=== PATIENT | female | born 1945 | race Caucasian/White ===

== ENCOUNTER 2017-03-30 09:11 | Day surgery (SDC) | payer MEDICARE, OTHER, SELFPAY ==
[2017-03-30 09:50] VITALS: BP 120/70; PULSE 67; RESP 16; TEMP 36.4; O2SAT 98; BMI 31.2
[2017-03-30] MEDS: Cefazolin 2 GM in 0.9% Normal Saline 100 ML IV (11:05)
--- NOTE | 2017-03-30 11:12 | PCM.DC.URO ---
Discharge Diet: Light diet - advance as tolerated Discharge Activity: Return to Normal Activity Instructions: Shock Wave Lithotripsy Allergies/Adverse Reactions: Allergies aloe Allergy (Verified 03/14/17 14:05) Rash erythromycin base Allergy (Verified 03/14/17 14:05) Unknown Penicillins Allergy (Verified 03/14/17 14:05) Unknown Sulfa (Sulfonamide Antibiotics) Allergy (Verified 03/14/17 14:05) Unknown vitamin E (d-alpha tocopherol) Allergy (Verified 03/14/17 14:05) Rash Medications to take at Discharge Amlodipine [Norvasc] 5 mg PO DAILY 04/13/16 Levothyroxine [Synthroid] 50 mcg PO DAILY 04/13/16 PredniSONE 5 mg PO DAILY 04/13/16 Aspirin E.C. [Ecotrin] 325 mg PO DAILY@0800 #60 tab 04/15/16 methotrexate sodium 2.5 mg tablet 15 mg PO QWEEK tab 03/07/17 metoprolol tartrate 25 mg tablet 12.5 mg PO BID tab 03/08/17 Folic Acid 1 mg PO SUMOTUWETHFR 03/14/17 Hydrocodone/Acetaminophen [[place] 5-325 Tablet] 1 ea PO Q4H PRN PRN #14 tab 03/30/17 The following prescriptions were given: Hydrocodone/Acetaminophen [[place] 5-325 Tablet] 1 ea PO Q4H PRN PRN #14 tab PRN Reason: Pain Primary Care Physician: Felix Mart [Primary Care Provider] - Please Follow Up With: Jovani Marley MD When: in 2 weeks, please call to make an appointment.
--- NOTE | 2017-03-30 11:16 | DCINST_ITS ---
Discharge Diet: Light diet - advance as tolerated Discharge Activity: Return to Normal Activity Instructions: Shock Wave Lithotripsy Allergies/Adverse Reactions: Allergies aloe Allergy (Verified 03/14/17 14:05) Rash erythromycin base Allergy (Verified 03/14/17 14:05) Unknown Penicillins Allergy (Verified 03/14/17 14:05) Unknown Sulfa (Sulfonamide Antibiotics) Allergy (Verified 03/14/17 14:05) Unknown vitamin E (d-alpha tocopherol) Allergy (Verified 03/14/17 14:05) Rash Medications to take at Discharge Amlodipine [Norvasc] 5 mg PO DAILY 04/13/16 Levothyroxine [Synthroid] 50 mcg PO DAILY 04/13/16 PredniSONE 5 mg PO DAILY 04/13/16 Aspirin E.C. [Ecotrin] 325 mg PO DAILY@0800 #60 tab 04/15/16 methotrexate sodium 2.5 mg tablet 15 mg PO QWEEK tab 03/07/17 metoprolol tartrate 25 mg tablet 12.5 mg PO BID tab 03/08/17 Folic Acid 1 mg PO SUMOTUWETHFR 03/14/17 Hydrocodone/Acetaminophen [[place] 5-325 Tablet] 1 ea PO Q4H PRN PRN #14 tab 03/30 The following prescriptions were given: Hydrocodone/Acetaminophen [[place] 5-325 Tablet] 1 ea PO Q4H PRN PRN #14 tab PRN Reason: Pain Primary Care Physician: Felix Mart [Primary Care Provider] - Please Follow Up With: Jovani Marley MD When: in 2 weeks, please call to make an appointment.
--- NOTE | 2017-03-30 11:42 | PCM.OPRPT ---
Problem List (1) Right kidney stone Status: Acute Report of Operation Date of Procedure: 03/30/17 Pre-Operative Diagnosis: Right renal calculi Post-Operative Diagnosis: Same Surgery/Procedure Performed:: Right extracorporeal shockwave lithotripsy Description of Surgical Findings:: 72-year-old female was taken back to the operating room after smooth induction of general anesthesia she was placed in supine on the lithotripter table about a 7 8 mm stone was localized in the right kidney. We positioned the stone in the F2 focal point of the lithotripter. 3000 shockwaves were delivered to the stone at a rate of 120 power up to 5 and 6. At the end of the treatment cycle the stone had broken up into multiple little pieces that should pass on their own. Decided not to leave a stent in. Patient's anesthetic was reversed and she was taken back to the PACU in good condition. Type of Anesthesia:: General Drains: none - Admit VTE Documentation VTE Present on Admission: No VTE Mechan Device Prophylaxis: SCD's
[2017-03-30 11:51] VITALS: BP 120/70; BP 126/61; PULSE 63; RESP 16; TEMP 37.1; O2SAT 100
[2017-03-30 12:00] VITALS: BP 119/67; BP 120/70; PULSE 63; RESP 16; O2SAT 97
[2017-03-30 12:13] VITALS: BP 120/70; BP 139/66; PULSE 61; RESP 18; O2SAT 100
[2017-03-30 12:22] VITALS: BP 120/70; BP 134/61; PULSE 71; RESP 18; TEMP 35.9; O2SAT 100
[2017-03-30] MEDS: Ketorolac 15 MG/ML Vial IV (12:50)
[2017-03-30 12:56] VITALS: BP 120/70
== END 2017-03-30 13:39 | disposition home or self-care (01) ==
LOC: SDC 09:12 → AC 09:14
PROVIDERS: Family Provider Family Medicine; PCP Family Medicine; Visit Provider Urology
PROC: (CPT 50590; principal; 2017-03-30 11:15)
DX: N20.0 Calculus of kidney (principal); D64.9 Anemia, unspecified; I10 Essential (primary) hypertension; E03.9 Hypothyroidism, unspecified; M06.9 Rheumatoid arthritis, unspecified; Z87.440 Personal history of urinary (tract) infections; Z87.442 Personal history of urinary calculi; Z79.82 Long term (current) use of aspirin; Z79.899 Other long term (current) drug therapy
CPT/HCPCS: 00873; 50590; J7120; J2405

== ENCOUNTER → 2017-04-12 09:54 | Outpatient (CLI) | payer MEDICARE, OTHER, SELFPAY ==
--- NOTE | 2017-04-12 10:05 | RAD_ITS ---
STUDY: X-RAY - ABDOMEN/PELVIS REASON FOR EXAM: Female, 72 years old. History of kidney stones. TECHNIQUE: Single AP view of the abdomen / pelvis. COMPARISON: Comparison is made with prior study dated February 22, 2017. FINDINGS: There is an abundance of fecal material throughout the colon. No definite calcified stones are seen in the kidneys or course of the ureters on this examination. Normal soft tissue structures. There are diffuse degenerative changes of the visualized lumbar spine. Levoscoliosis. RAD/Abdomen Single View IMPRESSION: Large amount of fecal material is seen in the colon. Electronically Signed: Fredrick Cantrell MD at 13:19 EST Tel [phone], Service support ,
== END ==
PROVIDERS: Family Provider Family Medicine; PCP Family Medicine; Visit Provider Urology
DX: N20.0 Calculus of kidney (principal)
CPT/HCPCS: 74018

== ENCOUNTER 2018-04-02 06:10 | Inpatient (IN) | payer MEDICARE, OTHER, SELFPAY ==
[2018-03-20 10:56] VITALS: BP 152/84; PULSE 72; RESP 16; TEMP 36.9; O2SAT 97; BMI 31.2
--- NOTE | 2018-03-20 11:19 | SDCEKG_ITS ---
Test Reason : Blood Pressure : / mmHG Vent. Rate : 073 BPM Atrial Rate : 073 BPM P-R Int : 116 ms QRS Dur : 078 ms QT Int : 368 ms P-R-T Axes : 061 027 073 degrees QTc Int : 405 ms Normal sinus rhythm Normal ECG Confirmed by EMELY BABB, WILSON ([id number]), fan mail editor MARIA D HILL ([id number]) on 03/21/2018 4:03:56 PM Referred By: Oziel Platt Confirmed By:WILSON HAN MD
[2018-03-20 11:52] LABS: Absolute Lymphocyte Count 2.01 X10^3/ul (0.83-4.51); Absolute Neutrophil Count 4.2 X10^3/uL (2.0-7.7); Basophil# 0.05 X10^3/uL; Basophil% 0.7 % (0-1); Eosinophil# 0.34 X10^3/uL; Eosinophils% 4.5 % (0-5); Hematocrit 38.1 % (37-47); Hemoglobin 11.6 g/dl (12.0-15.0); Lymphocyte # 2.01 X10^3/ul (4.0); Lymphocyte % 26.9 % (19-41); Mean Corp Hgb Conc 30.4 g/gl (32-36); Mean Corpuscular Hgb 28.1 pg (27.0-32.0); Mean Corpuscular Volume 92.3 fL (81-99); Mean Platelet Vol. 11.9 fl (6.2-12.0); Monocyte# 0.89 X10^3/uL; Monocyte% 11.9 % (0-10); Neutrophil # 4.17 X10^3/uL (2.7-7.7); Neutrophil % 55.7 % (47-70); Platelet Count 269 K/mm3 (150-450); RBC Distribution Width CV 14.8 % (11.6-14.6); Red Blood Count 4.13 M/mm3 (4.2-5.4); White Blood Count 7.5 K/mm3 (4.4-11.0)
[2018-03-20 11:53] LABS: POSITIVE COUNT NO; POSITIVE DIFFERENTIAL NO; POSITIVE MORPHOLOGY NO
[2018-03-20 12:21] LABS: Anion Gap 7 (5-15); BUN 21 mg/dL (7-18); BUN/Creat Ratio 25.8 RATIO (10-20); Calcium,Total 8.6 mg/dL (8.5-10.1); Chloride 107 mmol/L (98-107); Creatinine, Serum 0.81 mg/dL (0.55-1.02); EST Glomerular Filtration Rate 74 mL/min (>60); Est Glom Filt Rate - Afr Amer 89 mL/min (>60); Glucose 98 mg/dL (74-106); Potassium 3.5 mmol/L (3.5-5.1); Sodium Level 140 mmol/L (136-145)
--- NOTE | 2018-03-20 13:41 | PCM.HP.BLA ---
History and Physical DATE OF SURGERY: 04/02/2018 SCHEDULED PROCEDURE: right total knee arthroplasty HISTORY OF PRESENT ILLNESS: This is a 73-year-old female who has been having ongoing pain in bilateral knees for several years duration. She states it recently has become more progressive. She states her right knee is worse than her left knee. Patient reports her pain to be constant, aching, sharp, stabbing, and sore. She has increased pain going up and down stairs, driving, sitting for extended periods of time, and walking. Patient has difficult time with activity of daily living including housework, shopping, and leisure activities. She feels unsafe driving due to the pain. Patient complains of pain over the medial aspect of bilateral knees. Pain does awaken her at night. Patient has tried previous conservative measures consisting of ice and heat with minimal relief. She has tried rest and elevation with no relief. Patient has had previous corticosteroid injection with only 3-4 weeks of relief. Patient is tried oral medications consisting of Tylenol and Aleve. 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 Patient also sees Dr. Almanzar (cardiology). Patient has had previous history of paroxysmal atrial fibrillation and currently is treated for hypertension. She currently uses aspirin 325 mg daily. Patient currently denies any chest pain, shortness of breath, fevers chills, recent infections. Patient has also tried acupuncture as well as knee sleeves without relief. After failing conservative measures and discussing all treatment options with Dr. Oziel Platt, the patient does wish to proceed with a right total knee arthroplasty. REVIEW OF SYSTEMS: ROS: Const: Denies change in appetite, fever and weight change. CV: Reports irregular heartbeat, but denies chest pain and heart murmur. Resp: Reports shortness of breath, but denies cough, pneumonia, tuberculosis and wheezing. GI: Reports diarrhea and nausea, but denies constipation, heartburn, rectal itching, bloody stools and vomiting. : Reports incontinence. Musculo: Reports gait disturbance, leg swelling and trouble walking, but denies pain and weakness. Skin: Reports history of shingles, but denies Raynaud's and tattoo. Neuro: Denies ambulatory dysfunction, dizziness, numbness/tingling and tremor. Psych: Denies anxiety, insomnia and stress. Ravi/Lymph: Denies anemia, bleeding/bruising tendency and past transfusion. Reviewed, no changes. PAST MEDICAL HISTORY: Advance Care Plan: Other Directive, POA Effective Date: 12/27/2017 PMH: Medical Problems: Arthritis - RA High Blood Pressure, Kidney Stones, Osteoporosis, Atrial fibrillation Accidents: Fracture - (2014) RT. ankle, broken in sleep. Dr. Rainey Surgical Hx: Tubal Ligation - (1983) [facility] Kidney Stones - (2016) 2018, [facility] Dr. Marley Anesthesia Complications: Vomiting Assistive Devices: Glasses Reviewed and updated. SOCIAL HISTORY: SH: Marital: .Occupation: Retired.Work Status: Retired.Hand Dominance: Right-handed. Personal Habits: Cigarette Use: Never Smoked Cigarettes.Smokeless Tobacco: Never Used Smokeless Tobacco.Alcohol: Occasionally.Drug Use: Denies Use.Enjoy Exercising: Never Exercises. Reviewed, no changes. VITALS: Ht: 59.5 Wt: 159lb Wt k.122 BMI: 31.6 BP: 180/88 Pulse: 64 Resp: 18 T: 96.9 T: 36.1C ALLERGIES: Metals - swelling, redness, pain Aloe Vera - redness, swelling Vitamin E - redness, swelling Penicillin Sulfa Erythromycin MEDICATIONS: Synthroid 50 mcg 1 tab daily, Amlodipine Besylate 5 mg 1 by mouth every day, Lotrisone 1-0.05 % prm, apply to effected area twice a day, Arava 20 mg 1 tab daily, Aspirin 325 mg 1 by mouth every day, Metoprolol Tartrate 12.5 mg twice daily, Evening [place] Oil 500 mg 1 tab daily, Multi Vitamin daily, Vitamin D 3000 Unit 1 by mouth every day, L-Lysine 500 mg 1 tab daily, Fergon 240 (27 Fe) MG 1 tab daily, Prednisone 5 mg 1po qday PRE-OP EXAM: General appearance:NORMAL Other: Eyes: Conjunctivae and lids: NORMAL Pupils: ERR Ears, Nose, Mouth, and Throat: NORMAL Other: Inspection of lips, teeth and gums: NORMAL Other: Neck: Examination of neck: no masses noted. Respiratory: Assessment of respiratory effort: NORMAL Other: Auscultation of lungs: clear to auscultation no wheezes, rhonchi or rales. Cardiovascular: Auscultation of heart: regular rate and rhythm, no murmurs, gallops or rubs. Exam of carotid arteries: NORMAL Other: Gastrointestinal: Exam of abdomen: soft, nontender, nondistended bowel sounds present. PHYSICAL EXAMINATION: Patient currently walks with an antalgic gait. She has effusion to bilateral knees. Right knee has tenderness to palpation over the medial joint line. Patient has varus alignment. Range of motion 0 of extension to 125 flexion. Sensation intact to light touch. Neurovascularly intact. IMAGING STUDIES: X-rays were obtained at [facility] [place] on March 20, 2018 including 4 views bilateral weightbearing AP/tunnel, right sunrise, and right lateral reveals varus alignment with medial joint space narrowing, subchondral sclerosis, and osteophyte formation consistent with severe osteoarthritis. Left knee reveals varus alignment with medial joint space narrowing, subchondral sclerosis, and osteophyte formation consistent with moderate to severe osteoarthritis. IMPRESSION: 1. Severe right knee osteoarthritis 2. Moderate to severe left knee osteoarthritis 3. Hypertension 4. History of paroxysmal atrial fibrillation 5. Rheumatoid arthritis: Currently uses prednisone daily and Arava 6. History of kidney stones PLAN: Dr. Oziel Platt did discuss and review with the patient all treatment options including surgical versus nonsurgical options. Patient does wish to proceed with the above-stated procedure. Potential risks, benefits, and complications of the procedure were discussed in detail including but not limited to , infection, nerve and blood vessel damage, persistent pain, numbness, tingling, paresthesias, blood clot, pulmonary embolism, and requirement for possible further surgery. The patient expressed full understanding and has no further questions for the doctor. Patient does agree to proceed with the above-stated procedure and has signed the surgery consent form. Patient has already stopped her Arava 2 weeks ago and recommended to hold off of taking this medication until 2 weeks postoperatively. This dictation was created using voice recognition software. Phonetic and/or grammatical errors may exist.. ___ I have re-examined the patient. There are no clinical changes since date of exam. ___ See progress notes for changes. ___ Dictated on admission Date: Time: Signature:
--- NOTE | 2018-03-29 12:31 | CASEMGMT ---
Call placed to patient to discuss discharge needs after upcoming surgery. Patient plans to return home with assist from . Patient is working on setting up outpatient physical therapy with [facility]. Patient is expecting a phone call from [facility] today; will have 2 weeks of in-home PT and then will go to their building. will assist with transportation to/from therapy. Patient has a walker, shower seat, high-rise toilet. There is a bedroom and bathroom on the 1st level of the home. There are 2 steps into home from garage. Informed patient that RN-CM will likely follow up after surgery. Krystin Valencia LPN Clinical Support
[2018-04-02] VITALS (11 sets, daily range): BP systolic 102–144; BP diastolic 50–88; PULSE 67–86; RESP 12–18; TEMP 36.2–37.2; O2SAT 91–100; BMI 31.2; BMI 31.7
--- NOTE | 2018-04-02 06:39 | RAD_ITS ---
STUDY: X-RAY - RIGHT KNEE REASON FOR EXAM: Female, 73 years old. Total knee replacement. TECHNIQUE: 2 view(s) of the knee. COMPARISON: None. FINDINGS: Normal visualized distal femur. Normal visualized proximal tibia and fibula. Normal proximal tibiofibular articulation. The patient is status post total knee replacement. There is good alignment. Postoperative soft tissue changes. RAD/Knee 1 or 2 Views IMPRESSION: Status post total knee replacement. There is good alignment. Postoperative soft tissue changes. Electronically Signed: Fredrick Cantrell MD at 15:07 EST , Service support ,
[2018-04-02] MEDS: Lactated Ringers 1,000 ML 999 ML IV (06:40)
[2018-04-02] MEDS: Acetaminophen 500 MG Tablet 1000 MG PO ×3 (06:59→21:12)
--- NOTE | 2018-04-02 07:22 | OP.PCM_ITS ---
Report of Operation Date of Procedure: 04/02/18 Pre-Operative Diagnosis: Right knee primary osteoarthritis Post-Operative Diagnosis: Right knee primary osteoarthritis Surgery/Procedure Performed:: Right total knee replacement Description of Surgical Findings:: Stable knee with good patella tracking quantitative researcher: Adam Nieto Type of Anesthesia:: Spinal Anesthesiologist: aDvid Lam Special Medications: 600 milligrams clindamycin, 1 g TXA at incision, 1 g TXA closure, 10 mg Decadron, joint cocktail (5 mg Duramorph, 30 mL of 0.5% Ropivi feli, 1000 units of epinephrine, 30 mg of Toradol) Estimated Blood Loss (mL): 25 Fluids Replaced: 700 mL crystalloid Description of Procedure: Implants used: 1. Valverde & Nephew journey 2 size 3 cruciate retaining distal femoral component 2. Valverde and nephew size 3 right tibial baseplate 3. Valverde & Nephew 9 mm CS polyethylene 4. Valverde & Nephew 32 Pratibha 2 mm asymmetric patella Brief history operative indications: 73-year-old F with history of right knee osteoarthritis with radiographic findings with loss of joint space, osteophyte formation and subchondral sclerosis. Failed conservative measures as mentioned in the H&P. Discussion of total knee arthroplasty as well as risk and benefits were discussed the patient including but not limited to blood loss, DVTs, PEs, neurovascular damage, general risk of anesthesia including loss of life, and stiffness or instability were discussed with patient. Patient demonstrated understanding and was able to sign informed consent. Procedure: On the date of procedure patient's right lower extremity was marked in the preoperative area. The patient was then taken back to the operating room where the patient was placed on the table in the supine position. All bony prominences were identified a well-padded. Anesthesia assumed control of the C-spine and airway and remained controlled throughout the remainder of the procedure. A tourniquet was placed on the right upper thigh and the leg was prepped in a sterile fashion. The surgeon then scrubbed at this time. Upon reentering the room the right lower extremity was draped in a standard orthopedic fashion. A timeout was then called and everyone agreed upon the side, the site, the procedure to be performed, patient's identity and antibiotics given. Esmarch bandage was used to exsanguinate the extremity and the tourniquet was placed up to 250 mmHg with the knee in flexion. A midline skin incision was made and sharp dissection was taken down through skin subcutaneous tissue and fat. The standard medial parapatellar incision was made and the patella was subluxed laterally. The standard deep MCL release was done and the fat pad was resected. Next our attention was directed to the femur. Navigation pins were placed, navigation was registered. The distal femoral cutting block was pinned into place and 9 mm of distal femur resection was completed. The distal femoral cut was verified with navigation. The knee was then placed in deep flexion in the standard Mosaic sizing guide was used to place the femoral component in 3? external rotation based on the posterior condyles. A size 3 4-in-1 cutting block was selected and pinned into place. The anterior cut was then made and checked for notching. The subsequent anterior chamfer cuts, posterior condylar cuts and posterior chamfer cuts were made while ensuring the MCL and LCL were protected. Our attention was then turned to the tibia where the navigation pins were placed, navigation was registered. [employer] tibial cutting guide was used to make the appropriate tibial cut 90 degrees from the mechanical axis. Navigation was then used to verify the cut. A size 3 tibial base plate was selected. the knee was flexed to 90 degrees and the soft tissues and posterior osteophytes were removed from the joint. 40 cc of the periarticular injection was injected into the posterior medial corner of the joint. The appropriate trials were then placed on the femur and tibia. A trial polyethylene was trialed to ensure proper balancing and stability of the knee. Patella tracking, was then verified and corrected appropriately as needed. The appropriate tibial internal rotation was then marked with a bovie. Our attention was then directed to the patella. The patella was everted and a flat resection was made. The lug holes were drilled and the patella trial was placed. Patellar tracking was checked and deemed appropriate. Once we were happy lug holes were drilled for the femur and trial components were removed. the tibia was subluxed and pinned into place and the keel was punched and the canal was reamed. Final components were verified and opened, and cement was mixed in a vacuum. Arden Simplex cement was used. The wound was copiously irrigated with normal saline. When the cement was ready the components were cemented into place starting with the tibia, femur and finally the patella. The trial poly component was placed and the knee was placed in full extension. All excess cement was removed in the process. Once the cement had cured the tracking, alignment and balance were verified and a size 9 mm polyethylene component was placed. Once the final components were placed the wound was copiously irrigated with normal saline solution and the periarticular injection was given. The wound was closed in a layer merritt fashion using #1 vicryl interrupted sutures for the arthrotomy, 2-0 interrupted Vicryl suture for the subcuticular layer and emmanuel for final skin closure. A sterile compressive dressing was then placed. The patient was then awakened from anesthesia, transferred to the [facility] [place] and transferred to the PACU for recovery. Post op plan DVT ppx: ASA 81mg, thigh high compression stockings Follow up: in office in 2 weeks for wound check PT: to start POD #0 at hospital, outpatient PT should be arranged. My physician certified registered dental assistant was a vital part of this case. He was important in appropriate retraction during the case, and protection of soft tissues during bony cuts. His intimate knowledge of the case and my steps aided in safe and expedient completion of the procedure as well as appropriate position of the leg during the case. He was also vital in assisting with closure under my direct supervision. Grafts/Implants Used: Valverde & Nephew journey 2 - Complications None - Admit VTE Documentation VTE Present on Admission: No VTE Mechan Device Prophylaxis: SCD's, Thigh High XANDER Hose VTE Pharm Prophylaxis ordered?: Yes
[2018-04-02] MEDS: Scopolamine 1mg/72hr Patch 1 PATCH TD (07:30)
[2018-04-02] MEDS: Ondansetron 4 MG/2 ML Vial IV (11:50)
[2018-04-02] MEDS: Morphine 2 MG/ML Syringe IV (11:50)
[2018-04-02] MEDS: Lactated Ringers 1,000 ML 125 ML IV ×2 (13:30→21:08)
--- NOTE | 2018-04-02 13:30 | CASEMGMT ---
ALDAIR ALEX Face to Face with patient for initial transition planning/care coordination assessment. RN CM introduced self and role at [facility]. Patient lying in bed, alert and oriented, patient at bedside. Patient willing to participate in assessment and is able to answer all questions appropriately. Care providers, pharmacy, and demographics verified. Patient wishes to discharge home and has home therapy setup through [facility] for Sunday. Patient will transition to outpatient therapy with providing transportation. Patient states she has no further needs or concerns at this time. CM to follow for discharge planning needs that may arise. PCP: [facility] Specialists: Rodrick, digital circuit designer; Yohan, rn international; roger Platt [facility] Insurance: [facility] [place] [facility] [place] Prescription Benefit: Yes Living Will/HPOA: Yes, Erik Villarreal LNOK: Living Arrangements: Patient lives with in house with bed and bath on first floor. Patient independent at home prior to hospitalization Transportation: DME/HHC: Patient has walker, toilet riser, shower chair at home. Disposition Plan: Patient to discharge home with home therapy, family support, and follow-up plans in place. Loni CARDOZO, RN, CM
[2018-04-02] MEDS: predniSONE 5 MG Tablet PO (15:46)
[2018-04-02] MEDS: Folic Acid 1 MG Tablet PO (15:46)
[2018-04-02] MEDS: Famotidine 20 MG Tablet PO (15:46)
[2018-04-02] MEDS: Ferrous Sulfate 325 MG Tablet PO (15:46)
[2018-04-02] MEDS: Metoprolol Tartrate 25 MG Tablet 12.5 MG PO (21:10)
[2018-04-02] MEDS: oxyCODONE 5 MG Tablet PO (21:11)
[2018-04-02] MEDS: Aspirin 81 MG TAB.CHEW PO (21:12)
[2018-04-02] MEDS: Meloxicam 7.5 MG Tablet PO (21:13)
[2018-04-02] MEDS: Senna/Docusate Sodium 1 Tablet 2 TABLET PO (21:13)
[2018-04-03] VITALS (7 sets, daily range): BP systolic 127–173; BP diastolic 60–81; PULSE 62–80; RESP 16–18; TEMP 36.6–36.9; O2SAT 94–98
[2018-04-03] MEDS: Ketorolac 15 MG/ML Vial IV ×3 (00:47→22:04)
[2018-04-03] MEDS: oxyCODONE 5 MG Tablet PO ×5 (02:45→20:25)
[2018-04-03 05:53] LABS: Hematocrit 30.8 % (37-47); Hemoglobin 9.5 g/dl (12.0-15.0); Mean Corp Hgb Conc 30.8 g/gl (32-36); Mean Corpuscular Hgb 28.5 pg (27.0-32.0); Mean Corpuscular Volume 92.5 fL (81-99); Mean Platelet Vol. 12.4 fl (6.2-12.0); Platelet Count 227 K/mm3 (150-450); RBC Distribution Width CV 14.6 % (11.6-14.6); Red Blood Count 3.33 M/mm3 (4.2-5.4); Scan Indicated on CBC? Y/N NO
[2018-04-03 06:00] LABS: Anion Gap 8 (5-15); BUN 14 mg/dL (7-18); BUN/Creat Ratio 18.2 RATIO (10-20); Chloride 108 mmol/L (98-107); Creatinine, Serum 0.77 mg/dL (0.55-1.02); EST Glomerular Filtration Rate 79 mL/min (>60); Est Glom Filt Rate - Afr Amer 95 mL/min (>60); Estimated Creatinine Clearance 58.08 ml/min; Glucose 157 mg/dL (74-106); Potassium 4.1 mmol/L (3.5-5.1); Sodium Level 143 mmol/L (136-145)
[2018-04-03] MEDS: Acetaminophen 500 MG Tablet 1000 MG PO ×3 (06:20→21:52)
[2018-04-03] MEDS: Levothyroxine 50 MCG Tablet PO (06:20)
--- NOTE | 2018-04-03 06:51 | PN.ORTHO_ITS ---
Subjective: The patient was sitting in bed upon examination. Patient denies any chest pain, shortness of breath, dizziness, lightheadedness, nausea or vomiting, or calf pain. Pain is controlled on medications. No adverse overnight events. Overall patient is doing very well with regards to pain. Plan will be for possible discharge home today if pain is controlled. Objective: Vital signs stable and afebrile. Patient is able to plantarflex and dorsiflex actively. Sensation is intact to light touch to saphenous, sural, superficial and deep peroneal, and tibial distribution. Dressing is with very minimal discharge over middle one third, otherwise dry and intact. Negative Homans bilaterally, negative signs and symptoms of DVT. - Physical Exam General: Alert, Oriented x3, Cooperative, No apparent distress Vital Signs Temp Pulse Resp BP Pulse Ox 98.3 F 63 16 127/60 H 94 04/03/18 02:16 04/03/18 02:16 04/03/18 02:16 04/03/18 02:16 04/03/18 02:16 Oxygen Flow Rate (L/min) 3 Oxygen Delivery Method Room Air Weight: 71.3 kg Body Mass Index (BMI) 31.7 Intake and Output for Last 24 Hours 04/01/18 04/02/18 04/03/18 23:59 23:59 23:59 Intake Total 2740 / 2740 2773 / 2773 Balance 2740 / 2740 2773 / 2773 Laboratory Tests Past 24 Hrs 04/03/18 04/03/18 05:18 05:18 WBC 13.0 H RBC 3.33 L Hgb 9.5 L Hct 30.8 L MCV 92.5 MCH 28.5 MCHC 30.8 L RDW 14.6 RDW Differential 48.0 H Plt Count 227 MPV 12.4 H Sodium 143 Potassium 4.1 Chloride 108 H Carbon Dioxide 27.0 Anion Gap 8 BUN 14 Creatinine 0.77 Estim Creat Clear Calc 58.08 Est GFR (MDRD) Af Amer 95 Est GFR (MDRD) Non-Af 79 BUN/Creatinine Ratio 18.2 Glucose 157 H Calcium 8.0 L Medical Necessity - Tobacco Use Smoking Status: Never smoker Assessment/Plan All Active Problems (Last Reviewed 03/08/17 @ 10:51 by Epifanio Teran) Right kidney stone (Acute) Atrial fibrillation with rapid ventricular response (Acute) 1. S/P right total knee arthroplasty POD #1 2. Continue Pain Medications: Tylenol and OxyIR 3. DVT Prophylaxis: Aspirin 325 mg twice daily for DVT prophylaxis. Patient was already taking 325 mg aspirin prior to surgery from her digital x ray service engineer 4. PT/OT: Weightbearing as tolerated 5. H & H: 9.5/30.8, asymptomatic 7. Reactive leukocytosis: Currently 13.0, afebrile. Patient did receive Decadron intraoperatively 8. Encouraged Incentive Spirometry 9. Disposition: Plan will be for possible discharge home today if patient tolerates physical therapy and pain is well controlled. Prescriptions will be attached to chart. Patient will follow-up per postop instructions.
--- NOTE | 2018-04-03 06:55 | PCM.DC.TKR ---
Discharge Diet: No Restrictions Discharge Activity: May Not Drive May shower in (days): 2 Ice area for (Minutes): 20 - every hour while awake. Weight Bearing Status: Weight bearing as tolerated Elevate: Operative Extremity Additional Activity Instructions:: Wear elastic stockings for 2 weeks after your surgery. Call your doctor if your incision/area has: Continuous Slow Oozing, Sudden Increased Bleeding, Increased Pain/ Swelling, Increased Redness, Foul Smelling Discharge Call your doctor if you observe: Fever of 101 or Higher, Coldness, Increased Pain, Numbness or Tingling, Change in Color, Calf discomfort, Uncontrolled pain Remove Dressing in (days):: 4 - Okay to remove dressing on Additional Instructions: Follow [facility] postop instructions Do not take Arava until 2 weeks postoperatively as long as incision is healing well. Take aspirin 325 mg twice daily for DVT prophylaxis for 2 weeks. Continue with the famotidine while taking the aspirin. Allergies/Adverse Reactions: Allergies aloe Allergy (Verified 04/02/18 06:49) Rash erythromycin base Allergy (Verified 04/02/18 06:49) Unknown Penicillins Allergy (Verified 04/02/18 06:49) Unknown Sulfa (Sulfonamide Antibiotics) Allergy (Verified 04/02/18 06:49) Unknown vitamin E (d-alpha tocopherol) Allergy (Verified 04/02/18 06:49) Rash METALS Allergy (Uncoded 04/02/18 06:49) Rash Medications to take at Discharge Amlodipine [Norvasc] 5 mg PO DAILY 04/13/16 Levothyroxine [Synthroid] 50 mcg PO DAILY 04/13/16 predniSONE tablet 5 mg PO DAILY 04/13/16 Cholecalciferol (Vitamin D3) [Vitamin D3] 6,000 unit PO DAILY 03/20/18 Metoprolol Tartrate 12.5 mg PO BID 03/20/18 Acetaminophen [Tylenol] 1,000 mg PO Q8 #90 tab 04/03/18 Aspirin 325 mg PO BIDCM #60 tab 04/03/18 Famotidine [Pepcid] 20 mg PO DAILY #30 tab 04/03/18 Oxycodone [Oxyir] 5 - 10 mg PO Q4H PRN PRN 5 Days #60 tab 04/03/18 Senna/Docusate Sodium [Senokot-S] 2 tab PO BID #20 tab 04/03/18 The following prescriptions were given: Oxycodone [Oxyir] 5 - 10 mg PO Q4H PRN PRN 5 Days #60 tab PRN Reason: Mod-Severe Pain (-12/12) Acetaminophen [Tylenol] 1,000 mg PO Q8 #90 tab Famotidine [Pepcid] 20 mg PO DAILY #30 tab Aspirin 325 mg PO BIDCM #60 tab Senna/Docusate Sodium [Senokot-S] 2 tab PO BID #20 tab Primary Care Physician: Felix Mart MD [Primary Care Provider] - Test Results: Test results from this visit will be discussed in further detail at your follow-up appointment, if applicable. Please Follow Up With: [facility] When: 04/05/18 @ 1:00 pm Please Follow Up With: Adam Nieto PA-C When: 04/15/18 @ 2:15 pm
[2018-04-03] MEDS: Senna/Docusate Sodium 1 Tablet 2 TABLET PO ×2 (08:18→21:51)
[2018-04-03] MEDS: amLODIPine 5 MG Tablet PO (08:18)
[2018-04-03] MEDS: Famotidine 20 MG Tablet PO (08:18)
[2018-04-03] MEDS: Folic Acid 1 MG Tablet PO ×2 (08:19→17:26)
[2018-04-03] MEDS: Ferrous Sulfate 325 MG Tablet PO ×2 (08:19→17:26)
[2018-04-03] MEDS: Metoprolol Tartrate 25 MG Tablet 12.5 MG PO ×2 (08:19→21:51)
[2018-04-03] MEDS: Aspirin 325 MG Tablet PO ×2 (08:22→17:26)
[2018-04-03] MEDS: predniSONE 5 MG Tablet PO (13:44)
[2018-04-03] MEDS: Ondansetron 4 MG/2 ML Vial IV (15:44)
[2018-04-03] MEDS: 0.9% NaCl Peripheral Flush Adult/Peds IV ×2 (16:03→22:04)
[2018-04-04] MEDS: oxyCODONE 5 MG Tablet PO ×4 (00:34→13:03)
[2018-04-04 04:31] VITALS: BP 150/64; PULSE 66; RESP 18; TEMP 37.3; O2SAT 95
[2018-04-04] MEDS: Acetaminophen 500 MG Tablet 1000 MG PO ×2 (04:34→13:04)
[2018-04-04] MEDS: Levothyroxine 50 MCG Tablet PO (04:35)
[2018-04-04 06:18] LABS: Hematocrit 30.9 % (37-47); Hemoglobin 9.5 g/dl (12.0-15.0); Mean Corp Hgb Conc 30.7 g/gl (32-36); Mean Corpuscular Hgb 28.5 pg (27.0-32.0); Mean Corpuscular Volume 92.8 fL (81-99); Mean Platelet Vol. 12.8 fl (6.2-12.0); Platelet Count 216 K/mm3 (150-450); RBC Distribution Width SD 49.2 fl (35.1-43.9); Red Blood Count 3.33 M/mm3 (4.2-5.4); White Blood Count 10.8 K/mm3 (4.4-11.0)
[2018-04-04 06:20] LABS: Scan Indicated on CBC? Y/N NO
[2018-04-04 07:54] VITALS: O2SAT 95
[2018-04-04 07:55] VITALS: O2SAT 95
--- NOTE | 2018-04-04 09:52 | PCM.PN.ORT ---
Subjective: The patient was sitting in bed side chair upon examination. Patient denies any chest pain, shortness of breath, dizziness, lightheadedness, nausea or vomiting, or calf pain. Pain is controlled on medications. No adverse overnight events. Patient was planning on going home yesterday but had significant cramping and pain in the right lower extremity. This is much better today. Patient is ready for discharge home today. Objective: Vital signs stable and afebrile. Patient is able to plantarflex and dorsiflex actively. Sensation is intact to light touch to saphenous, sural, superficial and deep peroneal, and tibial distribution. Dressing is with minimal discharge over the middle one third which is been stable from yesterday Negative Homans bilaterally, negative signs and symptoms of DVT. - Physical Exam General: Alert, Oriented x3, Cooperative, No apparent distress Vital Signs Temp Pulse Resp BP Pulse Ox 99.2 F H 66 18 150/64 H 95 04/04/18 04:31 04/04/18 04:31 04/04/18 04:31 04/04/18 04:31 04/04/18 07:55 Oxygen Flow Rate (L/min) 2 Oxygen Delivery Method Room Air Weight: 71.3 kg Body Mass Index (BMI) 31.7 Intake and Output for Last 24 Hours 04/02/18 04/03/18 04/04/18 23:59 23:59 23:59 Intake Total 2740 / 2740 4623 / 4623 1300 / 1300 Balance 2740 / 2740 4623 / 4623 1300 / 1300 Laboratory Tests Past 24 Hrs 04/04/18 05:18 WBC 10.8 RBC 3.33 L Hgb 9.5 L Hct 30.9 L MCV 92.8 MCH 28.5 MCHC 30.7 L RDW 15.0 H RDW Differential 49.2 H Plt Count 216 MPV 12.8 H Medical Necessity - Tobacco Use Smoking Status: Never smoker Assessment/Plan All Active Problems (Last Reviewed 03/08/17 @ 10:51 by Epifanio Teran) Right kidney stone (Acute) Atrial fibrillation with rapid ventricular response (Acute) 1. S/P right total knee arthroplasty POD #2 2. Continue Pain Medications: Tylenol and OxyIR 3. DVT Prophylaxis: Aspirin 325 mg twice daily for DVT prophylaxis. Patient was already taking 325 mg aspirin prior to surgery from her medical assistant ob gyn 4. PT/OT: Weightbearing as tolerated 5. H & H: 9.5/30.9, asymptomatic 7. Reactive leukocytosis: Resolved currently 10.8, afebrile. Patient did receive Decadron intraoperatively 8. Encouraged Incentive Spirometry 9. Disposition: Plan is for discharge home today. Prescriptions are attached to chart. Patient will follow-up per postop instructions.
[2018-04-04 10:00] VITALS: BP 142/67; PULSE 73; RESP 16; TEMP 37.1; O2SAT 93
[2018-04-04 10:07] VITALS: PULSE 73
[2018-04-04] MEDS: Metoprolol Tartrate 25 MG Tablet 12.5 MG PO (10:07)
[2018-04-04] MEDS: Famotidine 20 MG Tablet PO (10:07)
[2018-04-04] MEDS: predniSONE 5 MG Tablet PO (10:07)
[2018-04-04] MEDS: Senna/Docusate Sodium 1 Tablet 2 TABLET PO (10:07)
[2018-04-04] MEDS: amLODIPine 5 MG Tablet PO (10:07)
[2018-04-04] MEDS: Aspirin 325 MG Tablet PO (10:08)
[2018-04-04] MEDS: Folic Acid 1 MG Tablet PO (10:08)
[2018-04-04] MEDS: Ferrous Sulfate 325 MG Tablet PO (10:08)
[2018-04-04 13:00] VITALS: BP 118/64; PULSE 70; RESP 16; TEMP 36.9; O2SAT 93
== END 2018-04-04 15:37 | disposition home or self-care (01) | DRG 470 ==
LOC: MS3 06:11
PROVIDERS: Admitting Provider Specialist; Family Provider Family Medicine; PCP Family Medicine; Referring Provider Specialist; Visit Provider Specialist
PROC: 0SRC0J9 Replacement of Right Knee Joint with Synthetic Substitute, Cemented, Open Approach (ICD-10-PCS; CPT 27447; principal; 2018-04-02 07:45)
DX: M17.11 Unilateral primary osteoarthritis, right knee (principal); I10 Essential (primary) hypertension; M06.9 Rheumatoid arthritis, unspecified; Z86.79 Personal history of other diseases of the circulatory system; Z79.899 Other long term (current) drug therapy; Z87.442 Personal history of urinary calculi
CPT/HCPCS: 36415; 73560; 80048; 85025; 85027; 87077; 87081; 93005; 94762; 97110; 97162; 97166; 97530; 97535; 99251; C1776; J7120; A4216; G0463; J2405; J3475

== ENCOUNTER → 2018-05-28 13:40 | Outpatient (CLI) | payer MEDICARE, OTHER, SELFPAY ==
[2018-05-08 15:58] VITALS: BMI 31.7
--- NOTE | 2018-05-28 13:57 | RAD_ITS ---
STUDY: X-RAY - ABDOMEN/PELVIS REASON FOR EXAM: Female, 73 years old. LASER REMOVAL OF KIDNEY STONES MARCH 2017; NO COMPLAINTS TECHNIQUE: Two AP supine views of the abdomen and pelvis. COMPARISON: April 12, 2017 FINDINGS: Normal visualized lung bases. There is an unremarkable bowel gas pattern. There is moderate stool in the right colon. This may obscure underlying renal stones particularly in this case in association with the right kidney due to the overlap prominent stool in this area. There is no demonstrated free abdominal air. The visualized liver, spleen and kidneys are grossly normal in size and morphology. On this exam I do not see evidence of a calcification thought to be of renal origin. There are multiple phleboliths in the deep pelvis. This lowers the sensitivity of detection of distal ureteral calculi. Normal soft tissue structures. Diffuse degenerative spondylosis is noted with levoscoliosis of the lumbar spine. There is disc height loss most evident at L3-L4 with vacuum disc phenomenon and prominent right lateral osteophyte. RAD/Abdomen Single View IMPRESSION: Normal x-ray examination of the abdomen and pelvis. No demonstrated suspicious renal calculus. Electronically Signed: Ruma Tejeda MD at 10:14 EDT , Service support ,
== END ==
PROVIDERS: Family Provider Family Medicine; PCP Family Medicine; Referring Provider Urology; Visit Provider Urology
DX: N20.0 Calculus of kidney (principal)
CPT/HCPCS: 74018

== ENCOUNTER → 2018-09-03 | Outpatient (CLI) | payer MEDICARE, OTHER, SELFPAY ==
[2018-05-08 15:58] VITALS: BMI 31.7
--- NOTE | 2018-09-03 14:15 | RAD_ITS ---
STUDY: X-RAY - ABDOMEN/PELVIS REASON FOR EXAM: Female, 73 years old. Bilateral flank pain and hematuria. TECHNIQUE: Single AP view of the abdomen / pelvis. COMPARISON: Abdomen, May 28, 2018. FINDINGS: Normal visualized lung bases. There is an unremarkable bowel gas pattern. There is no demonstrated free abdominal air. The visualized liver, spleen and kidneys are grossly normal in size and morphology. Normal soft tissue structures. There is a levoscoliosis degenerative changes lumbar spine. RAD/Abdomen Single View IMPRESSION: No evidence of acute intra-abdominal or pelvic process. Electronically Signed: Onofre Ramos DO at 22:18 EDT Tel [phone], Service support ,
== END | disposition home or self-care (01) ==
LOC: RAD.FUTURE 14:15
PROVIDERS: Family Provider Family Medicine; PCP Family Medicine; Referring Provider Urology; Visit Provider Urology
DX: R31.9 Hematuria, unspecified (principal); R10.9 Unspecified abdominal pain
CPT/HCPCS: 74018

== ENCOUNTER → 2018-09-10 | Outpatient (CLI) | payer MEDICARE, OTHER, SELFPAY ==
[2018-05-08 15:58] VITALS: BMI 31.7
--- NOTE | 2018-09-10 07:47 | CT_ITS ---
STUDY: CT ABDOMEN AND PELVIS WITH AND WITHOUT CONTRAST REASON FOR EXAM: Female, 73 years old. Gross hematuria. History of kidney stones. RADIATION DOSAGE (If Supplied By Facility): CTDIvol = ( 13.65 ) mGy, DLP = ( 1388.17 ) mGycm TECHNIQUE: Transaxial images were obtained from the dome of the diaphragm to the symphysis pubis without oral contrast. 100 IV Isovue 300 was administered. Sagittal and coronal images were reconstructed. Individualized dose optimization techniques were used for this CT. COMPARISON: None. FINDINGS: The visualized lung bases are unremarkable. The visualized portions of the heart are within normal limits. Normal liver. Incidental liver cysts measuring up to 1.5 cm. Normal gallbladder and extrahepatic biliary system. Normal spleen. Normal pancreas. Normal bilateral adrenal glands. No acute abdomen is seen in the kidneys. Numerous bilateral renal stones are seen in all segments, measuring up to 3 mm. No current obstructing stones. No hydronephrosis. Evaluation of the GI tract is limited by absence of oral contrast. Cannot exclude stomach wall thickening. No dilated loops of bowel or evidence for obstruction. Cannot exclude segmental thickening of the aguirre of the small or large bowel. Cannot exclude enteritis or colitis. Moderate diffuse fecal retention. Diverticulosis without definite diverticulitis. Appendix within normal limits. There is diffuse atherosclerotic calcification of the abdominal aorta with elongation and tortuosity, but without a demonstrated aneurysm. Normal inferior vena cava. Normal retroperitoneum. Normal urinary bladder. There is atrophy of the uterus. There are uterine calcifications. Normal abdominal wall. There are diffuse degenerative changes of the visualized lumbar spine. There is mild levoconvex scoliosis. CT/CT Abd/Pelvis W/WO Contrast IMPRESSION: Numerous bilateral renal stones but no current obstructing stones are seen. Electronically Signed: Guanakito Wilson MD at 16:26 EDT , Service support ,
[2018-09-10 08:00] LABS: CREATININE FINGERSTICK 0.8 mg/dL (0.55-1.02)
== END | disposition home or self-care (01) ==
LOC: CT 07:45
PROVIDERS: Family Provider Family Medicine; PCP Family Medicine; Referring Provider Urology; Visit Provider Urology
DX: R31.0 Gross hematuria (principal)
CPT/HCPCS: 74178; Q9967

== ENCOUNTER 2021-06-16 13:48 | Outpatient (CLI) | payer MEDICARE, OTHER, SELFPAY ==
--- NOTE | 2021-06-16 13:52 | CDU_ITS ---
Reason For Study: carotid stenosis Rt. Velocities/BP Lt. Velocities/BP Prox CCA 54.2/12.4 cm/sec. Prox CCA 102.3/18.8 cm/sec. Mid CCA 76.1/19.0 cm/sec. Mid CCA 104.8/18.8 cm/sec. Dist CCA 73.9/17.9 cm/sec. Dist CCA 85.1/16.3 cm/sec. Prox ICA 193.8/42.4 cm/sec. Prox ICA 75.3/18.8 cm/sec. Mid ICA 122.9/33.4 cm/sec. Mid ICA 98.6/26.2 cm/sec. Dist ICA 99.2/26.1 cm/sec. Dist ICA 70.4/21.2 cm/sec. Rt. ICA/CCA = 2.5. Lt. ICA/CCA = .9. Prox ECA 80.6/11.3 cm/sec. Prox ECA 117.0/13.9 cm/sec. Rt. Vert. 38.1/7.8 cm/sec. Lt. Vert. 79.0/24.9 cm/sec. Right Extracranial There is homogeneous, smooth atherosclerotic plaque noted in the right common carotid artery. There is heterogeneous, irregular atherosclerotic plaque noted in the right internal carotid artery. There is intimal thickening but no significant atherosclerotic plaque noted in the right external carotid artery. Antegrade flow is noted in the right vertebral artery. Left Extracranial There is homogeneous, smooth atherosclerotic plaque noted in the left common carotid artery. There is intimal thickening but no significant atherosclerotic plaque noted in the left internal carotid artery. There is heterogeneous, irregular atherosclerotic plaque noted in the left external carotid artery. Antegrade flow is noted in the left vertebral artery. Procedure Carotid Duplex [id number]. This is a Carotid Duplex examination using B-mode, color flow and specral Doppler. The exam was diagnostic. Exam performed in department. VL/Carotid Duplex Ultrasound Interpretation Summary Irregular calcific plaque at the proximal right internal carotid artery with 50 to 69% stenosis. Less than 50% stenosis right external carotid artery Smooth calcific plaque at the proximal left internal carotid artery with less t newsome 50% stenosis Less than 50% stenosis left external carotid artery Patent and antegrade vertebral arteries bilaterally No change from the previous screening examination of April 27, 2020 Ordering Physician: Brad Lockwood Performed By: Kalin Leal RVT
== END 2021-06-16 23:59 | disposition home or self-care (01) ==
LOC: CVS 13:50
PROVIDERS: PCP Family Medicine; Referring Provider Surgery; Visit Provider Surgery
DX: I65.23 Occlusion and stenosis of bilateral carotid arteries (principal)
CPT/HCPCS: 93880

== ENCOUNTER → 2021-08-09 | Outpatient (CLI) | payer MEDICARE, OTHER, SELFPAY ==
--- NOTE | 2021-08-09 15:12 | PFTCOMP ---
COMPLETE PULMONARY FUNCTION TEST INTERPRETATION Brief HPI: Patient is a 76-year-old female, currently under the care of myself, who presents to [facility] for complete pulmonary function tests secondary to diagnosis of lung nodule. Respiratory therapist reports good effort and reproducible results. Interpretation: Forced expiration spirometry shows no large airways obstructive ventilatory defect with an FEV1 of 104% predicted. There is no significant bronchodilator response by strict ATS criteria. Spirograms are of good quality and plateau normally. The respiratory flow volume loop shows a normal pattern. Lung volumes by body plethysmography show a normal total lung capacity at 4.54 L, 114% predicted. All other lung volumes are within normal limits. Diffusion capacity by carbon monoxide is normal at 95% predicted. The airway resistance is normal. No previous pulmonary function tests were available for review. Impression: These pulmonary function tests are within normal limits.
== END | disposition home or self-care (01) ==
LOC: PSN 10:12
PROVIDERS: PCP Family Medicine; Referring Provider Internal Medicine Critical Care Medicine; Visit Provider Internal Medicine Critical Care Medicine
DX: R91.1 Solitary pulmonary nodule (principal)
CPT/HCPCS: 94060; 94726; 94729

== ENCOUNTER 2021-10-05 17:26 | Inpatient (IN) | payer MEDICARE, OTHER, SELFPAY ==
[2021-10-05] VITALS (25 sets, daily range): BP systolic 125–175; BP diastolic 51–163; PULSE 127–179; RESP 16–27; TEMP 36.2–36.7; O2SAT 89–99; BMI 29.5; BMI 29.7
--- NOTE | 2021-10-05 17:40 | EKG12_ITS ---
Test Reason : afib rvr Blood Pressure : / mmHG Vent. Rate : 169 BPM Atrial Rate : 000 BPM P-R Int : 000 ms QRS Dur : 080 ms QT Int : 278 ms P-R-T Axes : 000 012 097 degrees QTc Int : 466 ms Atrial fibrillation with rapid ventricular response Nonspecific T wave abnormality Abnormal ECG Confirmed by EMELY BABB, WILSON ([id number]), department editor ROSS QUINONEZ ([id number]) on 10/06/2021 1:26:53 PM Referred By: Abhishek Confirmed By:WILSON HAN MD
[2021-10-05] MEDS: dilTIAZem 25 MG/5 ML Vial 20 MG IV BOLUS (17:49)
--- NOTE | 2021-10-05 17:51 | EDS_ITS ---
HPI History of Present Illness Chief Complaint: Shortness of Breath Informant: patient Onset/Context/Timing Onset: Days Context: gradual Timing: Continuous Quality: Positive for Dyspnea on exertion Current Severity: Mild Maximum Severity: Mild Worsened by: Exertion Relieved by: Nothing Associated Symptoms Chest Pain: Positive for None Narrative Narrative: 76-year-old female history of A. fib on metoprolol. 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 fib RVR rate around 160 in the office he called and was sent her down to the ER. She states she just felt really tired and fatigued lately. Shortness of breath. Denies chest pain. PE Risk Factors: Negative for Cancer, OCP + Smoking + > 35, Prior DVT or PE, Recent immobilization, Recent surgery or Recent travel Prior similar symptoms: Yes Recent Illness/Hospitalization: No PFSH PFSH Medical History Atrial fibrillation with rapid ventricular response Carotid stenosis, right Essential hypertension HTN (hypertension) Hypothyroidism Left ureteral stone Paroxysmal atrial fibrillation Rheumatoid arthritis Right kidney stone Sjogren's disease Zoster Home Medications levothyroxine 50 mcg tablet 50 mcg PO DAILY THYROID 04/13/16 [History Last Taken 04/02/18 04:00 50 MCG] prednisone 5 mg tablet 5 mg PO DAILY RA 04/13/16 [History Last Taken Unknown] aspirin 325 mg tablet 325 mg PO DAILY #30 tabs 05/08/18 [Rx Last Taken Unknown] clotrimazole-betamethasone 1 %-0.05 % topical cream (Lotrisone) 1 applic topical DAILY PRN Rash 05/08/18 [History Last Taken Unknown] leflunomide 20 mg tablet (Arava) 20 mg PO QODAY 05/08/18 [History Last Taken Unknown] amlodipine 5 mg tablet 5 mg PO DAILY BP #90 tabs 08/29/19 [Rx Last Taken Unknown] metoprolol tartrate 25 mg tablet 12.5 mg PO BID BP,HEART #90 tabs 04/21/21 [Rx Last Taken Unknown] cholecalciferol (vitamin D3) 25 mcg (1,000 unit) tablet 25 mcg PO DAILY 10/05/21 [History Last Taken Unknown] cyclobenzaprine 10 mg tablet 10 mg PO TID PRN muscle spasm 10/05/21 [History Last Taken Unknown] melatonin 3 mg tablet 3 mg PO HS PRN Insomnia 10/05/21 [History Last Taken Unknown] multivitamin 1 tab PO DAILY 10/05/21 [History Last Taken Unknown] Allergy/AdvReac Type Severity Reaction Status Date / Time apixaban [From Eliquis] Allergy Unknown Rash Verified 10/05/21 17:29 sulindac Allergy Unknown Rash Verified 10/05/21 17:29 aloe Allergy Rash Verified 10/05/21 17:29 erythromycin base Allergy Unknown Verified 10/05/21 17:29 Penicillins Allergy Unknown Verified 10/05/21 17:29 Sulfa (Sulfonamide Allergy Unknown Verified 10/05/21 17:29 Antibiotics) vitamin E (d-alpha Allergy Rash Verified 10/05/21 17:29 tocopherol) METALS Allergy Rash Uncoded 10/05/21 17:29 Family History Grandfather Myocardial infarction Surgical History Cataract extraction status of left eye History of tubal ligation Hx of cystoscopy (04/14/16) left breast biposy Status post right knee replacement (~04/02/18) Social History Smoking Status: Never smoker Electronic Cigarette Use: not used second hand exposure: Yes (Father and workplace exposure) alcohol intake: current alcohol intake frequency: holidays/special occasions only Alcohol type: wine substance use type: does not use caffeine: Yes Type: carbonated beverages and coffee Number of servings: 2 what type of physical activity do you participate in: none seatbelt use: always do you feel safe at home: Yes ROS ROS ED ROS Narrative Take. Shortness of breath. Review of Systems ROS Unobtainable: Denies due to encephalopathy Constitutional Constitutional ED: Denies chills Eyes Eyes: Denies blurry vision ENT ENT ED: Denies ear pain Cardiovascular Cardiovascular: Reports palpitations; Denies chest pain Respiratory/Chest Respiratory/Chest: Reports dyspnea; Denies cough Gastrointestinal Gastrointestinal: Denies abdominal pain Genitourinary Genitourinary ED: Denies dysuria Musculoskeletal Musculoskeletal: Denies arthralgias Integumentary Denies abscess Neurologic Neurologic: Denies headache(s) Psychiatric Psychiatric: Denies anxiety Endocrine Endocrinology: Denies cold intolerance Hematologic/Lymphatic Hematologic/Lymphatic: Denies easy bleeding Allergic/Immunologic Allergic/Immunologic ED: Denies mouth swelling EXAM Physical Exam Narrative Exam Narrative: 76-year-old female vital signs are stable except heart rates around 160 obvious A. fib on the monitor. She is sitting upright tolerating it well. Initial blood pressure 132/83. Pulse ox 95% on room air no hypoxia. H EENT exam unremarkable. Neck nontender. Lungs clear to auscultation. Heart tachycardic no murmur. Abdomen soft nontender. Moving all 4 extremities. 1+ edema bilaterally. Calves are nontender. No cords. Neurologically she is awake and alert. Const Vital Signs: 10/05/21 17:27 10/05/21 17:32 10/05/21 17:40 Temperature 97.2 F L Temperature Source Temporal Pulse Rate 127 H 179 H Respiratory Rate 16 25 H Respiratory Effort Normal Non-Labored Respiratory Depth Normal Blood Pressure 132/83 H 129/97 H Blood Pressure Mean 99 107 Pulse Ox 99 95 Oxygen Delivery Method Room Air Room Air Room Air 10/05/21 17:53 10/05/21 18:51 10/05/21 19:00 Temperature Temperature Source Pulse Rate 141 H 139 H Respiratory Rate 20 H 17 Respiratory Effort Respiratory Depth Blood Pressure 125/86 H 135/51 H Blood Pressure Mean 99 79 Pulse Ox 96 97 Oxygen Delivery Method Room Air Room Air Positive well nourished and well developed; Negative for cachectic, contractures or unkempt General Appearance ED: well developed; Negative for unkempt, cachectic, contractures or pallor Nutritional Appearance: Negative for cachectic HEENT Reports moist mucous membranes; Denies dry mucous membranes atraumatic; Negative for trauma Mouth ED: No dry mucous membranes Mouth: No dry mucous membranes Eyes PERRL and EOMs intact bilaterally General Eye ED: Negative for pale conjunctiva or scleral icterus Neck no lymphadenopathy, supple, no meningeal signs and no JVD General: Negative for tenderness Lymph Lymphatic: Negative for other Resp normal respiratory effort and clear to auscultation bilaterally Effort and Inspection: Negative for pain with movement Auscultation: Negative for rales, rhonchi or wheezes Cardio regular rhythm, S1 normal heart sound, S2 normal heart sound and no murmurs; Negative for regular rate Rate: Negative for bradycardia Rhythm: Negative for abnormal rhythm GI non-tender, non-distended and no masses Inspection: Negative for other Auscultation: normoactive bowel sounds Palpation: soft; Negative for tender Back/Spine no CVA tenderness General Back: Negative for CVA tenderness Extremity normal to inspection General Extremety ED: Negative for edema or tenderness General Extremity: Negative for edema Neuro oriented x3 and no sensory deficits noted Sensorium / Orientation: alert, oriented to person, oriented to place and oriented to time; Negative for orientation impaired, confused, lethargic or st uporous Speech: speech normal Motor Exam: strength 5/5 throughout Psych mental status grossly normal Appearance: Negative for unkempt Attitude: No agitated Mood & Affect: Negative for depressed Thought Process: normal thought process Skin no wounds General Skin Exam: Negative for jaundice or pallor Lesions: no lesions Rashes: no rashes Trauma: Negative for abrasion or laceration MDM MDM MDM Narrative Medical decision making narrative: 76-year-old with history of A. fib RVR with recurrent A. fib RVR with a rate of 1 60-1 70. She will be given IV dose of Cardizem and cardiac work-up done. If we cannot control her rates she will need to go on a Cardizem drip and to be admitted. Repeat exam the Cardizem did not control a person's rate. She will be placed on a Cardizem drip. I have already spoken to the hospitalist she will be admitted. Lab Data Attestation: I reviewed the patient's lab results. Lab results narrative: CBC shows a white count 8.7. H&H 11 and 37. Platelets 329. Electrolytes show potassium 3.4. Gap is 7. BUN 27 creatinine 0.90. Troponin normal at 10. TSH normal at 1.1. Labs: Laboratory Results - last 24 hr 10/05/21 10/05/21 17:46 17:46 WBC 8.7 RBC 3.97 L Hgb 11.8 L Hct 37.6 MCV 94.7 MCH 29.7 MCHC 31.4 L RDW Std Deviation 50.2 H RDW Coeff of Olaf 14.6 Plt Count 329 MPV 11.9 Immature Gran % (Auto) 0.200 Neut % (Auto) 57.7 Lymph % (Auto) 24.9 Mcpherson % (Auto) 12.2 H Eos % (Auto) 4.0 Baso % (Auto) 1.0 Absolute Neuts (auto) 5.0 Absolute Lymphs (auto) 2.16 Nucleated RBC % 0 Sodium 139 Potassium 3.4 L Chloride 107 Carbon Dioxide 25.0 Anion Gap 7 BUN 27 H Creatinine 0.98 Estim Creat Clear Calc 36.18 Est GFR (MDRD) Af Amer 71 Est GFR (MDRD) Non-Af 59 L BUN/Creatinine Ratio 27.4 H Glucose 119 H Calcium 9.2 Troponin I High Sens 10 TSH 1.15 Radiography Chest X-Ray - ED: 1 View, Read by ED Physician, Heart, Mediastinum, Bony Structures, No Acute Disease, Right Effusion and Left Effusion Diagnostic Testing: Clinical Impression(s) from Imaging Studies Chest X-Ray 10/05/21 17:55 IMPRESSION: There are bilateral pleural effusions. Electronically Signed: Destin Lawton MD at 18:16 EDT Reading Location ID and State: [facility] / [place] , Service support , Chest x-ray, portable, single view interpreted by myself and radiologist shows chronic changes. And small bilateral pleural effusions. Rhythm Strip Rhythm Strip: A-fib Rate: 169 Ectopy: None EKG Initial EKG: Attestation: I personally reviewed and interpreted this EKG as follows: Interpretation: No Acute Injury Pattern and Atrial Fibrillation Comments: Atrial fibrillation with rapid ventricular rate. Rate 169. No acute signs of OK or ischemia. Critical Care Time Critical Care Time: Yes Critical care time (excluding procedures): 30-74 minutes, Including time spent:, Discussing w/Patient &/or Family/[employer], Discussing w/Consultants, Arranging Admission or Transfer, Performing Direct Patient Care at Bedside and - (32 min) Discharge Plan Triage Chief Complaint: Shortness of Breath ED Provider: Kulwant Sawyer Dx/Rx/DC Orders Clinical Impression: Atrial fibrillation with rapid ventricular response Prescriptions: No Action clotrimazole-betamethasone [Lotrisone] 1-0.05 % cream 1 applic TOPICAL DAILY PRN (Reason: Rash) leflunomide [Arava] 20 mg tablet 20 mg PO QODAY aspirin 325 mg tablet 325 mg PO DAILY Qty: 30 12RF amlodipine 5 mg tablet 5 mg PO DAILY Qty: 90 3RF multivitamin Tablet 1 tab PO DAILY metoprolol tartrate 25 mg tablet 12.5 mg PO BID Qty: 90 3RF cholecalciferol (vitamin D3) 25 mcg (1,000 unit) tablet 25 mcg PO DAILY melatonin 3 mg tablet 3 mg PO HS PRN (Reason: Insomnia) cyclobenzaprine 10 mg tablet 10 mg PO TID PRN (Reason: muscle spasm) prednisone 5 MG tablet 5 mg PO DAILY Label Comments: steroid levothyroxine 50 MCG tablet 50 mcg PO DAILY Label Comments: thyroid Primary Care Provider: Felix Mart Referrals: Felix Mart MD [Primary Care Provider] - Disposition Disposition: Acute Care Hospital [facility]
--- NOTE | 2021-10-05 17:55 | RAD_ITS ---
STUDY: X-RAY CHEST REASON FOR EXAM: Female, 76 years old. chest pain TECHNIQUE: XR Chest 1 View COMPARISON: 04/15/2016 FINDINGS: There are bilateral pleural effusions. . Normal size heart. Normal mediastinum and manny. Normal visualized pulmonary arteries. There is atherosclerotic calcification of the aortic arch with tortuosity. There are diffuse degenerative changes of the visualized thoracic spine. There is degenerative osteoarthritis of the bilateral shoulders. There is no demonstrated abnormality of the visualized soft tissue structures of the upper abdomen. RAD/Chest 1 View (Portable) IMPRESSION: There are bilateral pleural effusions. Electronically Signed: Destin Lawton MD at 18:16 EDT ,
[2021-10-05 18:02] LABS: Absolute Lymphocyte Count 2.16 X10^3/uL (0.83-4.51); Basophil# 0.09 X10^3/uL; Eosinophil# 0.35 X10^3/uL; Hematocrit 37.6 % (37-47); Hemoglobin 11.8 g/dL (12.0-15.0); Lymphocyte # 2.16 X10^3/ul (0.83-4.51); Lymphocyte % 24.9 % (19-41); Mean Corp Hgb Conc 31.4 g/dL (32-36); Mean Corpuscular Hgb 29.7 pg (27.0-32.0); Mean Corpuscular Volume 94.7 fL (81-99); Mean Platelet Vol. 11.9 fl (6.2-12.0); Monocyte# 1.06 X10^3/uL; Monocyte% 12.2 % (0-10); NRBC Flagged by Analyzer 0 % (0-5); Neutrophil % 57.7 % (47-70); Platelet Count 329 K/mm3 (150-450); RBC Distribution Width CV 14.6 % (11.6-14.6); RBC Distribution Width SD 50.2 fl (35.1-43.9); Red Blood Count 3.97 M/mm3 (4.2-5.4); White Blood Count 8.7 K/mm3 (4.4-11.0)
[2021-10-05 19:08] LABS: Anion Gap 7 (5-15); BUN 27 mg/dL (7-18); BUN/Creat Ratio 27.4 RATIO (10-20); Calcium,Total 9.2 mg/dL (8.5-10.1); Chloride 107 mmol/L (98-107); Creatinine, Serum 0.98 mg/dL (0.55-1.02); EST Glomerular Filtration Rate 59 mL/min (>60); Est Glom Filt Rate - Afr Amer 71 mL/min (>60); Estimated Creatinine Clearance 36.18 ml/min; Glucose 119 mg/dL (74-106); Potassium 3.4 mmol/L (3.5-5.1); Sodium Level 139 mmol/L (136-145); Thyroid Stim Hormone (TSH) 1.15 uIU/mL (0.358-3.74); Troponin-I HS (w/2H Reflex) 10 pg/mL (3.0-54.0)
--- NOTE | 2021-10-05 19:25 | PCM.HP.STD ---
[facility] - General General Date of Admission: 10/05/21 Date of Service: 10/05/21 Chief Complaint: A. fib with RVR HPI Narrative DANNI SORTO, is a 76 F who presents with the above. Patient has history of paroxysmal atrial fibrillation, hypertension, hypothyroidism and had gone for follow-up with Dr. Almanzar in the office. Patient was found to be in A. fib with RVR. She denied any chest pain or dizziness or palpitations. She admits to gaining weight about 10 pounds over the past 1 week. She admits to some dyspnea with feeling of having to breathe heavy with exertion as well as bilateral leg swelling. She denied any orthopnea or PND. Patient said that she was started on Eliquis sometime ago but developed ecchymosis with dark urine. Her PCP took her off the Eliquis in August of this year. Her last stress test was done in 2016 that was unremarkable. Her vitals in the ED showed blood pressure 132/83, heart rate 127, respiratory 16, temperature 97.2 F, SPO2 99% on room air. Her WBC count was 8.7, hemoglobin was 11.8, previous hemoglobin was 9.4, platelet count 329. Sodium 139, potassium 3.4, chloride 107, bicarbonate 25, BUN 27, creatinine 0.98, glucose 119, calcium 9.2, troponin 10, TSH 1.15. EKG showed A. fib with RVR. Chest x-ray showed small bilateral pleural effusion. Patient received Cardizem bolus in the ED with no improvement in heart rate. She was subsequently started on Cardizem drip. [facility] Medical History Atrial fibrillation with rapid ventricular response Carotid stenosis, right Essential hypertension HTN (hypertension) Hypothyroidism Left ureteral stone Paroxysmal atrial fibrillation Rheumatoid arthritis Right kidney stone Sjogren's disease Zoster Home Medications levothyroxine 50 mcg tablet 50 mcg PO DAILY THYROID 04/13/16 [History Last Taken 04/02/18 04:00 50 MCG] prednisone 5 mg tablet 5 mg PO DAILY RA 04/13/16 [History Last Taken Unknown] aspirin 325 mg tablet 325 mg PO DAILY #30 tabs 05/08/18 [Rx Last Taken Unknown] clotrimazole-betamethasone 1 %-0.05 % topical cream (Lotrisone) 1 applic topical DAILY PRN Rash 05/08/18 [History Last Taken Unknown] leflunomide 20 mg tablet (Arava) 20 mg PO QODAY 05/08/18 [History Last Taken Unknown] amlodipine 5 mg tablet 5 mg PO DAILY BP #90 tabs 08/29/19 [Rx Last Taken Unknown] metoprolol tartrate 25 mg tablet 12.5 mg PO BID BP,HEART #90 tabs 04/21/21 [Rx Last Taken Unknown] cholecalciferol (vitamin D3) 25 mcg (1,000 unit) tablet 25 mcg PO DAILY 10/05/21 [History Last Taken Unknown] cyclobenzaprine 10 mg tablet 10 mg PO TID PRN muscle spasm 10/05/21 [History Last Taken Unknown] melatonin 3 mg tablet 3 mg PO HS PRN Insomnia 10/05/21 [History Last Taken Unknown] multivitamin 1 tab PO DAILY 10/05/21 [History Last Taken Unknown] Allergy/AdvReac Type Severity Reaction Status Date / Time apixaban [From Eliquis] Allergy Unknown Rash Verified 10/05/21 17:29 sulindac Allergy Unknown Rash Verified 10/05/21 17:29 aloe Allergy Rash Verified 10/05/21 17:29 erythromycin base Allergy Unknown Verified 10/05/21 17:29 Penicillins Allergy Unknown Verified 10/05/21 17:29 Sulfa (Sulfonamide Allergy Unknown Verified 10/05/21 17:29 Antibiotics) vitamin E (d-alpha Allergy Rash Verified 10/05/21 17:29 tocopherol) METALS Allergy Rash Uncoded 10/05/21 17:29 Family History Grandfather Myocardial infarction Surgical History Cataract extraction status of left eye History of tubal ligation Hx of cystoscopy (04/14/16) left breast biposy Status post right knee replacement (~04/02/18) Social History Smoking Status: Never smoker Electronic Cigarette Use: not used second hand exposure: Yes (Father and workplace exposure) alcohol intake: current alcohol intake frequency: holidays/special occasions only Alcohol type: wine substance use type: does not use caffeine: Yes Type: carbonated beverages and coffee Number of servings: 2 what type of physical activity do you participate in: none seatbelt use: always do you feel safe at home: Yes ROS ROS Narrative Constitutional: Denies: Anorexia, Chills, Fever, Night Sweats, Weight Change Eyes: Denies: Blurred vision, Cataracts, Conjunctivae Inflammation, Pain, Redness, Vision Change HEENT: Denies: Difficulty Hearing, Difficulty Swallowing, Head Aches, Hearing Changes, Sinus Congestion, Sinus Drainage Cardiovascular: See HPI Respiratory: Denies: Cough, Shortness of breath at rest, Sputum production Gastrointestinal: Denies: Abdominal Pain, Nausea, Vomiting Genitourinary: Denies: Dysuria Musculoskeletal: Denies: Joint Pain, Joint stiffness, Joint swelling, Joint Tenderness Skin: Denies: Rash, Wounds Neurological: Denies: Numbness, Tingling, Focal weakness Vital Signs Vital Signs Vital Signs: 10/05/21 17:27 10/05/21 17:32 10/05/21 17:40 Temperature 97.2 F L Temperature Source Temporal Pulse Rate 127 H 179 H Respiratory Rate 16 25 H Respiratory Effort Normal Non-Labored Respiratory Depth Normal Blood Pressure 132/83 H 129/97 H Blood Pressure Mean 99 107 Pulse Ox 99 95 Oxygen Delivery Method Room Air Room Air Room Air 10/05/21 17:53 10/05/21 18:51 10/05/21 19:00 Temperature Temperature Source Pulse Rate 141 H 139 H Respiratory Rate 20 H 17 Respiratory Effort Respiratory Depth Blood Pressure 125/86 H 135/51 H Blood Pressure Mean 99 79 Pulse Ox 96 97 Oxygen Delivery Method Room Air Room Air Weight Weight: 68.492 kg Body Mass Index (BMI) 29.5 Physical Exam Narrative Physical exam: General: Alert, Oriented x3, Cooperative, No apparent distress HEENT: Atraumatic Oral: Moist Mucosa Neck: Supple Lungs: Diminished to auscultation at the lung bases Cardiovascular: HS I+II, regular, no murmurs Abdomen: Bowel Sounds Present, Soft, Non Tender Extremities: Bilateral pedal edema +1 Skin: No rashes, No breakdown Neurological: Grossly intact Psych/Mental Status: Appropriate Results Lab / Micro Data Result Diagrams: 10/05/21 17:46 10/05/21 17:46 Labs: Laboratory Results - last 24 hr 10/05/21 17:46: WBC 8.7, RBC 3.97 L, Hgb 11.8 L, Hct 37.6, MCV 94.7, MCH 29.7, MCHC 31.4 L, RDW Std Deviation 50.2 H, RDW Coeff of Olaf 14.6, Plt Count 329, MPV 11.9, Immature Gran % (Auto) 0.200, Neut % (Auto) 57.7, Lymph % (Auto) 24.9, [place] % (Auto) 12.2 H, Eos % (Auto) 4.0, Baso % (Auto) 1.0, Absolute Neuts (auto) 5.0, Absolute Lymphs (auto) 2.16, Nucleated RBC % 0 10/05/21 17:46: Sodium 139, Potassium 3.4 L, Chloride 107, Carbon Dioxide 25.0, Anion Gap 7, BUN 27 H, Creatinine 0.98, Estim Creat Clear Calc 36.18, Est GFR (MDRD) Af Amer 71, Est GFR (MDRD) Non-Af 59 L, BUN/Creatinine Ratio 27.4 H, Glucose 119 H, Calcium 9.2, Troponin I High Sens 10, TSH 1.15 Rhythm Strip Rhythm Strip: A-fib Rate: 169 Ectopy: None Radiology Impression Chest X-Ray 10/05/21 17:55 IMPRESSION: There are bilateral pleural effusions. Electronically Signed: Destin Latwon MD at 18:16 EDT Reading Location ID and State: [facility] / [place] , Service support , Assessment & Plan Assessment/Plan (1) Atrial fibrillation with rapid ventricular response: PLAN: Plan 1. A. fib with RVR in a patient with history of paroxysmal atrial fibrillation [id number] score of 4. TSH 1.15 Patient received IV Cardizem bolus, currently on Cardizem drip We will admit to PCU, continue Cardizem drip, check magnesium level 2D echo, cardiology consult Discussed with cardiology, will start patient on Xarelto Patient is on metoprolol; will hold this whilst on the Cardizem drip 2. Hypokalemia, potassium 3.4, replace, recheck in a.m., check magnesium level 3. Hypothyroidism, continue Synthroid 4. Rheumatoid arthritis, continue leflunomide, prednisone 5. Hypertension, controlled, hold amlodipine and metoprolol Continue to monitor on Cardizem drip 6. DVT prophylaxis- on Xarelto I discussed and explained in details the various types of CODE STATUS-full code, DNR CCA, DNR CC. Patient chose to be DNR CCA, no intubation. She has a living will. She does not want aggressive cardiopulmonary resuscitation in the event of a cardiopulmonary arrest. Time spent discussing CODE STATUS 16 minutes Charges/Coding Visit Charges Inpatient E&M: 87471 Init Hosp L3 Procedures Hospitalists Procedures: 04905 Advncd Care Plan 30 Min
[2021-10-05 19:59] LABS: Reflex Troponin-HS? (from REC) Y
--- NOTE | 2021-10-05 20:21 | ECHOD_ITS ---
Reason For Study: A. fib Procedure This was a 2D Doppler, Color Flow transthoracic echocardiogram. Exam performed portable in patient room. Left Ventricle Normal LV size. Apical false tendon noted. Left ventricular systolic function is normal. The estimated ejection fraction is 60 %. Diastolic function is indeterminate. No regional wall motion abnormalities noted. Right Ventricle Normal RV size. Normal systolic function. Atria The left atrium is moderately enlarged. The right atrium is mildly enlarged. No doppler evidence for ASD. Mitral Valve There is moderate to severe mitral annular calcification. Extension of the mitral annular calcification on the base of the posterior mitral leaflet. Moderate (2+) eccentric mitral valve insufficiency. Tricuspid Valve Normal tricuspid valve. Moderate (2+) eccentric tricuspid valve insufficiency. Right ventricular systolic pressure estimated to be 24 mmHg. Aortic Valve Trisinus/trileaflet aortic valve. Mild focal aortic valve thickening. Pulmonic Valve The pulmonic valve is not well visualized. Trivial pulmonic valve insufficiency. Great Vessels Normal sized aortic root. Pericardium/Pleural No pericardial effusion. MMode/2D Measurements & Calculations LVIDd: 4.4 cm IVSd: 1.0 cm Ao root diam: 3.3 cm LVIDs: 2.4 cm LVPWd: 0.98 cm RVDd: 2.5 cm FS: 45.9 % LAV(MOD-bp): 53.3 ml LVAd ap4: 19.8 cm2 LVAd ap2: 18.2 cm2 LAV(MOD-bp) Indexed: 32.3 ml/m2 LVLd ap4: 6.1 cm LVLd ap2: 6.3 cm LAV(MOD-sp2): 51.7 ml EDV(MOD-sp4): 53.3 ml EDV(MOD-sp2): 44.9 ml LAV(MOD-sp4): 49.4 ml EDV(sp4-el): 54.5 ml EDV(sp2-el): 44.7 ml LVAs ap4: 12.5 cm2 LVAs ap2: 10.2 cm2 LVLs ap4: 5.4 cm LVLs ap2: 5.6 cm ESV(MOD-sp4): 25.2 ml ESV(MOD-sp2): 16.5 ml ESV(sp4-el): 24.4 ml ESV(sp2-el): 15.9 ml EF(MOD-sp4): 52.7 % EF(MOD-sp2): 63.3 % EF(sp4-el): 55.2 % SV(MOD-sp4): 28.1 ml SV(MOD-sp2): 28.4 ml SV(sp4-el): 30.1 ml LA dimension(2D): 4.0 cm LA A4 area: 19.7 cm2 RA A4 area: 15.9 cm2 Doppler Measurements & Calculations MV E max nakul: 133.7 cm/sec Ao V2 max: 152.7 cm/sec LV V1 max: 113.7 cm/sec Ao max P.6 mmHg LV V1 max P.2 mmHg Ao V2 mean: 108.8 cm/sec LV V1 mean P.9 mmHg Ao mean P.4 mmHg LV V1 mean: 81.3 cm/sec Ao V2 VTI: 27.4 cm LV V1 VTI: 20.9 cm PA V2 max: 99.2 cm/sec TR max nakul: 230.6 cm/sec TR max P.3 mmHg ECHO/Echo Complete Interpretation Summary Left ventricular systolic function is normal. The estimated ejection fraction is 60 %. Apical false tendon noted. The left atrium is moderately enlarged. The right atrium is mildly enlarged. There is moderate to severe mitral annular calcification. Extension of the mitral annular calcification on the base of the posterior mitr al leaflet Moderate (2+) eccentric mitral valve insufficiency. Moderate (2+) eccentric tricuspid valve insufficiency. Mild focal aortic valve thickening. Trivial pulmonic valve insufficiency. Right ventricular systolic pressure estimated to be 24 mmHg. Diastolic function is indeterminate. Ordering Physician: Unique Curiel Referring Physician: Felix Mart Performed By: Marcelina Blum RDCS
[2021-10-05] MEDS: Potassium Chloride Oral Tablet 20 MEQ 60 MEQ PO (20:47)
[2021-10-05] MEDS: Digoxin 250 MCG/ML Ampul 500 MCG IV (21:01)
[2021-10-05 21:29] LABS: BNP,B-Type NATRIURETIC PEPTIDE 333.8 pg/mL (0-100)
[2021-10-05 21:34] LABS: Magnesium 2.1 mg/dL (1.6-2.6)
[2021-10-05 21:43] LABS: Troponin-I HS 10 pg/mL (3.0-54.0)
[2021-10-05] MEDS: Acetaminophen 325 MG Tablet 650 MG PO (22:32)
[2021-10-05] MEDS: Leflunomide 10 MG TABLET 20 MG PO (22:33)
[2021-10-05] MEDS: Rivaroxaban 15 MG Tablet PO (22:42)
[2021-10-05] MEDS: Metoprolol Tartrate 25 MG Tablet PO (23:50)
[2021-10-06] VITALS (32 sets, daily range): BP systolic 110–165; BP diastolic 62–101; PULSE 66–130; RESP 15–30; TEMP 36.1–37.1; O2SAT 90–97
[2021-10-06 00:15] LABS: Troponin-I HS 11 pg/mL (3.0-54.0)
[2021-10-06] MEDS: Menthol/Camphor/Phenol 225ml Bottle 1 APPLIC TOPICAL (02:36)
[2021-10-06] MEDS: Levothyroxine 50 MCG Tablet PO (05:00)
[2021-10-06] MEDS: Acetaminophen 325 MG Tablet 650 MG PO ×3 (06:06→21:50)
[2021-10-06 06:35] LABS: Absolute Neutrophil Count 4.6 X10^3/uL (2.0-7.7); Basophil# 0.07 X10^3/uL; Eosinophil# 0.34 X10^3/uL; Eosinophils% 4.8 % (0-5); Hematocrit 34.4 % (37-47); Hemoglobin 10.7 g/dL (12.0-15.0); Lymphocyte % 15.5 % (19-41); Mean Corp Hgb Conc 31.1 g/dL (32-36); Mean Corpuscular Hgb 29.6 pg (27.0-32.0); Mean Platelet Vol. 11.9 fl (6.2-12.0); Monocyte# 0.99 X10^3/uL; NRBC Flagged by Analyzer 0 % (0-5); Neutrophil # 4.55 X10^3/uL (2.7-7.7); Neutrophil % 64.3 % (47-70); Platelet Count 284 K/mm3 (150-450); RBC Distribution Width CV 14.4 % (11.6-14.6); RBC Distribution Width SD 49.8 fl (35.1-43.9); Red Blood Count 3.62 M/mm3 (4.2-5.4); White Blood Count 7.1 K/mm3 (4.4-11.0)
[2021-10-06 06:57] LABS: ALB/GLOB Ratio 0.8 RATIO (0.9-2.4); AST(SGOT) 16 U/L (15-37); Alanine Aminotransfer ALT/SGPT 26 U/L (13-56); Albumin, Serum 2.7 g/dL (3.2-5.0); Alkaline Phosphatase 69 U/L (45-117); Anion Gap 4 (5-15); BUN 17 mg/dL (7-18); BUN/Creat Ratio 21.1 RATIO (10-20); Calcium,Total 8.3 mg/dL (8.5-10.1); Chloride 110 mmol/L (98-107); EST Glomerular Filtration Rate 74 mL/min (>60); Est Glom Filt Rate - Afr Amer 90 mL/min (>60); Estimated Creatinine Clearance 44.32 ml/min; Globulin 3.2 g/dL (2.2-4.2); Glucose 126 mg/dL (74-106); Magnesium 2.3 mg/dL (1.6-2.6); Potassium 4.2 mmol/L (3.5-5.1); Protein, Total 5.9 g/dL (6.4-8.2); Sodium Level 141 mmol/L (136-145)
[2021-10-06] MEDS: Cholecalciferol (VIT D3) 25 MCG TABLET (1,000 UNITS) PO (07:55)
[2021-10-06] MEDS: Multivitamins,Therapeutic Tablet 1 TABLET PO (07:55)
[2021-10-06] MEDS: Metoprolol Tartrate 25 MG Tablet PO ×2 (07:56→21:32)
[2021-10-06] MEDS: predniSONE 5 MG Tablet PO (07:56)
[2021-10-06] MEDS: Furosemide 40 MG/4 ML Vial IV ×2 (08:00→17:30)
[2021-10-06] MEDS: 0.9% Saline Lock 10 ML Syringe IV ×2 (08:00→17:30)
--- NOTE | 2021-10-06 08:47 | PCM.CONS.C ---
Assessment & Plan Assessment/Plan (1) Atrial fibrillation with rapid ventricular response: PLAN: The patient persists with atrial fibrillation with intermittent rapid ventricular response. Her noninvasive studies thus far have demonstrated negative high-sensitivity troponin I levels. Her BNP level was somewhat elevated at 333.8. Her ECG is demonstrated no acute changes. Her previous noninvasive studies have been reviewed. She is pending reassessment of her atrial size and her ventricular wall motion and systolic function with a transthoracic echocardiogram. In the meantime she is continuing rate control therapy. It may be reasonable to attempt, as her history has been paroxysmal atrial fibrillation, to regain sinus rhythm with IV amiodarone therapy. She has also been placed on anticoagulant therapy with rivaroxaban/Xarelto. Depending upon her clinical course and findings she may or may not need additional cardiac diagnostic studies/evaluation. (2) CHF (congestive heart failure): QUALIFIERS: Heart failure type: diastolic Heart failure chronicity: acute Qualified Code(s): I50.31 - Acute diastolic (congestive) heart failure PLAN: She also appears to have an element of acute diastolic mediated CHF. This is based upon her previous objective findings demonstrating overall preserved LV systolic function/EF. This is based on her current clinical findings with respect to concerns of increased volume status. Thus she will be treated for her atrial dysrhythmias noted. She will also receive diuretic therapy. Her left ventricle is going to be reassessed with a transthoracic echocardiogram. (3) Carotid stenosis, right: PLAN: She has a history of carotid artery stenosis. She has undergone evaluation care as noted. (4) Essential hypertension: PLAN: Her blood pressure needs to be monitored with adjustment of her medications as deemed appropriate. (5) Hypothyroidism: QUALIFIERS: Hypothyroidism type: unspecified Qualified Code(s): E03.9 - Hypothyroidism, unspecified PLAN: Her TSH level was evaluated. It appeared to be within normal range. Addt'l Comments The patient's case has been previously discussed and reviewed with the patient, Dr. Sawyer of the [facility] emergency department staff, and Dr. Curiel of the [facility] hospital staff This note was generated using a voice recognition system and there may be incorrect words, spelling or punctuation that were not noted when reviewing the office note prior to saving. HPI Consult Data Date of Consult: 10/06/21 HPI Narrative HPI Narrative: DANNI SORTO, is a 76 year old white female who presents for cardiovascular consult and based upon concerns of atrial fibrillation with RVR superimposed upon concerns of carotid artery stenosis, hyper tension, and hypothyroidism. She presented yesterday, on 10-05-2021, for her routine outpatient cardiovascular follow-up appointment. At that time she reported that in August of this year she had been evaluated by her PCP and was thought to be in atrial fibrillation based upon physical examination findings. An ECG was unable to be performed at that time. She states she was placed on anticoagulant therapy with apixaban/Eliquis. Subsequently she noted easy ecchymoses, a rash, and her urine became dark and/or bloody. She returned to her PCP office approximately 2 weeks later where an electrocardiogram was performed that demonstrated underlying sinus rhythm at that time. She states her PCP elected to discontinue her anticoagulant therapy. At the time of her presentation yesterday she was found to be back in atrial fibrillation with rapid ventricular response. She stated her main concern has been progressive shortness of breath and dyspnea mainly with exertional activity. She had denied any chest discomfort. She had denied any acute orthopnea or PND. She did admit to increased lower extremity peripheral pitting edema. There is been no near-syncope or syncope. Based upon her clinical scenario and objective findings she was referred to the [facility] emergency department for further evaluation and care. She was subsequently evaluated in the emergency department with laboratory studies, chest x-ray, and subsequently treated with IV diltiazem. As her heart rate did not slow and/or convert to a point where it may have been felt reasonable for her to be released home for continued outpatient follow-up she was subsequently brought into the hospital for further inpatient evaluation and care. She was placed in the PCU. She was initiated on an IV diltiazem infusion. She subsequently received IV digitalis. Her heart rate has improved but she still has episodes of elevated heart rate. [facility] Medical History Atrial fibrillation with rapid ventricular response Carotid stenosis, right Essential hypertension HTN (hypertension) Hypothyroidism Left ureteral stone Paroxysmal atrial fibrillation Rheumatoid arthritis Right kidney stone Sjogren's disease Zoster Home Medications levothyroxine 50 mcg tablet 50 mcg PO DAILY THYROID 04/13/16 [History Last Taken 04/02/18 04:00 50 MCG] prednisone 5 mg tablet 5 mg PO DAILY RA 04/13/16 [History Last Taken Unknown] aspirin 325 mg tablet 325 mg PO DAILY #30 tabs 05/08/18 [Rx Last Taken Unknown] clotrimazole-betamethasone 1 %-0.05 % topical cream (Lotrisone) 1 applic topical DAILY PRN Rash 05/08/18 [History Last Taken Unknown] leflunomide 20 mg tablet (Arava) 20 mg PO QODAY 05/08/18 [History Last Taken Unknown] amlodipine 5 mg tablet 5 mg PO DAILY BP #90 tabs 08/29/19 [Rx Last Taken Unknown] metoprolol tartrate 25 mg tablet 12.5 mg PO BID BP,HEART #90 tabs 04/21/21 [Rx Last Taken Unknown] cholecalciferol (vitamin D3) 25 mcg (1,000 unit) tablet 25 mcg PO DAILY 10/05/21 [History Last Taken Unknown] cyclobenzaprine 10 mg tablet 10 mg PO TID PRN muscle spasm 10/05/21 [History Last Taken Unknown] melatonin 3 mg tablet 3 mg PO HS PRN Insomnia 10/05/21 [History Last Taken Unknown] multivitamin 1 tab PO DAILY 10/05/21 [History Last Taken Unknown] Allergy/AdvReac Type Severity Reaction Status Date / Time apixaban [From Eliquis] Allergy Unknown Rash Verified 10/05/21 17:29 sulindac Allergy Unknown Rash Verified 10/05/21 17:29 aloe Allergy Rash Verified 10/05/21 17:29 erythromycin base Allergy Unknown Verified 10/05/21 17:29 Penicillins Allergy Unknown Verified 10/05/21 17:29 Sulfa (Sulfonamide Allergy Unknown Verified 10/05/21 17:29 Antibiotics) vitamin E (d-alpha Allergy Rash Verified 10/05/21 17:29 tocopherol) METALS Allergy Rash Uncoded 10/05/21 17:29 Family History Grandfather Myocardial infarction Surgical History Cataract extraction status of left eye History of tubal ligation Hx of cystoscopy (04/14/16) left breast biposy Status post right knee replacement (~04/02/18) Social History Smoking Status: Never smoker Electronic Cigarette Use: not used second hand exposure: Yes (Father and workplace exposure) alcohol intake: current alcohol intake frequency: holidays/special occasions only Alcohol type: wine substance use type: does not use caffeine: Yes Type: carbonated beverages and coffee Number of servings: 2 what type of physical activity do you participate in: none seatbelt use: always do you feel safe at home: Yes ROS Constitutional Constitutional: Reports as per HPI Eyes Eyes: Reports as per HPI ENT HEENT: Reports as per HPI Cardiovascular Cardiovascular: Reports dyspnea on exertion and edema Respiratory/Chest Respiratory/Chest: Reports dyspnea on exertion Gastrointestinal Gastrointestinal: Reports as per HPI Genitourinary Genitourinary: Reports as per HPI Musculoskeletal Musculoskeletal: Reports as per HPI Integumentary Integumentary: Reports as per HPI Neurologic Neurologic: Reports as per HPI Psychiatric Psychiatric: Reports as per HPI Physical Exam Const alert, oriented x3, no apparent distress and healthy appearing Orientation / Consciousness: awake HEENT normocephalic, head/scalp atraumatic and hearing grossly normal bilaterally Eyes PERRL, EOMs intact bilaterally, conjunctivae normal and no scleral icterus Neck full ROM, supple and no JVD Resp Auscultation: diminished lung sounds bilateral lower Cardio Rate: tachycardic Rhythm: abnormal rhythm irregularly irregular Heart Sounds: S1 normal and S2 normal Extremity General Extremity: edema bilateral lower extremity Details: mild Skin no rashes or lesions noted Psych mental status grossly normal Risk Stratification Risk Stratification Applicable: No Procedure Criteria Type of Procedure Procedure Type: Elective Elective Risks - COVID COVID Risk Discussion: The surgeon/proceduralist and patient have discussed in detail the risk of exposure to and/or potential harm posed by the COVID-19 virus with having a surgery/procedure at this time versus the risk of delaying the surgery/procedure. It is not possible to know either the risk of delaying the surgery or procedure or chance of getting an infection with perfect accuracy, but a joint decision was made between the patient and the surgeon/proceduralist to proceed at this time with the scheduled surgery/procedure as indicated on the consent form. Objective Data Vital Signs: Vital Signs Temp Pulse Resp BP Pulse Ox O2 Del Method O2 Flow Rate 98.0 F 114 H 22 H 123/78 H 95 Nasal Cannula 2 10/06/21 04:00 08/04/22 07:56 10/06/21 07:38 10/06/21 07:56 10/06/21 07:38 10/06/21 08:06 10/06/21 08:06 Oxygen Flow Rate (L/min) 2 Oxygen Delivery Method Nasal Cannula Weight: 152 lb 5.431 oz Body Mass Index (BMI) 29.7 Intake & Output: Intake and Output for Last 24 Hours 10/04/21 10/05/21 10/06/21 23:59 23:59 23:59 Intake Total 33.08 / 348.08 1029.50 / 1029.50 Output Total 1000 / 1000 Balance 33.08 / -151.92 29.50 / 29.50 Lab / Micro Data Result Diagrams: 10/06/21 06:05 10/06/21 06:05 Labs: Laboratory Results - last 24 hr 10/05/21 17:46: WBC 8.7, RBC 3.97 L, Hgb 11.8 L, Hct 37.6, MCV 94.7, MCH 29.7, MCHC 31.4 L, RDW Std Deviation 50.2 H, RDW Coeff of Olaf 14.6, Plt Count 329, MPV 11.9, Immature Gran % (Auto) 0.200, Neut % (Auto) 57.7, Lymph % (Auto) 24.9, Dodge % (Auto) 12.2 H, Eos % (Auto) 4.0, Baso % (Auto) 1.0, Absolute Neuts (auto) 5.0, Absolute Lymphs (auto) 2.16, Nucleated RBC % 0 10/05/21 17:46: Sodium 139, Potassium 3.4 L, Chloride 107, Carbon Dioxide 25.0, Anion Gap 7, BUN 27 H, Creatinine 0.98, Estim Creat Clear Calc 36.18, Est GFR (MDRD) Af Amer 71, Est GFR (MDRD) Non-Af 59 L, BUN/Creatinine Ratio 27.4 H, Glucose 119 H, Calcium 9.2, Troponin I High Sens 10, TSH 1.15 10/05/21 17:46: Magnesium 2.1 10/05/21 17:46: B-Natriuretic Peptide 333.8 H 10/05/21 20:45: Troponin I High Sens 10 10/05/21 23:46: Troponin I High Sens 11 10/06/21 06:05: WBC 7.1, RBC 3.62 L, Hgb 10.7 L, Hct 34.4 L, MCV 95.0, MCH 29.6, MCHC 31.1 L, RDW Std Deviation 49.8 H, RDW Coeff of Olaf 14.4, Plt Count 284, MPV 11.9, Immature Gran % (Auto) 0.400, Neut % (Auto) 64.3, Lymph % (Auto) 15.5 L, Dodge % (Auto) 14.0 H, Eos % (Auto) 4.8, Baso % (Auto) 1.0, Absolute Neuts (auto) 4.6, Absolute Lymphs (auto) 1.10, Nucleated RBC % 0 10/06/21 06:05: Sodium 141, Potassium 4.2, Chloride 110 H, Carbon Dioxide 27.0, Anion Gap 4 L, BUN 17, Creatinine 0.80, Estim Creat Clear Calc 44.32, Est GFR (MDRD) Af Amer 90, Est GFR (MDRD) Non-Af 74, BUN/Creatinine Ratio 21.1 H, Glucose 126 H, Calcium 8.3 L, Magnesium 2.3, Total Bilirubin 0.60, AST 16, ALT 26, Alkaline Phosphatase 69, Total Protein 5.9 L, Albumin 2.7 L, Globulin 3.2, Albumin/Globulin Ratio 0.8 L Rhythm Strip Rhythm Strip: A-fib Rate: 169 Ectopy: None Cardiology Labs/Tests 10/05/21 17:46: WBC 8.7, RBC 3.97 L, Hgb 11.8 L, Hct 37.6, MCV 94.7, MCH 29.7, MCHC 31.4 L, Plt Count 329, MPV 11.9, Immature Gran % (Auto) 0.200, Neut % (Auto) 57.7, Lymph % (Auto) 24.9, Dodge % (Auto) 12.2 H, Eos % (Auto) 4.0, Baso % (Auto) 1.0, Absolute Neuts (auto) 5.0, Nucleated RBC % 0 10/05/21 17:46: Sodium 139, Potassium 3.4 L, Chloride 107, Carbon Dioxide 25.0, Anion Gap 7, BUN 27 H, Creatinine 0.98, Est GFR (MDRD) Af Amer 71, Est GFR (MDRD) Non-Af 59 L, BUN/Creatinine Ratio 27.4 H, Glucose 119 H, Calcium 9.2 10/05/21 17:46: Magnesium 2.1 10/05/21 17:46: B-Natriuretic Peptide 333.8 H 10/06/21 06:05: WBC 7.1, RBC 3.62 L, Hgb 10.7 L, Hct 34.4 L, MCV 95.0, MCH 29.6, MCHC 31.1 L, Plt Count 284, MPV 11.9, Immature Gran % (Auto) 0.400, Neut % (Auto) 64.3, Lymph % (Auto) 15.5 L, Dodge % (Auto) 14.0 H, Eos % (Auto) 4.8, Baso % (Auto) 1.0, Absolute Neuts (auto) 4.6, Nucleated RBC % 0 10/06/21 06:05: Sodium 141, Potassium 4.2, Chloride 110 H, Carbon Dioxide 27.0, Anion Gap 4 L, BUN 17, Creatinine 0.80, Est GFR (MDRD) Af Amer 90, Est GFR (MDRD) Non-Af 74, BUN/Creatinine Ratio 21.1 H, Glucose 126 H, Calcium 8.3 L, Magnesium 2.3, Total Bilirubin 0.60 Rhythm: Atrial fibrillation EKG: Atrial fibrillation Echocardiogram from 04/15/2016: Interpretation summary Left ventricular systolic function is normal. The estimate ejection fraction is 60%. Left atrium is mildly enlarged. There is mild mitral annular calcification. Extension of the mitral annular calcification onto the posterior mitral valve leaflet. Trivial mitral valve insufficiency. Trivial tricuspid valve insufficiency. Mild (1+) pulmonic valve insufficiency. Epicardial fat. Right ventricular systolic pressure estimated to be 24 mmHg. DATE OF SERVICE:? 05/23/2016 EXERCISE TOLERANCE TEST: The patient exercised on a Zack protocol for 5 minutes 30 seconds completing stage 1 and 2 minutes and 30 seconds of stage 2, achieving a peak heart rate of 150 beats per minute (99% predicted maximum heart rate) and a peak blood pressure of 220/80 mmHg and a peak MET capacity of 7 METs. The baseline ECG demonstrated normal sinus rhythm.? The peak exercise ECG demonstrated somatic/motion artifact with [id number] nonspecific ST-segment variability. There were no cardiac dysrhythmias pretest, during exercise, or recovery. The functional capacity was considered average. The patient had no complaint of chest discomfort during exercise or recovery. The examination was discontinued secondary to a combination of dyspnea and leg discomfort. IMPRESSION: 1.? Technically adequate (percent predicted maximum heart rate greater than 85%), exercise tolerance test. 2.? Peak exercise ECG with somatic/motion artifact with [id number] nonspecific ST-segment variability. 3.? Nuclear images pending. COMMENT:? Blood pressure response to exercise:? Resting hypertension-exaggerated response. MYOCARDIAL PERFUSION IMAGING STUDY: TECHNIQUE: The patient was injected with 11.7 mCi of Tc99m Cardiolite and subsequently rest SPECT Cardiolite nuclear imaging was obtained in the horizontal long, vertical long and short axes views.? The patient exercised on a Zack protocol for 5 minutes 30 seconds completing stage 1 and 2 minutes and 30 seconds of stage 2, achieving a peak heart rate of 150 beats per minute (99% predicted maximum heart rate) and a peak blood pressure of 220/80 mmHg and a peak MET capacity of 7 METs.? The patient was injected with 33.3 mCi of Tc99m Cardiolite and subsequently stress SPECT Cardiolite nuclear imaging was obtained in the horizontal long, vertical long and short axes views.? A gated Cardiolite study at peak stress was obtained. INTERPRETATION: Rest and stress SPECT Cardiolite nuclear imaging status post realignment, normalization, and attenuation correction demonstrates the appearance of relative uniform tracer uptake and myocardial perfusion appearing within normal limits.? There is end systolic thickening and brightening.? The gated Cardiolite study demonstrates myocardial thickening and inward wall motion.? The reported LVEF was 80%. IMPRESSION: 1.? Rest and stress SPECT Cardiolite nuclear imaging demonstrate relative uniform tracer uptake and myocardial perfusion appearing within normal limits. 2.? The gated Cardiolite study reports an LVEF of 80%. Carotid artery duplex study: 06/16/2021 Interpretation Summary Irregular calcific plaque at the proximal right internal carotid artery with 50 to 69% stenosis. Less than 50% stenosis right external carotid artery Smooth calcific plaque at the proximal left internal carotid artery with less than 50% stenosis Less than 50% stenosis left external carotid artery Patent and antegrade vertebral arteries bilaterally No change from the previous screening examination of April 27, 2020 PFTs: 08/09/2021 COMPLETE PULMONARY FUNCTION TEST INTERPRETATION Brief HPI: Patient is a 76-year-old female, currently under the care of myself, who presents to [facility] for complete pulmonary function tests secondary to diagnosis of lung nodule.? Respiratory therapist reports good effort and reproducible results. Interpretation: Forced expiration spirometry shows no large airways obstructive ventilatory defect with an FEV1 of 104% predicted. There is no significant bronchodilator response by strict ATS criteria.? Spirograms are of good quality and plateau normally.? The respiratory flow volume loop shows a normal pattern. Lung volumes by body plethysmography show a normal total lung capacity at 4.54 L, 114% predicted.? All other lung volumes are within normal limits. Diffusion capacity by carbon monoxide is normal at 95% predicted. The airway resistance is normal. No previous pulmonary function tests were available for review. Impression: These pulmonary function tests are within normal limits. Radiography Diagnostic Testing: Radiology Impression Chest X-Ray 10/05/21 17:55 IMPRESSION: There are bilateral pleural effusions. Electronically Signed: Destin Lawton MD at 18:16 EDT ,
[2021-10-06] MEDS: Amiodarone 360 MG in Dextrose 5% Viaflo Bag 192.8 ML 33.3 MG CONT INF (10:04)
--- NOTE | 2021-10-06 11:50 | CASEMGMT ---
ALDAIR AELX assessment: Face to Face with patient for initial transition planning/care coordination assessment. ALDAIR ALEX introduced self and role at [facility], pt voices understanding and consents to assessment. Pt is sitting up in bed in no distress on 2L nc. Pt is A/Ox4 and answers all questions appropriately.? Care providers, pharmacy,?and demographics verified. ? Presentation: Pt sent from [place] office for Afib RVR, SOB, fatigue Admitting dx: Afib RVR PCP: [facility] Specialists: Patrick, rheumatology; Yohan, cardio; John, pulm; Giulia and Rogelio, ortho; Ayaka, uro [facility] A/B, MMO Prescription Benefit:?[employer] Living Will/HPOA: Pt lives with LW/HPOA and is aware that it's not on file at [facility]. Pt states her , Erik Villarreal, is HPOA. LNOK: Erik Villarreal, /HPOA Living Arrangements: Pt lives with on main level of 2 story home and states no concerns at home. Pt is independent with ADL's. Transportation: Pt drives self and states no transportation concerns. DME/HHC: Pt has the following DME: cane, walker, and bench. Pt states no need for any further DME. Pt states no hx of HHC or SNF. Pt states no concerns with going home at time of discharge. Pt is retired. Pt states does not smoke cigarettes or drink ETOH. Pt states no further concerns/needs. CM to follow for any further discharge planning/needs. Advised pt to ask for CM if any further questions/concerns/needs arise, voices understanding. Pt Goal: [place]IR ALEX
--- NOTE | 2021-10-06 11:55 | PN.HOSP_ITS ---
Documented by User: DESTINEY Landaverde 10/06/21 12:08 Subjective Subjective Patient seen and examined. Patient lying in bed no distress noted. Patient's heart rate 70s to 80s, Cardizem drip at 15. Objective Data Objective Data Vital Signs: Vital Signs Temp Pulse Resp BP Pulse Ox O2 Del Method O2 Flow Rate 98.0 F 84 15 127/80 H 95 Nasal Cannula 2 10/06/21 04:00 10/06/21 11:44 10/06/21 11:44 10/06/21 11:00 10/06/21 11:44 10/06/21 11:45 10/06/21 11:45 Oxygen Flow Rate (L/min) 2 Oxygen Delivery Method Nasal Cannula Weight: 152 lb 5.431 oz Body Mass Index (BMI) 29.7 Intake & Output: Intake and Output for Last 24 Hours 10/04/21 10/05/21 10/06/21 23:59 23:59 23:59 Intake Total 33.08 / 348.08 1714.00 / 1714.00 Output Total 1000 / 1000 Balance 33.08 / -151.92 714.00 / 714.00 Lab / Micro Data Result Diagrams: 10/06/21 06:05 10/06/21 06:05 Labs: Laboratory Results - last 24 hr 10/05/21 17:46: WBC 8.7, RBC 3.97 L, Hgb 11.8 L, Hct 37.6, MCV 94.7, MCH 29.7, MCHC 31.4 L, RDW Std Deviation 50.2 H, RDW Coeff of Olaf 14.6, Plt Count 329, MPV 11.9, Immature Gran % (Auto) 0.200, Neut % (Auto) 57.7, Lymph % (Auto) 24.9, [place] % (Auto) 12.2 H, Eos % (Auto) 4.0, Baso % (Auto) 1.0, Absolute Neuts (auto) 5.0, Absolute Lymphs (auto) 2.16, Nucleated RBC % 0 10/05/21 17:46: Sodium 139, Potassium 3.4 L, Chloride 107, Carbon Dioxide 25.0, Anion Gap 7, BUN 27 H, Creatinine 0.98, Estim Creat Clear Calc 36.18, Est GFR (MDRD) Af Amer 71, Est GFR (MDRD) Non-Af 59 L, BUN/Creatinine Ratio 27.4 H, Glucose 119 H, Calcium 9.2, Troponin I High Sens 10, TSH 1.15 10/05/21 17:46: Magnesium 2.1 10/05/21 17:46: B-Natriuretic Peptide 333.8 H 10/05/21 20:45: Troponin I High Sens 10 10/05/21 23:46: Troponin I High Sens 11 10/06/21 06:05: WBC 7.1, RBC 3.62 L, Hgb 10.7 L, Hct 34.4 L, MCV 95.0, MCH 29.6, MCHC 31.1 L, RDW Std Deviation 49.8 H, RDW Coeff of Loaf 14.4, Plt Count 284, MPV 11.9, Immature Gran % (Auto) 0.400, Neut % (Auto) 64.3, Lymph % (Auto) 15.5 L, [place] % (Auto) 14.0 H, Eos % (Auto) 4.8, Baso % (Auto) 1.0, Absolute Neuts (auto) 4.6, Absolute Lymphs (auto) 1.10, Nucleated RBC % 0 10/06/21 06:05: Sodium 141, Potassium 4.2, Chloride 110 H, Carbon Dioxide 27.0, Anion Gap 4 L, BUN 17, Creatinine 0.80, Estim Creat Clear Calc 44.32, Est GFR (MDRD) Af Amer 90, Est GFR (MDRD) Non-Af 74, BUN/Creatinine Ratio 21.1 H, Glucose 126 H, Calcium 8.3 L, Magnesium 2.3, Total Bilirubin 0.60, AST 16, ALT 26, Alkaline Phosphatase 69, Total Protein 5.9 L, Albumin 2.7 L, Globulin 3.2, Albumin/Globulin Ratio 0.8 L Radiography Diagnostic Testing: Radiology Impression Chest X-Ray 10/05/21 17:55 IMPRESSION: There are bilateral pleural effusions. Electronically Signed: Destin Lawton MD at 18:16 EDT , Rhythm Strip Rhythm Strip: A-fib Rate: 169 Ectopy: None Physical Exam Const alert, oriented x3 and no apparent distress HEENT head/scalp atraumatic and moist oral mucous membranes Head and Scalp: normocephalic Eyes conjunctivae normal and no scleral icterus Neck no lymphadenopathy and supple General: trachea midline Resp normal respiratory effort, normal air movement and clear to auscultation bilaterally Effort and Inspection: able to speak in complete sentences and symmetric chest movement Cardio regular rate, regular rhythm, S1 normal heart sound and S2 normal heart sound GI normal to inspection, nondistended, normoactive bowel sounds, soft to palpation and non-tender Extremity normal to inspection and full ROM General Extremity: edema bilateral lower extremity Details: moderate Skin no rashes or lesions noted, no wounds and skin turgor normal Neuro oriented x3, moves all extremities, no focal motor deficits and no sensory deficits noted Psych affect normal Assessment & Plan Assessment/Plan (1) CHF (congestive heart failure): QUALIFIERS: Heart failure chronicity: acute Heart failure type: diastolic Qualified Code(s): I50.31 - Acute diastolic (congestive) heart failure (2) Atrial fibrillation with rapid ventricular response: PLAN: Plan 1. Atrial fibrillation with RVR -Continue Cardizem drip, wean as heart rate allows -Echocardiogram pending -Cardiology following -Continue Xarelto 2. Hypokalemia -Potassium 4.2 today, magnesium 1.4 -BMP daily 3. Acute diastolic congestive heart failure -Continue IV Lasix -Echocardiogram pending 4. Hypothyroidism -Continue Synthroid 5. Rheumatoid arthritis -Continue leflunomide, prednisone 6. Hypertension -Vital signs per protocol, currently stable -Continue amlodipine, metoprolol on hold due to Cardizem drip This patient was seen by Patti Bush NP-Kimmie under the supervision of Dr. Chung. 11 minutes spent in clinical coordination of patient's plan of care. Documented by User: Dr. David Chung DO 10/06/21 13:59 Objective Data Lab / Micro Data Result Diagrams: 10/06/21 06:05 10/06/21 06:05 Assessment & Plan Assessment/Plan (1) CHF (congestive heart failure): QUALIFIERS: Heart failure chronicity: acute Heart failure type: diastolic Qualified Code(s): I50.31 - Acute diastolic (congestive) heart failure (2) Atrial fibrillation with rapid ventricular response: Charges/Coding Addendum Addendum: Patient seen and examined independently. Data and vitals reviewed. I agree with the above note by the nurse practitioner. Subjective: Patient feels well. No chest pain or palpitations. Objective: Patient is resting in bed and comfortable. No respiratory distress. No conversational dyspnea. Heart rate regular rate and rhythm plus S1-S2 without murmurs gallops rubs. Lungs are clear to auscultation bilaterally Assessment and plan 1. Atrial fibrillation with RVR Currently rate controlled 2D echocardiogram showed an EF of 60%, left atrium moderately enlarged, RVSP 24 mmHg On diltiazem drip as well as amiodarone drip Cardiology on consultation Anticoagulation with rivaroxaban 2. Acute heart failure with preserved ejection fraction EF 60% Patient has been putting on weight. Started on IV furosemide Greater than 20 minutes spent reviewing data, documentation, discussing with the patient and her at bedside. Visit Charges Inpatient E&M: 64679 Subs Hosp L2
[2021-10-06] MEDS: Amiodarone 360 MG in Dextrose 5% Viaflo Bag 192.8 ML 16.7 MG CONT INF (17:17)
[2021-10-06] MEDS: Rivaroxaban 15 MG Tablet PO (17:30)
[2021-10-07] VITALS (27 sets, daily range): BP systolic 121–164; BP diastolic 72–113; PULSE 72–124; RESP 16–20; TEMP 36.5–36.6; O2SAT 93–98
[2021-10-07] MEDS: Amiodarone 360 MG in Dextrose 5% Viaflo Bag 192.8 ML 16.7 MG CONT INF (02:44)
[2021-10-07] MEDS: Levothyroxine 50 MCG Tablet PO (02:48)
[2021-10-07 06:33] LABS: Absolute Lymphocyte Count 1.54 X10^3/uL (0.83-4.51); Absolute Neutrophil Count 4.5 X10^3/uL (2.0-7.7); Basophil# 0.07 X10^3/uL; Basophil% 0.9 % (0-1); Eosinophil# 0.37 X10^3/uL; Hematocrit 34.7 % (37-47); Lymphocyte # 1.54 X10^3/ul (0.83-4.51); Lymphocyte % 20.8 % (19-41); Mean Corp Hgb Conc 31.7 g/dL (32-36); Mean Corpuscular Hgb 29.9 pg (27.0-32.0); Mean Corpuscular Volume 94.3 fL (81-99); Mean Platelet Vol. 12.2 fl (6.2-12.0); Monocyte# 0.85 X10^3/uL; Monocyte% 11.5 % (0-10); NRBC Flagged by Analyzer 0 % (0-5); Neutrophil # 4.53 X10^3/uL (2.7-7.7); Neutrophil % 61.4 % (47-70); Platelet Count 282 K/mm3 (150-450); RBC Distribution Width CV 14.3 % (11.6-14.6); RBC Distribution Width SD 49.2 fl (35.1-43.9); Red Blood Count 3.68 M/mm3 (4.2-5.4); White Blood Count 7.4 K/mm3 (4.4-11.0)
[2021-10-07 07:01] LABS: ALB/GLOB Ratio 0.8 RATIO (0.9-2.4); AST(SGOT) 16 U/L (15-37); Alanine Aminotransfer ALT/SGPT 23 U/L (13-56); Albumin, Serum 2.6 g/dL (3.2-5.0); Alkaline Phosphatase 64 U/L (45-117); Anion Gap 5 (5-15); BUN 16 mg/dL (7-18); BUN/Creat Ratio 17.6 RATIO (10-20); Calcium,Total 8.3 mg/dL (8.5-10.1); Chloride 104 mmol/L (98-107); Creatinine, Serum 0.91 mg/dL (0.55-1.02); EST Glomerular Filtration Rate 64 mL/min (>60); Est Glom Filt Rate - Afr Amer 78 mL/min (>60); Estimated Creatinine Clearance 38.96 ml/min; Globulin 3.2 g/dL (2.2-4.2); Glucose 125 mg/dL (74-106); Potassium 3.4 mmol/L (3.5-5.1); Protein, Total 5.8 g/dL (6.4-8.2); Sodium Level 140 mmol/L (136-145)
[2021-10-07] MEDS: Potassium Chloride Oral Tablet 20 MEQ 40 MEQ PO (08:21)
[2021-10-07] MEDS: Multivitamins,Therapeutic Tablet 1 TABLET PO (08:22)
[2021-10-07] MEDS: predniSONE 5 MG Tablet PO (08:22)
[2021-10-07] MEDS: Metoprolol Tartrate 25 MG Tablet PO ×2 (08:22→09:22)
[2021-10-07] MEDS: Cholecalciferol (VIT D3) 25 MCG TABLET (1,000 UNITS) PO (08:22)
[2021-10-07] MEDS: Furosemide 40 MG/4 ML Vial IV (08:23)
[2021-10-07] MEDS: Acetaminophen 325 MG Tablet 650 MG PO (08:34)
--- NOTE | 2021-10-07 08:53 | PN.CARD_ITS ---
Subjective Subjective The patient is awake and alert. She states that she does feel better overall. She was able to sleep supine yesterday without any obvious respiratory related concerns. She notes her lower extremity/ankle area appears less edematous. Objective Data Vital Signs: Vital Signs Temp Pulse Resp BP Pulse Ox O2 Del Method O2 Flow Rate 97.8 F 95 20 H 148/103 H 95 Room Air 2 10/07/21 01:00 10/07/21 08:22 10/07/21 07:00 10/07/21 08:22 10/07/21 05:00 10/07/21 07:35 10/06/21 11:45 Oxygen Flow Rate (L/min) 2 Oxygen Delivery Method Room Air Weight: 151 lb 7.321 oz Body Mass Index (BMI) 29.7 Intake & Output: Intake and Output for Last 24 Hours 10/05/21 10/06/21 10/07/21 23:59 23:59 23:59 Intake Total 33.08 / 348.08 2463.97 / 2883.97 727.02 / 727.02 Output Total 1000 / 1000 Balance 33.08 / -151.92 1463.97 / 1883.97 727.02 / 727.02 Lab / Micro Data Result Diagrams: 10/07/21 05:25 10/07/21 05:25 Labs: Laboratory Results - last 24 hr 10/07/21 05:25: WBC 7.4, RBC 3.68 L, Hgb 11.0 L, Hct 34.7 L, MCV 94.3, MCH 29.9, MCHC 31.7 L, RDW Std Deviation 49.2 H, RDW Coeff of Olaf 14.3, Plt Count 282, MPV 12.2 H, Immature Gran % (Auto) 0.400, Neut % (Auto) 61.4, Lymph % (Auto) 20.8, [place] % (Auto) 11.5 H, Eos % (Auto) 5.0, Baso % (Auto) 0.9, Absolute Neuts (auto) 4.5, Absolute Lymphs (auto) 1.54, Nucleated RBC % 0 10/07/21 05:25: Sodium 140, Potassium 3.4 L, Chloride 104, Carbon Dioxide 31.0, Anion Gap 5, BUN 16, Creatinine 0.91, Estim Creat Clear Calc 38.96, Est GFR (MDRD) Af Amer 78, Est GFR (MDRD) Non-Af 64, BUN/Creatinine Ratio 17.6, Glucose 125 H, Calcium 8.3 L, Total Bilirubin 0.60, AST 16, ALT 23, Alkaline Phosphatase 64, Total Protein 5.8 L, Albumin 2.6 L, Globulin 3.2, Albumin/Globulin Ratio 0.8 L Rhythm Strip Rhythm Strip: A-fib Rate: 169 Ectopy: None Cardiology Labs/Tests 10/07/21 05:25: WBC 7.4, RBC 3.68 L, Hgb 11.0 L, Hct 34.7 L, MCV 94.3, MCH 29.9, MCHC 31.7 L, Plt Count 282, MPV 12.2 H, Immature Gran % (Auto) 0.400, Neut % (Auto) 61.4, Lymph % (Auto) 20.8, [place] % (Auto) 11.5 H, Eos % (Auto) 5.0, Baso % (Auto) 0.9, Absolute Neuts (auto) 4.5, Nucleated RBC % 0 10/07/21 05:25: Sodium 140, Potassium 3.4 L, Chloride 104, Carbon Dioxide 31.0, Anion Gap 5, BUN 16, Creatinine 0.91, Est GFR (MDRD) Af Amer 78, Est GFR (MDRD) Non-Af 64, BUN/Creatinine Ratio 17.6, Glucose 125 H, Calcium 8.3 L, Total Bilirubin 0.60 Rhythm: Atrial fibrillation Radiography Diagnostic Testing: Radiology Impression Echocardiogram 10/05/21 20:21 Interpretation Summary Left ventricular systolic function is normal. The estimated ejection fraction is 60 %. Apical false tendon noted. The left atrium is moderately enlarged. The right atrium is mildly enlarged. There is moderate to severe mitral annular calcification. Extension of the mitral annular calcification on the base of the posterior mitral leaflet Moderate (2+) eccentric mitral valve insufficiency. Moderate (2+) eccentric tricuspid valve insufficiency. Mild focal aortic valve thickening. Trivial pulmonic valve insufficiency. Right ventricular systolic pressure estimated to be 24 mmHg. Diastolic function is indeterminate. Ordering Physician: Unique Curiel Referring Physician: Felix Mart Performed By: Marcelina Blum RDCS Physical Exam Const alert, oriented x3 and no apparent distress Orientation / Consciousness: awake HEENT normocephalic, head/scalp atraumatic and hearing grossly normal bilaterally Head and Scalp: normocephalic Eyes PERRL, EOMs intact bilaterally, conjunctivae normal and no scleral icterus Neck full ROM, supple and no JVD General: trachea midline Resp normal respiratory effort, normal air movement and clear to auscultation bilaterally Effort and Inspection: symmetric chest movement Cardio S1 normal heart sound and S2 normal heart sound Rhythm: abnormal rhythm irregularly irregular GI normal to inspection, nondistended, normoactive bowel sounds, soft to palpation and non-tender Extremity normal to inspection and full ROM General Extremity: edema bilateral lower extremity Details: trace Skin no rashes or lesions noted Neuro oriented x3 and moves all extremities Psych mental status grossly normal and affect normal Assessment & Plan Assessment/Plan (1) Atrial fibrillation with rapid ventricular response: PLAN: The patient persists with atrial fibrillation with intermittent rapid ventricular response. Her noninvasive studies thus far have demonstrated negative high-sensitivity troponin I levels. Her BNP level was somewhat elevated at 333.8. Her ECG is demonstrated no acute changes. Her previous noninvasive studies have been reviewed. She has undergone subsequent evaluation with transthoracic echocardiogram with the results as noted. At the present time she is continuing rate control therapy, antiarrhythmic therapy, and anticoagulant therapy. An attempt will be made to alter her IV rate control therapy and IV antiarrhythmic therapy to oral medications. Over time she can be considered for future outpatient synchronized biphasic DC cardioversion if she does not convert to sinus rhythm. (2) CHF (congestive heart failure): QUALIFIERS: Heart failure type: diastolic Heart failure chronicity: acute Qualified Code(s): I50.31 - Acute diastolic (congestive) heart failure PLAN: She also appears to have an element of acute diastolic mediated CHF. Her follow-up transthoracic echocardiogram is as noted. She appears to be improved status post diuretic therapy. Her IV diuretic therapy dose will be reduced with plans to eventually change this to an oral agent. She will also receive potassium supplementation. (3) Carotid stenosis, right: PLAN: She has a history of carotid artery stenosis. She has undergone evaluation care as noted. (4) Essential hypertension: PLAN: Her blood pressure remains elevated. She will initiate antihypertensive therapy with an DAMARI inhibitor unless otherwise contraindicated or not tolerated. (5) Hypothyroidism: QUALIFIERS: Hypothyroidism type: unspecified Qualified Code(s): E03.9 - Hypothyroidism, unspecified PLAN: Her TSH level was evaluated. It appeared to be within normal range. Addt'l Comments Overall, she does appear to have improvement in her cardiac rate as well as her volume status and her physical examination findings. An attempt was made to alter her medications as noted. Hopefully she will be stable on oral medication and eventually be able to be released home for continued outpatient follow-up. This note was generated using a voice recognition system and there may be incorrect words, spelling or punctuation that were not noted when reviewing the office note prior to saving.
[2021-10-07] MEDS: Lisinopril 10 MG Tablet PO ×2 (09:22→22:16)
--- NOTE | 2021-10-07 10:31 | PN.HOSP_ITS ---
Documented by User: JOHANNA LandaverdeC 10/07/21 10:36 Subjective Subjective Patient seen and examined. Patient states that she is feeling better. Amiodarone drip continued and Cardizem drip at 5. Heart rate 90-100 Objective Data Objective Data Vital Signs: Vital Signs Temp Pulse Resp BP Pulse Ox O2 Del Method O2 Flow Rate 97.8 F 87 20 H 164/112 H 95 Room Air 2 10/07/21 01:00 10/07/21 09:22 10/07/21 07:00 10/07/21 09:22 10/07/21 05:00 10/07/21 07:35 10/06/21 11:45 Oxygen Flow Rate (L/min) 2 Oxygen Delivery Method Room Air Weight: 151 lb 7.321 oz Body Mass Index (BMI) 29.7 Intake & Output: Intake and Output for Last 24 Hours 10/05/21 10/06/21 10/07/21 23:59 23:59 23:59 Intake Total 33.08 / 348.08 2463.97 / 2883.97 727.02 / 727.02 Output Total 1000 / 1000 Balance 33.08 / -151.92 1463.97 / 1883.97 727.02 / 727.02 Lab / Micro Data Result Diagrams: 10/07/21 05:25 10/07/21 05:25 Labs: Laboratory Results - last 24 hr 10/07/21 05:25: WBC 7.4, RBC 3.68 L, Hgb 11.0 L, Hct 34.7 L, MCV 94.3, MCH 29.9, MCHC 31.7 L, RDW Std Deviation 49.2 H, RDW Coeff of Olaf 14.3, Plt Count 282, MPV 12.2 H, Immature Gran % (Auto) 0.400, Neut % (Auto) 61.4, Lymph % (Auto) 20.8, [place] % (Auto) 11.5 H, Eos % (Auto) 5.0, Baso % (Auto) 0.9, Absolute Neuts (auto) 4.5, Absolute Lymphs (auto) 1.54, Nucleated RBC % 0 10/07/21 05:25: Sodium 140, Potassium 3.4 L, Chloride 104, Carbon Dioxide 31.0, Anion Gap 5, BUN 16, Creatinine 0.91, Estim Creat Clear Calc 38.96, Est GFR (MDRD) Af Amer 78, Est GFR (MDRD) Non-Af 64, BUN/Creatinine Ratio 17.6, Glucose 125 H, Calcium 8.3 L, Total Bilirubin 0.60, AST 16, ALT 23, Alkaline Phosphatase 64, Total Protein 5.8 L, Albumin 2.6 L, Globulin 3.2, Albumin/Globulin Ratio 0.8 L Radiography Diagnostic Testing: Radiology Impression Echocardiogram 10/05/21 20:21 Interpretation Summary Left ventricular systolic function is normal. The estimated ejection fraction is 60 %. Apical false tendon noted. The left atrium is moderately enlarged. The right atrium is mildly enlarged. There is moderate to severe mitral annular calcification. Extension of the mitral annular calcification on the base of the posterior mitral leaflet Moderate (2+) eccentric mitral valve insufficiency. Moderate (2+) eccentric tricuspid valve insufficiency. Mild focal aortic valve thickening. Trivial pulmonic valve insufficiency. Right ventricular systolic pressure estimated to be 24 mmHg. Diastolic function is indeterminate. Ordering Physician: Unique Curiel Referring Physician: Felix Mart Performed By: Marcelina Blum RDCS Rhythm Strip Rhythm Strip: A-fib Rate: 169 Ectopy: None Physical Exam Const alert, oriented x3 and no apparent distress HEENT head/scalp atraumatic and moist oral mucous membranes Eyes conjunctivae normal and no scleral icterus Neck no lymphadenopathy and supple General: trachea midline Resp normal respiratory effort, normal air movement and clear to auscultation bilater ally Effort and Inspection: able to speak in complete sentences and symmetric chest movement Cardio regular rate, regular rhythm, S1 normal heart sound and S2 normal heart sound GI normal to inspection, nondistended, normoactive bowel sounds, soft to palpation and non-tender Extremity normal to inspection and full ROM General Extremity: edema bilateral lower extremity Details: moderate Skin no rashes or lesions noted, no wounds and skin turgor normal Neuro oriented x3, moves all extremities, no focal motor deficits and no sensory deficits noted Psych affect normal Assessment & Plan Assessment/Plan (1) CHF (congestive heart failure): QUALIFIERS: Heart failure chronicity: acute Heart failure type: diastolic Qualified Code(s): I50.31 - Acute diastolic (congestive) heart failure (2) Atrial fibrillation with rapid ventricular response: PLAN: Plan 1. Atrial fibrillation with RVR -Continue Cardizem and amiodarone drips, wean as heart rate allows -Echocardiogram demonstrates EF 60% -Cardiology following -Continue Xarelto 2. Hypokalemia -Potassium 3.4 today, Potassium Chloride 40meq x1 ordered -BMP daily 3. Acute diastolic congestive heart failure -Continue IV Lasix -Echocardiogram demonstrates EF 60% 4. Hypothyroidism -Continue Synthroid 5. Rheumatoid arthritis -Continue leflunomide, prednisone 6. Hypertension -Vital signs per protocol, currently stable -Continue amlodipine, metoprolol on hold due to Cardizem drip This patient was seen by Patti Bush NP-C under the supervision of Dr. Chung. 12 minutes spent in clinical coordination of patient's plan of care. Documented by User: Dr. David Chung, 10/07/21 11:12 Objective Data Lab / Micro Data Result Diagrams: 10/07/21 05:25 10/07/21 05:25 Assessment & Plan Assessment/Plan (1) CHF (congestive heart failure): QUALIFIERS: Heart failure chronicity: acute Heart failure type: diastolic Qualified Code(s): I50.31 - Acute diastolic (congestive) heart failure (2) Atrial fibrillation with rapid ventricular response: Charges/Coding Addendum Addendum: Patient seen and examined independently.? Data and vitals reviewed.? I agree with the above note by the nurse practitioner. Subjective: Patient feels well.? No chest pain or palpitations. No further rashes Objective: Patient is resting in bed and comfortable.? No respiratory distress.? No conversational dyspnea.? Heart rate regular rate and rhythm plus S1-S2 without murmurs gallops rubs.? Lungs are clear to auscultation bilaterally Assessment and plan 1.? Atrial fibrillation with RVR Currently rate controlled 2D echocardiogram showed an EF of 60%, left atrium moderately enlarged, RVSP 24 mmHg On diltiazem drip a Cardiology on consultation Anticoagulation with rivaroxaban now on PO amiodarone 2.? Acute heart failure with preserved ejection fraction EF 60% Patient has been putting on weight. Started on IV furosemide, now down to 20 BID Disposition: TBD. Hopefully in next 24-48h. Greater than 20 minutes spent reviewing data, documentation, discussing with the patient and her at bedside. Visit Charges Inpatient E&M: 92330 Subs Hosp L2
[2021-10-07] MEDS: Amiodarone 200 MG Tablet PO ×2 (14:00→22:14)
[2021-10-07] MEDS: Rivaroxaban 15 MG Tablet PO (17:29)
[2021-10-07] MEDS: Furosemide 20 MG/2 ML VIAL IV (17:30)
[2021-10-07] MEDS: Metoprolol Tartrate 50 MG Tablet PO (19:02)
[2021-10-07] MEDS: Digoxin 250 MCG/ML Ampul 500 MCG IV (22:02)
[2021-10-07] MEDS: 0.9% Saline Lock 10 ML Syringe IV (22:14)
[2021-10-07] MEDS: Leflunomide 10 MG TABLET 20 MG PO (22:15)
[2021-10-08] VITALS (14 sets, daily range): BP systolic 130–163; BP diastolic 67–94; PULSE 64–117; RESP 12–18; TEMP 36.5–36.9; O2SAT 92–99
[2021-10-08] MEDS: Amiodarone 200 MG Tablet PO ×3 (05:06→21:02)
[2021-10-08] MEDS: Levothyroxine 50 MCG Tablet PO (05:06)
[2021-10-08 06:45] LABS: ALB/GLOB Ratio 0.8 RATIO (0.9-2.4); AST(SGOT) 15 U/L (15-37); Alanine Aminotransfer ALT/SGPT 22 U/L (13-56); Albumin, Serum 2.7 g/dL (3.2-5.0); Alkaline Phosphatase 70 U/L (45-117); Anion Gap 4 (5-15); BUN 16 mg/dL (7-18); BUN/Creat Ratio 15.5 RATIO (10-20); Calcium,Total 8.8 mg/dL (8.5-10.1); Chloride 104 mmol/L (98-107); Creatinine, Serum 1.03 mg/dL (0.55-1.02); EST Glomerular Filtration Rate 56 mL/min (>60); Est Glom Filt Rate - Afr Amer 67 mL/min (>60); Estimated Creatinine Clearance 34.42 ml/min; Globulin 3.6 g/dL (2.2-4.2); Glucose 112 mg/dL (74-106); Potassium 3.7 mmol/L (3.5-5.1); Protein, Total 6.3 g/dL (6.4-8.2); Sodium Level 140 mmol/L (136-145)
--- NOTE | 2021-10-08 09:26 | PN.HOSP_ITS ---
Documented by User: DESTINEY Landaverde 10/08/21 09:29 Subjective Subjective Patient seen and examined. Patient states that she is feeling better however her heart rate is trending back up. Objective Data Objective Data Vital Signs: Vital Signs Temp Pulse Resp BP Pulse Ox O2 Del Method O2 Flow Rate 98.4 F 117 H 18 155/83 H 92 Room Air 2 10/08/21 07:57 10/08/21 07:57 10/08/21 07:57 10/08/21 07:57 10/08/21 07:57 10/08/21 07:57 10/06/21 11:45 Oxygen Flow Rate (L/min) 2 Oxygen Delivery Method Room Air Weight: 147 lb 14.883 oz Body Mass Index (BMI) 29.7 Intake & Output: Intake and Output for Last 24 Hours 10/06/21 10/07/21 10/08/21 23:59 23:59 23:59 Intake Total 2463.97 / 2883.97 2174.08 / 2174.08 Output Total 1000 / 1000 Balance 1463.97 / 1883.97 2174.08 / 2174.08 Lab / Micro Data Result Diagrams: 10/07/21 05:25 10/08/21 05:35 Labs: Laboratory Results - last 24 hr 10/08/21 05:35: Sodium 140, Potassium 3.7, Chloride 104, Carbon Dioxide 32.0, Anion Gap 4 L, BUN 16, Creatinine 1.03 H, Estim Creat Clear Calc 34.42, Est GFR (MDRD) Af Amer 67, Est GFR (MDRD) Non-Af 56 L, BUN/Creatinine Ratio 15.5, Glucose 112 H, Calcium 8.8, Total Bilirubin 0.50, AST 15, ALT 22, Alkaline P hosphatase 70, Total Protein 6.3 L, Albumin 2.7 L, Globulin 3.6, Albumin/Globulin Ratio 0.8 L Rhythm Strip Rhythm Strip: A-fib Rate: 169 Ectopy: None Physical Exam Const alert, oriented x3 and no apparent distress HEENT head/scalp atraumatic and moist oral mucous membranes Eyes conjunctivae normal and no scleral icterus Neck no lymphadenopathy and supple General: trachea midline Resp normal respiratory effort, normal air movement and clear to auscultation bilaterally Effort and Inspection: able to speak in complete sentences and symmetric chest movement Cardio regular rate, regular rhythm, S1 normal heart sound, S2 normal heart sound and peripheral pulses 2+ throughout Rate: tachycardic GI normal to inspection, nondistended, normoactive bowel sounds, soft to palpation and non-tender Extremity normal to inspection and full ROM General Extremity: edema bilateral lower extremity Details: moderate Skin no rashes or lesions noted, no wounds and skin turgor normal Neuro oriented x3, moves all extremities, no focal motor deficits and no sensory deficits noted Psych affect normal Assessment & Plan Assessment/Plan (1) CHF (congestive heart failure): QUALIFIERS: Heart failure chronicity: acute Heart failure type: diastolic Qualified Code(s): I50.31 - Acute diastolic (congestive) heart failure (2) Atrial fibrillation with rapid ventricular response: PLAN: Plan 1. Atrial fibrillation with RVR -Patient transitioned off of the Cardizem and amiodarone drips late yesterday and transition onto p.o. amiodarone however patient's heart rate is trending back up and is currently in the 130s to 140s. -Echocardiogram demonstrates EF 60% -Cardiology following -Continue Xarelto 2. Hypokalemia -Potassium 3.7 today, Potassium Chloride 40meq x1 ordered -BMP daily 3. Acute diastolic congestive heart failure -Continue IV Lasix -Echocardiogram demonstrates EF 60% 4. Hypothyroidism -Continue Synthroid 5. Rheumatoid arthritis -Continue leflunomide, prednisone 6. Hypertension -Vital signs per protocol, currently stable -Continue amlodipine, metoprolol on hold due to Cardizem drip This patient was seen by DESTINEY Landaverde under the supervision of Dr. Chung. 11 minutes spent in clinical coordination of patient's plan of care. Documented by User: Dr. David Chung DO 10/08/21 11:29 Objective Data Lab / Micro Data Result Diagrams: 10/07/21 05:25 10/08/21 05:35 Assessment & Plan Assessment/Plan (1) CHF (congestive heart failure): QUALIFIERS: Heart failure chronicity: acute Heart failure type: diastolic Qualified Code(s): I50.31 - Acute diastolic (congestive) heart failure (2) Atrial fibrillation with rapid ventricular response: Charges/Coding Addendum Addendum: Patient seen and examined independently.? Data and vitals reviewed.? I agree with the above note by the nurse practitioner. Subjective: Patient feels well.? No chest pain or palpitations. Objective: Patient is resting in bed and comfortable.? No respiratory distress.? No conversational dyspnea.? Heart rate irregularly irregular.? Lungs are clear to auscultation bilaterally Assessment and plan 1.? Atrial fibrillation with RVR Ongoing 2D echocardiogram showed an EF of 60%, left atrium moderately enlarged, RVSP 24 mmHg On amiodarone Cardiology on consultation Anticoagulation with rivaroxaban Started on digoxin Cannot rule out the need for cardioversion 2.? Acute heart failure with preserved ejection fraction EF 60% Patient has been putting on weight. Started on IV furosemide Greater than 20 minutes spent reviewing data, documentation, discussing with the patient and her at bedside. Visit Charges Inpatient E&M: 30966 Subs Hosp L2
[2021-10-08] MEDS: predniSONE 5 MG Tablet PO (09:44)
[2021-10-08] MEDS: Multivitamins,Therapeutic Tablet 1 TABLET PO (09:44)
[2021-10-08] MEDS: Cholecalciferol (VIT D3) 25 MCG TABLET (1,000 UNITS) PO (09:44)
[2021-10-08] MEDS: Lisinopril 10 MG Tablet PO ×2 (09:45→21:03)
[2021-10-08] MEDS: Metoprolol Tartrate 50 MG Tablet PO (09:45)
[2021-10-08] MEDS: Furosemide 20 MG/2 ML VIAL IV ×2 (09:45→17:59)
[2021-10-08] MEDS: Digoxin 125 MCG Tablet PO (09:53)
[2021-10-08] MEDS: Acetaminophen 325 MG Tablet 650 MG PO ×2 (09:54→21:07)
[2021-10-08] MEDS: dilTIAZem 30 MG Tablet PO ×2 (14:11→21:02)
[2021-10-08] MEDS: 0.9% Saline Lock 10 ML Syringe IV ×2 (14:11→17:58)
--- NOTE | 2021-10-08 14:40 | PCM.PN.CARD ---
Subjective Subjective Seen and evaluated today at bedside Feeling better Objective Data Vital Signs: Vital Signs Temp Pulse Resp BP Pulse Ox O2 Del Method O2 Flow Rate 97.9 F 97 18 144/94 H 93 Room Air 2 10/08/21 12:00 10/08/21 12:00 10/08/21 12:00 10/08/21 12:00 10/08/21 12:00 10/08/21 12:00 10/06/21 11:45 Oxygen Flow Rate (L/min) 2 Oxygen Delivery Method Room Air Weight: 147 lb 14.883 oz Body Mass Index (BMI) 29.7 Intake & Output: Intake and Output for Last 24 Hours 10/06/21 10/07/21 10/08/21 23:59 23:59 23:59 Intake Total 2463.97 / 2883.97 2174.08 / 2174.08 500 / 500 Output Total 1000 / 1000 Balance 1463.97 / 1883.97 2174.08 / 2174.08 500 / 500 Lab / Micro Data Result Diagrams: 10/07/21 05:25 10/08/21 05:35 Labs: Laboratory Results - last 24 hr 10/08/21 05:35: Sodium 140, Potassium 3.7, Chloride 104, Carbon Dioxide 32.0, Anion Gap 4 L, BUN 16, Creatinine 1.03 H, Estim Creat Clear Calc 34.42, Est GFR (MDRD) Af Amer 67, Est GFR (MDRD) Non-Af 56 L, BUN/Creatinine Ratio 15.5, Glucose 112 H, Calcium 8.8, Total Bilirubin 0.50, AST 15, ALT 22, Alkaline Phosphatase 70, Total Protein 6.3 L, Albumin 2.7 L, Globulin 3.6, Albumin/Globulin Ratio 0.8 L Rhythm Strip Rhythm Strip: A-fib Rate: 169 Ectopy: None Cardiology Labs/Tests 10/08/21 05:35: Sodium 140, Potassium 3.7, Chloride 104, Carbon Dioxide 32.0, Anion Gap 4 L, BUN 16, Creatinine 1.03 H, Est GFR (MDRD) Af Amer 67, Est GFR (MDRD) Non-Af 56 L, BUN/Creatinine Ratio 15.5, Glucose 112 H, Calcium 8.8, Total Bilirubin 0.50 Rhythm: EKG: ECHO: Stress Test: Cardiac Cath: PCI: CT Surgery: Holter monitor: EPS: PPM: CXR: Chest CT Scan: Physical Exam Narrative Side card examination Review of the groundwater monitoring technician showed underlying normal sinus with RVR Her pulse exam S1-S2 is irregular Chest examination clear to auscultation bilateral Examination lower extremity mild lower extremity edema. Assessment & Plan Assessment/Plan (1) CHF (congestive heart failure): QUALIFIERS: Heart failure type: diastolic Heart failure chronicity: acute Qualified Code(s): I50.31 - Acute diastolic (congestive) heart failure (2) Atrial fibrillation with rapid ventricular response: PLAN: 76-year-old patient with A. fib and RVR patient has long history of rheumatoid arthritis, hypertension, hypothyroidism And in this admission she has acute diastolic heart failure She was treated with a diuretic and rate control for the A. fib in addition to anticoagulation using Xarelto. She is improving clinically Cardiac care plan; 1. I reviewed the current medication will continue on amiodarone, reduced dose of beta-roland and added calcium channel roland And digoxin as needed for better control of the ventricular rate 2. Noted echocardiographic evaluation ejection fraction within normal 60% 3. Patient currently on anticoagulation with Xarelto 4. 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
[2021-10-08] MEDS: Rivaroxaban 15 MG Tablet PO (17:58)
[2021-10-08] MEDS: Metoprolol Tartrate 25 MG Tablet PO (21:07)
[2021-10-09 03:18] VITALS: BP 143/69; PULSE 74; PULSE 77; RESP 12; TEMP 36.5; O2SAT 93
--- NOTE | 2021-10-09 03:43 | EKG12_ITS ---
Test Reason : post conversion NSR Blood Pressure : / mmHG Vent. Rate : 073 BPM Atrial Rate : 073 BPM P-R Int : 136 ms QRS Dur : 082 ms QT Int : 374 ms P-R-T Axes : 042 -02 069 degrees QTc Int : 412 ms Sinus rhythm with Premature atrial complexes Otherwise normal ECG When compared with ECG of 05-OCT-2021 17:46, Sinus rhythm has replaced Atrial fibrillation Vent. rate has decreased BY 96 BPM Confirmed by MILAN BABB, VANESSA ([id number]), editorial cartoonist NAN CARDONA ([id number]) on 10/11/2021 9:45:20 AM Referred By: Confirmed By:VANESSA YATES MD
[2021-10-09] MEDS: Levothyroxine 50 MCG Tablet PO (05:16)
[2021-10-09] MEDS: dilTIAZem 30 MG Tablet PO ×2 (05:16→08:28)
[2021-10-09] MEDS: Amiodarone 200 MG Tablet PO (05:16)
[2021-10-09 06:14] LABS: Absolute Lymphocyte Count 1.83 X10^3/uL (0.83-4.51); Absolute Neutrophil Count 4.1 X10^3/uL (2.0-7.7); Basophil# 0.08 X10^3/uL; Basophil% 1.1 % (0-1); Eosinophil# 0.33 X10^3/uL; Eosinophils% 4.4 % (0-5); Hematocrit 37.4 % (37-47); Hemoglobin 11.8 g/dL (12.0-15.0); Lymphocyte # 1.83 X10^3/ul (0.83-4.51); Lymphocyte % 24.6 % (19-41); Mean Corp Hgb Conc 31.6 g/dL (32-36); Mean Corpuscular Hgb 29.6 pg (27.0-32.0); Mean Corpuscular Volume 93.7 fL (81-99); Mean Platelet Vol. 11.7 fl (6.2-12.0); Monocyte# 1.04 X10^3/uL; NRBC Flagged by Analyzer 0 % (0-5); Neutrophil # 4.14 X10^3/uL (2.7-7.7); Neutrophil % 55.6 % (47-70); Platelet Count 347 K/mm3 (150-450); RBC Distribution Width CV 13.9 % (11.6-14.6); RBC Distribution Width SD 48.3 fl (35.1-43.9); Red Blood Count 3.99 M/mm3 (4.2-5.4); White Blood Count 7.4 K/mm3 (4.4-11.0)
[2021-10-09 06:43] VITALS: PULSE 70
[2021-10-09 06:46] LABS: ALB/GLOB Ratio 0.8 RATIO (0.9-2.4); AST(SGOT) 11 U/L (15-37); Alanine Aminotransfer ALT/SGPT 20 U/L (13-56); Albumin, Serum 2.8 g/dL (3.2-5.0); Alkaline Phosphatase 68 U/L (45-117); Anion Gap 6 (5-15); BUN 16 mg/dL (7-18); BUN/Creat Ratio 16.2 RATIO (10-20); Calcium,Total 8.9 mg/dL (8.5-10.1); Chloride 102 mmol/L (98-107); Creatinine, Serum 0.99 mg/dL (0.55-1.02); EST Glomerular Filtration Rate 58 mL/min (>60); Est Glom Filt Rate - Afr Amer 71 mL/min (>60); Estimated Creatinine Clearance 35.81 ml/min; Globulin 3.5 g/dL (2.2-4.2); Glucose 99 mg/dL (74-106); Potassium 3.4 mmol/L (3.5-5.1); Protein, Total 6.3 g/dL (6.4-8.2); Sodium Level 139 mmol/L (136-145)
--- NOTE | 2021-10-09 07:52 | PCM.PN.HOSP ---
Subjective Subjective No events overnight. HR still in afib, but controlled. Objective Data Objective Data Vital Signs: Vital Signs Temp Pulse Resp BP Pulse Ox O2 Del Method O2 Flow Rate 36.5 C L 70 12 143/69 H 93 Room Air 2 10/09/21 03:18 10/09/21 06:43 10/09/21 03:18 10/09/21 03:18 10/09/21 03:18 10/09/21 03:18 10/06/21 11:45 Oxygen Flow Rate (L/min) 2 Oxygen Delivery Method Room Air Weight: 67.5 kg Body Mass Index (BMI) 29.7 Intake & Output: Intake and Output for Last 24 Hours 10/07/21 10/08/21 10/09/21 23:59 23:59 23:59 Intake Total 2174.08 / 2174.08 1100 / 1100 900 / 900 Balance 2174.08 / 2174.08 1100 / 1100 900 / 900 Lab / Micro Data Result Diagrams: 10/09/21 05:01 10/09/21 05:01 Labs: Laboratory Results - last 24 hr 10/09/21 05:01: WBC 7.4, RBC 3.99 L, Hgb 11.8 L, Hct 37.4, MCV 93.7, MCH 29.6, MCHC 31.6 L, RDW Std Deviation 48.3 H, RDW Coeff of Olaf 13.9, Plt Count 347, MPV 11.7, Immature Gran % (Auto) 0.300, Neut % (Auto) 55.6, Lymph % (Auto) 24.6, [place] % (Auto) 14.0 H, Eos % (Auto) 4.4, Baso % (Auto) 1.1 H, Absolute Neuts (auto) 4.1, Absolute Lymphs (auto) 1.83, Nucleated RBC % 0 10/09/21 05:01: Sodium 139, Potassium 3.4 L, Chloride 102, Carbon Dioxide 31.0, Anion Gap 6, BUN 16, Creatinine 0.99, Estim Creat Clear Calc 35.81, Est GFR (MDRD) Af Amer 71, Est GFR (MDRD) Non-Af 58 L, BUN/Creatinine Ratio 16.2, Glucose 99, Calcium 8.9, Total Bilirubin 0.60, AST 11 L, ALT 20, Alkaline Phosphatase 68, Total Protein 6.3 L, Albumin 2.8 L, Globulin 3.5, Albumin/Globulin Ratio 0.8 L 10/09/21 05:01: Magnesium 2.0 Rhythm Strip Rhythm Strip: A-fib Rate: 169 Ectopy: None Physical Exam Const alert and no apparent distress Resp normal respiratory effort, no retractions, no use of accessory muscles and clear to auscultation bilaterally Cardio Cardio Narrative: rate-controlled, irregular. GI normal to inspection, nondistended, normoactive bowel sounds, soft to palpation, non-tender and non-distended Assessment & Plan Assessment/Plan (1) Atrial fibrillation with rapid ventricular response: PLAN: Ongoing 2D echocardiogram showed an EF of 60%, left atrium moderately enlarged, RVSP 24 mmHg Cardiology on consultation Anticoagulation with rivaroxaban Continue amiodarone taper TID through today, then BID from 10/10-, then daily starting the ; diltiazem 30 Q8; digoxin [address] Fortune's note: Follow up with Dr. Almanzar with event monitor and consideration for DCCV. (2) (HFpEF) heart failure with preserved ejection fraction: QUALIFIERS: Heart failure chronicity: acute Qualified Code(s): I50.31 - Acute diastolic (congestive) heart failure PLAN: EF 60% Patient has been putting on weight. Change to PO furosemide PLAN: Plan VTE prophylaxis not indicated as patient is anticoagulated.
[2021-10-09 08:16] VITALS: BP 127/87; PULSE 74; RESP 16; TEMP 36.4; O2SAT 97
[2021-10-09] MEDS: predniSONE 5 MG Tablet PO (08:27)
[2021-10-09] MEDS: Multivitamins,Therapeutic Tablet 1 TABLET PO (08:27)
[2021-10-09 08:28] VITALS: PULSE 106
[2021-10-09] MEDS: Furosemide 20 MG/2 ML VIAL IV (08:28)
[2021-10-09] MEDS: Digoxin 125 MCG Tablet PO (08:28)
[2021-10-09] MEDS: Metoprolol Tartrate 25 MG Tablet PO (08:28)
[2021-10-09] MEDS: Lisinopril 10 MG Tablet PO (08:28)
[2021-10-09] MEDS: Cholecalciferol (VIT D3) 25 MCG TABLET (1,000 UNITS) PO (08:28)
[2021-10-09 08:52] VITALS: O2SAT 91
--- NOTE | 2021-10-09 08:53 | DCINST_ITS ---
Discharge Instructions Diet Discharge Diet: Low fat / Low cholesterol Dressing / Incision Call your doctor if you observe: Shortness of breath, Swelling in the ankles and Increased palpitations (irregular heartbeat) Follow Up Care Test Results: Test results from this visit will be discussed in further detail at your follow- up appointment, if applicable. Discharge Plan Admission Admit Date/Time: 10/05/21 19:20 Primary Reason for Your Visit: atrial fibrillation with RVR. heart failure Attending Provider: David Chung Primary Care Provider: Felix Mart Consulting Providers: Landry Almanzar ; Unique Curiel Instructions Patient Instructions: Heart Failure: Tracking Your Weight, Heart Failure Making Changes ..., Heart Failure Dc Discharge Orders/Prescriptions Prescriptions: New amiodarone 200 mg Tablet 200 mg PO DAILY Qty: 60 0RF Rx Instructions: 2 more doses 10/09 at 2pm and 9pm, then twice daily 10/10-10/23, then daily starting 10/24. lisinopril 10 mg Tablet 10 mg PO BID Qty: 60 0RF digoxin 125 mcg (0.125 mg) Tablet 125 mcg PO DAILY Qty: 30 0RF diltiazem HCl 30 mg Tablet 30 mg PO Q8 Qty: 90 0RF Xarelto 15 mg Tablet 15 mg PO DINNER Qty: 30 0RF metoprolol tartrate 25 mg Tablet 25 mg PO BID Qty: 60 0RF furosemide 20 mg tablet 20 mg PO DAILY Qty: 30 0RF aspirin 81 mg capsule 81 mg PO DAILY Qty: 30 0RF Continued clotrimazole-betamethasone [Lotrisone] 1-0.05 % cream 1 applic TOPICAL DAILY PRN (Reason: Rash) leflunomide [Arava] 20 mg tablet 20 mg PO QODAY multivitamin Tablet 1 tab PO DAILY cholecalciferol (vitamin D3) 25 mcg (1,000 unit) tablet 25 mcg PO DAILY melatonin 3 mg tablet 3 mg PO HS PRN (Reason: Insomnia) cyclobenzaprine 10 mg tablet 10 mg PO TID PRN (Reason: muscle spasm) prednisone 5 MG tablet 5 mg PO DAILY Label Comments: steroid levothyroxine 50 MCG tablet 50 mcg PO DAILY Label Comments: thyroid Discontinued aspirin 325 mg tablet 325 mg PO DAILY Qty: 30 12RF amlodipine 5 mg tablet 5 mg PO DAILY Qty: 90 3RF metoprolol tartrate 25 mg tablet 12.5 mg PO BID Qty: 90 3RF Referrals / Follow Up: Felix Mart MD [Primary Care Provider] - Within 2 Weeks Landry Almanzar MD [Med Staff - Active Staff] - Within 2 Weeks Disposition Disposition (needs filled in before D/C Order can be placed): Home, Self Care
--- NOTE | 2021-10-09 09:07 | DS.PCM_ITS ---
Providers Date of Admission: 10/05/21 Primary Care Physician: Dr. Felix Mart MD Consultations 10/05/21 20:21 Consult: Cardiology Routine Consulting Provider: Landry Almanzar Reason for Consult: A. fib with RVR EMERGENT Consult: Yes MD Notified: Yes Date Notified: 10/05/21 Time Notified: 20:05 Method of Notification: Verbal Reason For Visit: AFIB WITH RVR Diagnosis Discharge Diagnosis (1) Atrial fibrillation with rapid ventricular response: Status: Acute Code(s): I48.91 - Unspecified atrial fibrillation Plan: Ongoing 2D echocardiogram showed an EF of 60%, left atrium moderately enlarged, RVSP 24 mmHg Cardiology on consultation Anticoagulation with rivaroxaban Continue amiodarone taper TID through , then BID from 10/10-, then daily starting the ; diltiazem 30 Q8; digoxin 125 mcg daily; and metoprolol [address] Fortune's note: Follow up with Dr. Almanzar with event monitor and consideration for DCCV. (2) (HFpEF) heart failure with preserved ejection fraction: Status: Acute Code(s): I50.30 - Unspecified diastolic (congestive) heart failure Qualifiers: Heart failure chronicity: acute Qualified Code(s): I50.31 - Acute di astolic (congestive) heart failure Plan: EF 60% Patient has been putting on weight. Change to PO furosemide Medications at Discharge Home Medications levothyroxine 50 mcg tablet 50 mcg PO DAILY THYROID 04/13/16 prednisone 5 mg tablet 5 mg PO DAILY RA 04/13/16 clotrimazole-betamethasone 1 %-0.05 % topical cream (Lotrisone) 1 applic topical DAILY PRN Rash 05/08/18 leflunomide 20 mg tablet (Arava) 20 mg PO QODAY 05/08/18 cholecalciferol (vitamin D3) 25 mcg (1,000 unit) tablet 25 mcg PO DAILY 10/05/21 cyclobenzaprine 10 mg tablet 10 mg PO TID PRN muscle spasm 10/05/21 melatonin 3 mg tablet 3 mg PO HS PRN Insomnia 10/05/21 multivitamin 1 tab PO DAILY 10/05/21 amiodarone 200 mg tablet 200 mg PO DAILY #60 tabs 10/09/21 aspirin 81 mg capsule 81 mg PO DAILY #30 caps 10/09/21 digoxin 125 mcg (0.125 mg) tablet 125 mcg PO DAILY #30 tabs 10/09/21 diltiazem HCl 30 mg tablet 30 mg PO Q8 #90 tabs 10/09/21 furosemide 20 mg tablet 20 mg PO DAILY #30 tabs 10/09/21 lisinopril 10 mg tablet 10 mg PO BID #60 tabs 10/09/21 metoprolol tartrate 25 mg tablet 25 mg PO BID #60 tabs 10/09/21 rivaroxaban 15 mg tablet (Xarelto) 15 mg PO DINNER #30 tabs 10/09/21 Hospital Course Operations None Procedures 2-D Echocardiogram Summary of Care Provided Minutes Spent on Discharge: 32 Weight / BMI Weight Weight: 67.5 kg Body Mass Index (BMI) 29.7 ABG / Lab / Microbiology Data Result Diagrams: 10/09/21 05:01 10/09/21 05:01 Laboratory: Laboratory Results - last 24 hr 10/09/21 05:01: WBC 7.4, RBC 3.99 L, Hgb 11.8 L, Hct 37.4, MCV 93.7, MCH 29.6, MCHC 31.6 L, RDW Std Deviation 48.3 H, RDW Coeff of Olaf 13.9, Plt Count 347, MPV 11.7, Immature Gran % (Auto) 0.300, Neut % (Auto) 55.6, Lymph % (Auto) 24.6, [place] % (Auto) 14.0 H, Eos % (Auto) 4.4, Baso % (Auto) 1.1 H, Absolute Neuts (auto) 4.1, Absolute Lymphs (auto) 1.83, Nucleated RBC % 0 10/09/21 05:01: Sodium 139, Potassium 3.4 L, Chloride 102, Carbon Dioxide 31.0, Anion Gap 6, BUN 16, Creatinine 0.99, Estim Creat Clear Calc 35.81, Est GFR (MDRD) Af Amer 71, Est GFR (MDRD) Non-Af 58 L, BUN/Creatinine Ratio 16.2, Glucose 99, Calcium 8.9, Total Bilirubin 0.60, AST 11 L, ALT 20, Alkaline Phosphatase 68, Total Protein 6.3 L, Albumin 2.8 L, Globulin 3.5, Albumin/Globulin Ratio 0.8 L 10/09/21 05:01: Magnesium 2.0 D/C Instructions Discharge Diet: Low fat / Low cholesterol Call your doctor if you observe: Shortness of breath, Swelling in the ankles and Increased palpitations (irregular heartbeat) Meaningful Use Info Meaningful Use Diagnoses (Choose all that apply): CHF CHF DAMARI/ARB ordered at discharge?: Yes Documented LVEF (%): 60 Discharge Plan Admission Admit Date/Time: 10/05/21 19:20 Primary Reason for Your Visit: atrial fibrillation with RVR. heart failure Attending Provider: David Chung Primary Care Provider: Felix Mart Consulting Providers: Landry Almanzar ; Unique Curiel Instructions Patient Instructions: Heart Failure: Tracking Your Weight, Heart Failure Making Changes ..., Heart Failure Dc Discharge Orders/Prescriptions Prescriptions: New amiodarone 200 mg Tablet 200 mg PO DAILY Qty: 60 0RF Rx Instructions: 2 more doses 10/09 at 2pm and 9pm, then twice daily 10/10-10/23, then daily starting 10/24. lisinopril 10 mg Tablet 10 mg PO BID Qty: 60 0RF digoxin 125 mcg (0.125 mg) Tablet 125 mcg PO DAILY Qty: 30 0RF diltiazem HCl 30 mg Tablet 30 mg PO Q8 Qty: 90 0RF Xarelto 15 mg Tablet 15 mg PO DINNER Qty: 30 0RF metoprolol tartrate 25 mg Tablet 25 mg PO BID Qty: 60 0RF furosemide 20 mg tablet 20 mg PO DAILY Qty: 30 0RF aspirin 81 mg capsule 81 mg PO DAILY Qty: 30 0RF Continued clotrimazole-betamethasone [Lotrisone] 1-0.05 % cream 1 applic TOPICAL DAILY PRN (Reason: Rash) leflunomide [Arava] 20 mg tablet 20 mg PO QODAY multivitamin Tablet 1 tab PO DAILY cholecalciferol (vitamin D3) 25 mcg (1,000 unit) tablet 25 mcg PO DAILY melatonin 3 mg tablet 3 mg PO HS PRN (Reason: Insomnia) cyclobenzaprine 10 mg tablet 10 mg PO TID PRN (Reason: muscle spasm) prednisone 5 MG tablet 5 mg PO DAILY Label Comments: steroid levothyroxine 50 MCG tablet 50 mcg PO DAILY Label Comments: thyroid Discontinued aspirin 325 mg tablet 325 mg PO DAILY Qty: 30 12RF amlodipine 5 mg tablet 5 mg PO DAILY Qty: 90 3RF metoprolol tartrate 25 mg tablet 12.5 mg PO BID Qty: 90 3RF Referrals / Follow Up: Felix Mart MD [Primary Care Provider] - Within 2 Weeks Landry Almanzar MD [Med Staff - Active Staff] - Within 2 Weeks Disposition Disposition (needs filled in before D/C Order can be placed): Home, Self Care Charges/Coding Visit Charges Inpatient E&M: 66010 Disch Hosp
[2021-10-09] MEDS: Potassium Chloride Oral Tablet 20 MEQ 40 MEQ PO (10:51)
== END 2021-10-09 12:14 | disposition home or self-care (01) | DRG 308 ==
LOC: ED 19:34 → PCU 19:44
PROVIDERS: Nurse Practitioner Family; Admitting Provider Internal Medicine; Emergency Provider Emergency Medicine; PCP Family Medicine
DX: I48.91 Unspecified atrial fibrillation (principal); I50.31 Acute diastolic (congestive) heart failure; I48.0 Paroxysmal atrial fibrillation; I11.0 Hypertensive heart disease with heart failure; M06.9 Rheumatoid arthritis, unspecified; M35.00 Sjogren syndrome, unspecified; E87.6 Hypokalemia; E03.9 Hypothyroidism, unspecified; Z66 Do not resuscitate; Z79.82 Long term (current) use of aspirin; Z79.52 Long term (current) use of systemic steroids; Z79.890 Hormone replacement therapy; Z79.899 Other long term (current) drug therapy; Z96.651 Presence of right artificial knee joint
CPT/HCPCS: 36415; 71045; 80048; 80053; 83735; 83880; 84443; 84484; 85025; 93005; 93306; 99284; A4216; J1940

== ENCOUNTER → 2021-10-24 | Outpatient (CLI) | payer MEDICARE, OTHER, SELFPAY ==
--- NOTE | 2021-10-24 15:43 | NEURO ---
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 There is mild axial neck pain, but no radicular symptoms. Evaluate for entrapment neuropathy. Findings: Nerve conduction studies were performed in the right and left upper extremities. The right median motor study recording the abductor pollicis brevis showed a normal amplitude, prolonged distal latency and mildly slowed conduction velocity. The right ulnar motor study recording the abductor digiti minimi showed a normal amplitude, normal distal latency and normal conduction velocity. No conduction block or focal slowing was present across the elbow. The right median sensory response recording digit two showed a reduced amplitude, prolonged latency and markedly slowed conduction velocity. The right ulnar sensory response recording digit five showed a normal amplitude, latency and conduction velocity. The right radial sensory response recording over the extensor snuff box showed a normal amplitude, latency and conduction velocity. The left median motor study recording the abductor pollicis brevis showed a reduced amplitude, prolonged distal latency and mildly slowed conduction velocity. The left ulnar motor study recording the abductor digiti minimi showed a normal amplitude, normal distal latency and normal conduction velocity. No conduction block or focal slowing was present across the elbow. The left median sensory response recording digit two was absent. The left ulnar sensory response recording digit five showed a normal amplitude, latency and conduction velocity. The left radial sensory response recording over the extensor snuff box showed a normal amplitude, latency and conduction velocity. Left median-ulnar lumbrical / interosseous motor latencies showed a prolonged median latency compared to the ulnar. Needle EMG of the upper extremities was omitted given the confirmatory nature of the nerve conduction studies, the lack of superimposed radicular symptoms, and the use of therapeutic anticoagulation for atrial fibrillation. Impression: This is an abnormal study. 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 The pathophysiology is demyelinating, though there is evidence of secondary axonal injury. These findings are compatible with the clinical diagnosis of carpal tunnel syndrome. Rian Ochoa D.O. Multi Select Codes Neurology Neurology Interp Codes: 10281-10 [facility] test 11-12 studies (interp)
== END | disposition home or self-care (01) ==
LOC: PSN 13:59
PROVIDERS: PCP Family Medicine; Referring Provider Physician Assistant Surgical; Visit Provider Physician Assistant Surgical
DX: G56.03 Carpal tunnel syndrome, bilateral upper limbs (principal); R20.2 Paresthesia of skin
CPT/HCPCS: 95912

== ENCOUNTER 2022-02-13 11:43 | Inpatient (IN) | payer MEDICARE, OTHER, SELFPAY ==
[2022-02-13] VITALS (14 sets, daily range): BP systolic 117–137; BP diastolic 54–82; PULSE 69–154; RESP 16–24; TEMP 36.3–37.7; O2SAT 88–94; BMI 25.9; BMI 25.6
--- NOTE | 2022-02-13 12:25 | EKG12_ITS ---
Test Reason : sob Blood Pressure : / mmHG Vent. Rate : 071 BPM Atrial Rate : 071 BPM P-R Int : 134 ms QRS Dur : 082 ms QT Int : 398 ms P-R-T Axes : 043 -04 055 degrees QTc Int : 432 ms Normal sinus rhythm Possible Left atrial enlargement Borderline ECG Confirmed by EMELY BABB, WILSON ([id number]), deputy editor in chief ROSS QUINONEZ ([id number]) on 02/15/2022 11:07:13 AM Referred By: Confirmed By:WILSON HAN MD
--- NOTE | 2022-02-13 12:33 | EDS_ITS ---
HPI History of Present Illness Chief Complaint: Shortness of Breath Informant: patient Narrative Narrative: 77-year-old female with presenting to the emergency department chief complaint of dyspnea. Patient notes a history of heart failure and Sjogrens disease. She states for the past several days she has had increasing dyspnea. She notes that the left side of her face feels full and congested. He denies any fevers. She notes a cough. She denies any vomiting or diarrhea. She states she does not feel that this is her heart. She was noted to be about 88% on room air by nursing. She is on Xarelto for atrial fibrillation. She denies any leg swelling or sputum. No postnasal drip. [facility] Medical History (HFpEF) heart failure with preserved ejection fraction Atrial fibrillation with rapid ventricular response Carotid stenosis, right Essential hypertension HTN (hypertension) Hypothyroidism Left ureteral stone Lung nodule Paroxysmal atrial fibrillation Rheumatoid arthritis Right kidney stone Sjogren's disease Zoster Home Medications levothyroxine 50 mcg tablet 50 mcg PO DAILY THYROID 04/13/16 [History Last Taken 02/13/22] prednisone 5 mg tablet 5 mg PO DAILY RHEUMATOID ARTHRITIS 04/13/16 [History Last Taken Unknown] leflunomide 20 mg tablet (Arava) 20 mg PO DAILY PRN RHEUMATOID ARTHRITIS 05/08/18 [History Last Taken Unknown] cholecalciferol (vitamin D3) 25 mcg (1,000 unit) tablet 25 mcg PO DAILY SUPPLEMENT 10/05/21 [History Last Taken 02/09/22] cyclobenzaprine 10 mg tablet 10 mg PO TID PRN muscle spasm 10/05/21 [History Last Taken 02/12/22] melatonin 3 mg tablet 3 mg PO HS PRN Insomnia 10/05/21 [History Last Taken Unknown] multivitamin 1 tab PO DAILY 10/05/21 [History Last Taken Unknown] amiodarone 200 mg tablet 200 mg PO DAILY ARRHYTHMIA 02/13/22 [History Last Taken 02/13/22] aspirin 81 mg tablet,delayed release 81 mg PO DAILY HEART HEALTH 02/13/22 [History Last Taken 02/13/22] diltiazem HCl 120 mg capsule,extended release 24 hr 120 mg PO BID BLOOD PRESSURE 02/13/22 [History Last Taken 02/13/22] furosemide 20 mg tablet 20 mg PO DAILY FLUID 02/13/22 [History Last Taken 02/13/22] lisinopril 10 mg tablet 10 mg PO BID BLOOD PRESSURE 02/13/22 [History Last Taken 02/13/22] metoprolol tartrate 25 mg tablet 25 mg PO BID BLOOD PRESSURE 02/13/22 [History Last Taken 02/13/22] rivaroxaban 15 mg tablet (Xarelto) 15 mg PO DINNER BLOOD THINNER 02/13/22 [History Last Taken 02/12/22] Allergy/AdvReac Type Severity Reaction Status Date / Time apixaban [From Eliquis] Allergy Unknown Rash Verified 02/13/22 11:45 sulindac Allergy Unknown Rash Verified 02/13/22 11:45 aloe Allergy Rash Verified 02/13/22 11:45 erythromycin base Allergy Unknown Verified 02/13/22 11:45 Penicillins Allergy Unknown Verified 02/13/22 11:45 Sulfa (Sulfonamide Allergy Unknown Verified 02/13/22 11:45 Antibiotics) vitamin E (d-alpha Allergy Rash Verified 02/13/22 11:45 tocopherol) Environmental Allergies: AdvReac Rash Verified 02/13/22 11:45 Uncoded [metals] Family History Grandfather Myocardial infarction Surgical History Cataract extraction status of left eye History of tubal ligation Hx of cystoscopy (04/14/16) left breast biposy Status post right knee replacement (~04/02/18) Social History Smoking Status: Never smoker Electronic Cigarette Use: not used second hand exposure: Yes (Father and workplace exposure) alcohol intake: current alcohol intake frequency: holidays/special occasions only Alcohol type: wine substance use type: does not use caffeine: Yes Type: carbonated beverages and coffee Number of servings: 2 what type of physical activity do you participate in: none seatbelt use: always do you feel safe at home: Yes ROS ROS ED Constitutional Constitutional ED: Denies chills, fever(s) or weight loss Eyes Eyes: Denies blurry vision, change in vision or diplopia ENT ENT ED: Reports rhinorrhea; Denies ear pain or sore throat Cardiovascular Cardiovascular: Denies chest pain, orthopnea, palpitations or racing heartbeat Respiratory/Chest Respiratory/Chest: Reports cough and dyspnea; Denies orthopnea Gastrointestinal Gastrointestinal: Denies abdominal pain, diarrhea, nausea or vomiting Genitourinary Genitourinary ED: Denies dysuria, hematuria or urinary frequency Musculoskeletal Musculoskeletal: Denies arthralgias or myalgias Integumentary Denies abscess or rash Neurologic Neurologic: Denies headache(s) or weakness Psychiatric Psychiatric: Denies anxiety, depression, suicidal ideation or suicidal thoughts Endocrine Endocrinology: Denies polydipsia, polyphagia or polyuria Allergic/Immunologic Allergic/Immunologic ED: Denies mouth swelling, tongue swelling or urticaria EXAM Physical Exam Const Vital Signs: 02/13/22 11:45 02/13/22 12:13 02/13/22 12:13 Temperature 98.6 F 98.6 F Temperature Source Temporal Temporal Pulse Rate 75 69 70 Respiratory Rate 22 H 16 24 H Respiratory Effort Respiratory Depth Respiratory Pattern Blood Pressure 122/56 H 125/58 H 125/58 H Blood Pressure Mean 78 80 80 Pulse Ox 91 88 91 Oxygen Delivery Method Room Air Room Air Nasal Cannula Oxygen Flow Rate (L/min) 3 02/13/22 12:13 02/13/22 12:28 02/13/22 14:45 Temperature Temperature Source Pulse Rate 82 Respiratory Rate 19 H Respiratory Effort Short of Breath Respiratory Depth Normal Respiratory Pattern Normal Normal Blood Pressure Blood Pressure Mean Pulse Ox 94 Oxygen Delivery Method Nasal Cannula Nasal Cannula Oxygen Flow Rate (L/min) 3 3 Positive well nourished and well developed General Appearance ED: well developed HEENT Reports normocephalic, head/scalp atraumatic and moist mucous membranes HEENT Narrative: Left turbinate edema Eyes PERRL and EOMs intact bilaterally Neck no lymphadenopathy, supple and no JVD Resp normal respiratory effort and clear to auscultation bilaterally Cardio regular rate, regular rhythm and no murmurs GI normal to inspection, nondistended, normoactive bowel sounds and non-tender Palpation: soft Back/Spine no CVA tenderness and normal ROM Extremity normal to inspection General Extremety ED: Negative for edema General Extremity: Negative for edema Neuro oriented x3 and CN's II-XII intact bilaterally Sensorium / Orientation: alert Motor Exam: strength 5/5 throughout Psych mental status grossly normal Mood & Affect: Negative for depressed or tearful Skin no rashes or lesions noted and no wounds MDM MDM MDM Narrative Medical decision making narrative: My interpretation of the chest x-ray is bilateral infiltrates. White count 11.5 hemoglobin 8.6. CMP showed a BUN of 25 with a creatinine of 1.40. Patient received breathing treatments and was administered Levaquin after blood cultures were obtained. Troponin is normal beta natruretic peptide is 88.9. Because the patient is requiring 3 L nasal cannula and her sats are 90% patient will need to be admitted. Lab Data Attestation: I reviewed the patient's lab results. Labs: Laboratory Results - last 24 hr 02/13/22 02/13/22 02/13/22 13:23 13:23 13:23 WBC 11.5 H RBC 3.34 L Hgb 9.6 L Hct 30.9 L MCV 92.5 MCH 28.7 MCHC 31.1 L RDW Std Deviation 45.9 H RDW Coeff of Olaf 13.6 Plt Count 374 MPV 11.2 Immature Gran % (Auto) 0.300 Neut % (Auto) 73.2 H Lymph % (Auto) 10.3 L [place] % (Auto) 13.2 H Eos % (Auto) 2.1 Baso % (Auto) 0.9 Absolute Neuts (auto) 8.4 H Absolute Lymphs (auto) 1.19 Nucleated RBC % 0 Differential Comment SCANNED Diff Path Review May foll Sodium 135 L Potassium 3.6 Chloride 101 Carbon Dioxide 26.0 Anion Gap 8 BUN 25 H Creatinine 1.40 H Estim Creat Clear Calc 24.94 Est GFR (MDRD) Af Amer 47 L Est GFR (MDRD) Non-Af 39 L BUN/Creatinine Ratio 17.9 Glucose 113 H Calcium 8.5 Total Bilirubin 0.50 AST 20 ALT 12 L Alkaline Phosphatase 110 Troponin I High Sens B-Natriuretic Peptide 88.9 Total Protein 6.7 Albumin 2.6 L Globulin 4.1 Albumin/Globulin Ratio 0.6 L 02/13/22 13:23 WBC RBC Hgb Hct MCV MCH MCHC RDW Std Deviation RDW Coeff of Olaf Plt Count MPV Immature Gran % (Auto) Neut % (Auto) Lymph % (Auto) [place] % (Auto) Eos % (Auto) Baso % (Auto) Absolute Neuts (auto) Absolute Lymphs (auto) Nucleated RBC % Differential Comment Diff Path Review Sodium Potassium Chloride Carbon Dioxide Anion Gap BUN Creatinine Estim Creat Clear Calc Est GFR (MDRD) Af Amer Est GFR (MDRD) Non-Af BUN/Creatinine Ratio Glucose Calcium Total Bilirubin AST ALT Alkaline Phosphatase Troponin I High Sens 5 B-Natriuretic Peptide Total Protein Albumin Globulin Albumin/Globulin Ratio Radiography Diagnostic Testing: Clinical Impression(s) from Imaging Studies Chest X-Ray 02/13/22 13:05 IMPRESSION: Bilateral perihilar airspace disease suggestive of either pulmonary edema versus bilateral pulmonary infiltrates. Electronically Signed: Fredrick Cantrell MD at 13:51 EST , Discharge Plan Dx/Rx/DC Orders Clinical Impression: Pneumonia, Acute hypoxemic respiratory failure, Anticoagulated Disposition Disposition: Acute Care [facility]
--- NOTE | 2022-02-13 13:05 | RAD_ITS ---
STUDY: X-RAY CHEST REASON FOR EXAM: Female, 77 years old. Shortness of breath and dyspnea. TECHNIQUE: Single AP portable view of the chest. COMPARISON: Comparison is made with prior study dated 10/05/2021. FINDINGS: EKG electrodes are seen. A linear metallic density is seen overlying the inferior aspect of the left cervical region with a length of 4.1 cm. Foreign body should be ruled out. Bilateral perihilar airspace disease. Differential diagnosis should include pulmonary edema versus bilateral pulmonary infiltrates. Clinical correlation is recommended. There is no demonstrated pleural abnormality. Normal size heart. Normal mediastinum and manny. Normal visualized pulmonary arteries. There is atherosclerotic tortuosity of the aortic arch and descending thoracic aorta. There is a dextroscoliosis of the thoracic spine. Normal visualized ribs, clavicles, and shoulders. There is no demonstrated abnormality of the visualized soft tissue structures of the upper abdomen. RAD/Chest 1 View (Portable) IMPRESSION: Bilateral perihilar airspace disease suggestive of either pulmonary edema versus bilateral pulmonary infiltrates. Electronically Signed: Fredrick Cantrell MD at 13:51 EST ,
--- NOTE | 2022-02-13 13:09 | NURSING ---
NO OLD EKGS
[2022-02-13 13:31] LABS: Absolute Lymphocyte Count 1.19 X10^3/uL (0.83-4.51); Absolute Neutrophil Count 8.4 X10^3/uL (2.0-7.7); Basophil% 0.9 % (0-1); Eosinophil# 0.24 X10^3/uL; Eosinophils% 2.1 % (0-5); Hematocrit 30.9 % (37-47); Hemoglobin 9.6 g/dL (12.0-15.0); Lymphocyte # 1.19 X10^3/ul (0.83-4.51); Lymphocyte % 10.3 % (19-41); Mean Corp Hgb Conc 31.1 g/dL (32-36); Mean Corpuscular Hgb 28.7 pg (27.0-32.0); Mean Corpuscular Volume 92.5 fL (81-99); Mean Platelet Vol. 11.2 fl (6.2-12.0); Monocyte# 1.52 X10^3/uL; Monocyte% 13.2 % (0-10); NRBC Flagged by Analyzer 0 % (0-5); Neutrophil # 8.44 X10^3/uL (2.7-7.7); Neutrophil % 73.2 % (47-70); POSITIVE DIFFERENTIAL YES; Platelet Count 374 K/mm3 (150-450); RBC Distribution Width CV 13.6 % (11.6-14.6); RBC Distribution Width SD 45.9 fl (35.1-43.9); Red Blood Count 3.34 M/mm3 (4.2-5.4); White Blood Count 11.5 K/mm3 (4.4-11.0)
[2022-02-13 13:46] LABS: BUN 25 mg/dL (7-18); EST Glomerular Filtration Rate 39 mL/min (>60); Estimated Creatinine Clearance 24.94 ml/min; Glucose 113 mg/dL (74-106)
[2022-02-13 13:47] LABS: ALB/GLOB Ratio 0.6 RATIO (0.9-2.4); AST(SGOT) 20 U/L (15-37); Alanine Aminotransfer ALT/SGPT 12 U/L (13-56); Albumin, Serum 2.6 g/dL (3.2-5.0); Alkaline Phosphatase 110 U/L (45-117); Anion Gap 8 (5-15); BUN/Creat Ratio 17.9 RATIO (10-20); Calcium,Total 8.5 mg/dL (8.5-10.1); Chloride 101 mmol/L (98-107); Est Glom Filt Rate - Afr Amer 47 mL/min (>60); Globulin 4.1 g/dL (2.2-4.2); Potassium 3.6 mmol/L (3.5-5.1); Protein, Total 6.7 g/dL (6.4-8.2); Sodium Level 135 mmol/L (136-145)
[2022-02-13 13:51] LABS: Differential Indicated SCAN CRITERIA MET
[2022-02-13 13:52] LABS: Differential Comment SCANNED
--- NOTE | 2022-02-13 14:35 | NURSING ---
DR ROBI BARBOSA
[2022-02-13] MEDS: Albuterol 2.5 MG/3 ML VIAL.NEB. INHALATION ×2 (14:44→19:37)
[2022-02-13] MEDS: Ipratropium/Albuterol Sulfate 3 ML AMPUL.NEB INHALATION (14:44)
[2022-02-13 15:36] LABS: BNP,B-Type NATRIURETIC PEPTIDE 88.9 pg/mL (0-100); Troponin-I HS 5 pg/mL (3.0-54.0)
--- NOTE | 2022-02-13 15:47 | CT_ITS ---
INDICATION: acute resp failure EXAMINATION: CT CHEST WITHOUT CONTRAST - CT Chest W/O Contrast Injection TECHNIQUE: Helically acquired images were obtained of the chest. A radiation dose optimization technique was used for this scan. Sagittal coronal reformatted images are performed. IV Contrast dosage and agent: None. COMPARISON: Chest x-ray February 13, 2022, October 05, 2021 FINDINGS: LUNGS, PLEURA AND LARGE AIRWAYS: There is a pattern of multifocal patchy groundglass opacities throughout the lungs with areas of interstitial thickening in the lung periphery. No pleural effusion or thickening. No pneumothorax. THYROID: No thyroid lesions. HEART AND PERICARDIUM: Heart size is normal. No pericardial effusion. CORONARY ARTERIES: Coronary artery calcification is seen. There is calcification the level of the mitral valve. VESSELS: It is partially calcified. MEDIASTINUM AND CIRILO: There are small reactive appearing mediastinal lymph nodes measuring 1.3-0.9 cm. Esophagus is unremarkable. There is a minimal hiatal hernia. UPPER ABDOMEN: There is right renal calcification measuring up to 6 mm surrounded by punctate calcifications there is no hydronephrosis. BONES: There is multilevel degenerative change in the thoracic spine. At T9-T10 there is severe disc space narrowing and sclerosis. CT/Chest without Contrast IMPRESSION: Multifocal differential includes viral pneumonia, possible Covid virus and lower potentially pulmonary edema. There is calcification of the level of the mitral valve. There are reactive mediastinal lymph nodes. Degenerative change in the thoracic spine Incidental visualization of multiple right renal calculi. The right kidney is partially visualized. There is no visualized hydronephrosis. Electronically Signed: Patrizia Hernandez MD at 16:47 EST ,
--- NOTE | 2022-02-13 16:01 | HP.PCM.HOS_ITS ---
HPI - General General Date of Admission: 02/13/22 Date of Service: 02/13/22 Chief Complaint: Shortness of breath HPI Narrative DANNI SORTO, is a 77 F who presented to the emergency department [facility] on 02/13/2022 with a chief complaint of shortness of breath and hypoxia. Patient began having symptoms of shortness of breath and checked her home pulse ox on Sunday and found to be in the upper 70s. Her has home oxygen as he is currently on hospice but does not utilize his oxygen regularly so she put on his oxygen at 2 L. She repeated her home pulse ox and it was noted to be greater than 88% so she continue to wear oxygen. Her shortness of breath was persistent over the weekend and worsened this morning so she did decided to be evaluated. She reported she does have a history of heart failure with preserved ejection fraction as well as Sjogren's disease and follows with cardiology and pulmonology as an outpatient. She denied any fever or chills, nausea or vomiting, headache, diarrhea or constipation, or any new tingling numbness or weakness. She complains of nasal congestion on the left side however she states this is chronic since she was approximately 4 years old. She does note a cough. Vital signs on presentation the emergency department demonstrated temperature of 98.6, heart rate 70, blood pressure 125/58, respiratory rate 24, oxygen saturation was 88% on room air and improved to 91% on 3 L nasal cannula. CBC demonstrated a leukocytosis with a white count of 11.5 and a left shift, and anemia that was worse than baseline at 9.6 and normal platelets. BMP shows mild hyponatremia with a sodium of 135, and increasing serum BUN/creatinine at 25 and 1.4 respectively. LFTs were unremarkable. BNP was 88.9. Troponin was 5. EKG was normal sinus rhythm. Chest x-ray shows diffuse bilateral infiltrates. In the emergency department she was given levofloxacin 750 mg x 1 dose as well as duo nebs and albuterol inhaler both x1. Given her new hypoxia request for admission was made. [facility] Medical History (HFpEF) heart failure with preserved ejection fraction Atrial fibrillation with rapid ventricular response Carotid stenosis, right Essential hypertension HTN (hypertension) Hypothyroidism Left ureteral stone Lung nodule Paroxysmal atrial fibrillation Rheumatoid arthritis Right kidney stone Sjogren's disease Zoster Home Medications levothyroxine 50 mcg tablet 50 mcg PO DAILY THYROID 04/13/16 [History Last Taken 02/13/22] prednisone 5 mg tablet 5 mg PO DAILY RHEUMATOID ARTHRITIS 04/13/16 [History Last Taken Unknown] leflunomide 20 mg tablet (Arava) 20 mg PO DAILY PRN RHEUMATOID ARTHRITIS 05/08/18 [History Last Taken Unknown] cholecalciferol (vitamin D3) 25 mcg (1,000 unit) tablet 25 mcg PO DAILY SUPP LEMENT 10/05/21 [History Last Taken 02/09/22] cyclobenzaprine 10 mg tablet 10 mg PO TID PRN muscle spasm 10/05/21 [History Last Taken 02/12/22] melatonin 3 mg tablet 3 mg PO HS PRN Insomnia 10/05/21 [History Last Taken Unknown] multivitamin 1 tab PO DAILY 10/05/21 [History Last Taken Unknown] amiodarone 200 mg tablet 200 mg PO DAILY ARRHYTHMIA 02/13/22 [History Last Taken 02/13/22] aspirin 81 mg tablet,delayed release 81 mg PO DAILY HEART HEALTH 02/13/22 [History Last Taken 02/13/22] diltiazem HCl 120 mg capsule,extended release 24 hr 120 mg PO BID BLOOD PRESSURE 02/13/22 [History Last Taken 02/13/22] furosemide 20 mg tablet 20 mg PO DAILY FLUID 02/13/22 [History Last Taken 02/13/22] lisinopril 10 mg tablet 10 mg PO BID BLOOD PRESSURE 02/13/22 [History Last Taken 02/13/22] metoprolol tartrate 25 mg tablet 25 mg PO BID BLOOD PRESSURE 02/13/22 [History Last Taken 02/13/22] rivaroxaban 15 mg tablet (Xarelto) 15 mg PO DINNER BLOOD THINNER 02/13/22 [History Last Taken 02/12/22] Allergy/AdvReac Type Severity Reaction Status Date / Time apixaban [From Eliquis] Allergy Unknown Rash Verified 02/13/22 11:45 sulindac Allergy Unknown Rash Verified 02/13/22 11:45 aloe Allergy Rash Verified 02/13/22 11:45 erythromycin base Allergy Unknown Verified 02/13/22 11:45 Penicillins Allergy Unknown Verified 02/13/22 11:45 Sulfa (Sulfonamide Allergy Unknown Verified 02/13/22 11:45 Antibiotics) vitamin E (d-alpha Allergy Rash Verified 02/13/22 11:45 tocopherol) Environmental Allergies: AdvReac Rash Verified 02/13/22 11:45 Uncoded [metals] Family History Grandfather Myocardial infarction Surgical History Cataract extraction status of left eye History of carpal tunnel surgery of right wrist History of tubal ligation Hx of cystoscopy (04/14/16) left breast biposy Status post right knee replacement (~04/02/18) Social History Smoking Status: Never smoker Electronic Cigarette Use: not used second hand exposure: Yes (Father and workplace exposure) alcohol intake: current alcohol intake frequency: holidays/special occasions only Alcohol type: wine substance use type: does not use caffeine: Yes Type: carbonated beverages and coffee Number of servings: 2 what type of physical activity do you participate in: none seatbelt use: always do you feel safe at home: Yes ROS Constitutional Constitutional: Denies anorexia, change in weight, chills, fatigue, fever(s), malaise, night sweats, weakness or other Eyes Eyes: Denies blurry vision, change in eye color, change in vision, discharge from eye(s), double vision, erythema, eye pain, loss of vision or other ENT HEENT: Reports nasal congestion; Denies abnormal hearing, dysphagia, ear pain, epistaxis, headache(s), hearing loss, nasal discharge, post nasal drip, sinus pressure, sore throat or other Cardiovascular Cardiovascular: Reports dyspnea on exertion; Denies chest pain, claudication, edema, lightheadedness, orthopnea, palpitations, paroxysmal nocturnal dyspnea, rapid heart rate, syncope or other Respiratory/Chest Respiratory/Chest: Reports cough, dyspnea, shortness of breath at rest and shortness of breath with exertion; Denies excessive phlegm production, hemopty sis, productive cough, wheezing or other Gastrointestinal Gastrointestinal: Denies abdominal pain, coffee ground emesis, constipation, diarrhea, dyspepsia, hematemesis, hematochezia, loose stools, melena, nausea, vomiting or other Genitourinary Genitourinary: Denies burning urination, difficulty urinating, dysuria, hematuria, nocturia, urinary frequency, urinary hesitancy, urinary incontinence, urinary urgency or other Musculoskeletal Musculoskeletal: Denies arthralgias, back pain, joint pain, joint stiffness, joint swelling, myalgias, neck pain or other Neurologic Neurologic: Denies abnormal gait, abnormal speech, confusion, disequilibrium, dizziness, focal weakness, headache(s), numbness, paresthesias, seizure-like activity, seizures, syncope, tingling, tremor(s) or other Psychiatric Psychiatric: Denies anxiety, depression, homicidal ideation, suicidal ideation or other Endocrine Endocrinology: Denies change in body appearance, cold intolerance, excessive sweating, heat intolerance, polydipsia, polyuria or other Hematologic/Lymphatic Hematologic/Lymphatic: Denies anemia, easy bleeding, easy bruising, lymphadenopathy or other Allergic/Immunologic Allergic/Immunologic: Denies rhinitis, hives, eczemia, asthma or other Vital Signs Vital Signs Vital Signs: 02/13/22 11:45 02/13/22 12:13 02/13/22 12:13 Temperature 98.6 F 98.6 F Temperature Source Temporal Temporal Pulse Rate 75 69 70 Respiratory Rate 22 H 16 24 H Respiratory Effort Respiratory Depth Respiratory Pattern Blood Pressure 122/56 H 125/58 H 125/58 H Blood Pressure Mean 78 80 80 Pulse Ox 91 88 91 Oxygen Delivery Method Room Air Room Air Nasal Cannula Oxygen Flow Rate (L/min) 3 02/13/22 12:13 02/13/22 12:28 02/13/22 14:45 Temperature Temperature Source Pulse Rate 82 Respiratory Rate 19 H Respiratory Effort Short of Breath Respiratory Depth Normal Respiratory Pattern Normal Normal Blood Pressure Blood Pressure Mean Pulse Ox 94 Oxygen Delivery Method Nasal Cannula Nasal Cannula Oxygen Flow Rate (L/min) 3 3 Weight Weight: 60.192 kg Body Mass Index (BMI) 25.9 Physical Exam Const alert, oriented x3, no apparent distress and well nourished Constitutional Narrative: Older white female lying in bed with breathing treatment in place, appears ill but nontoxic, pleasant General Appearance: cooperative HEENT normocephalic, head/scalp atraumatic, hearing grossly normal bilaterally and moist oral mucous membranes HEENT Narrative: Dentition is poor, Mallampati is 2, no thrush Eyes PERRL, EOMs intact bilaterally and conjunctivae normal Eyes Narrative: No scleral icterus Neck no lymphadenopathy, supple, no JVD and no carotid bruits Resp no retractions and no use of accessory muscles Resp Narrative: Scattered crackles most notably at left upper lobe, tachypnea-mild, no signs of respiratory extremis Auscultation: crackles; Negative for rhonchi or wheezes Cardio regular rate, regular rhythm, S1 normal heart sound, S2 normal heart sound, no murmurs, no rub, no gallops and no clicks GI normal to inspection, nondistended, normoactive bowel sounds, soft to palpation and non-tender Extremity Extremity Narrative: Trace bilateral lower extremity edema, no cyanosis or clubbing, edema is pitting in nature Neuro oriented x3, CN's II-XII intact bilaterally, moves all extremities and no focal motor deficits Neuro Narrative: Mild generalized weakness proximal greater than distal Speech: speech normal Psych affect normal Psych Narrative: Very pleasant and appropriately interactive Results Lab / Micro Data Result Diagrams: 02/13/22 13:23 02/13/22 13:23 Labs: Laboratory Results - last 24 hr 02/13/22 13:23: WBC 11.5 H, RBC 3.34 L, Hgb 9.6 L, Hct 30.9 L, MCV 92.5, MCH 28.7, MCHC 31.1 L, RDW Std Deviation 45.9 H, RDW Coeff of Olaf 13.6, Plt Count 374, MPV 11.2, Immature Gran % (Auto) 0.300, Neut % (Auto) 73.2 H, Lymph % (Auto) 10.3 L, [place] % (Auto) 13.2 H, Eos % (Auto) 2.1, Baso % (Auto) 0.9, Absolute Neuts (auto) 8.4 H, Absolute Lymphs (auto) 1.19, Nucleated RBC % 0, Differential Comment SCANNED, Diff Path Review July foll 02/13/22 13:23: Sodium 135 L, Potassium 3.6, Chloride 101, Carbon Dioxide 26.0, Anion Gap 8, BUN 25 H, Creatinine 1.40 H, Estim Creat Clear Calc 24.94, Est GFR (MDRD) Af Amer 47 L, Est GFR (MDRD) Non-Af 39 L, BUN/Creatinine Ratio 17.9, Glucose 113 H, Calcium 8.5, Total Bilirubin 0.50, AST 20, ALT 12 L, Alkaline Phosphatase 110, Total Protein 6.7, Albumin 2.6 L, Globulin 4.1, Albumin/Globulin Ratio 0.6 L 02/13/22 13:23: B-Natriuretic Peptide 88.9 02/13/22 13:23: Troponin I High Sens 5 Micro: Microbiology 02/13/22 13:25 Mucosa - Nasopharyngeal Rapid RSV (DFA) - Final 02/13/22 13:23 Nasal Secretion SARS-CoV-2 & FLU Antigen (Rapid) - Final Radiology Impression Chest X-Ray 02/13/22 13:05 IMPRESSION: Bilateral perihilar airspace disease suggestive of either pulmonary edema versus bilateral pulmonary infiltrates. Electronically Signed: Fredrick Cantrell MD at 13:51 EST , Assessment & Plan Assessment/Plan (1) Pneumonia: (2) Hypoxia: (3) LYSSA (acute kidney injury): PLAN: Plan Acute hypoxia with bilateral pneumonia -Patient does not meet criteria for acute hypoxic respiratory failure as she has no signs of respiratory distress but is hypoxic being 88% on room air. -Chest x-ray shows diffuse bilateral infiltrates -CT of the chest is pending -RSV, flu, COVID-negative -BNP is normal at 88.9 so doubt heart failure component -Check respiratory viral panel -Sputum culture -Strep pneumo and Legionella antigens -Azithromycin and ceftriaxone -Hold home immunosuppression for rheumatoid arthritis while acute infection is present LYSSA -Baseline serum creatinine is between 0.8 and 1 -Current serum creatinine is 1.4 -Hold home diuretics -Gentle hydration with 1 L of IV fluids and reevaluate with BMP in the morning -Hold nephrotoxins as able -Okay to continue DAMARI inhibitor at this time Leukocytosis -As above -Blood culture was obtained in the emergency department prior to admission Chronic normocytic anemia -Counts appear to be lower than they have been typically -May be related to rheumatoid arthritis -Check guaiac stool -Check iron studies HFpEF -Currently compensated -Hold home Lasix with dehydration -Dose recent echo from 10/05/2021 showed an EF of 60% with moderate left atrial enlargement and mild right atrial enlargement as well as moderate eccentric tricuspid and mitral valve insufficiency and a right ventricular systolic pressure of 24 mmHg Hypertension -Continue home lisinopril -Continue home diltiazem -Hold home Lasix -Continue home metoprolol PAF -Currently normal sinus rhythm -Continue home amiodarone -Continue metoprolol -New home diltiazem -Continue home Xarelto -We will monitor on telemetry History of carotid artery stenosis -Continue medical management -No current issues -No bruit on auscultation History of Sjogren's disease -Continue home baseline prednisone -No current need for stress dose steroids however will concern -Hold home leflunomide while acutely ill -Has had need for thoracentesis previously -No identified pleural effusion on chest x-ray Chronic pain Continue home medic patient DVT prophylaxis -Continue home Xarelto CODE STATUS -Full code as verified on admission Charges/Coding Visit Charges Inpatient E&M: 77586 Init Hosp L3
[2022-02-13] MEDS: levoFLOXacin IV 750 MG/150 ML BAG 100 MG IV (16:14)
[2022-02-13] MEDS: Metoprolol Tartrate 25 MG Tablet PO (17:23)
[2022-02-13] MEDS: Lisinopril 10 MG Tablet PO (17:24)
[2022-02-13] MEDS: dilTIAZem CD 120 MG Capsule PO (17:24)
[2022-02-13 18:05] LABS: Ferritin 649 ng/mL (8-252); Iron 14 ug/dL (50-170); Iron Binding Capacity,Total 168 ug/dL (250-450); PERCENT IRON SATURATION 8.3 % (15.0-55.0)
[2022-02-13] MEDS: 0.9% Normal Saline 1,000 ML 75 ML IV (18:18)
[2022-02-13] MEDS: Rivaroxaban 15 MG Tablet PO (18:20)
[2022-02-13 18:51] LABS: M R Staph aureus DNA By PCR Negative (Negative); Probe Check PASS; Specimen Processing Control PASS
[2022-02-13 18:53] LABS: Platelet Count 347 K/mm3 (150-450); RET-HE 26.3 pg (30-35); Reticulocyte Count 2.22 % (0.5-1.5)
[2022-02-13] MEDS: Acetaminophen 325 MG Tablet 650 MG PO (22:16)
[2022-02-14] VITALS (18 sets, daily range): BP systolic 114–132; BP diastolic 48–65; PULSE 68–144; RESP 18–22; TEMP 36.4–37.8; O2SAT 88–96
[2022-02-14] MEDS: Levothyroxine 50 MCG Tablet PO (05:38)
[2022-02-14 06:09] LABS: Absolute Lymphocyte Count 1.45 X10^3/uL (0.83-4.51); Absolute Neutrophil Count 5.4 X10^3/uL (2.0-7.7); Basophil# 0.07 X10^3/uL; Basophil% 0.8 % (0-1); Eosinophil# 0.31 X10^3/uL; Eosinophils% 3.6 % (0-5); Hematocrit 29.6 % (37-47); Hemoglobin 9.3 g/dL (12.0-15.0); Lymphocyte # 1.45 X10^3/ul (0.83-4.51); Lymphocyte % 16.8 % (19-41); Mean Corp Hgb Conc 31.4 g/dL (32-36); Mean Corpuscular Volume 92.2 fL (81-99); Mean Platelet Vol. 11.1 fl (6.2-12.0); Monocyte# 1.37 X10^3/uL; Monocyte% 15.9 % (0-10); NRBC Flagged by Analyzer 0 % (0-5); Neutrophil # 5.41 X10^3/uL (2.7-7.7); Neutrophil % 62.6 % (47-70); Platelet Count 342 K/mm3 (150-450); RBC Distribution Width CV 13.5 % (11.6-14.6); Red Blood Count 3.21 M/mm3 (4.2-5.4); White Blood Count 8.6 K/mm3 (4.4-11.0)
[2022-02-14 06:51] LABS: ALB/GLOB Ratio 0.6 RATIO (0.9-2.4); AST(SGOT) 18 U/L (15-37); Alanine Aminotransfer ALT/SGPT 10 U/L (13-56); Albumin, Serum 2.1 g/dL (3.2-5.0); Alkaline Phosphatase 98 U/L (45-117); Anion Gap 8 (5-15); BUN 17 mg/dL (7-18); BUN/Creat Ratio 14.5 RATIO (10-20); Calcium,Total 8.1 mg/dL (8.5-10.1); Chloride 105 mmol/L (98-107); Creatinine, Serum 1.17 mg/dL (0.55-1.02); EST Glomerular Filtration Rate 48 mL/min (>60); Est Glom Filt Rate - Afr Amer 58 mL/min (>60); Estimated Creatinine Clearance 29.84 ml/min; Globulin 3.6 g/dL (2.2-4.2); Glucose 112 mg/dL (74-106); Magnesium 2.2 mg/dL (1.6-2.6); Phosphorus 2.3 mg/dL (2.5-4.9); Potassium 3.6 mmol/L (3.5-5.1); Protein, Total 5.7 g/dL (6.4-8.2); Sodium Level 138 mmol/L (136-145)
[2022-02-14] MEDS: Albuterol 2.5 MG/3 ML VIAL.NEB. INHALATION ×3 (06:55→19:41)
--- NOTE | 2022-02-14 07:18 | PN.HOSP_ITS ---
Subjective Subjective Patient is a 77-year-old lady admitted with progressive shortness of breath, CT of the chest obtained demonstrated patchy groundglass opacities throughout the lungs with areas of interstitial thickening in the lung periphery Objective Data Objective Data Vital Signs: Vital Signs Temp Pulse Resp BP Pulse Ox O2 Del Method O2 Flow Rate 98.7 F 121 H 22 H 125/54 H 90 Nasal Cannula 4 02/14/22 02:42 02/14/22 06:55 02/14/22 06:55 02/14/22 02:42 02/14/22 06:59 02/14/22 06:59 02/14/22 06:59 Oxygen Flow Rate (L/min) 4 Oxygen Delivery Method Nasal Cannula Weight: 59.466 kg Body Mass Index (BMI) 25.6 Intake & Output: Intake and Output for Last 24 Hours 02/12/22 02/13/22 02/14/22 23:59 23:59 23:59 Intake Total 390 / 390 800 / 800 Balance 390 / 390 800 / 800 Lab / Micro Data Result Diagrams: 02/14/22 06:00 02/14/22 06:00 Labs: Laboratory Results - last 24 hr 02/13/22 13:23: WBC 11.5 H, RBC 3.34 L, Hgb 9.6 L, Hct 30.9 L, MCV 92.5, MCH 28.7, MCHC 31.1 L, RDW Std Deviation 45.9 H, RDW Coeff of Olaf 13.6, Plt Count 374, MPV 11.2, Immature Gran % (Auto) 0.300, Neut % (Auto) 73.2 H, Lymph % (Auto) 10.3 L, [place] % (Auto) 13.2 H, Eos % (Auto) 2.1, Baso % (Auto) 0.9, Absolute Neuts (auto) 8.4 H, Absolute Lymphs (auto) 1.19, Nucleated RBC % 0, Differential Comment SCANNED, Diff Path Review July02/13/22 13:23: Sodium 135 L, Potassium 3.6, Chloride 101, Carbon Dioxide 26.0, Anion Gap 8, BUN 25 H, Creatinine 1.40 H, Estim Creat Clear Calc 24.94, Est GFR (MDRD) Af Amer 47 L, Est GFR (MDRD) Non-Af 39 L, BUN/Creatinine Ratio 17.9, Glucose 113 H, Calcium 8.5, Total Bilirubin 0.50, AST 20, ALT 12 L, Alkaline Phosphatase 110, Total Protein 6.7, Albumin 2.6 L, Globulin 4.1, Albumin/Globulin Ratio 0.6 L 02/13/22 13:23: B-Natriuretic Peptide 88.9 02/13/22 13:23: Troponin I High Sens 5 02/13/22 13:23: Iron 14 L, TIBC 168 L, Iron Saturation 8.3 L, Ferritin 649 H 02/13/22 18:37: Retic Count 2.22 H, Immature Retic Fraction 19.40 H, Retic Hgb Equivalent 26.3 L 02/13/22 : MRSA (PCR) Negative 02/14/22 06:00: WBC 8.6, RBC 3.21 L, Hgb 9.3 L, Hct 29.6 L, MCV 92.2, MCH 29.0, MCHC 31.4 L, RDW Std Deviation 46.0 H, RDW Coeff of Olfa 13.5, Plt Count 342, MPV 11.1, Immature Gran % (Auto) 0.300, Neut % (Auto) 62.6, Lymph % (Auto) 16.8 L, [place] % (Auto) 15.9 H, Eos % (Auto) 3.6, Baso % (Auto) 0.8, Absolute Neuts (auto) 5.4, Absolute Lymphs (auto) 1.45, Nucleated RBC % 0 02/14/22 06:00: Sodium 138, Potassium 3.6, Chloride 105, Carbon Dioxide 25.0, Anion Gap 8, BUN 17, Creatinine 1.17 H, Estim Creat Clear Calc 29.84, Est GFR (MDRD) Af Amer 58 L, Est GFR (MDRD) Non-Af 48 L, BUN/Creatinine Ratio 14.5, Glucose 112 H, Calcium 8.1 L, Phosphorus 2.3 L, Magnesium 2.2, Total Bilirubin 0.50, AST 18, ALT 10 L, Alkaline Phosphatase 98, Total Protein 5.7 L, Albumin 2.1 L, Globulin 3.6, Albumin/Globulin Ratio 0.6 L, TSH 0.70 Micro: Microbiology 02/13/22 17:29 Mucosa - Nasopharyngeal Respiratory Panel (PCR) - Final 02/13/22 17:14 Urine, Clean Catch Legionella Antigen - Final 02/13/22 17:14 Urine, Clean Catch Streptococcus pneumoniae Antigen (M - Fi nal 02/13/22 13:25 Mucosa - Nasopharyngeal Rapid RSV (DFA) - Final 02/13/22 13:23 Nasal Secretion SARS-CoV-2 & FLU Antigen (Rapid) - Final Radiography Diagnostic Testing: Radiology Impression Chest X-Ray 02/13/22 13:05 IMPRESSION: Bilateral perihilar airspace disease suggestive of either pulmonary edema versus bilateral pulmonary infiltrates. Electronically Signed: Fredrick Cantrell MD at 13:51 EST , Chest CT 02/13/22 15:47 IMPRESSION: Multifocal differential includes viral pneumonia, possible Covid virus and lower potentially pulmonary edema. There is calcification of the level of the mitral valve. There are reactive mediastinal lymph nodes. Degenerative change in the thoracic spine Incidental visualization of multiple right renal calculi. The right kidney is partially visualized. There is no visualized hydronephrosis. Electronically Signed: Patrizia Hernandez MD at 16:47 EST , Physical Exam Narrative GENERAL: Patient appears ill looking HEENT: Atraumatic; normocephalic EYES; Anicteric, Normal Conjunctiva NECK; supple, normal thyroid, RESPIRATORY: Diminished to auscultation CARDIOVASCULAR: Irregularly irregular, tachycardic GI: soft, normoactive bowel sounds, : No Renal angle tenderness; EXTREMITIES: No edema, no clubbing, MUSCULOSKELETAL: no muscle wasting NEURO: Awake; no lateralizing signs. SKIN: No Rash PSYCH; Flat affect Assessment & Plan Assessment/Plan (1) Pneumonia: (2) Hypoxia: (3) LYSSA (acute kidney injury): PLAN: Plan Patient is a 77-year-old lady admitted with progressive shortness of breath, CT of the chest obtained demonstrated patchy groundglass opacities throughout the lungs with areas of interstitial thickening in the lung periphery 1. Acute hypoxia with bilateral pneumonia ? Suspected to be secondary to viral pneumonia. Patient rapid RSV and flu antigen came back negative however still maintain high suspicion for viral pneumonia. He was started on broad-spectrum antibiotic therapy with azithromycin and ceftriaxone also placed on supplemental oxygen titrated to keep saturation greater than 90 2. Acute kidney injury -Patient presented with creatinine 1.4 rehydrated creatinine down to 1.17 subseq uent monitoring with daily BMPs ordered 3. Anemia - Secondary to chronic disorder monitoring H&H and transfuse if patient becomes symptomatic or hemoglobin falls below 7 4. Paroxysmal A. fib ? Patient has been going in and out of rapid ventricular response. Patient given IV metoprolol, if patient does not respond patient will be transferred to the progressive care unit and started on Cardizem drip to be titrated to keep heart rate less than 100. Patient is on systemic anticoagulation with rivaroxaban did continue 5. Essential hypertension ? Patient blood pressure controlled at this point we will continue with home meds 6. History of carotid artery stenosis Patient is on antiplatelet therapy with aspirin did continue 7. Sjogren's disease ? Patient is on baseline prednisone did continue patient is on leflunomide held in view of her acute illness 8. Chronic pain syndrome ?continue with patient home pain regimen 9. DVT prophylaxis ? On Xarelto Charges/Coding Visit Charges Inpatient E&M: 50892 Subs Hosp L3
[2022-02-14] MEDS: dilTIAZem CD 120 MG Capsule PO ×2 (07:57→21:36)
[2022-02-14] MEDS: Metoprolol Tartrate 25 MG Tablet PO ×2 (07:57→21:36)
[2022-02-14] MEDS: Lisinopril 10 MG Tablet PO ×2 (07:57→21:35)
[2022-02-14] MEDS: Multivitamins,Therapeutic Tablet 1 TABLET PO (07:58)
[2022-02-14] MEDS: predniSONE 5 MG Tablet PO (07:58)
[2022-02-14] MEDS: Amiodarone 200 MG Tablet PO (07:58)
[2022-02-14] MEDS: Aspirin E.C. 81 MG Tablet PO (07:59)
[2022-02-14] MEDS: Metoprolol Tartrate 5 MG/5 ML Vial IV (08:46)
[2022-02-14] MEDS: Sodium Chloride 0.65% 1 SPRAY SPRAY.BTL 2 SPRAY NASAL (08:57)
[2022-02-14] MEDS: Cholecalciferol (VIT D3) 25 MCG TABLET (1,000 UNITS) PO (09:06)
[2022-02-14] MEDS: Acetaminophen 325 MG Tablet 650 MG PO ×2 (09:11→20:05)
--- NOTE | 2022-02-14 10:20 | CASEMGMT ---
ALDAIR ALEX Assessment: Face to Face with pt for initial transition planning/care coordination assessment. ALDAIR ALEX introduced self and role at [facility], pt voices understanding and consents to assessment. Pt is A/O x4 and answers all questions appropriately at this time. Pt lying in bed with oxygen on in no distress. Care providers, pharmacy, and demographics verified/updated. Admitting Dx: pneumonia/hypoxia PCP:[facility] Specialists:Yohan, cardio; John pulm; Dodie, rheum; Giulia and Emilie, ortho [facility]erred [facility] Insurance: [facility], MMO Prescription Benefit: yes LNOK: babak [place] Living Arrangements: Pt lives with in a story and a half home with 2 steps to enter with grab knobs. Pt reports she is I in ADL's and denies concerns at home. Pt states her is being admitted to hospice today at 2:30p and being taken to [facility]. Transportation: Pt drives self and denies concerns with transportation. DME/HHC/SNF: Pt has a FWW at home but does not use. Pt denies hx of HHC or SNF stays. Pt states no concerns with going home at time of dc. Pt denies need for any therapy. Provided pt with a verbal local in network list of oxygen providers, pt chose [employer] as this is where her gets his. Pt states no further concerns/needs. CM to follow. Advised pt to ask CM if any further question/concerns/needs arise, voices understanding. Pt Goal: Home Plan: Home
[2022-02-14 12:58] LABS: Pathologist Review Reviewed
--- NOTE | 2022-02-14 13:37 | CHAPLAIN ---
Type of Pastoral Visit _x__ Initial Visit ___ Follow-up Visit ___ On-call Visit ___ General Patient Visit ___ Spiritual Assessment ___ Family Conference ___ Bereavement ___ Rapid Response ___ Code Blue ___ Other (describe below) Pastoral Care Referral From _x__ Patient ___ Family ___ Nurse ___ Physician ___ Gas Engine Mechanic ___ Substance Addiction Coordinator ___ Other (describe below) Sacrament/Intervention _x__ Active listening ___ Anointing ___ Alevism ___ Bereavement ___ Communion ___ Daniela exploration ___ _x__ Life review _x__ Prayer ___ Reconciliation ___ Sacrament of Sick __x_ Supportive presence ___ Wedding ___ Other (describe below) Pastoral Comments patient states that I think I am improving some, just in the last couple of hours; pt then talks about her other major concerns at home and reveals that is in hospice care and moving into an ECF today; pt would have wanted to be there but is not well enough; pt admits struggling emotions and also sees how good things have taken place to get to this day; pt welcomes time to talk and the supportive presence of fire protection inspector, prayer
[2022-02-14] MEDS: Rivaroxaban 15 MG Tablet PO (17:47)
[2022-02-14] MEDS: cycloBENZAPRine HCl 10 MG Tablet PO (20:05)
[2022-02-15] VITALS (43 sets, daily range): BP systolic 113–154; BP diastolic 48–111; PULSE 64–120; RESP 16–31; TEMP 36.5–37.9; O2SAT 82–100
[2022-02-15] MEDS: Albuterol 2.5 MG/3 ML VIAL.NEB. INHALATION ×4 (01:19→19:06)
[2022-02-15] MEDS: Levothyroxine 50 MCG Tablet PO (06:17)
--- NOTE | 2022-02-15 07:05 | PCM.PN.HOSP ---
Subjective Subjective She has seen much more dyspneic this a.m. compared to the day prior. Patient currently requiring 15 L flow per minute. As part of patient's evaluation ordered repeat chest x-ray and ABG and pulmonary consultation Objective Data Objective Data Vital Signs: Vital Signs Temp Pulse Resp BP Pulse Ox O2 Del Method O2 Flow Rate 98.3 F 72 18 113/101 H 95 Nasal Cannula 4 02/15/22 02:34 02/15/22 03:00 02/15/22 02:34 02/15/22 02:34 02/15/22 02:34 02/15/22 03:16 02/15/22 03:16 Oxygen Flow Rate (L/min) 4 Oxygen Delivery Method Nasal Cannula Weight: 59.466 kg Body Mass Index (BMI) 25.6 Intake & Output: Intake and Output for Last 24 Hours 02/13/22 02/14/22 02/15/22 23:59 23:59 23:59 Intake Total 390 / 390 2105 / 2105 500 / 500 Balance 390 / 390 2105 / 2105 500 / 500 Lab / Micro Data Result Diagrams: 02/14/22 06:00 02/14/22 06:00 Labs: Laboratory Results - last 24 hr 02/13/22 13:23: Diff Path Review Reviewed Micro: Microbiology 02/14/22 11:01 Mucosa - Nose Respiratory Panel (PCR) - Final 02/13/22 17:29 Mucosa - Nasopharyngeal Respiratory Panel (PCR) - Final 02/13/22 17:14 Urine, Clean Catch Legionella Antigen - Final 02/13/22 17:14 Urine, Clean Catch Streptococcus pneumoniae Antigen (M - Final 02/13/22 13:25 Mucosa - Nasopharyngeal Rapid RSV (DFA) - Final 02/13/22 13:23 Nasal Secretion SARS-CoV-2 & FLU Antigen (Rapid) - Final Physical Exam Narrative GENERAL: Dyspneic at rest, tachypneic HEENT: Atraumatic; normocephalic EYES; Anicteric, Normal Conjunctiva NECK; supple, normal thyroid, RESPIRATORY: Diminished to auscultation, with significant coarse crackles on the left CARDIOVASCULAR: Irregularly irregular, tachycardic GI: soft, normoactive bowel sounds, : No Renal angle tenderness; EXTREMITIES: No edema, no clubbing, MUSCULOSKELETAL: no muscle wasting NEURO: Awake; no lateralizing signs. SKIN: No Rash PSYCH; Flat affect Assessment & Plan Assessment/Plan (1) Pneumonia: (2) Hypoxia: (3) LYSSA (acute kidney injury): PLAN: Plan Patient is a 77-year-old lady admitted with progressive shortness of breath, CT of the chest obtained demonstrated patchy groundglass opacities throughout the lungs with areas of interstitial thickening in the lung periphery 1. Acute hypoxia with bilateral pneumonia ? Suspected to be secondary to viral pneumonia. Patient rapid RSV and flu antigen came back negative however still maintain high suspicion for viral pneumonia. He was started on broad-spectrum antibiotic therapy with azithromycin and ceftriaxone also placed on supplemental oxygen titrated to keep saturation greater than 90 -02/15/2022; much more dyspneic this a.m. compared to the day prior. Patient currently requiring 15 L flow per minute. As part of patient's evaluation ordered repeat chest x-ray and ABG and pulmonary consultation 2. Acute kidney injury -Patient presented with creatinine 1.4 rehydrated creatinine down to 1.17 subsequent monitoring with daily BMPs ordered 3. Anemia - Secondary to chronic disorder monitoring H&H and transfuse if patient becomes symptomatic or hemoglobin falls below 7 4. Paroxysmal A. fib ? Patient has been going in and out of rapid ventricular response. Patient given IV metoprolol, if patient does not respond patient will be transferred to the progressive care unit and started on Cardizem drip to be titrated to keep heart rate less than 100. Patient is on systemic anticoagulation with rivaroxaban did continue 5. Essential hypertension ? Patient blood pressure controlled at this point we will continue with home meds 6. History of carotid artery stenosis Patient is on antiplatelet therapy with aspirin did continue 7. Sjogren's disease ? Patient is on baseline prednisone did continue patient is on leflunomide held in view of her acute illness 8. Chronic pain syndrome ?continue with patient home pain regimen 9. DVT prophylaxis ? On Xarelto Charges/Coding Visit Charges Inpatient E&M: 46534 Subs Hosp L3
--- NOTE | 2022-02-15 07:52 | NURSING ---
Addendum entered by Lulu Stanley 02/15/22 07:55: o2 increased to 6L Nc and spo2 up to 90% currently. Dr. Rick at bedside to evaluate pt. orders received. Original Note: pt laying on her left side. able to speak in full sentences. states she feels her SOB was worse this am when getting back from the bathroom earlier this am. spo2 80-82% on 4L NC. fine crackles left posterior.
--- NOTE | 2022-02-15 08:02 | NURSING ---
spo2 89 on 6L Nc. aware, cps aware. O2 10L high flow currently as pt going to to xray
[2022-02-15] MEDS: Furosemide 40 MG/4 ML Vial IV (08:06)
[2022-02-15] MEDS: 0.9% Saline Lock 10 ML Syringe IV (08:07)
--- NOTE | 2022-02-15 08:14 | NURSING ---
85% on 10L high flow. bumped up to 15L 90% currently. cps phoned. MD updated.
[2022-02-15] MEDS: Amiodarone 200 MG Tablet PO (08:25)
[2022-02-15] MEDS: Lisinopril 10 MG Tablet PO ×2 (08:25→21:32)
[2022-02-15] MEDS: Cholecalciferol (VIT D3) 25 MCG TABLET (1,000 UNITS) PO (08:25)
[2022-02-15] MEDS: predniSONE 5 MG Tablet PO (08:25)
[2022-02-15] MEDS: Multivitamins,Therapeutic Tablet 1 TABLET PO (08:25)
[2022-02-15] MEDS: dilTIAZem CD 120 MG Capsule PO ×2 (08:25→21:33)
[2022-02-15] MEDS: Aspirin E.C. 81 MG Tablet PO (08:25)
--- NOTE | 2022-02-15 08:25 | RAD_ITS ---
INDICATION: hypoxia EXAMINATION/TECHNIQUE: X-RAY - XR Chest 1 View COMPARISON: February 13, 2022 FINDINGS: LINES/DEVICES: None. LUNGS: There are persistent bilateral perihilar patchy opacities that has slightly progressed within the right lung. MEDIASTINUM AND CARDIOVASCULAR STRUCTURES: Cardiac silhouette not enlarged. Central airways and mediastinal contour are unremarkable. BONES AND SOFT TISSUES: Unremarkable. RAD/Chest 1 View (Portable) IMPRESSION: Bilateral perihilar patchy opacities with interval progression on the right concerning for multifocal pneumonia and/or edema. Electronically Signed: Glendy Stewart MD at 8:48 EST ,
[2022-02-15] MEDS: Metoprolol Tartrate 25 MG Tablet PO ×2 (08:27→21:32)
--- NOTE | 2022-02-15 08:37 | NURSING ---
CPS at bedside.
[2022-02-15 09:00] LABS: Allen Test Positive; Base Excess -1 mmol/L (-2 to +2); Bicarbonate 21.9 mmol/L (22-26); Blood Gas Specimen Type ART; FI02 60; Mode NCPAP; O2 Delivery Device Cannula; PO2 85 mmHG (75-100); SITE R Radial; SO2 98 % (95-99); Total Carbon Dioxide 23 mmol/L; pCO2 26.2 mmHg (35-45); pH 7.53 (7.35-7.45)
[2022-02-15 09:32] LABS: Absolute Lymphocyte Count 0.81 X10^3/uL (0.83-4.51); Absolute Neutrophil Count 9.6 X10^3/uL (2.0-7.7); Basophil# 0.06 X10^3/uL; Basophil% 0.5 % (0-1); Eosinophil# 0.29 X10^3/uL; Eosinophils% 2.4 % (0-5); Hematocrit 27.3 % (37-47); Hemoglobin 9.1 g/dL (12.0-15.0); Lymphocyte # 0.81 X10^3/ul (0.83-4.51); Lymphocyte % 6.7 % (19-41); Mean Corp Hgb Conc 33.3 g/dL (32-36); Mean Corpuscular Hgb 30.1 pg (27.0-32.0); Mean Corpuscular Volume 90.4 fL (81-99); Mean Platelet Vol. 10.6 fl (6.2-12.0); Monocyte# 1.34 X10^3/uL; Monocyte% 11.1 % (0-10); NRBC Flagged by Analyzer 0 % (0-5); Neutrophil # 9.57 X10^3/uL (2.7-7.7); Neutrophil % 78.9 % (47-70); Platelet Count 385 K/mm3 (150-450); RBC Distribution Width CV 13.4 % (11.6-14.6); RBC Distribution Width SD 44.6 fl (35.1-43.9); Red Blood Count 3.02 M/mm3 (4.2-5.4); White Blood Count 12.1 K/mm3 (4.4-11.0)
--- NOTE | 2022-02-15 09:34 | EX.PCM.CONCC ---
Assessment & Plan Assessment/Plan (1) Hypoxia: (2) Pneumonia: PLAN: Plan RECOMMENDATIONS: 1. Wean FiO2 to maintain oxygen saturations at or above 90%. 2. Await final COVID PCR results. 3. Broaden antimicrobials, given worsening oxygenation. 4. Continue attempts at diuresis as tolerated by hemodynamics and renal function. 5. If the patient were to worsen further from a respiratory perspective, start IV steroids as noted below. IMPRESSIONS: 1. Acute hypoxemic respiratory failure The patient initially presented to the hospital shortness of breath and hypoxemia. Per infectious work-up, thus far, has been unrevealing. The patient does still have a low-grade fever. In light of her worsening respiratory status, I am going to broaden her antimicrobials. Chest imaging did reveal multifocal groundglass opacities bilaterally. While an infectious etiology is certainly a possibility, I cannot completely rule out an entity such as organizing pneumonia related to the patient's underlying Sjogren's. The patient still has a COVID PCR that is pending. If her PCR is negative and she continues to worsen from a respiratory perspective, I would start her on IV Solu-Medrol 40 mg every 6 hours. In the interim, she will be continued on heated high flow, with a goal to wean FiO2 to maintain oxygen saturations at or above 90%. Diuretics can be utilized intermittently to maintain euvolemic state, as tolerated by hemodynamics and renal function. 2. Chronic anemia/heart failure with preserved ejection fraction/paroxysmal atrial fibrillation/hypertension/history of Sjogren's disease Complicates care, management, recovery and prognosis. Continue home medications as indicated. This note was generated with [employer] dictation software. It may contain incorrect words, spelling, and punctuation that were not noted in checking the note before signing. HPI Consult Data Date of Consult: 02/15/22 HPI Narrative Reason for Consultation: Pneumonia HPI Narrative: The patient is a 77-year-old female, with a history as outlined below, who presented to the emergency department on February 13 with shortness of breath and hypoxemia. The patient is currently followed by cardiology and pulmonary medicine. She has a known history of paroxysmal atrial fibrillation and heart failure with preserved ejection fraction. Pulmonary function studies completed in August 2021 were within normal limits. The patient does report that she has a diagnosis of Sjogren's disease and is currently followed by an outside electric knife operator. However, she did cancel her last appointment with him this past week, as her was just enrolled in hospice care. On presentation to the emergency department, the patient was noted to be afebrile and hemodynamically stable. Initial laboratory evaluation revealed a white blood cell count of 11,000. Chemistry profile was notable for a creatinine of 1.4. BNP and troponin were within normal limits. MRSA screen was negative. Rapid flu, COVID and influenza were negative. Chest imaging demonstrated perihilar airspace disease bilaterally. Surface echocardiogram from October 2021 demonstrated indeterminate diastolic dysfunction with an ejection fraction of 60%. Right ventricular systolic pressure was estimated to be 24 mmHg. The patient was placed on empiric antimicrobials and admitted to the hospital for further management. Over the course of her hospitalization, the patient's supplemental oxygen requirement has increased. Despite this, the patient reported that she feels better from a breathing perspective this morning. FORMERLY [facility], [facility] Medical History (HFpEF) heart failure with preserved ejection fraction Atrial fibrillation with rapid ventricular response Carotid stenosis, right Essential hypertension HTN (hypertension) Hypothyroidism Left ureteral stone Lung nodule Paroxysmal atrial fibrillation Rheumatoid arthritis Right kidney stone Sjogren's disease Zoster Home Medications levothyroxine 50 mcg tablet 50 mcg PO DAILY THYROID 04/13/16 [History Last Taken 02/13/22] prednisone 5 mg tablet 5 mg PO DAILY RHEUMATOID ARTHRITIS 04/13/16 [History Last Taken Unknown] leflunomide 20 mg tablet (Arava) 20 mg PO DAILY PRN RHEUMATOID ARTHRITIS 05/08/18 [History Last Taken Unknown] cholecalciferol (vitamin D3) 25 mcg (1,000 unit) tablet 25 mcg PO DAILY SUPPLEMENT 10/05/21 [History Last Taken 02/09/22] cyclobenzaprine 10 mg tablet 10 mg PO TID PRN muscle spasm 10/05/21 [History Last Taken 02/12/22] melatonin 3 mg tablet 3 mg PO HS PRN Insomnia 10/05/21 [History Last Taken Unknown] multivitamin 1 tab PO DAILY 10/05/21 [History Last Taken Unknown] amiodarone 200 mg tablet 200 mg PO DAILY ARRHYTHMIA 02/13/22 [History Last Taken 02/13/22] aspirin 81 mg tablet,delayed release 81 mg PO DAILY HEART HEALTH 02/13/22 [History Last Taken 02/13/22] diltiazem HCl 120 mg capsule,extended release 24 hr 120 mg PO BID BLOOD PRESSURE 02/13/22 [History Last Taken 02/13/22] furosemide 20 mg tablet 20 mg PO DAILY FLUID 02/13/22 [History Last Taken 02/13/22] lisinopril 10 mg tablet 10 mg PO BID BLOOD PRESSURE 02/13/22 [History Last Taken 02/13/22] metoprolol tartrate 25 mg tablet 25 mg PO BID BLOOD PRESSURE 02/13/22 [History Last Taken 02/13/22] rivaroxaban 15 mg tablet (Xarelto) 15 mg PO DINNER BLOOD THINNER 02/13/22 [History Last Taken 02/12/22] Allergy/AdvReac Type Severity Reaction Status Date / Time apixaban [From Eliquis] Allergy Unknown Rash Verified 02/13/22 11:45 sulindac Allergy Unknown Rash Verified 02/13/22 11:45 aloe Allergy Rash Verified 02/13/22 11:45 erythromycin base Allergy Unknown Verified 02/13/22 11:45 Penicillins Allergy Unknown Verified 02/13/22 11:45 Sulfa (Sulfonamide Allergy Unknown Verified 02/13/22 11:45 Antibiotics) vitamin E (d-alpha Allergy Rash Verified 02/13/22 11:45 tocopherol) Environmental Allergies: AdvReac Rash Verified 02/13/22 11:45 Uncoded [metals] Family History Grandfather Myocardial infarction Surgical History Cataract extraction status of left eye History of carpal tunnel surgery of right wrist History of tubal ligation Hx of cystoscopy (04/14/16) left breast biposy Status post right knee replacement (~04/02/18) Social History Smoking Status: Never smoker Electronic Cigarette Use: not used second hand exposure: Yes (Father and workplace exposure) alcohol intake: current alcohol intake frequency: holidays/special occasions only Alcohol type: wine substance use type: does not use caffeine: Yes Type: carbonated beverages and coffee Number of servings: 2 what type of physical activity do you participate in: none seatbelt use: always do you feel safe at home: Yes ROS ROS Narrative 10 systems were reviewed with pertinent positives as noted in the HPI above. Physical Exam Const alert and oriented x3 General Appearance: cooperative HEENT normocephalic, head/scalp atraumatic and moist oral mucous membranes Eyes PERRL, EOMs intact bilaterally and conjunctivae normal Neck supple General: trachea midline Chest inspection of chest normal Resp Effort and Inspection: tachypneic Auscultation: rales Cardio regular rate and regular rhythm GI normal to inspection, nondistended, normoactive bowel sounds Extremity no clubbing, cyanosis or edema Skin no rashes or lesions noted Neuro oriented x3, CN's II-XII intact bilaterally and moves all extremities Psych cooperative and affect normal Lab / Micro Data Result Diagrams: 02/15/22 09:24 02/15/22 09:24 Labs: Laboratory Results - last 24 hr 02/13/22 13:23: Diff Path Review Reviewed Micro: Microbiology 02/14/22 11:01 Mucosa - Nose Respiratory Panel (PCR) - Final ABG Data ABG results: ABG 02/15/22 08:55 Specimen Type ART Sample Site R Radial pH 7.53 H Bicarbonate Actual 21.9 L Total CO2 23 Base Excess -1 O2 Saturation 98 O2 % 60 ABG pCO2 26.2 L ABG pO2 85 Jose Test Positive O2 Delivery Device Cannula Vent Mode NCPAP Clinical Comments 40 lpm Radiology Impression Chest X-Ray 02/15/22 08:25 IMPRESSION: Bilateral perihilar patchy opacities with interval progression on the right concerning for multifocal pneumonia and/or edema. Electronically Signed: Glendy Stewart MD at 8:48 EST , Charges/Coding Visit Charges Inpatient E&M: 18584 Init Hosp L3
[2022-02-15 10:02] LABS: AST(SGOT) 22 U/L (15-37); Alanine Aminotransfer ALT/SGPT 11 U/L (13-56); Alkaline Phosphatase 99 U/L (45-117); Anion Gap 6 (5-15); BUN 12 mg/dL (7-18); BUN/Creat Ratio 11.9 RATIO (10-20); Bilirubin, Direct 0.14 mg/dL (0.00-0.30); Calcium,Total 8.1 mg/dL (8.5-10.1); Chloride 105 mmol/L (98-107); Creatinine, Serum 1.01 mg/dL (0.55-1.02); EST Glomerular Filtration Rate 57 mL/min (>60); Est Glom Filt Rate - Afr Amer 69 mL/min (>60); Estimated Creatinine Clearance 34.57 ml/min; Globulin 3.8 g/dL (2.2-4.2); Glucose 131 mg/dL (74-106); Magnesium 2.1 mg/dL (1.6-2.6); Potassium 3.6 mmol/L (3.5-5.1); Protein, Total 5.8 g/dL (6.4-8.2); Sodium Level 137 mmol/L (136-145)
--- NOTE | 2022-02-15 10:55 | NURSING ---
97% on AIRVO when not talking, drops down to 92% when talking/conversant.
[2022-02-15] MEDS: guaiFENesin 10 ML UDC (200MG/10ML) 20 ML PO (10:59)
[2022-02-15] MEDS: Acetaminophen 325 MG Tablet 650 MG PO ×2 (10:59→17:51)
--- NOTE | 2022-02-15 12:38 | NURSING ---
CPS at bedside, pt receiving breathing tx. CPS will re-eval resp rate when breathing tx done.
--- NOTE | 2022-02-15 13:16 | CPS ---
turned heater down to 31 degrees, patient complained it was too hot.
--- NOTE | 2022-02-15 14:16 | NURSING ---
unable to give nurse to nurse report- ICU staff getting ready to intubate another pt. RN will call when available.
--- NOTE | 2022-02-15 15:03 | PHA.PHARE_ITS ---
Consult Pharmacy has been consulted to manage selected antiobiotic: Vancomycin Type of Consult: New start Suspected Infection: Pneumonia Prior Doses of Antibiotics Received/Current Regimen: Loading dose of 1500mg. Labs: Sodium 137 mmol/L (136-145) 02/15/22 09:24 Potassium 3.6 mmol/L (3.5-5.1) 02/15/22 09:24 Chloride 105 mmol/L (98-107) 02/15/22 09:24 Carbon Dioxide 26.0 mmol/L (21.0-32.0) 02/15/22 09:24 Anion Gap 6 (5-15) 02/15/22 09:24 BUN 12 mg/dL (7-18) 02/15/22 09:24 Creatinine 1.01 mg/dL (0.55-1.02) 02/15/22 09:24 Est GFR (MDRD) Af Amer 69 mL/min (>60) 02/15/22 09:24 Est GFR (MDRD) Non-Af 57 mL/min (>60) L 02/15/22 09:24 BUN/Creatinine Ratio 11.9 RATIO (10-20) 02/15/22 09:24 Glucose 131 mg/dL (74-106) H 02/15/22 09:24 Microbiology: Microbiology 02/14/22 11:01 Mucosa - Nose Respiratory Panel (PCR) - Final 02/13/22 17:29 Mucosa - Nasopharyngeal Respiratory Panel (PCR) - Final 02/13/22 17:14 Urine, Clean Catch Legionella Antigen - Final 02/13/22 17:14 Urine, Clean Catch Streptococcus pneumoniae Antigen (M - Final 02/13/22 13:25 Mucosa - Nasopharyngeal Rapid RSV (DFA) - Final 02/13/22 13:23 Nasal Secretion SARS-CoV-2 & FLU Antigen (Rapid) - Final Weight used for dosin.5 kg Estimated Creatinine Clearance: ~39ml/min Goal Trough: 15-20 mcg/mL Pharmacy Plan for Drug Dosing: Will begin 750mg iv q24h based on calculated SCrCl of ~39ml/min using an ad justed body weight of 50.9kg. Trough level ordered for before third dose. Pharmacy Service will continue to monitor and adjust dosing as required. Follow-Up Labs: Trough Vancomycin - 02.17.22 @[id number]
--- NOTE | 2022-02-15 16:27 | CHAPLAIN ---
Type of Pastoral Visit ___ Initial Visit _x__ Follow-up Visit ___ On-call Visit ___ General Patient Visit ___ Spiritual Assessment ___ Family Conference ___ Bereavement ___ Rapid Response ___ Code Blue ___ Other (describe below) Pastoral Care Referral From _x__ Patient ___ Family ___ Nurse ___ Physician ___ [employer] Labourer ___ Poultry Husbandry Teacher ___ Other (describe below) Sacrament/Intervention __x_ Active listening ___ Anointing ___ Taoist ___ Bereavement ___ Communion ___ Daniela exploration ___ ___ Life review _x__ Prayer ___ Reconciliation ___ Sacrament of Sick _x__ Supportive presence ___ Wedding ___ Other (describe below) Pastoral Comments follow up to give support for pt and in concern for her spouse who was moved to a SNF yesterday
[2022-02-15] MEDS: cycloBENZAPRine HCl 10 MG Tablet PO ×2 (17:51→21:43)
[2022-02-15] MEDS: Rivaroxaban 15 MG Tablet PO (18:39)
[2022-02-15] MEDS: MELATONIN 3 MG TABLET PO (21:43)
[2022-02-15] MEDS: Sodium Chloride 0.65% 1 SPRAY SPRAY.BTL 2 SPRAY NASAL (23:25)
--- NOTE | 2022-02-15 23:35 | NURSING ---
CPS NOTIFIED OF PT'S PERSISTENT DESATS. AIRVO SETTINGS ADJUSTED TO 60L @ 80%
[2022-02-16] VITALS (30 sets, daily range): BP systolic 115–164; BP diastolic 46–92; PULSE 72–126; RESP 17–32; TEMP 36.4–37.8; O2SAT 90–99
[2022-02-16] MEDS: Acetaminophen 325 MG Tablet 650 MG PO ×2 (03:46→23:15)
[2022-02-16 04:27] LABS: Absolute Neutrophil Count 9.2 X10^3/uL (2.0-7.7); Basophil# 0.07 X10^3/uL; Basophil% 0.6 % (0-1); Eosinophil# 0.43 X10^3/uL; Eosinophils% 3.5 % (0-5); Hematocrit 27.6 % (37-47); Hemoglobin 8.6 g/dL (12.0-15.0); Lymphocyte % 8.2 % (19-41); Mean Corp Hgb Conc 31.2 g/dL (32-36); Mean Corpuscular Hgb 28.7 pg (27.0-32.0); Mean Platelet Vol. 12.1 fl (6.2-12.0); Monocyte# 1.39 X10^3/uL; Monocyte% 11.4 % (0-10); NRBC Flagged by Analyzer 0 % (0-5); Neutrophil # 9.22 X10^3/uL (2.7-7.7); Neutrophil % 75.6 % (47-70); Platelet Count 419 K/mm3 (150-450); RBC Distribution Width CV 13.4 % (11.6-14.6); RBC Distribution Width SD 45.6 fl (35.1-43.9); White Blood Count 12.2 K/mm3 (4.4-11.0)
[2022-02-16 04:37] LABS: Anion Gap 5 (5-15); BUN 14 mg/dL (7-18); BUN/Creat Ratio 14.8 RATIO (10-20); Calcium,Total 8.3 mg/dL (8.5-10.1); Chloride 104 mmol/L (98-107); Creatinine, Serum 0.94 mg/dL (0.55-1.02); EST Glomerular Filtration Rate 62 mL/min (>60); Est Glom Filt Rate - Afr Amer 74 mL/min (>60); Estimated Creatinine Clearance 37.14 ml/min; Glucose 109 mg/dL (74-106); Magnesium 2.3 mg/dL (1.6-2.6); Phosphorus 2.6 mg/dL (2.5-4.9); Potassium 3.8 mmol/L (3.5-5.1); Sodium Level 136 mmol/L (136-145)
[2022-02-16] MEDS: Sodium Chloride 0.65% 1 SPRAY SPRAY.BTL 2 SPRAY NASAL ×2 (05:05→09:33)
[2022-02-16] MEDS: Levothyroxine 50 MCG Tablet PO (05:06)
--- NOTE | 2022-02-16 05:20 | NURSING ---
CPS IN TO CHANGE AIRVO SETTINGS.
--- NOTE | 2022-02-16 07:09 | PN.CC_ITS ---
Assessment & Plan Assessment/Plan (1) Hypoxia: (2) Pneumonia: PLAN: Plan RECOMMENDATIONS: 1. Wean FiO2 to maintain oxygen saturations at or above 90%. 2. Continue broad-spectrum antimicrobials. 3. Continue attempts at diuresis as tolerated by hemodynamics and renal function. 4. Start IV Solu-Medrol 40 mg every 6 hours. 5. Encourage incentive spirometer use and mobilize patient as tolerated. IMPRESSIONS: 1. Acute hypoxemic respiratory failure The patient initially presented to the hospital shortness of breath and hypoxem ia. Infectious work-up, thus far, has been unrevealing. In light of her worsening respiratory status, her antimicrobials were broadened. Chest imaging did reveal multifocal groundglass opacities bilaterally. While an infectious etiology is certainly a possibility, I cannot completely rule out an entity such as organizing pneumonia related to the patient's underlying Sjogren's. Accordingly, the patient has also been started on steroids. In the interim, she will be continued on heated high flow, with a goal to wean FiO2 to maintain oxygen saturations at or above 90%. Diuretics can be utilized intermittently to maintain euvolemic state, as tolerated by hemodynamics and renal function. 2. Chronic anemia/heart failure with preserved ejection fraction/paroxysmal atrial fibrillation/hypertension/history of Sjogren's disease Complicates care, management, recovery and prognosis. Continue home medications as indicated. This note was generated with [employer] dictation software. It may contain incorrect words, spelling, and punctuation that were not noted in checking the note before signing. Subjective Subjective The patient was seen and examined at the bedside this morning. Events from the last 24 hours have been reviewed. The patient is currently afebrile, hemodynamically stable and maintaining appropriate oxygen saturations on Airvo heated high flow with an FiO2 requirement of 65% and flow rate of 50 L/min. The patient is currently documented to be overall net +3 L for the hospitalization. She remains on broad-spectrum antimicrobials, including meropenem and vancomycin. Despite her oxygen requirement, the patient does report that she feels better than yesterday. Objective Data Objective Data The patient's most recent lab work, culture data and imaging studies have all been personally reviewed. Surface echocardiogram dated October 2021 demonstrated an ejection fraction of 60% with indeterminate diastolic function. Respiratory viral panel was negative. Strep and urine Legionella antigens were negative. Rapid influenza, RSV and COVID were all negative. Vital Signs: Vital Signs Temp Pulse Resp BP Pulse Ox O2 Del Method O2 Flow Rate 100.1 F H 75 23 H 118/46 L 90 Airvo 50 02/16/22 04:00 02/16/22 06:00 02/16/22 06:00 02/16/22 06:00 02/16/22 06:00 02/16/22 06:00 02/16/22 06:00 FiO2 65 02/16/22 06:00 Oxygen Flow Rate (L/min) 50 Oxygen Delivery Method Airvo Weight: 138 lb 3.2 oz Body Mass Index (BMI) 25.6 Intake & Output: Intake and Output for Last 24 Hours 02/14/22 02/15/22 02/16/22 23:59 23:59 23:59 Intake Total 2105 / 2105 1789.75 / 2189.75 1360.25 / 1360.25 Output Total 1550 / 1950 1000 / 1000 Balance 2105 / 2105 239.75 / 239.75 360.25 / 360.25 Lab / Micro Data Attestation: I reviewed the patient's lab results. Result Diagrams: 02/16/22 03:50 02/16/22 03:50 Labs: Laboratory Results - last 24 hr 02/13/22 11:31: COVID-19 (GHAZALA) Not Detected 02/15/22 09:24: WBC 12.1 H, RBC 3.02 L, Hgb 9.1 L, Hct 27.3 L, MCV 90.4, MCH 30.1, MCHC 33.3 D, RDW Std Deviation 44.6 H, RDW Coeff of Olaf 13.4, Plt Count 385, MPV 10.6, Immature Gran % (Auto) 0.400, Neut % (Auto) 78.9 H, Lymph % (Auto) 6.7 L, [place] % (Auto) 11.1 H, Eos % (Auto) 2.4, Baso % (Auto) 0.5, Absolute Neuts (auto) 9.6 H, Absolute Lymphs (auto) 0.81 L, Nucleated RBC % 0 02/15/22 09:24: Sodium 137, Potassium 3.6, Chloride 105, Carbon Dioxide 26.0, Anion Gap 6, BUN 12, Creatinine 1.01, Estim Creat Clear Calc 34.57, Est GFR (MDRD) Af Amer 69, Est GFR (MDRD) Non-Af 57 L, BUN/Creatinine Ratio 11.9, Glucose 131 H, Calcium 8.1 L, Magnesium 2.1, Total Bilirubin 0.40, Direct Bilirubin 0.14, AST 22, ALT 11 L, Alkaline Phosphatase 99, Total Protein 5.8 L, Albumin 2.0 L, Globulin 3.8 02/16/22 03:50: WBC 12.2 H, RBC 3.00 L, Hgb 8.6 L, Hct 27.6 L, MCV 92.0, MCH 28.7, MCHC 31.2 L D, RDW Std Deviation 45.6 H, RDW Coeff of Olaf 13.4, Plt Count 419, MPV 12.1 H, Immature Gran % (Auto) 0.700, Neut % (Auto) 75.6 H, Lymph % (Auto) 8.2 L, [place] % (Auto) 11.4 H, Eos % (Auto) 3.5, Baso % (Auto) 0.6, Ab solute Neuts (auto) 9.2 H, Absolute Lymphs (auto) 1.00, Nucleated RBC % 0 02/16/22 03:50: Sodium 136, Potassium 3.8, Chloride 104, Carbon Dioxide 27.0, Anion Gap 5, BUN 14, Creatinine 0.94, Estim Creat Clear Calc 37.14, Est GFR (MDRD) Af Amer 74, Est GFR (MDRD) Non-Af 62, BUN/Creatinine Ratio 14.8, Glucose 109 H, Calcium 8.3 L, Phosphorus 2.6, Magnesium 2.3 Micro: Microbiology 02/14/22 11:01 Mucosa - Nose Respiratory Panel (PCR) - Final 02/13/22 17:29 Mucosa - Nasopharyngeal Respiratory Panel (PCR) - Final 02/13/22 17:14 Urine, Clean Catch Legionella Antigen - Final 02/13/22 17:14 Urine, Clean Catch Streptococcus pneumoniae Antigen (M - Final 02/13/22 13:25 Mucosa - Nasopharyngeal Rapid RSV (DFA) - Final 02/13/22 13:23 Nasal Secretion SARS-CoV-2 & FLU Antigen (Rapid) - Final ABG Data ABG results: ABG 02/15/22 08:55 Specimen Type ART Sample Site R Radial pH 7.53 H Bicarbonate Actual 21.9 L Total CO2 23 Base Excess -1 O2 Saturation 98 O2 % 60 ABG pCO2 26.2 L ABG pO2 85 Jose Test Positive O2 Delivery Device Cannula Vent Mode NCPAP Clinical Comments 40 lpm Radiography Diagnostic Testing: Radiology Impression Chest X-Ray 02/15/22 08:25 IMPRESSION: Bilateral perihilar patchy opacities with interval progression on the right concerning for multifocal pneumonia and/or edema. Electronically Signed: Glendy Stewart MD at 8:48 EST , Physical Exam Const alert and oriented x3 General Appearance: cooperative HEENT normocephalic, head/scalp atraumatic and moist oral mucous membranes Eyes PERRL, EOMs intact bilaterally and conjunctivae normal Neck supple General: trachea midline Chest inspection of chest normal Resp Effort and Inspection: tachypneic Auscultation: rales Cardio S1 normal heart sound and S2 normal heart sound Rate: tachycardic Rhythm: abnormal rhythm GI normal to inspection, nondistended, normoactive bowel sounds Extremity no clubbing, cyanosis or edema Skin no rashes or lesions noted Neuro oriented x3, CN's II-XII intact bilaterally and moves all extremities Psych cooperative and affect normal Charges/Coding Visit Charges Inpatient E&M: 73040 Subs Hosp L3
--- NOTE | 2022-02-16 07:10 | PN.HOSP_ITS ---
Subjective Subjective Patient was transferred to the intensive care unit due to Deteriorating respiratory status. Patient was placed on noninvasive ventilation . Case was discussed with Dr. Chavez with pulmonary medicine plan is to initiate steroid for possible cryptogenic organizing pneumonia Objective Data Objective Data Vital Signs: Vital Signs Temp Pulse Resp BP Pulse Ox O2 Del Method O2 Flow Rate 100.1 F H 75 23 H 118/46 L 90 Airvo 50 02/16/22 04:00 02/16/22 06:00 02/16/22 06:00 02/16/22 06:00 02/16/22 06:00 02/16/22 06:00 02/16/22 06:00 FiO2 65 02/16/22 06:00 Oxygen Flow Rate (L/min) 50 Oxygen Delivery Method Airvo Weight: 62.686 kg Body Mass Index (BMI) 25.6 Intake & Output: Intake and Output for Last 24 Hours 02/14/22 02/15/22 02/16/22 23:59 23:59 23:59 Intake Total 2105 / 2105 1789.75 / 2189.75 1360.25 / 1360.25 Output Total 1550 / 1950 1000 / 1000 Balance 2105 / 2105 239.75 / 239.75 360.25 / 360.25 Lab / Micro Data Result Diagrams: 02/16/22 03:50 02/16/22 03:50 Labs: Laboratory Results - last 24 hr 02/13/22 11:31: COVID-19 ([facility]) Not Detected 02/15/22 09:24: WBC 12.1 H, RBC 3.02 L, Hgb 9.1 L, Hct 27.3 L, MCV 90.4, MCH 30.1, MCHC 33.3 D, RDW Std Deviation 44.6 H, RDW Coeff of Olaf 13.4, Plt Count 385, MPV 10.6, Immature Gran % (Auto) 0.400, Neut % (Auto) 78.9 H, Lymph % (Auto) 6.7 L, Yates % (Auto) 11.1 H, Eos % (Auto) 2.4, Baso % (Auto) 0.5, Absolute Neuts (auto) 9.6 H, Absolute Lymphs (auto) 0.81 L, Nucleated RBC % 0 02/15/22 09:24: Sodium 137, Potassium 3.6, Chloride 105, Carbon Dioxide 26.0, Anion Gap 6, BUN 12, Creatinine 1.01, Estim Creat Clear Calc 34.57, Est GFR (MDRD) Af Amer 69, Est GFR (MDRD) Non-Af 57 L, BUN/Creatinine Ratio 11.9, Glucose 131 H, Calcium 8.1 L, Magnesium 2.1, Total Bilirubin 0.40, Direct Bilirubin 0.14, AST 22, ALT 11 L, Alkaline Phosphatase 99, Total Protein 5.8 L, Albumin 2.0 L, Globulin 3.8 02/16/22 03:50: WBC 12.2 H, RBC 3.00 L, Hgb 8.6 L, Hct 27.6 L, MCV 92.0, MCH 28.7, MCHC 31.2 L D, RDW Std Deviation 45.6 H, RDW Coeff of Olaf 13.4, Plt Count 419, MPV 12.1 H, Immature Gran % (Auto) 0.700, Neut % (Auto) 75.6 H, Lymph % (Auto) 8.2 L, Yates % (Auto) 11.4 H, Eos % (Auto) 3.5, Baso % (Auto) 0.6, Absolute Neuts (auto) 9.2 H, Absolute Lymphs (auto) 1.00, Nucleated RBC % 0 02/16/22 03:50: Sodium 136, Potassium 3.8, Chloride 104, Carbon Dioxide 27.0, Anion Gap 5, BUN 14, Creatinine 0.94, Estim Creat Clear Calc 37.14, Est GFR (MDRD) Af Amer 74, Est GFR (MDRD) Non-Af 62, BUN/Creatinine Ratio 14.8, Glucose 109 H, Calcium 8.3 L, Phosphorus 2.6, Magnesium 2.3 Micro: Microbiology 02/14/22 11:01 Mucosa - Nose Respiratory Panel (PCR) - Final 02/13/22 17:29 Mucosa - Nasopharyngeal Respiratory Panel (PCR) - Final 02/13/22 17:14 Urine, Clean Catch Legionella Antigen - Final 02/13/22 17:14 Urine, Clean Catch Streptococcus pneumoniae Antigen (M - Final 02/13/22 13:25 Mucosa - Nasopharyngeal Rapid RSV (DFA) - Final 02/13/22 13:23 Nasal Secretion SARS-CoV-2 & FLU Antigen (Rapid) - Final ABG Data ABG results: ABG 02/15/22 08:55 Specimen Type ART Sample Site R Radial pH 7.53 H Bicarbonate Actual 21.9 L Total CO2 23 Base Excess -1 O2 Saturation 98 O2 % 60 ABG pCO2 26.2 L ABG pO2 85 Jose Test Positive O2 Delivery Device Cannula Vent Mode NCPAP Clinical Comments 40 lpm Radiography Diagnostic Testing: Radiology Impression Chest X-Ray 02/15/22 08:25 IMPRESSION: Bilateral perihilar patchy opacities with interval progression on the right concerning for multifocal pneumonia and/or edema. Electronically Signed: Glendy Stewart MD at 8:48 EST , Physical Exam Narrative GENERAL: Dyspneic at rest, tachypneic HEENT: Atraumatic; normocephalic EYES; Anicteric, Normal Conjunctiva NECK; supple, normal thyroid, RESPIRATORY: Diminished to auscultation, with significant coarse crackles on the left CARDIOVASCULAR: Irregularly irregular, tachycardic GI:? soft, normoactive bowel sounds, : No Renal angle tenderness; EXTREMITIES:? No edema, no clubbing, MUSCULOSKELETAL:? no muscle wasting NEURO:? Awake;? no lateralizing signs. SKIN:? No Rash PSYCH; Flat? affect Assessment & Plan Assessment/Plan (1) LYSSA (acute kidney injury): (2) Pneumonia: (3) Hypoxia: PLAN: Plan Patient is a 77-year-old lady admitted with progressive shortness of breath, CT of the chest obtained demonstrated patchy groundglass opacities throughout the lungs with areas of interstitial thickening in the lung periphery 1.? Acute hypoxia with bilateral pneumonia ? Suspected to be secondary to viral pneumonia.? Patient rapid RSV and flu antigen came back negative however still maintain high suspicion for viral pneumonia.? He was started on broad-spectrum antibiotic therapy with taylor thromycin and ceftriaxone also placed on supplemental oxygen titrated to keep saturation greater than 90 -02/15/2022; much more dyspneic this a.m. compared to the day prior.? Patient currently requiring 15 L flow per minute.? As part of patient's evaluation ordered repeat chest x-ray and ABG and pulmonary consultation -02/16/2022atient was transferred to the intensive care unit due to Deteriorati ng respiratory status. Patient was placed on noninvasive ventilation . Case was discussed with Dr. Chavez with pulmonary medicine plan is to initiate steroid for possible cryptogenic organizing pneumonia 2.? Acute kidney injury -Patient presented with creatinine 1.4 rehydrated creatinine down to 1.17 subsequent monitoring with daily BMPs ordered ?02/16/2022; Acute kidney injury resolved 3.? Anemia - Secondary to chronic disorder monitoring H&H and transfuse if patient becomes symptomatic or hemoglobin falls below? 7 02/16/2022; patient hemoglobin continues to drop we will continue monitoring no indication for blood transfusion at this point 4.? Paroxysmal A. fib ? Patient has been going in and out of rapid ventricular response.? Patient given IV metoprolol, if patient does not respond patient will be transferred to the progressive care unit and started on Cardizem drip to be titrated to keep heart rate less than 100.? Patient is on systemic anticoagulation with rivaroxaban did continue 5.? Essential hypertension ? Patient blood pressure controlled at this point we will continue with home meds 6.? History of carotid artery stenosis Patient is on antiplatelet therapy with aspirin did continue 7. Sjogren's disease ? Patient is on baseline prednisone did continue patient is on leflunomide held in view of her acute illness 8.? Chronic pain syndrome ?continue with patient home pain regimen 9.? DVT prophylaxis ? On Xarelto Charges/Coding Visit Charges Inpatient E&M: 92694 Subs Hosp L3
[2022-02-16] MEDS: Aspirin E.C. 81 MG Tablet PO (07:53)
[2022-02-16] MEDS: Multivitamins,Therapeutic Tablet 1 TABLET PO (07:53)
[2022-02-16] MEDS: Albuterol 2.5 MG/3 ML VIAL.NEB. INHALATION ×3 (07:57→19:19)
[2022-02-16] MEDS: Cholecalciferol (VIT D3) 25 MCG TABLET (1,000 UNITS) PO (09:27)
[2022-02-16] MEDS: Lisinopril 10 MG Tablet PO ×2 (09:27→21:14)
[2022-02-16] MEDS: Amiodarone 200 MG Tablet PO (09:27)
[2022-02-16] MEDS: dilTIAZem CD 120 MG Capsule PO ×2 (09:27→21:14)
[2022-02-16] MEDS: Metoprolol Tartrate 25 MG Tablet PO ×2 (09:27→21:14)
[2022-02-16] MEDS: Rivaroxaban 15 MG Tablet PO (17:41)
[2022-02-16] MEDS: cycloBENZAPRine HCl 10 MG Tablet PO (23:15)
[2022-02-16] MEDS: 0.9% Saline Lock 10 ML Syringe IV (23:16)
[2022-02-17] VITALS (17 sets, daily range): BP systolic 126–153; BP diastolic 61–75; PULSE 71–80; RESP 16–20; TEMP 36.1–36.7; O2SAT 92–97
[2022-02-17] MEDS: Albuterol 2.5 MG/3 ML VIAL.NEB. INHALATION ×3 (01:46→13:57)
[2022-02-17 05:02] LABS: Absolute Lymphocyte Count 0.57 X10^3/uL (0.83-4.51); Absolute Neutrophil Count 6.6 X10^3/uL (2.0-7.7); Basophil# 0.01 X10^3/uL; Basophil% 0.1 % (0-1); Hematocrit 30.1 % (37-47); Hemoglobin 9.8 g/dL (12.0-15.0); Lymphocyte # 0.57 X10^3/ul (0.83-4.51); Lymphocyte % 7.7 % (19-41); Mean Corp Hgb Conc 32.6 g/dL (32-36); Monocyte# 0.17 X10^3/uL; Monocyte% 2.3 % (0-10); NRBC Flagged by Analyzer 0 % (0-5); Neutrophil # 6.63 X10^3/uL (2.7-7.7); Neutrophil % 89.2 % (47-70); POSITIVE DIFFERENTIAL YES; Platelet Count 438 K/mm3 (150-450); RBC Distribution Width CV 13.4 % (11.6-14.6); RBC Distribution Width SD 45.4 fl (35.1-43.9); Red Blood Count 3.27 M/mm3 (4.2-5.4); White Blood Count 7.4 K/mm3 (4.4-11.0)
[2022-02-17 05:16] LABS: Differential Indicated SCAN CRITERIA MET
[2022-02-17] MEDS: Levothyroxine 50 MCG Tablet PO (05:22)
[2022-02-17 05:41] LABS: Anion Gap 6 (5-15); BUN 19 mg/dL (7-18); BUN/Creat Ratio 19.6 RATIO (10-20); Calcium,Total 9.2 mg/dL (8.5-10.1); Chloride 103 mmol/L (98-107); Creatinine, Serum 0.97 mg/dL (0.55-1.02); EST Glomerular Filtration Rate 60 mL/min (>60); Est Glom Filt Rate - Afr Amer 72 mL/min (>60); Estimated Creatinine Clearance 35.99 ml/min; Glucose 174 mg/dL (74-106); Potassium 3.9 mmol/L (3.5-5.1); Sodium Level 134 mmol/L (136-145)
--- NOTE | 2022-02-17 07:42 | PN.HOSP_ITS ---
Subjective Subjective Patient transferred from the intensive care unit to PCU following stabilization of her respiratory status. Objective Data Objective Data Vital Signs: Vital Signs Temp Pulse Resp BP Pulse Ox O2 Del Method O2 Flow Rate 97 F L 75 20 H 153/75 H 95 Nasal Cannula 15 02/17/22 03:14 02/17/22 03:14 02/17/22 03:14 02/17/22 03:14 02/17/22 03:14 02/17/22 04:12 02/17/22 04:12 FiO2 80 02/17/22 03:14 Oxygen Flow Rate (L/min) 15 Oxygen Delivery Method Nasal Cannula Weight: 61.4 kg Body Mass Index (BMI) 25.6 Intake & Output: Intake and Output for Last 24 Hours 02/15/22 02/16/22 02/17/22 23:59 23:59 23:59 Intake Total 1789.75 / 2189.75 1947.50 / 2187.50 460 / 460 Output Total 1550 / 1950 1200 / 1200 250 / 250 Balance 239.75 / 239.75 747.50 / 987.50 210 / 210 Lab / Micro Data Result Diagrams: 02/17/22 04:31 02/17/22 04:31 Labs: Laboratory Results - last 24 hr 02/17/22 04:31: WBC 7.4, RBC 3.27 L, Hgb 9.8 L, Hct 30.1 L, MCV 92.0, MCH 30.0, MCHC 32.6, RDW Std Deviation 45.4 H, RDW Coeff of Olaf 13.4, Plt Count 438, MPV 11.0, Immature Gran % (Auto) 0.700, Neut % (Auto) 89.2 H, Lymph % (Auto) 7.7 L, [place] % (Auto) 2.3, Eos % (Auto) 0.0, Baso % (Auto) 0.1, Absolute Neuts (auto) 6.6, Absolute Lymphs (auto) 0.57 L, Nucleated RBC % 0 02/17/22 04:31: Sodium 134 L, Potassium 3.9, Chloride 103, Carbon Dioxide 25.0, Anion Gap 6, BUN 19 H, Creatinine 0.97, Estim Creat Clear Calc 35.99, Est GFR (MDRD) Af Amer 72, Est GFR (MDRD) Non-Af 60, BUN/Creatinine Ratio 19.6, Glucose 174 H, Calcium 9.2 Micro: Microbiology 02/13/22 15:15 Blood Culture (Wb) #2 - No Site/Description Given Blood Culture - Preliminary No growth in 48 hours. 02/13/22 16:00 Blood Culture (Wb) - Anticubital Left Blood Culture - Preliminary No growth in 48 hours. 02/14/22 11:01 Mucosa - Nose Respiratory Panel (PCR) - Final 02/13/22 17:29 Mucosa - Nasopharyngeal Respiratory Panel (PCR) - Final 02/13/22 17:14 Urine, Clean Catch Legionella Antigen - Final 02/13/22 17:14 Urine, Clean Catch Streptococcus pneumoniae Antigen (M - Final 02/13/22 13:25 Mucosa - Nasopharyngeal Rapid RSV (DFA) - Final 02/13/22 13:23 Nasal Secretion SARS-CoV-2 & FLU Antigen (Rapid) - Final Physical Exam Narrative GENERAL: Dyspneic at rest, tachypneic HEENT: Atraumatic; normocephalic EYES; Anicteric, Normal Conjunctiva NECK; supple, normal thyroid, RESPIRATORY: Diminished to auscultation, with significant coarse crackles on the left CARDIOVASCULAR: Irregularly irregular, tachycardic GI:? soft, normoactive bowel sounds, : No Renal angle tenderness; EXTREMITIES:? No edema, no clubbing, MUSCULOSKELETAL:? no muscle wasting NEURO:? Awake;? no lateralizing signs. SKIN:? No Rash PSYCH; Flat? affect Assessment & Plan Assessment/Plan (1) LYSSA (acute kidney injury): (2) Pneumonia: (3) Hypoxia: PLAN: Plan Patient is a 77-year-old lady admitted with progressive shortness of breath, CT of the chest obtained demonstrated patchy groundglass opacities throughout the lungs with areas of interstitial thickening in the lung periphery 1.? Acute hypoxia with bilateral pneumonia ? Suspected to be secondary to viral pneumonia.? Patient rapid RSV and flu antigen came back negative however still maintain high suspicion for viral pneumonia.? He was started on broad-spectrum antibiotic therapy with azithromycin and ceftriaxone also placed on supplemental oxygen titrated to keep saturation greater than 90 -02/15/2022; much more dyspneic this a.m. compared to the day prior.? Patient currently requiring 15 L flow per minute.? As part of patient's evaluation ordered repeat chest x-ray and ABG and pulmonary consultation -02/16/2022atient was transferred to the intensive care unit due to Deteriorating respiratory status. Patient was placed on noninvasive ventilation . Case was discussed with Dr. Chavez with pulmonary medicine plan is to initiate steroid for possible cryptogenic organizing pneumonia 2. Acute hypoxic respiratory failure (present as of 02/15/2022) That this is secondary to patient pneumonia as well as suspected cryptogenic organizing pneumonia patient was tachypneic at the time with respiratory rate greater than 30 and hypoxia with oxygen saturation in the mid 80s patient had to be transferred to the intensive care unit placed on noninvasive ventilation Airvo 3.? Acute kidney injury -Patient presented with creatinine 1.4 rehydrated creatinine down to 1.17 subsequent monitoring with daily BMPs ordered ?02/16/2022; Acute kidney injury resolved 4.? Anemia - Secondary to chronic disorder monitoring H&H and transfuse if patient becomes symptomatic or hemoglobin falls below? 7 02/16/2022; patient hemoglobin continues to drop we will continue monitoring no indication for blood transfusion at this point 5.? Paroxysmal A. fib ? Patient has been going in and out of rapid ventricular response.? Patient given IV metoprolol, if patient does not respond patient will be transferred to the progressive care unit and started on Cardizem drip to be titrated to keep heart rate less than 100.? Patient is on systemic anticoagulation with rivaroxaban did continue 6.? History of carotid artery stenosis Patient is on antiplatelet therapy with aspirin did continue 7. Sjogren's disease ? Patient is on baseline prednisone did continue patient is on leflunomide held in view of her acute illness 8.? Chronic pain syndrome ?continue with patient home pain regimen 9.? Essential hypertension ? Patient blood pressure controlled at this point we will continue with home meds 10. DVT prophylaxis ? On Xarelto Charges/Coding Visit Charges Inpatient E&M: 00840 Subs Hosp L2
[2022-02-17] MEDS: Aspirin E.C. 81 MG Tablet PO (08:34)
[2022-02-17] MEDS: Multivitamins,Therapeutic Tablet 1 TABLET PO (08:34)
[2022-02-17] MEDS: dilTIAZem CD 120 MG Capsule PO ×2 (09:42→21:28)
[2022-02-17] MEDS: Amiodarone 200 MG Tablet PO (09:42)
[2022-02-17] MEDS: Lisinopril 10 MG Tablet PO ×2 (09:42→21:28)
[2022-02-17] MEDS: Cholecalciferol (VIT D3) 25 MCG TABLET (1,000 UNITS) PO (09:42)
[2022-02-17] MEDS: Metoprolol Tartrate 25 MG Tablet PO ×2 (09:43→21:28)
[2022-02-17] MEDS: MENTHOL 226.8 GM JAR 1 APPLIC TOPICAL (09:44)
[2022-02-17] MEDS: 0.9% Saline Lock 10 ML Syringe IV ×2 (11:30→21:29)
[2022-02-17] MEDS: Furosemide 20 MG Tablet PO (11:30)
--- NOTE | 2022-02-17 17:18 | PN.CC_ITS ---
Assessment & Plan Assessment/Plan (1) Sjogren's disease: PLAN: Her atypical pulmonary infiltrates may be related to a flare in her Sjogre n's syndrome. She shown objective improvement in her x-ray on steroids (versus spontaneous improvement). Would recommend 2 to 4 weeks of high to moderate dose steroids, with radiographic follow-up and close monitoring to assure she does not develop a superimposed nosocomial infection. She can be discharged when her O2 needs at rest sleep and with exertion can be supplied by typical home oxygen equipment. (2) Primary atypical interstitial pneumonia: PLAN: She is on empiric meropenem and vancomycin. I would recommend obtaining a procalcitonin, and if its close to normal range, consider discontinuing antibiotics after 3 to 5 days total, since they may not be helpful. Notably she has had no significant sputum production and her white count is improving to 7.4. (3) Acute respiratory failure with hypoxemia: PLAN: As above. Wean oxygen as tolerated. PLAN: Plan Pulmonary will follow at a distance. Please arrange for outpatient pulmonary visit with Dr. Chavez or John within 6 weeks after discharge. Please call if further pulmonary input is needed this weekend. Thank you for consulting pulmonary on this very pleasant lady. Subjective Subjective Patient is breathing a little better today. She remains on 15 L/min, (too much to go home on ) has a chronic dry cough. Her main complaint was leg pain that she usually uses [place] for at night at home. Apparently this has not been on formulary but pharmacy mixed up a compound for her but is similar in providing adequate relief. The patient described tremendous stress in the week prior to admission related to her and her deciding it was time for him to go to hospice, moving him into hospice, and deciding on the retirement and payment plan that they would use. She was tearful when describing this. In view of the completely negative bacterial and viral work-up, it is likely that this may have led to a flare in her shoulder related interstitial lung disease. Fortunately, it is improving subjectively and objectively (chest x-ray) on steroids. Objective Data Objective Data Respiratory pathogen evaluation including influenza, RSV, COVID, respiratory viral PCR panel, strep and, Legionella all negative. Chest x-ray and labs are personally reviewed. Summary of chest radiographs; 2016 patient had a interstitial infiltrate at the right lung base. This is completely cleared in 2021. On February 13, she had bilateral pulmonary infiltrates, which on the noted improvement in the apices on the right, decreased consolidation on the left, and the right base is completely clear. Vital Signs: Vital Signs Temp Pulse Resp BP Pulse Ox O2 Del Method O2 Flow Rate 97.8 F 72 16 132/67 H 95 Nasal Cannula 15 02/17/22 17:16 02/17/22 17:16 02/17/22 17:16 02/17/22 17:16 02/17/22 17:16 02/17/22 17:16 02/17/22 17:16 FiO2 80 02/17/22 08:27 Oxygen Flow Rate (L/min) 15 Oxygen Delivery Method Nasal Cannula Weight: 135 lb 5.821 oz Body Mass Index (BMI) 25.6 Intake & Output: Intake and Output for Last 24 Hours 02/15/22 02/16/22 02/17/22 23:59 23:59 23:59 Intake Total 1789.75 / 2189.75 1947.50 / 2187.50 580 / 580 Output Total 1550 / 1950 1200 / 1200 250 / 250 Balance 239.75 / 239.75 747.50 / 987.50 330 / 330 Lab / Micro Data Result Diagrams: 02/17/22 04:31 02/17/22 04:31 Labs: Laboratory Results - last 24 hr 02/17/22 04:31: WBC 7.4, RBC 3.27 L, Hgb 9.8 L, Hct 30.1 L, MCV 92.0, MCH 30.0, MCHC 32.6, RDW Std Deviation 45.4 H, RDW Coeff of Olaf 13.4, Plt Count 438, MPV 11.0, Immature Gran % (Auto) 0.700, Neut % (Auto) 89.2 H, Lymph % (Auto) 7.7 L, [place] % (Auto) 2.3, Eos % (Auto) 0.0, Baso % (Auto) 0.1, Absolute Neuts (auto) 6.6, Absolute Lymphs (auto) 0.57 L, Nucleated RBC % 0 02/17/22 04:31: Sodium 134 L, Potassium 3.9, Chloride 103, Carbon Dioxide 25.0, Anion Gap 6, BUN 19 H, Creatinine 0.97, Estim Creat Clear Calc 35.99, Est GFR (M DRD) Af Amer 72, Est GFR (MDRD) Non-Af 60, BUN/Creatinine Ratio 19.6, Glucose 174 H, Calcium 9.2 Micro: Microbiology 02/13/22 15:15 Blood Culture (Wb) #2 - No Site/Description Given Blood Culture - Preliminary No growth in 48 hours. 02/13/22 16:00 Blood Culture (Wb) - Anticubital Left Blood Culture - Preliminary No growth in 48 hours. 02/14/22 11:01 Mucosa - Nose Respiratory Panel (PCR) - Final 02/13/22 17:29 Mucosa - Nasopharyngeal Respiratory Panel (PCR) - Final 02/13/22 17:14 Urine, Clean Catch Legionella Antigen - Final 02/13/22 17:14 Urine, Clean Catch Streptococcus pneumoniae Antigen (M - Final 02/13/22 13:25 Mucosa - Nasopharyngeal Rapid RSV (DFA) - Final 02/13/22 13:23 Nasal Secretion SARS-CoV-2 & FLU Antigen (Rapid) - Final ABG Data Attestation: I personally reviewed and interpreted this ABG as follows: Charges/Coding Visit Charges Inpatient E&M: 22338 Subs Hosp L2
[2022-02-17] MEDS: Rivaroxaban 15 MG Tablet PO (18:04)
[2022-02-17] MEDS: Acetaminophen 325 MG Tablet 650 MG PO (21:27)
[2022-02-17] MEDS: cycloBENZAPRine HCl 10 MG Tablet PO (21:28)
[2022-02-18] VITALS (17 sets, daily range): BP systolic 113–157; BP diastolic 53–81; PULSE 63–98; RESP 15–22; TEMP 36.6–36.7; O2SAT 92–100
[2022-02-18] MEDS: Albuterol 2.5 MG/3 ML VIAL.NEB. INHALATION ×4 (00:05→20:22)
[2022-02-18] MEDS: MENTHOL 226.8 GM JAR 1 APPLIC TOPICAL ×2 (00:35→21:56)
[2022-02-18] MEDS: 0.9% Saline Lock 10 ML Syringe IV ×5 (00:35→21:52)
[2022-02-18] MEDS: cycloBENZAPRine HCl 10 MG Tablet PO ×2 (03:41→22:03)
[2022-02-18] MEDS: Acetaminophen 325 MG Tablet 650 MG PO ×2 (03:41→22:03)
[2022-02-18] MEDS: Levothyroxine 50 MCG Tablet PO (06:46)
--- NOTE | 2022-02-18 07:58 | PCM.PN.HOSP ---
Subjective Subjective Seen remains on supplemental oxygen. Requested for PT OT medina given her significant physical deconditioning Objective Data Objective Data Vital Signs: Vital Signs Temp Pulse Resp BP Pulse Ox O2 Del Method O2 Flow Rate 97.8 F 98 18 125/53 H 94 High Flow 12 02/18/22 03:33 02/18/22 07:26 02/18/22 07:26 02/18/22 03:33 02/18/22 07:26 02/18/22 07:52 02/18/22 07:52 FiO2 80 02/17/22 17:18 Oxygen Flow Rate (L/min) 12 Oxygen Delivery Method High Flow Weight: 61.4 kg Body Mass Index (BMI) 25.6 Intake & Output: Intake and Output for Last 24 Hours 02/16/22 02/17/22 02/18/22 23:59 23:59 23:59 Intake Total 1947.50 / 2187.50 1180 / 1480 420 / 420 Output Total 1200 / 1200 500 / 1000 800 / 800 Balance 747.50 / 987.50 680 / 480 -380 / -380 Lab / Micro Data Result Diagrams: 02/18/22 07:37 02/18/22 07:37 Micro: Microbiology 02/13/22 15:15 Blood Culture (Wb) #2 - No Site/Description Given Blood Culture - Preliminary No growth in 48 hours. 02/13/22 16:00 Blood Culture (Wb) - Anticubital Left Blood Culture - Preliminary No growth in 48 hours. 02/14/22 11:01 Mucosa - Nose Respiratory Panel (PCR) - Final 02/13/22 17:29 Mucosa - Nasopharyngeal Respiratory Panel (PCR) - Final 02/13/22 17:14 Urine, Clean Catch Legionella Antigen - Final 02/13/22 17:14 Urine, Clean Catch Streptococcus pneumoniae Antigen (M - Final 02/13/22 13:25 Mucosa - Nasopharyngeal Rapid RSV (DFA) - Final 02/13/22 13:23 Nasal Secretion SARS-CoV-2 & FLU Antigen (Rapid) - Final Physical Exam Narrative GENERAL: Dyspneic at rest, tachypneic HEENT: Atraumatic; normocephalic EYES; Anicteric, Normal Conjunctiva NECK; supple, normal thyroid, RESPIRATORY: Diminished to auscultation, with significant coarse crackles on the left CARDIOVASCULAR: Irregularly irregular, tachycardic GI:? soft, normoactive bowel sounds, : No Renal angle tenderness; EXTREMITIES:? No edema, no clubbing, MUSCULOSKELETAL:? no muscle wasting NEURO:? Awake;? no lateralizing signs. SKIN:? No Rash PSYCH; Flat? affect Assessment & Plan Assessment/Plan (1) LYSSA (acute kidney injury): (2) Pneumonia: (3) Hypoxia: PLAN: Plan Patient is a 77-year-old lady admitted with progressive shortness of breath, CT of the chest obtained demonstrated patchy groundglass opacities throughout the lungs with areas of interstitial thickening in the lung periphery 1.? Acute hypoxia with bilateral pneumonia ? Suspected to be secondary to viral pneumonia.? Patient rapid RSV and flu antigen came back negative however still maintain high suspicion for viral pneumonia.? He was started on broad-spectrum antibiotic therapy with azithromycin and ceftriaxone also placed on supplemental oxygen titrated to keep saturation greater than 90 -02/15/2022; much more dyspneic this a.m. compared to the day prior.? Patient currently requiring 15 L flow per minute.? As part of patient's evaluation ordered repeat chest x-ray and ABG and pulmonary consultation -02/16/2022atient was transferred to the intensive care unit due to Deteriorating respiratory status. Patient was placed on noninvasive ventilation . Case was discussed with Dr. Chavez with pulmonary medicine plan is to initiate steroid for possible cryptogenic organizing pneumonia ? 02/18/2022 patient remains on supplemental oxygen 2. Acute hypoxic respiratory failure (present as of 02/15/2022) That this is secondary to patient pneumonia as well as suspected cryptogenic organizing pneumonia patient was tachypneic at the time with respiratory rate greater than 30 and hypoxia with oxygen saturation in the mid 80s patient had to be transferred to the intensive care unit placed on noninvasive ventilation Airvo 3.? Acute kidney injury -Patient presented with creatinine 1.4 rehydrated creatinine down to 1.17 subsequent monitoring with daily BMPs ordered ?02/16/2022; Acute kidney injury resolved 4.? Anemia - Secondary to chronic disorder monitoring H&H and transfuse if patient becomes symptomatic or hemoglobin falls below? 7 02/16/2022; patient hemoglobin continues to drop we will continue monitoring no indication for blood transfusion at this point 5.? Paroxysmal A. fib ? Patient has been going in and out of rapid ventricular response.? Patient given IV metoprolol, if patient does not respond patient will be transferred to the progressive care unit and started on Cardizem drip to be titrated to keep heart rate less than 100.? Patient is on systemic anticoagulation with rivaroxaban did continue 6.? History of carotid artery stenosis Patient is on antiplatelet therapy with aspirin did continue 7. Sjogren's disease ? Patient is on baseline prednisone did continue patient is on leflunomide held in view of her acute illness 8.? Chronic pain syndrome ?continue with patient home pain regimen 9.? Essential hypertension ? Patient blood pressure controlled at this point we will continue with home meds 10. DVT prophylaxis ? On Xarelto 11. Physical deconditioning - Requested for PT OT eval and geriatric social worker to assist with discharge planning Charges/Coding Visit Charges Inpatient E&M: 32054 Subs Hosp L2
[2022-02-18 08:05] LABS: Basophil# 0.01 X10^3/uL; Basophil% 0.1 % (0-1); Hematocrit 28.4 % (37-47); Hemoglobin 9.2 g/dL (12.0-15.0); Lymphocyte % 5.9 % (19-41); Mean Corp Hgb Conc 32.4 g/dL (32-36); Mean Corpuscular Hgb 29.4 pg (27.0-32.0); Mean Corpuscular Volume 90.7 fL (81-99); Mean Platelet Vol. 10.8 fl (6.2-12.0); Monocyte# 0.65 X10^3/uL; Monocyte% 3.8 % (0-10); NRBC Flagged by Analyzer 0 % (0-5); Neutrophil # 15.01 X10^3/uL (2.7-7.7); Neutrophil % 88.7 % (47-70); Platelet Count 548 K/mm3 (150-450); RBC Distribution Width CV 13.7 % (11.6-14.6); RBC Distribution Width SD 45.8 fl (35.1-43.9); Red Blood Count 3.13 M/mm3 (4.2-5.4); White Blood Count 16.9 K/mm3 (4.4-11.0)
[2022-02-18 08:25] LABS: Anion Gap 7 (5-15); BUN 29 mg/dL (7-18); BUN/Creat Ratio 24.8 RATIO (10-20); Calcium,Total 8.9 mg/dL (8.5-10.1); Chloride 103 mmol/L (98-107); Creatinine, Serum 1.17 mg/dL (0.55-1.02); EST Glomerular Filtration Rate 48 mL/min (>60); Est Glom Filt Rate - Afr Amer 58 mL/min (>60); Estimated Creatinine Clearance 29.84 ml/min; Glucose 167 mg/dL (74-106); Potassium 4.1 mmol/L (3.5-5.1); Sodium Level 136 mmol/L (136-145)
[2022-02-18] MEDS: Aspirin E.C. 81 MG Tablet PO (09:31)
[2022-02-18] MEDS: Lisinopril 10 MG Tablet PO ×2 (09:31→21:53)
[2022-02-18] MEDS: Metoprolol Tartrate 25 MG Tablet PO ×2 (09:31→21:52)
[2022-02-18] MEDS: Cholecalciferol (VIT D3) 25 MCG TABLET (1,000 UNITS) PO (09:31)
[2022-02-18] MEDS: Furosemide 20 MG Tablet PO (09:31)
[2022-02-18] MEDS: Multivitamins,Therapeutic Tablet 1 TABLET PO (09:31)
[2022-02-18] MEDS: Amiodarone 200 MG Tablet PO (09:31)
[2022-02-18] MEDS: dilTIAZem CD 120 MG Capsule PO ×2 (09:31→21:53)
[2022-02-18] MEDS: Rivaroxaban 15 MG Tablet PO (17:24)
[2022-02-18] MEDS: MELATONIN 3 MG TABLET PO (22:03)
[2022-02-19] VITALS (17 sets, daily range): BP systolic 97–154; BP diastolic 52–85; PULSE 65–84; RESP 16–20; TEMP 36.5–36.9; O2SAT 79–99
[2022-02-19] MEDS: Albuterol 2.5 MG/3 ML VIAL.NEB. INHALATION ×4 (00:33→20:53)
[2022-02-19] MEDS: 0.9% Saline Lock 10 ML Syringe IV ×4 (05:37→21:11)
[2022-02-19] MEDS: Levothyroxine 50 MCG Tablet PO (05:37)
--- NOTE | 2022-02-19 08:20 | PN.HOSP_ITS ---
Subjective Subjective Patient seen apparently desaturates easily with activity. Did bring up the discussion of patient going to group home facility on discharge, she did express disinterest. Plan is for patient to be assessed for possible discharge with a 6-minute walk Objective Data Objective Data Vital Signs: Vital Signs Temp Pulse Resp BP Pulse Ox O2 Del Method O2 Flow Rate 98.4 F 76 18 97/52 L 96 High Flow 5 02/19/22 03:33 02/19/22 07:22 02/19/22 07:22 02/19/22 03:33 02/19/22 07:22 02/19/22 07:22 02/19/22 07:22 FiO2 80 02/17/22 17:18 Oxygen Flow Rate (L/min) 5 Oxygen Delivery Method High Flow Weight: 61.8 kg Body Mass Index (BMI) 25.6 Intake & Output: Intake and Output for Last 24 Hours 02/17/22 02/18/22 02/19/22 23:59 23:59 23:59 Intake Total 1180 / 1480 1380 / 1380 120 / 120 Output Total 500 / 1000 1700 / 1700 Balance 680 / 480 -320 / -320 120 / 120 Lab / Micro Data Result Diagrams: 02/18/22 07:37 02/18/22 07:37 Labs: Laboratory Results - last 24 hr 02/18/22 07:37: Sodium 136, Potassium 4.1, Chloride 103, Carbon Dioxide 26.0, Anion Gap 7, BUN 29 H, Creatinine 1.17 H, Estim Creat Clear Calc 29.84, Est GFR (MDRD) Af Amer 58 L, Est GFR (MDRD) Non-Af 48 L, BUN/Creatinine Ratio 24.8 H, Glucose 167 H, Calcium 8.9 Micro: Microbiology 02/13/22 15:15 Blood Culture (Wb) #2 - No Site/Description Given Blood Culture - Final No growth in 5 days. 02/13/22 16:00 Blood Culture (Wb) - Anticubital Left Blood Culture - Final No growth in 5 days. 02/18/22 10:43 Stool Stool Occult Blood (DORY) - Final 02/14/22 11:01 Mucosa - Nose Respiratory Panel (PCR) - Final 02/13/22 17:29 Mucosa - Nasopharyngeal Respiratory Panel (PCR) - Final 02/13/22 17:14 Urine, Clean Catch Legionella Antigen - Final 02/13/22 17:14 Urine, Clean Catch Streptococcus pneumoniae Antigen (M - Final 02/13/22 13:25 Mucosa - Nasopharyngeal Rapid RSV (DFA) - Final 02/13/22 13:23 Nasal Secretion SARS-CoV-2 & FLU Antigen (Rapid) - Final Physical Exam Narrative GENERAL: Dyspneic at rest, tachypneic HEENT: Atraumatic; normocephalic EYES; Anicteric, Normal Conjunctiva NECK; supple, normal thyroid, RESPIRATORY: Diminished to auscultation, CARDIOVASCULAR: Irregularly irregular, tachycardic GI:? soft, normoactive bowel sounds, : No Renal angle tenderness; EXTREMITIES:? No edema, no clubbing, MUSCULOSKELETAL:? no muscle wasting NEURO:? Awake;? no lateralizing signs. SKIN:? No Rash PSYCH; Flat? affect Assessment & Plan Assessment/Plan (1) LYSSA (acute kidney injury): (2) Pneumonia: (3) Hypoxia: PLAN: Plan Patient is a 77-year-old lady admitted with progressive shortness of breath, CT of the chest obtained demonstrated patchy groundglass opacities throughout the lungs with areas of interstitial thickening in the lung periphery 1.? Acute hypoxia with bilateral pneumonia ? Suspected to be secondary to viral pneumonia.? Patient rapid RSV and flu antigen came back negative however still maintain high suspicion for viral pneumonia.? He was started on broad-spectrum antibiotic therapy with azithromycin and ceftriaxone also placed on supplemental oxygen titrated to keep saturation greater than 90 -02/15/2022; much more dyspneic this a.m. compared to the day prior.? Patient currently requiring 15 L flow per minute.? As part of patient's evaluation ordered repeat chest x-ray and ABG and pulmonary consultation -02/16/2022atient was transferred to the intensive care unit due to Deteriorating respiratory status. Patient was placed on noninvasive ventilation . Case was discussed with Dr. Chavez with pulmonary medicine plan is to initiate steroid for possible cryptogenic organizing pneumonia ? 02/18/2022 patient remains on supplemental oxygen -02/19/2022 patient seen apparently desaturates easily with activity. Did bring up the discussion of patient going to group home facility on discharge, she did express disinterest. Plan is for patient to be assessed for possible discharge with a 6-minute walk 2. Acute hypoxic respiratory failure (present as of 02/15/2022) That this is secondary to patient pneumonia as well as suspected cryptogenic organizing pneumonia patient was tachypneic at the time with respiratory rate greater than 30 and hypoxia with oxygen saturation in the mid 80s patient had to be transferred to the intensive care unit placed on noninvasive ventilation Airvo 3.? Acute kidney injury -Patient presented with creatinine 1.4 rehydrated creatinine down to 1.17 subse quent monitoring with daily BMPs ordered ?02/16/2022; Acute kidney injury resolved 4.? Anemia - Secondary to chronic disorder monitoring H&H and transfuse if patient becomes symptomatic or hemoglobin falls below? 7 02/16/2022; patient hemoglobin continues to drop we will continue monitoring no indication for blood transfusion at this point 5.? Paroxysmal A. fib ? Patient has been going in and out of rapid ventricular response.? Patient given IV metoprolol, if patient does not respond patient will be transferred to the progressive care unit and started on Cardizem drip to be titrated to keep heart rate less than 100.? Patient is on systemic anticoagulation with rivaroxaban did continue 6.? History of carotid artery stenosis Patient is on antiplatelet therapy with aspirin did continue 7. Sjogren's disease ? Patient is on baseline prednisone did continue patient is on leflunomide held in view of her acute illness 8.? Chronic pain syndrome ?continue with patient home pain regimen 9.? Essential hypertension ? Patient blood pressure controlled at this point we will continue with home meds 10. DVT prophylaxis ? On Xarelto 11. Physical deconditioning - Requested for PT OT eval and manager social services to assist with discharge planning Charges/Coding Visit Charges Inpatient E&M: 00153 Subs Hosp L2
[2022-02-19] MEDS: Multivitamins,Therapeutic Tablet 1 TABLET PO (09:20)
[2022-02-19] MEDS: Lisinopril 10 MG Tablet PO ×2 (09:20→21:11)
[2022-02-19] MEDS: Amiodarone 200 MG Tablet PO (09:20)
[2022-02-19] MEDS: Furosemide 20 MG Tablet PO (09:20)
[2022-02-19] MEDS: Aspirin E.C. 81 MG Tablet PO (09:20)
[2022-02-19] MEDS: dilTIAZem CD 120 MG Capsule PO ×2 (09:20→21:11)
[2022-02-19] MEDS: Metoprolol Tartrate 25 MG Tablet PO ×2 (09:21→21:11)
[2022-02-19] MEDS: Cholecalciferol (VIT D3) 25 MCG TABLET (1,000 UNITS) PO (09:21)
[2022-02-19] MEDS: Rivaroxaban 15 MG Tablet PO (17:22)
[2022-02-19] MEDS: MENTHOL 226.8 GM JAR 1 APPLIC TOPICAL (21:12)
[2022-02-20] VITALS (14 sets, daily range): BP systolic 137–145; BP diastolic 69–91; PULSE 67–77; RESP 16–18; TEMP 36.7–36.8; O2SAT 91–94
[2022-02-20] MEDS: 0.9% Saline Lock 10 ML Syringe IV ×5 (01:34→22:54)
[2022-02-20] MEDS: Levothyroxine 50 MCG Tablet PO (05:29)
[2022-02-20] MEDS: Albuterol 2.5 MG/3 ML VIAL.NEB. INHALATION ×2 (07:18→20:47)
[2022-02-20 08:41] LABS: Absolute Lymphocyte Count 1.01 X10^3/uL (0.83-4.51); Absolute Neutrophil Count 10.5 X10^3/uL (2.0-7.7); Basophil# 0.01 X10^3/uL; Basophil% 0.1 % (0-1); Hematocrit 29.4 % (37-47); Hemoglobin 9.7 g/dL (12.0-15.0); Lymphocyte # 1.01 X10^3/ul (0.83-4.51); Mean Corpuscular Hgb 29.8 pg (27.0-32.0); Mean Corpuscular Volume 90.5 fL (81-99); Mean Platelet Vol. 10.7 fl (6.2-12.0); Monocyte# 0.61 X10^3/uL; Monocyte% 4.9 % (0-10); NRBC Flagged by Analyzer 0 % (0-5); Neutrophil % 83.5 % (47-70); Platelet Count 564 K/mm3 (150-450); RBC Distribution Width CV 13.8 % (11.6-14.6); RBC Distribution Width SD 45.7 fl (35.1-43.9); Red Blood Count 3.25 M/mm3 (4.2-5.4); White Blood Count 12.6 K/mm3 (4.4-11.0)
[2022-02-20] MEDS: Aspirin E.C. 81 MG Tablet PO (08:44)
[2022-02-20] MEDS: Amiodarone 200 MG Tablet PO (08:44)
[2022-02-20] MEDS: Cholecalciferol (VIT D3) 25 MCG TABLET (1,000 UNITS) PO (08:44)
[2022-02-20] MEDS: dilTIAZem CD 120 MG Capsule PO ×2 (08:44→22:52)
[2022-02-20] MEDS: Multivitamins,Therapeutic Tablet 1 TABLET PO (08:45)
[2022-02-20] MEDS: Lisinopril 10 MG Tablet PO ×2 (08:45→22:52)
[2022-02-20] MEDS: Furosemide 20 MG Tablet PO (08:45)
[2022-02-20] MEDS: Metoprolol Tartrate 25 MG Tablet PO ×2 (08:45→22:52)
[2022-02-20 09:04] LABS: ALB/GLOB Ratio 0.6 RATIO (0.9-2.4); AST(SGOT) 12 U/L (15-37); Alanine Aminotransfer ALT/SGPT 20 U/L (13-56); Albumin, Serum 2.2 g/dL (3.2-5.0); Alkaline Phosphatase 77 U/L (45-117); Anion Gap 7 (5-15); BUN 39 mg/dL (7-18); BUN/Creat Ratio 36.1 RATIO (10-20); Calcium,Total 8.8 mg/dL (8.5-10.1); Chloride 105 mmol/L (98-107); Creatinine, Serum 1.08 mg/dL (0.55-1.02); EST Glomerular Filtration Rate 53 mL/min (>60); Est Glom Filt Rate - Afr Amer 64 mL/min (>60); Estimated Creatinine Clearance 32.33 ml/min; Globulin 3.5 g/dL (2.2-4.2); Glucose 161 mg/dL (74-106); Potassium 4.2 mmol/L (3.5-5.1); Protein, Total 5.7 g/dL (6.4-8.2); Sodium Level 137 mmol/L (136-145)
--- NOTE | 2022-02-20 12:22 | CASEMGMT ---
Therapy is recommending patient go to a jail facility short term for rehab. SW met with patient. Introduced self and role at [facility]. SW mentioned therapy's recommendation. Patient was open to placement short term. SW provided patient with a list of jail facility?providers including quality and resource use data and consistent with patient?s preferred geographic region, medical needs, and insurance network were provided from the [employer] Guide. Patient declined list stating she would like to go to [facility] TCU. SW let her know SW will make a referral to TCU. SW made referral to Gladys with TCU. Elaine Sheets SOCIAL SCIENCE RESEARCH ASSISTANT NANNETTE
[2022-02-20] MEDS: Furosemide 40 MG/4 ML Vial IV (13:37)
--- NOTE | 2022-02-20 15:49 | CASEMGMT ---
TCU can take patient. SW let patient know this information. Plan: d/c to [facility] TCU under skilled level of care when medically ready. Elaine BRUNSON
[2022-02-20] MEDS: Rivaroxaban 15 MG Tablet PO (16:06)
--- NOTE | 2022-02-20 17:51 | PN.HOSP_ITS ---
Subjective Subjective Follow-up on acute hypoxic respiratory failure/bilateral pneumonia: Patient was seen and examined. She is on 4 L of oxygen arrest, she desaturates to about 15 L with exertion. Denies any fever or chills. Objective Data Objective Data Vital Signs: Vital Signs Temp Pulse Resp BP Pulse Ox O2 Del Method O2 Flow Rate 98.2 F 71 18 137/90 H 94 Nasal Cannula 4 02/20/22 15:20 02/20/22 15:20 02/20/22 15:20 02/20/22 15:20 02/20/22 15:20 02/20/22 15:20 02/20/22 15:20 FiO2 91 02/20/22 08:29 Oxygen Flow Rate (L/min) [ 15 AMBULATING with Oxygen #3] Oxygen Flow Rate (L/min) [ 8 AMBULATING with Oxygen #2] Oxygen Flow Rate (L/min) [ 2 AMBULATING with Oxygen #1] Oxygen Flow Rate (L/min) [At 2 REST with Oxygen] Oxygen Flow Rate (L/min) 4 Oxygen Delivery Method Nasal Cannula Weight: 63.2 kg Body Mass Index (BMI) 25.6 Intake & Output: Intake and Output for Last 24 Hours 02/18/22 02/19/22 02/20/22 23:59 23:59 23:59 Intake Total 1380 / 1380 1200 / 1200 640 / 640 Output Total 1700 / 1700 Balance -320 / -320 1200 / 1200 640 / 640 Lab / Micro Data Result Diagrams: 02/20/22 08:31 02/20/22 08:31 Labs: Laboratory Results - last 24 hr 02/20/22 08:31: WBC 12.6 H, RBC 3.25 L, Hgb 9.7 L, Hct 29.4 L, MCV 90.5, MCH 29.8, MCHC 33.0, RDW Std Deviation 45.7 H, RDW Coeff of Olaf 13.8, Plt Count 564 H, MPV 10.7, Immature Gran % (Auto) 3.500 H, Neut % (Auto) 83.5 H, Lymph % (Auto) 8.0 L, [place] % (Auto) 4.9, Eos % (Auto) 0.0, Baso % (Auto) 0.1, Absolute Neuts (auto) 10.5 H, Absolute Lymphs (auto) 1.01, Nucleated RBC % 0 02/20/22 08:31: Sodium 137, Potassium 4.2, Chloride 105, Carbon Dioxide 25.0, A nion Gap 7, BUN 39 H, Creatinine 1.08 H, Estim Creat Clear Calc 32.33, Est GFR (MDRD) Af Amer 64, Est GFR (MDRD) Non-Af 53 L, BUN/Creatinine Ratio 36.1 H, Glucose 161 H, Calcium 8.8, Total Bilirubin 0.30, AST 12 L, ALT 20, Alkaline Phosphatase 77, Total Protein 5.7 L, Albumin 2.2 L, Globulin 3.5, Albumi n/Globulin Ratio 0.6 L Micro: Microbiology 02/13/22 15:15 Blood Culture (Wb) #2 - No Site/Description Given Blood Cultu re - Final No growth in 5 days. 02/13/22 16:00 Blood Culture (Wb) - Anticubital Left Blood Culture - Final No growth in 5 days. 02/18/22 10:43 Stool Stool Occult Blood (DORY) - Final 02/14/22 11:01 Mucosa - Nose Respiratory Panel (PCR) - Final 02/13/22 17:29 Mucosa - Nasopharyngeal Respiratory Panel (PCR) - Final 02/13/22 17:14 Urine, Clean Catch Legionella Antigen - Final 02/13/22 17:14 Urine, Clean Catch Streptococcus pneumoniae Antigen (M - Final 02/13/22 13:25 Mucosa - Nasopharyngeal Rapid RSV (DFA) - Final 02/13/22 13:23 Nasal Secretion SARS-CoV-2 & FLU Antigen (Rapid) - Final Physical Exam Narrative Physical exam: General: Alert, Oriented x3, Cooperative, on 4 L of oxygen, appears frail HEENT: Atraumatic Oral: Moist Mucosa Neck: Supple Lungs: Diminished to auscultation Cardiovascular: HS I+II, regular, no murmurs Abdomen: Bowel Sounds Present, Soft, Non Tender Extremities: No edema Skin: No rashes, No breakdown Neurological: Grossly intact Psych/Mental Status: Appropriate Assessment & Plan Assessment/Plan (1) LYSSA (acute kidney injury): (2) Pneumonia: (3) Hypoxia: PLAN: Plan 1.?Acute hypoxic respiratory failure secondary to bilateral atypical interstitial pneumonia versus cardiogenic organizing pneumonia Patient is currently on 4 L of oxygen On empiric meropenem, IV Solu-Medrol; will check procalcitonin 2. Acute kidney injury, prerenal secondary to dehydration, resolved, creatinine is back to baseline 3.?Anemia, microcytic microchromic, hemoglobin is close to baseline We will continue to trend 4.?Paroxysmal A. fib/history of carotid artery stenosis/hypertension Continue on oral amiodarone, aspirin, Cardizem, lisinopril, metoprolol, Xarelto 5. Sjogren's disease/chronic pain syndrome Continue to hold prednisone and leflunomide Continue with IV Solu-Medrol 6. Hypothyroidism, continue on synthroid 7. Debility, related to the above 8. DVT prophylaxis?on Xarelto Charges/Coding Visit Charges Inpatient E&M: 58432 Subs Hosp L3
[2022-02-20 18:35] LABS: Procalcitonin 0.09 ng/mL (0.00-0.09)
--- NOTE | 2022-02-20 19:00 | PCA ---
EMERGENCY DOCUMENTATION
--- NOTE | 2022-02-20 19:00 | NURSING ---
emergency charting in effect
[2022-02-20] MEDS: cycloBENZAPRine HCl 10 MG Tablet PO (23:24)
[2022-02-20] MEDS: Acetaminophen 325 MG Tablet 650 MG PO (23:24)
[2022-02-21] VITALS (12 sets, daily range): BP systolic 104–134; BP diastolic 58–89; PULSE 65–79; RESP 16–22; TEMP 36.3–36.7; O2SAT 84–97
[2022-02-21] MEDS: Albuterol 2.5 MG/3 ML VIAL.NEB. INHALATION ×3 (01:35→13:00)
[2022-02-21] MEDS: Levothyroxine 50 MCG Tablet PO (05:04)
[2022-02-21 08:10] LABS: Hematocrit 24.8 % (37-47); Mean Corp Hgb Conc 32.3 g/dL (32-36); Mean Corpuscular Hgb 29.5 pg (27.0-32.0); Mean Corpuscular Volume 91.5 fL (81-99); POSITIVE COUNT YES; POSITIVE MORPHOLOGY YES; Platelet Count 509 K/mm3 (150-450); RBC Distribution Width CV 14.1 % (11.6-14.6); RBC Distribution Width SD 47.4 fl (35.1-43.9); Red Blood Count 2.71 M/mm3 (4.2-5.4)
[2022-02-21] MEDS: Cholecalciferol (VIT D3) 25 MCG TABLET (1,000 UNITS) PO (08:48)
[2022-02-21] MEDS: Aspirin E.C. 81 MG Tablet PO (08:48)
[2022-02-21] MEDS: Furosemide 20 MG Tablet PO (08:48)
[2022-02-21] MEDS: Lisinopril 10 MG Tablet PO (08:48)
[2022-02-21] MEDS: Metoprolol Tartrate 25 MG Tablet PO (08:48)
[2022-02-21] MEDS: Multivitamins,Therapeutic Tablet 1 TABLET PO (08:48)
[2022-02-21] MEDS: dilTIAZem CD 120 MG Capsule PO (08:48)
[2022-02-21] MEDS: Amiodarone 200 MG Tablet PO (08:48)
[2022-02-21 08:53] LABS: ALB/GLOB Ratio 0.7 RATIO (0.9-2.4); AST(SGOT) 8 U/L (15-37); Alanine Aminotransfer ALT/SGPT 18 U/L (13-56); Albumin, Serum 1.9 g/dL (3.2-5.0); Alkaline Phosphatase 63 U/L (45-117); Anion Gap 7 (5-15); BUN 53 mg/dL (7-18); BUN/Creat Ratio 47.7 RATIO (10-20); Calcium,Total 8.1 mg/dL (8.5-10.1); Chloride 102 mmol/L (98-107); Creatinine, Serum 1.11 mg/dL (0.55-1.02); EST Glomerular Filtration Rate 51 mL/min (>60); Est Glom Filt Rate - Afr Amer 62 mL/min (>60); Estimated Creatinine Clearance 31.45 ml/min; Globulin 2.9 g/dL (2.2-4.2); Glucose 190 mg/dL (74-106); Potassium 4.1 mmol/L (3.5-5.1); Protein, Total 4.8 g/dL (6.4-8.2); Sodium Level 138 mmol/L (136-145)
[2022-02-21 08:59] LABS: Differential Indicated MANUAL DIFF
[2022-02-21 10:56] LABS: Lymphocyte 9 % (19-41); Metamyelocyte 1 % (0-1); Neutrophil-Band 1 % (0-5); Neutrophil-Segmented 89 % (47-70); Nucleated Red Bld Cells,Manual 3 % (0-5); Total Cells Counted 100 (MANUAL DIFF)
[2022-02-21 10:58] LABS: Hypochromasia 1+; Platelet Estimate SLT INC (ADEQ)
[2022-02-21 10:59] LABS: Absolute Lymphocyte Count 1.08 X10^3/uL (0.83-4.51); Absolute Neutrophil Count 10.8 X10^3/uL (2.0-7.7); Dohle Bodies 1+; Lymphocyte # 1.08 X10^3/ul (0.83-4.51)
--- NOTE | 2022-02-21 11:37 | PCM.TXEXTCAR ---
Diet Diet Order/Speech Therapy: 02/16/22 10:12 Diet: Regular - No Added Salt Food consistency:: Regular Liquid Consistency:: Regular/Thin Type of Dietary Supplement:: Magic Cup Dessert Is pt able to select menu?: Yes Diet Comments: magic cup with lunch meal Routine Orders/Code Status Suppository Type: Dulcolax 10mg Suppository Frequency: Daily PRN O2 Liters per Minute: 4-6 O2 Frequency: Continuous Keep PO Greater than or Equal to (%): 94 Routine Lab Work: CBC (within 3 days) and - (CMP within 3 days) Code Status: Full Code Therapies Weight Bearing: Weight bearing as tolerated Physical Therapy: Eval and Treat Occupational Therapy: Eval and Treat Problem/Diagnosis (1) LYSSA (acute kidney injury): Status: Acute Code(s): N17.9 - Acute kidney failure, unspecified (2) Pneumonia: Status: Acute Code(s): J18.9 - Pneumonia, unspecified organism (3) Hypoxia: Status: Acute Code(s): R09.02 - Hypoxemia Plan 1.?Acute hypoxic respiratory failure 2. Bilateral atypical interstitial pneumonia versus cardiogenic organizing pneumonia 3. Acute kidney injury, prerenal secondary to dehydration 3.?Anemia, microcytic microchromic 4.?Paroxysmal A. fib 5. History of carotid artery stenosis 6. Hypertension 7. Sjogren's disease 8. Chronic pain syndrome 9. Hypothyroidism Allergies/Procedures Done in Hospital Allergies apixaban [From Eliquis] Allergy (Unknown, Verified 02/13/22 11:45) Rash sulindac Allergy (Unknown, Verified 02/13/22 11:45) Rash aloe Allergy (Verified 02/13/22 11:45) Rash erythromycin base Allergy (Verified 02/13/22 11:45) Unknown Penicillins Allergy (Verified 02/13/22 11:45) Unknown Sulfa (Sulfonamide Antibiotics) Allergy (Verified 02/13/22 11:45) Unknown vitamin E (d-alpha tocopherol) Allergy (Verified 02/13/22 11:45) Rash Environmental Allergies: Uncoded [metals] Adverse Reaction (Verified 02/13/22 11:45) Rash Procedures: None Type of Care/Length of Stay Estimated LOS: Convalescent Care Less Than 30 days Type of Care Needed: Skilled Rehab Potential: Good Prognosis: Good Additional Orders/Day of Discharge Day of Discharge: 02/21/22 Dietary and Speech Recommendations Dietitian Recommendations/Changes: Continue liberalized regular/no added salt to encourage improved oral intake at meals. Pt dislikes ensure--will continue magic cup 1 time per day with lunch meal. Discharge Plan Admission Admit Date/Time: 02/13/22 15:48 Primary Reason for Your Visit: Hypoxia Attending Provider: Unique Curiel Primary Care Provider: Felix Mart Consulting Providers: Amairani Nascimento ; Zack Lopez ; Kanu Chavez ; Azam Hathaway ; Martir Angelo ; Soco Nieto NP ; Natalio Rick Discharge Orders/Prescriptions Prescriptions: New albuterol sulfate 2.5 mg /3 mL (0.083 %) Solution For Nebulization 2.5 mg inhalation Q6H.RT Qty: 0 0RF guaifenesin 100 mg/5 mL Liquid 400 mg PO Q4H PRN PRN (Reason: COUGH) Qty: 0 0RF sennosides-docusate sodium [Stool Softener-Stimulant Laxat] 8.6-50 mg Tablet 2 tab PO BID PRN PRN (Reason: Constipation) Qty: 0 0RF [place] Nasal 0.65 % Aerosol,[place] 2 spray NASAL BID PRN PRN (Reason: NASAL DRYNESS) Qty: 0 0RF prednisone 10 mg tablet See Taper PO DAILY Qty: 30 0RF Taper: Prednisone Taper 40 mg WITH BREAKFAST for 3 Days and 0 Hour 30 mg WITH BREAKFAST for 3 Days and 0 Hour 20 mg WITH BREAKFAST for 3 Days and 0 Hour 10 mg WITH BREAKFAST for 3 Days and 0 Hour ferrous sulfate 325 mg (65 mg iron) tablet 325 mg PO BID 30 Days Qty: 60 0RF Continued leflunomide [Arava] 20 mg tablet 20 mg PO DAILY PRN (Reason: RHEUMATOID ARTHRITIS) multivitamin Tablet 1 tab PO DAILY cholecalciferol (vitamin D3) 25 mcg (1,000 unit) tablet 25 mcg PO DAILY melatonin 3 mg tablet 3 mg PO HS PRN (Reason: Insomnia) cyclobenzaprine 10 mg tablet 10 mg PO TID PRN (Reason: muscle spasm) levothyroxine 50 MCG tablet 50 mcg PO DAILY Label Comments: thyroid aspirin 81 mg Tablet,Delayed Release (Dr/Ec) 81 mg PO DAILY amiodarone 200 mg tablet 200 mg PO DAILY lisinopril 10 mg tablet 10 mg PO BID diltiazem HCl 120 mg capsule,extended release 24hr 120 mg PO BID furosemide 20 mg tablet 20 mg PO DAILY metoprolol tartrate 25 mg tablet 25 mg PO BID Xarelto 15 mg tablet 15 mg PO DINNER Discontinued prednisone 5 MG tablet 5 mg PO DAILY Label Comments: steroid Referrals / Follow Up: Felix Mart MD [Primary Care Provider] - Within 1 Week (within 1 week of discharge) Disposition Disposition (needs filled in before D/C Order can be placed): Nursing Home Facility
--- NOTE | 2022-02-21 13:25 | PCM.DC.SUM ---
Providers Date of Admission: 02/13/22 Date of Discharge: 02/21/22 Primary Care Physician: Dr. Felix Mart MD Consultations 02/15/22 08:23 Consult: Riding Instructor / Pulmonary Medicine Routine Consulting Provider: Pulmonary Medicine brittanie Gladwyne Reason for Consult: Dyspnea EMERGENT Consult: No MD Notified: Yes Date Notified: 02/15/22 Time Notified: 08:23 Method of Notification: Text Reason For Visit: PNEUMONIA/HYPOXIA Diagnosis Discharge Diagnosis (1) LYSSA (acute kidney injury): Status: Acute Code(s): N17.9 - Acute kidney failure, unspecified (2) Pneumonia: Status: Acute Code(s): J18.9 - Pneumonia, unspecified organism (3) Hypoxia: Status: Acute Code(s): R09.02 - Hypoxemia Plan 1.?Acute hypoxic respiratory failure 2. Bilateral atypical interstitial pneumonia versus cardiogenic organizing pneumonia 3. Acute kidney injury, prerenal secondary to dehydration 3.?Anemia, microcytic microchromic 4.?Paroxysmal A. fib 5. History of carotid artery stenosis 6. Hypertension 7. Sjogren's disease 8. Chronic pain syndrome 9. Hypothyroidism Medications at Discharge Home Medications levothyroxine 50 mcg tablet 50 mcg PO DAILY THYROID 04/13/16 leflunomide 20 mg tablet (Arava) 20 mg PO DAILY PRN RHEUMATOID ARTHRITIS 05/08/18 cholecalciferol (vitamin D3) 25 mcg (1,000 unit) tablet 25 mcg PO DAILY SUPPLEMENT 10/05/21 cyclobenzaprine 10 mg tablet 10 mg PO TID PRN muscle spasm 10/05/21 melatonin 3 mg tablet 3 mg PO HS PRN Insomnia 10/05/21 multivitamin 1 tab PO DAILY Supplement 10/05/21 amiodarone 200 mg tablet 200 mg PO DAILY ARRHYTHMIA 02/13/22 aspirin 81 mg tablet,delayed release 81 mg PO DAILY HEART HEALTH 02/13/22 diltiazem HCl 120 mg capsule,extended release 24 hr 120 mg PO BID BLOOD PRESSURE 02/13/22 furosemide 20 mg tablet 20 mg PO DAILY FLUID 02/13/22 lisinopril 10 mg tablet 10 mg PO BID BLOOD PRESSURE 02/13/22 metoprolol tartrate 25 mg tablet 25 mg PO BID BLOOD PRESSURE 02/13/22 rivaroxaban 15 mg tablet (Xarelto) 15 mg PO DINNER BLOOD THINNER 02/13/22 albuterol sulfate 2.5 mg/3 mL (0.083 %) solution for nebulization 2.5 mg inhalation Q6H.RT SOB 02/21/22 ferrous sulfate 325 mg (65 mg iron) tablet 325 mg PO BID Supplement 02/21/22 guaifenesin 100 mg/5 mL oral liquid 400 mg (20 mL) PO Q4H PRN PRN COUGH #0 mL 02/21/22 prednisone 10 mg tablet See Taper PO DAILY Check with primary doctor 02/21/22 sennosides 8.6 mg-docusate sodium 50 mg tablet (Stool Softener-Stimulant Laxative) 2 tab PO BID PRN PRN Constipation #0 tabs 02/21/22 sodium chloride 0.65 % nasal spray aerosol (Deep Sea Nasal) 2 spray NASAL BID PRN PRN NASAL DRYNESS #0 mL 02/21/22 Hospital Course Operations None Procedures None Summary of Care Provided Minutes Spent on Discharge: 35 Hospital Course: 77-year-old female with past medical history of Sjogren's disease, CHF who comes in with complaints of shortness of breath. She checked her pulse ox at home and found her oxygen sat to be in the 70s. She used her 's oxygen as he is on hospice and does not use his oxygen regularly. In the emergency room, patient was saturating 88% on room air and improved to 91% on 3 L. Her blood work had leukocytosis with a left shift and slightly worse anemia. Her BNP was 88.9. Troponins were 5. Chest x-ray showed diffuse bilateral infiltrate. Patient was admitted to the progressive care unit and managed as bilateral pneumonia on IV ceftriaxone and azithromycin. Her respiratory panel was negative. CT of the chest showed patchy groundglass opacities throughout the lung with areas of interstitial thickening in the lung periphery. Over the course of her stay, patient became more dyspneic, her oxygen requirement went as high as 15 L. Her COVID-19 PCR was negative. Pulmonology was consulted, IV Solu-Medrol as well as intermittent diuretics were started. Patient was thought to have possible cryptogenic organizing pneumonia. She did require BiPAP during this hospital stay. Her antibiotics were broadened to meropenem and vancomycin. Patient was transferred to the ICU on 02/17/22 and managed closely. Patient did not require intubation. She was transferred back to the progressive care unit. She was seen by PT and OT and skilled for discharge to intermediate facility. Procalcitonin on the day of discharge was 0.09. Antibiotics were discontinued. Patient will follow-up with pulmonology in the outpatient. Physical Exam Narrative Physical exam: General: Alert, Oriented x3, Cooperative, on 4 L of oxygen, appears frail HEENT: Atraumatic Oral: Moist Mucosa Neck: Supple Lungs: Diminished to auscultation Cardiovascular: HS I+II, regular, no murmurs Abdomen: Bowel Sounds Present, Soft, Non Tender Extremities: No edema Skin: No rashes, No breakdown Neurological: Grossly intact Psych/Mental Status: Appropriate Weight / BMI Weight Weight: 64.8 kg Body Mass Index (BMI) 25.6 ABG / Lab / Microbiology Data Result Diagrams: 02/21/22 07:25 02/21/22 07:25 Laboratory: Laboratory Results - last 24 hr 02/20/22 08:31: Procalcitonin 0.09 02/21/22 07:25: WBC 12.0 H, RBC 2.71 L, Hgb 8.0 L, Hct 24.8 L, MCV 91.5, MCH 29.5, MCHC 32.3, RDW Std Deviation 47.4 H, RDW Coeff of Olaf 14.1, Plt Count 509 H, MPV 11.0, Neut % (Auto) Not Reportable, Absolute Neuts (auto) 10.8 H, Absolute Lymphs (auto) 1.08, Total Counted 100, Neutrophils % (Manual) 89 H, Band Neutrophils % 1, Lymphocytes % (Manual) 9 L, Metamyelocytes % 1, Nucleated RBCs/100 WBC 3, Diff Path Review May foll, Dohle Bodies 1+, Platelet Estimate SLT INC, Hypochromasia 1+ 02/21/22 07:25: Sodium 138, Potassium 4.1, Chloride 102, Carbon Dioxide 29.0, Anion Gap 7, BUN 53 H, Creatinine 1.11 H, Estim Creat Clear Calc 31.45, Est GFR (MDRD) Af Amer 62, Est GFR (MDRD) Non-Af 51 L, BUN/Creatinine Ratio 47.7 H, Glucose 190 H, Calcium 8.1 L, Total Bilirubin 0.10 L, AST 8 L, ALT 18, Alkaline Phosphatase 63, Total Protein 4.8 L, Albumin 1.9 L, Globulin 2.9, Albumin/Globulin Ratio 0.7 L Microbiology: Microbiology 02/13/22 15:15 Blood Culture (Wb) #2 - No Site/Description Given Blood Culture - Final No growth in 5 days. 02/13/22 16:00 Blood Culture (Wb) - Anticubital Left Blood Culture - Final No growth in 5 days. 02/18/22 10:43 Stool Stool Occult Blood (DORY) - Final 02/14/22 11:01 Mucosa - Nose Respiratory Panel (PCR) - Final 02/13/22 17:29 Mucosa - Nasopharyngeal Respiratory Panel (PCR) - Final 02/13/22 17:14 Urine, Clean Catch Legionella Antigen - Final 02/13/22 17:14 Urine, Clean Catch Streptococcus pneumoniae Antigen (M - Final 02/13/22 13:25 Mucosa - Nasopharyngeal Rapid RSV (DFA) - Final 02/13/22 13:23 Nasal Secretion SARS-CoV-2 & FLU Antigen (Rapid) - Final D/C Instructions Discharge Diet: No restrictions Meaningful Use Info Meaningful Use Diagnoses (Choose all that apply): None applicable Discharge Plan Admission Admit Date/Time: 02/13/22 15:48 Primary Reason for Your Visit: Hypoxia Attending Provider: Unique Curiel Primary Care Provider: Felix Mart Consulting Providers: Amairani Nascimento ; Zack Lopez ; Kanu Chavez ; Azam Hathaway ; Martir Angelo ; Soco Nieto AUTOMATION SPECIALIST ; Natalio Rick Discharge Orders/Prescriptions Prescriptions: New guaifenesin 100 mg/5 mL Liquid 400 mg PO Q4H PRN PRN (Reason: COUGH) Qty: 0 0RF sennosides-docusate sodium [Stool Softener-Stimulant Laxat] 8.6-50 mg Tablet 2 tab PO BID PRN PRN (Reason: Constipation) Qty: 0 0RF Deep Sea Nasal 0.65 % Aerosol,[place] 2 spray NASAL BID PRN PRN (Reason: NASAL DRYNESS) Qty: 0 0RF Continued leflunomide [Arava] 20 mg tablet 20 mg PO DAILY PRN (Reason: RHEUMATOID ARTHRITIS) multivitamin Tablet 1 tab PO DAILY cholecalciferol (vitamin D3) 25 mcg (1,000 unit) tablet 25 mcg PO DAILY melatonin 3 mg tablet 3 mg PO HS PRN (Reason: Insomnia) cyclobenzaprine 10 mg tablet 10 mg PO TID PRN (Reason: muscle spasm) levothyroxine 50 MCG tablet 50 mcg PO DAILY Label Comments: thyroid aspirin 81 mg Tablet,Delayed Release (Dr/Ec) 81 mg PO DAILY amiodarone 200 mg tablet 200 mg PO DAILY lisinopril 10 mg tablet 10 mg PO BID diltiazem HCl 120 mg capsule,extended release 24hr 120 mg PO BID furosemide 20 mg tablet 20 mg PO DAILY metoprolol tartrate 25 mg tablet 25 mg PO BID Xarelto 15 mg tablet 15 mg PO DINNER Discontinued prednisone 5 MG tablet 5 mg PO DAILY Label Comments: steroid No Action prednisone 10 mg tablet See Taper PO DAILY Taper: Prednisone Taper 40 mg WITH BREAKFAST for 3 Days and 0 Hour 30 mg WITH BREAKFAST for 3 Days and 0 Hour 20 mg WITH BREAKFAST for 3 Days and 0 Hour 10 mg WITH BREAKFAST for 3 Days and 0 Hour albuterol sulfate 2.5 mg /3 mL (0.083 %) solution for nebulization 2.5 mg inhalation Q6H.RT ferrous sulfate 325 mg (65 mg iron) tablet 325 mg PO BID Referrals / Follow Up: Zack Lopez MD [Med Staff - Active Staff] - Within 1 Month Felix Mart MD [Primary Care Provider] - Within 1 Week (within 1 week of discharge) Disposition Disposition (needs filled in before D/C Order can be placed): Residential Facility Charges/Coding Visit Charges Inpatient E&M: 44139 Disch Hosp
[2022-02-21 13:54] LABS: Pathologist Review Reviewed
--- NOTE | 2022-02-21 14:24 | NURSING ---
This RN called report to ALDAIR Yanes on TCU at this time.
--- NOTE | 2022-02-21 14:27 | CASEMGMT ---
Patient is ready for discharge to [facility] TCU. WILLIAM notified Gladys in TCU that patient will be coming today. Plan: d/c to [facility] TCU under skilled level of care. Elaine BRUNSON
== END 2022-02-21 14:32 | disposition skilled nursing facility (03) | DRG 196 ==
LOC: ED 14:32 → MS3 16:13 → ICU 02-15 14:58 → PCU 02-16 17:08
PROVIDERS: Internal Medicine; Admitting Provider Internal Medicine; Emergency Provider Emergency Medicine; PCP Family Medicine; Visit Provider Internal Medicine
DX: J84.9 Interstitial pulmonary disease, unspecified (principal); J96.01 Acute respiratory failure with hypoxia; N17.9 Acute kidney failure, unspecified; I50.32 Chronic diastolic (congestive) heart failure; J84.116 Cryptogenic organizing pneumonia; I11.0 Hypertensive heart disease with heart failure; I48.0 Paroxysmal atrial fibrillation; M35.00 Sjogren syndrome, unspecified; M06.9 Rheumatoid arthritis, unspecified; I34.0 Nonrheumatic mitral (valve) insufficiency; D63.8 Anemia in other chronic diseases classified elsewhere; E03.9 Hypothyroidism, unspecified; G89.4 Chronic pain syndrome; Z20.822 Contact with and (suspected) exposure to COVID-19; Z79.52 Long term (current) use of systemic steroids; Z79.01 Long term (current) use of anticoagulants; Z79.02 Long term (current) use of antithrombotics/antiplatelets; Z79.82 Long term (current) use of aspirin; Z79.899 Other long term (current) drug therapy
CPT/HCPCS: 36415; 36600; 71045; 71250; 80048; 80053; 80076; 82274; 82728; 82803; 83540; 83550; 83735; 83880; 84100; 84145; 84443; 84484; 85025; 85045; 87040; 87426; 87428; 87449; 87633; 87635; 87641; 87807; 93005; 94002; 94003; 94640; 94660; 97110; 97116; 97162; 97166; 97530; 97535; 97802; 99251; 99284; J2185; J7030; J7040; J7050; A4216; G0463; J0696; J1940; U0003; U0005

== ENCOUNTER 2022-02-21 14:38 | Inpatient (IN) | payer MEDICARE, OTHER, SELFPAY ==
[2022-02-21 15:17] VITALS: BP 137/59; PULSE 67; RESP 18; TEMP 36.4; O2SAT 96
[2022-02-21 15:55] VITALS: BMI 27.9
[2022-02-21 18:14] VITALS: BP 143/60; PULSE 66
[2022-02-21] MEDS: Ferrous Sulfate 325 MG Tablet PO (18:14)
[2022-02-21] MEDS: Lisinopril 10 MG Tablet PO (18:14)
[2022-02-21] MEDS: dilTIAZem CD 120 MG Capsule PO (18:14)
[2022-02-21] MEDS: Rivaroxaban 15 MG Tablet PO (18:14)
[2022-02-21] MEDS: Metoprolol Tartrate 25 MG Tablet PO (18:14)
[2022-02-21 19:34] VITALS: PULSE 66; RESP 18; O2SAT 93
[2022-02-21] MEDS: Albuterol 2.5 MG/3 ML VIAL.NEB. INHALATION (19:34)
--- NOTE | 2022-02-21 19:38 | HP.PCM_ITS ---
HPI - General General Date of Admission: 02/21/22 Date of Service: 02/21/22 Chief Complaint: Here for rehabilitation. HPI Narrative 02/13/2022 DANNI SORTO, is a 77 Female who presents to [facility] Emergency Department with shortness of breath. 02/13/2022 EKG normal sinus rhythm, possible left atrial enlargement. Dyspnea, history of congestive heart failure, Sjogren's syndrome. Worsening dyspnea for several days, left face full, congested, cough. Pulsox 88% on RA, on Xarelto for atrial fibrillation. Chest X-ray showed bilateral infiltrates. WBC 11.5, BUN 25, Creatinine 1.40, Troponin okay, BNP okay. Blood cultures sent. Levaquin, aerosol given for pneumonia. Oxygen 3 liters per nasal cannula, pulsox 90%. 02/13/2022 Admit to Hospital. Ceftriaxone, Azithromycin, sputum culture, urine antigen strep, legionella for pneumonia. Hold diuretics, given gentle IV fluids for acute kidney injury. Hold diuretics for dehydration. 02/14/2022 CT chest patchy ground glass opacities, interstitial thickening in periphery. Viral pneumonia. Creatinine improved to 1.17. Metoprolol IV, Cardizem drip atrial fibrillation with rapid ventricular response. 02/15/2022 More short of breath, oxygen 15 liters. 02/16/2022 Transfer to ICU for acute respiratory failure with hypoxia. Airvo. Steroid for crytogenic organizing pneumonia. 02/17/2022 Transfer to PCU. 02/18/2022 PT/OT for debility, on supplemental oxygen. Acute kidney injury resolved. 02/19/2022 Desaturation with activity. 02/20/2022 Oxygen 4 liters at rest, 15 liters with exertion. Meroepenem IV, steroid for pneumonia. 02/21/2022 Admit to TCU with debility, here for rehabilitation, strengthening, prior to discharge home alone. [facility] Medical History (HFpEF) heart failure with preserved ejection fraction Acute respiratory failure with hypoxemia Atrial fibrillation with rapid ventricular response Carotid stenosis, right Essential hypertension HTN (hypertension) Hypothyroidism Left ureteral stone Lung nodule Paroxysmal atrial fibrillation Primary atypical interstitial pneumonia Rheumatoid arthritis Right kidney stone Sjogren's disease Zoster Home Medications levothyroxine 50 mcg tablet 50 mcg PO DAILY THYROID 04/13/16 [History Last Taken 02/13/22] leflunomide 20 mg tablet (Arava) 20 mg PO DAILY PRN RHEUMATOID ARTHRITIS 05/08/18 [History Last Taken Unknown] cholecalciferol (vitamin D3) 25 mcg (1,000 unit) tablet 25 mcg PO DAILY SUPPLEMENT 10/05/21 [History Last Taken 02/09/22] cyclobenzaprine 10 mg tablet 10 mg PO TID PRN muscle spasm 10/05/21 [History Last Taken 02/12/22] melatonin 3 mg tablet 3 mg PO HS PRN Insomnia 10/05/21 [History Last Taken Unknown] multivitamin 1 tab PO DAILY Supplement 10/05/21 [History Last Taken Unknown] amiodarone 200 mg tablet 200 mg PO DAILY ARRHYTHMIA 02/13/22 [History Last Taken 02/13/22] aspirin 81 mg tablet,delayed release 81 mg PO DAILY HEART HEALTH 02/13/22 [History Last Taken 02/13/22] diltiazem HCl 120 mg capsule,extended release 24 hr 120 mg PO BID BLOOD PRESSURE 02/13/22 [History Last Taken 02/13/22] furosemide 20 mg tablet 20 mg PO DAILY FLUID 02/13/22 [History Last Taken 02/13/22] lisinopril 10 mg tablet 10 mg PO BID BLOOD PRESSURE 02/13/22 [History Last Taken 02/13/22] metoprolol tartrate 25 mg tablet 25 mg PO BID BLOOD PRESSURE 02/13/22 [History Last Taken 02/13/22] rivaroxaban 15 mg tablet (Xarelto) 15 mg PO DINNER BLOOD THINNER 02/13/22 [History Last Taken 02/12/22] albuterol sulfate 2.5 mg/3 mL (0.083 %) solution for nebulization 2.5 mg inhalation Q6H.RT SOB 02/21/22 [History Last Taken Unknown] ferrous sulfate 325 mg (65 mg iron) tablet 325 mg PO BID Supplement 02/21/22 [History Last Taken Unknown] guaifenesin 100 mg/5 mL oral liquid 400 mg (20 mL) PO Q4H PRN PRN COUGH #0 mL 02/21/22 [Rx Last Taken Unknown] prednisone 10 mg tablet See Taper PO DAILY Check with primary doctor 02/21/22 [History Last Taken Unknown] sennosides 8.6 mg-docusate sodium 50 mg tablet (Stool Softener-Stimulant Laxative) 2 tab PO BID PRN PRN Constipation #0 tabs 02/21/22 [Rx Last Taken Unknown] sodium chloride 0.65 % nasal spray aerosol (Deep Sea Nasal) 2 spray NASAL BID PRN PRN NASAL DRYNESS #0 mL 02/21/22 [Rx Last Taken Unknown] Allergy/AdvReac Type Severity Reaction Status Date / Time apixaban [From Eliquis] Allergy Unknown Rash Verified 02/13/22 11:45 sulindac Allergy Unknown Rash Verified 02/13/22 11:45 aloe Allergy Rash Verified 02/13/22 11:45 erythromycin base Allergy Unknown Verified 02/13/22 11:45 Penicillins Allergy Unknown Verified 02/13/22 11:45 Sulfa (Sulfonamide Allergy Unknown Verified 02/13/22 11:45 Antibiotics) vitamin E (d-alpha Allergy Rash Verified 02/13/22 11:45 tocopherol) Environmental Allergies: AdvReac Rash Verified 02/13/22 11:45 Uncoded [metals] Family History Grandfather Myocardial infarction Surgical History Cataract extraction status of left eye History of carpal tunnel surgery of right wrist History of tubal ligation Hx of cystoscopy (04/14/16) left breast biposy Status post right knee replacement (~04/02/18) Social History (Updated 02/21/22 @ 19:[address] Delgado Hayden MD) household members: none and other details: recently placed at [facility], on hospice. Smoking Status: Never smoker Electronic Cigarette Use: not used second hand exposure: Yes (Father and workplace exposure) alcohol intake: current alcohol intake frequency: holidays/special occasions only Alcohol type: wine substance use type: does not use caffeine: Yes Type: carbonated beverages and coffee Number of servings: 2 what type of physical activity do you participate in: none seatbelt use: always do you feel safe at home: Yes ROS Constitutional Constitutional: Denies chills, fever(s) or weight gain ENT HEENT: Denies headache(s), nasal congestion or nasal discharge Cardiovascular Cardiovascular: Denies chest pain or palpitations Respiratory/Chest Respiratory/Chest: Denies cough, excessive phlegm production or shortness of breath with exertion Gastrointestinal Gastrointestinal: Denies abdominal pain, nausea or vomiting Genitourinary Genitourinary: Denies dysuria Musculoskeletal Musculoskeletal: Denies joint pain or joint swelling Integumentary Integumentary: Denies rash or wounds Neurologic Neurologic: Denies focal weakness, numbness or tingling Psychiatric Psychiatric: Denies anxiety, auditory hallucinations, depression, homicidal ideation or suicidal ideation Vital Signs Vital Signs Vital Signs: 02/21/22 15:17 02/21/22 18:14 Temperature 97.5 F L Temperature Source Temporal Pulse Rate 67 66 Respiratory Rate 18 Blood Pressure 137/59 H 143/60 H Blood Pressure Mean 85 Blood Pressure Source Monitor Blood Pressure Position Semi-Fowlers Blood Pressure Location Left Arm Pulse Ox 96 Oxygen Delivery Method Room Air Weight Weight: 64.864 kg Body Mass Index (BMI) 27.9 Physical Exam Const alert General Appearance: cooperative HEENT normocephalic Eyes PERRL and EOMs intact bilaterally Neck supple, no JVD and no carotid bruits Resp normal respiratory effort, normal air movement and clear to auscultation bilaterally Auscultation: rhonchi Cardio regular rate and regular rhythm GI normal to inspection, nondistended, normoactive bowel sounds, non-tender and non-distended Extremity normal capillary refill General Extremity: Negative for edema Skin no rashes or lesions noted General Skin Exam: no breakdown Psych affect normal Appearance: appropriate Assessment & Plan Assessment/Plan (1) Debility: (2) Acute respiratory failure with hypoxemia: (3) Primary atypical interstitial pneumonia: (4) LYSSA (acute kidney injury): (5) Pneumonia: (6) Sjogren's disease: (7) (HFpEF) heart failure with preserved ejection fraction: QUALIFIERS: Heart failure chronicity: acute Qualified Code(s): I50.31 - Acute diastolic (congestive) heart failure (8) Atrial fibrillation with rapid ventricular response: (9) Hypothyroidism: (10) Rheumatoid arthritis: (11) Vitamin D deficiency: (12) Muscle spasm: (13) Hypertension: PLAN: Plan 77 year old female with below past medical history hospitalized for acute respiratory failure with hypoxia secondary to interstitial pneumonia, complicated by acute kidney injury, dehydration, atrial fibrillation with rapid ventricular response, admitted to TCU with debility, here for rehabilitation, strengthening, prior to discharge home alone. * Debility - PT/OT. * Pain - Tylenol 1000mg q6h prn pain (1-10). * Bowel - senna/colace 2 tablets bid, Dulcolax 10mg pr daily prn, MOM 30ml daily prn. * Adult immunization - Administer pneumonia vaccine, covid19 vaccine, flu vaccine. * DVT prophylaxis - Not necessary, on Xarelto 15mg daily. * Shortness of breath - Albuterol 2.5mg neb q6h, wean oxygen as tolerated. * Atrial fibrillation - Metoprolol 25mg bid, Diltiazem CD 120mg bid, Xarelto 15mg daily. * Muscle spasm - Flexeril 10mg tid prn. * Iron deficiency anemia - Ferrous sulfate 325mg bid. * Chronic diastolic congestive heart failure - Metoprolol 25mg bid, Lisinopril 10mg bid, Furosemide 20mg daily. * Cough - Robitussin 20ml q4h prn. * Rheumatoid arthritis - Leflunomide 20mg every other day. * Hypothyroidism - Levothyroxine 50mcg daily. * Insomnia - Melatonin 3mg qhs prn. * Skin irritation - Calmoseptine topical tid prn. * Nutrition - MVI daily. * Interstitial pneumonia - Prednisone taper. * Dry nares - Sodium chloride 2 spray nasal bid prn. * Vitamin D deficiency - D3 25mcg daily.
[2022-02-21] MEDS: Leflunomide 10 MG TABLET 20 MG PO (19:58)
[2022-02-21 20:00] VITALS: PULSE 68; RESP 18; O2SAT 93
[2022-02-21] MEDS: MENTHOL 226.8 GM JAR 1 APPLIC TOPICAL (20:00)
[2022-02-21] MEDS: MELATONIN 3 MG TABLET PO (22:49)
[2022-02-21] MEDS: Acetaminophen 500 MG Tablet 1000 MG PO (22:49)
[2022-02-21] MEDS: Sodium Chloride 0.65% 1 SPRAY SPRAY.BTL 2 SPRAY NASAL (22:50)
[2022-02-22 05:40] LABS: Absolute Lymphocyte Count 0.66 X10^3/uL (0.83-4.51); Absolute Neutrophil Count 11.2 X10^3/uL (2.0-7.7); Basophil# 0.01 X10^3/uL; Basophil% 0.1 % (0-1); Hemoglobin 7.6 g/dL (12.0-15.0); Lymphocyte # 0.66 X10^3/ul (0.83-4.51); Lymphocyte % 4.9 % (19-41); Mean Corpuscular Volume 90.9 fL (81-99); Mean Platelet Vol. 11.1 fl (6.2-12.0); Monocyte% 7.4 % (0-10); NRBC Flagged by Analyzer 0.3 % (0-5); Neutrophil # 11.17 X10^3/uL (2.7-7.7); Neutrophil % 82.7 % (47-70); Platelet Count 472 K/mm3 (150-450); RBC Distribution Width CV 14.3 % (11.6-14.6); RBC Distribution Width SD 46.8 fl (35.1-43.9); Red Blood Count 2.53 M/mm3 (4.2-5.4); White Blood Count 13.5 K/mm3 (4.4-11.0)
[2022-02-22 06:01] LABS: Anion Gap 6 (5-15); BUN 56 mg/dL (7-18); BUN/Creat Ratio 47.9 RATIO (10-20); Chloride 105 mmol/L (98-107); Creatinine, Serum 1.17 mg/dL (0.55-1.02); EST Glomerular Filtration Rate 48 mL/min (>60); Est Glom Filt Rate - Afr Amer 58 mL/min (>60); Estimated Creatinine Clearance 29.84 ml/min; Glucose 256 mg/dL (74-106); Potassium 4.2 mmol/L (3.5-5.1); Sodium Level 138 mmol/L (136-145)
[2022-02-22] MEDS: Furosemide 20 MG Tablet PO (06:39)
[2022-02-22] MEDS: dilTIAZem CD 120 MG Capsule PO ×2 (06:39→17:12)
[2022-02-22] MEDS: Levothyroxine 50 MCG Tablet PO (06:39)
[2022-02-22] MEDS: Lisinopril 10 MG Tablet PO ×2 (06:39→17:13)
[2022-02-22 06:43] VITALS: BP 126/53; PULSE 61
[2022-02-22] MEDS: Metoprolol Tartrate 25 MG Tablet PO ×2 (06:43→17:12)
[2022-02-22 07:10] VITALS: PULSE 55; RESP 18; O2SAT 97
[2022-02-22] MEDS: Albuterol 2.5 MG/3 ML VIAL.NEB. INHALATION ×2 (07:16→19:20)
[2022-02-22] MEDS: Cholecalciferol (VIT D3) 25 MCG TABLET (1,000 UNITS) PO (07:52)
[2022-02-22] MEDS: Multivitamins,Therapeutic Tablet 1 TABLET PO (07:52)
[2022-02-22] MEDS: predniSONE 10 MG Tablet PO (07:52)
[2022-02-22] MEDS: Amiodarone 200 MG Tablet PO (07:52)
[2022-02-22] MEDS: Sodium Chloride 0.65% 1 SPRAY SPRAY.BTL 2 SPRAY NASAL ×2 (09:57→23:23)
[2022-02-22] MEDS: Tuberculin,Purif.prot.deriv. 50 TU/ML Vial 0.1 ML ID (09:59)
[2022-02-22] MEDS: Ferrous Sulfate 325 MG Tablet PO ×2 (11:53→17:12)
--- NOTE | 2022-02-22 12:08 | NURSING ---
Clinical Project Leader Note; Activity Asset: Tez Mackay is independent in her choice of daily activities. She prefers to be called Lula. 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 She prefers to stay in her room at this time and did aske for a word puzzle book for now. She watches TV and will listen to the music channel.
--- NOTE | 2022-02-22 12:45 | NURSING ---
pt off unit to get blood
[2022-02-22 16:00] VITALS: BP 139/75; PULSE 66; RESP 16; TEMP 36.1; O2SAT 97
--- NOTE | 2022-02-22 16:00 | NURSING ---
pt returned to unit
[2022-02-22 17:12] VITALS: PULSE 68
[2022-02-22] MEDS: Senna/Docusate Sodium 1 Tablet 2 TABLET PO (17:12)
[2022-02-22] MEDS: Menthol/Lanolin/Calamine/Znox 113 GM Tube 1 APPLIC TOPICAL (17:13)
[2022-02-22 19:20] VITALS: PULSE 75; RESP 18; O2SAT 95
[2022-02-22 23:05] VITALS: PULSE 76; RESP 18; O2SAT 94
[2022-02-22] MEDS: Acetaminophen 500 MG Tablet 1000 MG PO (23:15)
[2022-02-23] VITALS (8 sets, daily range): BP systolic 120–137; BP diastolic 52–67; PULSE 68–76; RESP 16–20; TEMP 36.3; O2SAT 94–97
[2022-02-23] MEDS: Metoprolol Tartrate 25 MG Tablet PO ×2 (05:22→17:00)
[2022-02-23] MEDS: Furosemide 20 MG Tablet PO (05:23)
[2022-02-23] MEDS: Levothyroxine 50 MCG Tablet PO (05:23)
[2022-02-23] MEDS: Lisinopril 10 MG Tablet PO ×2 (05:24→17:01)
[2022-02-23] MEDS: dilTIAZem CD 120 MG Capsule PO ×2 (05:24→17:00)
[2022-02-23 05:25] LABS: Hematocrit 28.9 % (37-47); Hemoglobin 9.7 g/dL (12.0-15.0)
[2022-02-23] MEDS: Senna/Docusate Sodium 1 Tablet 2 TABLET PO (05:26)
[2022-02-23] MEDS: Albuterol 2.5 MG/3 ML VIAL.NEB. INHALATION ×2 (06:53→13:33)
[2022-02-23] MEDS: Multivitamins,Therapeutic Tablet 1 TABLET PO (08:19)
[2022-02-23] MEDS: Amiodarone 200 MG Tablet PO (08:19)
[2022-02-23] MEDS: Cholecalciferol (VIT D3) 25 MCG TABLET (1,000 UNITS) PO (08:20)
[2022-02-23] MEDS: predniSONE 10 MG Tablet PO (08:20)
[2022-02-23] MEDS: Leflunomide 10 MG TABLET 20 MG PO (11:12)
[2022-02-23] MEDS: Ferrous Sulfate 325 MG Tablet PO ×2 (11:13→16:59)
--- NOTE | 2022-02-23 11:27 | PHA.CONS_ITS ---
TCU RX Drug Regimen Review Subjective: 77 YOF admitted to TCU after hospitalization for pneumonia. Admitted to TCU for strengthening and rehabilitation prior to discharge home where she resides alone. Objective: Allergies apixaban [From Eliquis] Allergy (Unknown, Verified 02/13/22 11:45) Rash sulindac Allergy (Unknown, Verified 02/13/22 11:45) Rash aloe Allergy (Verified 02/13/22 11:45) Rash erythromycin base Allergy (Verified 02/13/22 11:45) Unknown Penicillins Allergy (Verified 02/13/22 11:45) Unknown Sulfa (Sulfonamide Antibiotics) Allergy (Verified 02/13/22 11:45) Unknown vitamin E (d-alpha tocopherol) Allergy (Verified 02/13/22 11:45) Rash Environmental Allergies: Uncoded [metals] Adverse Reaction (Verified 02/13/22 11:45) Rash Current Medications Generic Name Dose Route Start Last Admin Trade Name Freq PRN Reason Stop Dose Admin Acetaminophen 1,000 mg 02/21/22 19:57 02/22/22 23:15 Acetaminophen 500 Mg Tablet PO 1,000 mg Q6H PRN PRN Administration Pain Score 1-10 Albuterol Sulfate 2.5 mg 02/21/22 15:00 02/23/22 06:53 Albuterol 2.5 Mg/3 Ml Vial.Neb. INHALATION 2.5 mg Q6H.RT BRUCE Administration Amiodarone HCl 200 mg 02/22/22 08:00 02/23/22 08:19 Amiodarone 200 Mg Tablet PO 200 mg DAILYCM BRUCE Administration Bisacodyl 10 mg 02/21/22 15:08 Bisacodyl 10 Mg Suppository RC DAILY PRN Constipation Calamine/Phenol 1 applic 02/22/22 18:00 02/23/22 05:25 Menthol/Lanolin/Calamine/Znox 113 Gm Tube TOPICAL Not Given BID [facility] Protocol Cholecalciferol 25 mcg 02/22/22 08:00 02/23/22 08:20 Cholecalciferol (Vit D3) 25 Mcg Tablet (1,000 Units) PO 25 mcg DAILYCM BRUCE Administration Cyclobenzaprine HCl 10 mg 02/21/22 14:55 Cyclobenzaprine Hcl 10 Mg Tablet PO TID PRN muscle spasm Diltiazem HCl 120 mg 02/21/22 18:00 02/23/22 05:24 Diltiazem Cd 120 Mg Capsule PO 120 mg BID BRUCE Administration Ferrous Sulfate 325 mg 02/21/22 17:00 02/23/22 11:13 Ferrous Sulfate 325 Mg Tablet PO 325 mg BID@1200,1700 BRUCE Administration Furosemide 20 mg 02/22/22 06:00 02/23/22 05:23 Furosemide 20 Mg Tablet PO 20 mg DAILY BRUCE Administration Guaifenesin 20 ml 02/21/22 14:55 Guaifenesin 10 Ml Udc (200mg/10ml) PO Q4H PRN PRN COUGH Leflunomide 20 mg 02/21/22 18:00 02/23/22 11:12 Leflunomide 10 Mg Tablet PO 20 mg QODAY BRUCE Administration Levothyroxine Sodium 50 mcg 02/22/22 06:00 02/23/22 05:23 Levothyroxine 50 Mcg Tablet PO 50 mcg DAILY BRUCE Administration Lisinopril 10 mg 02/21/22 18:00 02/23/22 05:24 Lisinopril 10 Mg Tablet PO 10 mg BID BRUCE Administration Magnesium Hydroxide 30 ml 02/21/22 19:57 Magnesium Hydroxide 30 Ml Udc PO DAILY PRN Constipation Melatonin 3 mg 02/21/22 14:55 02/21/22 22:49 Melatonin 3 Mg Tablet PO 3 mg HS PRN Administration Insomnia Menthol 1 applic 02/21/22 17:26 02/21/22 20:00 Menthol 226.8 Gm Jar TOPICAL 1 applic TID PRN PRN Administration Pain Score 1-10 Metoprolol Tartrate 25 mg 02/21/22 18:00 02/23/22 05:22 Metoprolol Tartrate 25 Mg Tablet PO 25 mg BID BRUCE Administration Multivitamins 1 tablet 02/22/22 08:00 02/23/22 08:19 Multivitamins,Therapeutic Tablet PO 1 tablet DAILYCM BRUCE Administration Prednisone 40 mg 02/22/22 08:00 02/23/22 08:20 Prednisone 10 Mg Tablet PO 03/06/22 07:59 40 mg BREAKFAST BRUCE Administration Taper Rivaroxaban 15 mg 02/21/22 17:00 02/21/22 18:14 Rivaroxaban 15 Mg Tablet PO 15 mg DINNER BRUCE Administration Senna/Docusate Sodium 2 tablet 02/22/22 06:00 02/23/22 05:26 Senna/Docusate Sodium 1 Tablet PO 1 tablet BID BRUCE Administration Sodium Chloride 2 spray 02/21/22 14:55 02/22/22 23:23 Sodium Chloride 0.65% 1 [place].Btl NASAL 2 spray BID PRN PRN Administration NASAL DRYNESS Sodium Chloride 10 - 40 ml 02/22/22 23:54 0.9% Saline Lock 10 Ml Syringe IV UD PRN SALINE FLUSH Tuberculin PPD 0.1 ml 03/01/22 10:00 Tuberculin,Purif.Prot.Deriv. 50 Tu/Ml Vial ID 03/01/22 10:01 X1 ONE Problem List (Last Reviewed 02/21/22 @ 19:[address] Delgado Hayden MD) Hypertension (Chronic) Muscle spasm (Acute) Vitamin D deficiency (Acute) Rheumatoid arthritis (Acute) Hypothyroidism (Acute) Atrial fibrillation with rapid ventricular response (Acute) Debility (Acute) Acute respiratory failure with hypoxemia (Acute) Primary atypical interstitial pneumonia (Acute) LYSSA (acute kidney injury) (Acute) Pneumonia (Acute) Sjogren's disease (Acute) (HFpEF) heart failure with preserved ejection fraction (Acute) Vital Signs Temp Pulse Resp BP Pulse Ox O2 Del Method O2 Flow Rate 97.0 F L 74 18 120/52 L 94 Nasal Cannula 2 02/22/22 16:00 02/23/22 06:55 02/23/22 06:55 02/23/22 05:22 02/23/22 06:55 02/23/22 06:55 02/23/22 06:55 Oxygen Flow Rate (L/min) 2 Oxygen Delivery Method Nasal Cannula Weight: 64.864 kg Body Mass Index (BMI) 27.9 Sodium 138 mmol/L (136-145) 02/22/22 05:03 Potassium 4.2 mmol/L (3.5-5.1) 02/22/22 05:03 Chloride 105 mmol/L (98-107) 02/22/22 05:03 Carbon Dioxide 27.0 mmol/L (21.0-32.0) 02/22/22 05:03 Anion Gap 6 (5-15) 02/22/22 05:03 BUN 56 mg/dL (7-18) H 02/22/22 05:03 Creatinine 1.17 mg/dL (0.55-1.02) H 02/22/22 05:03 Est GFR (MDRD) Af Amer 58 mL/min (>60) L 02/22/22 05:03 Est GFR (MDRD) Non-Af 48 mL/min (>60) L 02/22/22 05:03 BUN/Creatinine Ratio 47.9 RATIO (10-20) H 02/22/22 05:03 Glucose 256 mg/dL (74-106) H 02/22/22 05:03 Assessment/Plan: 1. Tylenol 1000mg PO Q6h PRN Pain 1-10, Menthol gel topically TID PRN. Please continue to monitor for increased/decreased S/S pain, PRN medication usage. - To date, the patient has gotten 2 doses of PRN Tylenol since admitted and 1 application of topical menthol. Pain assessment pre-medication rated 2/10, with post-medication pain rated 0/10. At this time, it appears patient's pain is being managed. 2. Atrial Fibrillation: Amiodarone 200mg PO Daily, Diltiazem 120mg PO BID, Lopressor 25mg PO BID, Xarelto 15mg PO Daily. Please continue to monitor pulse (range 55-76), blood pressure (range 120-143/52-75), S/S bleeding/bruising, H/H (see below for levels). 3. CHF: Lasix 20mg PO Daily, Lisinopril 10gm PO BID, Lopressor 25mg PO BID. Please continue to monitor BP, pulse, renal function (stable), potassium (last 4.2 on 02/22). 4. Pneumonia: Prednisone taper thru 03/06/22. Patient completed antibiotics while admitted. Please continue to monitor blood glucose (last 256mg), insomnia, agitation. If patient's blood glucose remains elevated, may consider adding sliding scale insulin while patient is on prednisone therapy if clinically indicated, thank you. 5. Iron deficiency anemia: Ferrous sulfate 325mg PO BID. Please continue to monitor for GI upset, H/H (hgb 9.7, Hct 28.9). Patient had blood transfusion yesterday with slight improvement in Hgb/HCT today. Please continue to monitor H/H, iron studies closely as clinically indicated, thank you. 6. Rheumatoid arthritis: Leflunomide 20mg every other day. Please continue to monitor liver function (LFT 12/20 WNL), diarrhea, recurrent infection. 7. Hypothyroidism: Synthroid 50mcg PO Daily. Please continue to monitor for S/S hyperthyroidism, thyroid function tests as clincially indicated (last TSH WNL 02/2022). 8. Muscle Spasm: Flexeril 10mg PO TID PRN. Please continue to monitor PRN use, medication effectiveness, drowsiness, dizziness. -To date, the patient has required zero doses of PRN medication 9. Cough/SOB: Albuterol inhalation Q6hWA, Guaifenesin 20mL PO Q4h PRN. Please continue to monitor HR, PRN medication usage, improvement in symptoms. 10. Insomnia: Melatonin 3mg PO QHS PRN. Please continue to monitor for oversedation, medication effectiveness. If medication appears ineffective, can consider administering medication at least 2 hours prior to desired bedtime to allow medication to take effect. 11. Nasal Dryness: [place] nasal spray BID PRN. Please continue to monitor for medication effectiveness. 12. General Wellness: MVI 1 tab PO Daily, Cholecalciferol 25 mcg PO Daily. 13. Skin Integrity: Calmoseptine 1 application topically BID. Please continue to monitor for skin breakdown/irritation, skin redness/tenderness, ulcer formations. 14. Bowel: Senna/Docusate 2 tab PO BID, Dulcolax 10mg GA Daily PRN, MOM 30mL PO daily PRN. Please continue to monitor for increased/decreased constipation and/or diarrhea. -Per EMR, the patient has a documented bowel movement on 02/22 Assessment/Plan for indications treated with psychotropic medications: -The patient is not on any psychotropic medications at time of medication review. Medical chart and medication regimen reviewed. The following medication irregularities or issues were identified: 1. Elevated blood glucose: Patient with elevated blood glucose levels (last 256), likely due to prednisone therapy. If glucose remains elevated, please consider adding sliding scale insulin while patient is on prednisone therapy, thank you. 2. Anemia/ Anticoagulation: The patient's H/H low required blood transfusion. Noted that patient is also on anticoagulation for Atrial fibrillation. Please assess to determine if continuation of anticoagulation is appropriate given need for a blood transfusion/ low H/H, thank you. Date of Note:: 02/23/22
--- NOTE | 2022-02-23 13:25 | NURSING ---
Resident offered to receive the covid vaccine while here and she refused.
--- NOTE | 2022-02-23 16:34 | CASEMGMT ---
Social Work Met with patient to complete initial assessment. Introduced self and role. Verified contacts. Inquired about advanced directives. Pt has named HCPOA to her brother, Ander Gutiérrez, but lives in [place]. Pt is unable to provide copies of documents at this time. Discussed code status and MOLST form. Pt confirms DNR-CCA, no intubation. MOLST placed in Dr thomas. Educated to Medicare benefit. Encouraged to contact secondary to ensure copay coverage. Pts goal is to return home, now alone, with in SNF on hospice. Pt is new on O2 currently. SW to continue to follow for DC planning and support. Tia Marquis, ASSEMBLER SKYLIGHTS SHRINKING MACHINE OPERATOR
[2022-02-23] MEDS: Sodium Chloride 0.65% 1 SPRAY SPRAY.BTL 2 SPRAY NASAL (20:12)
[2022-02-23] MEDS: MENTHOL 226.8 GM JAR 1 APPLIC TOPICAL (20:16)
[2022-02-23] MEDS: 0.9% Saline Lock 10 ML Syringe IV (20:21)
[2022-02-23] MEDS: Acetaminophen 500 MG Tablet 1000 MG PO (20:25)
[2022-02-23] MEDS: MELATONIN 3 MG TABLET PO (20:25)
[2022-02-24] MEDS: Furosemide 20 MG Tablet PO (05:08)
[2022-02-24] MEDS: Lisinopril 10 MG Tablet PO ×2 (05:08→16:51)
[2022-02-24] MEDS: dilTIAZem CD 120 MG Capsule PO ×2 (05:09→16:50)
[2022-02-24] MEDS: Levothyroxine 50 MCG Tablet PO (05:09)
[2022-02-24] MEDS: Senna/Docusate Sodium 1 Tablet 2 TABLET PO (05:09)
[2022-02-24 05:11] VITALS: BP 117/58; PULSE 83
[2022-02-24] MEDS: Metoprolol Tartrate 25 MG Tablet PO ×2 (05:11→16:51)
[2022-02-24] MEDS: Albuterol 2.5 MG/3 ML VIAL.NEB. INHALATION ×3 (07:55→19:30)
[2022-02-24 08:05] VITALS: PULSE 75; RESP 16; O2SAT 93
[2022-02-24] MEDS: predniSONE 10 MG Tablet PO (08:35)
[2022-02-24] MEDS: Amiodarone 200 MG Tablet PO (08:36)
[2022-02-24] MEDS: Multivitamins,Therapeutic Tablet 1 TABLET PO (08:36)
[2022-02-24] MEDS: Cholecalciferol (VIT D3) 25 MCG TABLET (1,000 UNITS) PO (11:30)
[2022-02-24] MEDS: Ferrous Sulfate 325 MG Tablet PO ×2 (12:22→16:48)
[2022-02-24 13:06] VITALS: BP 133/56; PULSE 72; RESP 16; TEMP 36.2; O2SAT 96
[2022-02-24 16:51] VITALS: BP 112/60; PULSE 91
[2022-02-24 19:31] VITALS: PULSE 76; RESP 16
[2022-02-24] MEDS: Acetaminophen 500 MG Tablet 1000 MG PO (21:52)
[2022-02-24] MEDS: MELATONIN 3 MG TABLET PO (21:53)
[2022-02-24 22:00] VITALS: PULSE 65; RESP 18; O2SAT 98
[2022-02-25] VITALS (8 sets, daily range): BP systolic 133; BP diastolic 59; PULSE 61–77; RESP 14–18; TEMP 36.3; O2SAT 94–99
[2022-02-25] MEDS: Albuterol 2.5 MG/3 ML VIAL.NEB. INHALATION ×2 (01:13→19:52)
[2022-02-25] MEDS: Levothyroxine 50 MCG Tablet PO (05:55)
[2022-02-25] MEDS: Metoprolol Tartrate 25 MG Tablet PO ×2 (08:09→17:06)
[2022-02-25] MEDS: dilTIAZem CD 120 MG Capsule PO ×2 (08:10→17:08)
[2022-02-25] MEDS: Lisinopril 10 MG Tablet PO ×2 (08:10→17:06)
[2022-02-25] MEDS: Furosemide 20 MG Tablet PO (08:10)
[2022-02-25] MEDS: predniSONE 10 MG Tablet PO (08:12)
[2022-02-25] MEDS: Amiodarone 200 MG Tablet PO (08:14)
[2022-02-25] MEDS: Multivitamins,Therapeutic Tablet 1 TABLET PO (08:14)
[2022-02-25] MEDS: Cholecalciferol (VIT D3) 25 MCG TABLET (1,000 UNITS) PO (08:16)
[2022-02-25] MEDS: Leflunomide 10 MG TABLET 20 MG PO (10:42)
[2022-02-25] MEDS: Ferrous Sulfate 325 MG Tablet PO ×2 (11:13→17:03)
[2022-02-25] MEDS: MELATONIN 3 MG TABLET PO (21:18)
[2022-02-25] MEDS: Acetaminophen 500 MG Tablet 1000 MG PO (21:18)
[2022-02-25] MEDS: Sodium Chloride 0.65% 1 SPRAY SPRAY.BTL 2 SPRAY NASAL (22:34)
[2022-02-26] MEDS: Levothyroxine 50 MCG Tablet PO (06:05)
[2022-02-26 07:29] VITALS: PULSE 70; RESP 18; O2SAT 99
[2022-02-26] MEDS: Albuterol 2.5 MG/3 ML VIAL.NEB. INHALATION ×3 (07:30→19:40)
[2022-02-26] MEDS: predniSONE 10 MG Tablet PO (08:39)
[2022-02-26 08:40] VITALS: BP 127/59; PULSE 66
[2022-02-26] MEDS: Amiodarone 200 MG Tablet PO (08:40)
[2022-02-26] MEDS: Furosemide 20 MG Tablet PO (08:40)
[2022-02-26] MEDS: Cholecalciferol (VIT D3) 25 MCG TABLET (1,000 UNITS) PO (08:40)
[2022-02-26] MEDS: Metoprolol Tartrate 25 MG Tablet PO ×2 (08:40→17:06)
[2022-02-26] MEDS: dilTIAZem CD 120 MG Capsule PO ×2 (08:40→17:05)
[2022-02-26] MEDS: Lisinopril 10 MG Tablet PO ×2 (08:40→17:06)
[2022-02-26] MEDS: Multivitamins,Therapeutic Tablet 1 TABLET PO (08:41)
[2022-02-26] MEDS: Menthol/Lanolin/Calamine/Znox 113 GM Tube 1 APPLIC TOPICAL ×2 (08:51→21:43)
[2022-02-26] MEDS: Ferrous Sulfate 325 MG Tablet PO ×2 (12:20→17:05)
[2022-02-26 13:36] VITALS: BP 135/68; PULSE 70; RESP 16; TEMP 36.7; O2SAT 98
[2022-02-26 13:45] VITALS: PULSE 69; RESP 18; O2SAT 98
[2022-02-26 17:06] VITALS: BP 135/68; PULSE 69
[2022-02-26 19:40] VITALS: PULSE 64; RESP 20
[2022-02-26] MEDS: Acetaminophen 500 MG Tablet 1000 MG PO (21:29)
[2022-02-26] MEDS: MELATONIN 3 MG TABLET PO (21:30)
[2022-02-27] VITALS (8 sets, daily range): BP systolic 113–127; BP diastolic 50–58; PULSE 58–72; RESP 16–20; TEMP 36.8; O2SAT 94–98
[2022-02-27] MEDS: Sodium Chloride 0.65% 1 SPRAY SPRAY.BTL 2 SPRAY NASAL (05:16)
[2022-02-27] MEDS: Levothyroxine 50 MCG Tablet PO (05:18)
[2022-02-27] MEDS: Albuterol 2.5 MG/3 ML VIAL.NEB. INHALATION ×3 (07:48→20:00)
[2022-02-27] MEDS: dilTIAZem CD 120 MG Capsule PO ×2 (08:42→17:44)
[2022-02-27] MEDS: Furosemide 20 MG Tablet PO (08:43)
[2022-02-27] MEDS: Lisinopril 10 MG Tablet PO ×2 (08:44→17:44)
[2022-02-27] MEDS: Metoprolol Tartrate 25 MG Tablet PO ×2 (08:44→17:44)
[2022-02-27] MEDS: Multivitamins,Therapeutic Tablet 1 TABLET PO (08:44)
[2022-02-27] MEDS: Cholecalciferol (VIT D3) 25 MCG TABLET (1,000 UNITS) PO (08:45)
[2022-02-27] MEDS: predniSONE 10 MG Tablet PO (08:45)
[2022-02-27] MEDS: Amiodarone 200 MG Tablet PO (08:46)
[2022-02-27] MEDS: Leflunomide 10 MG TABLET 20 MG PO (11:03)
[2022-02-27] MEDS: Ferrous Sulfate 325 MG Tablet PO ×2 (11:03→17:43)
[2022-02-27] MEDS: Menthol/Lanolin/Calamine/Znox 113 GM Tube 1 APPLIC TOPICAL ×2 (11:04→19:39)
[2022-02-27] MEDS: Rivaroxaban 15 MG Tablet PO (17:43)
[2022-02-27] MEDS: Acetaminophen 500 MG Tablet 1000 MG PO (21:42)
[2022-02-27] MEDS: MELATONIN 3 MG TABLET PO (21:42)
[2022-02-28] MEDS: Levothyroxine 50 MCG Tablet PO (05:34)
[2022-02-28] MEDS: Albuterol 2.5 MG/3 ML VIAL.NEB. INHALATION ×2 (07:00→19:57)
[2022-02-28 07:10] VITALS: PULSE 62; RESP 16; O2SAT 95
[2022-02-28] MEDS: Lisinopril 10 MG Tablet PO ×2 (08:07→17:24)
[2022-02-28] MEDS: dilTIAZem CD 120 MG Capsule PO ×2 (08:07→17:24)
[2022-02-28] MEDS: Furosemide 20 MG Tablet PO (08:07)
[2022-02-28] MEDS: Cholecalciferol (VIT D3) 25 MCG TABLET (1,000 UNITS) PO (08:07)
[2022-02-28] MEDS: Multivitamins,Therapeutic Tablet 1 TABLET PO (08:08)
[2022-02-28] MEDS: Amiodarone 200 MG Tablet PO (08:08)
[2022-02-28 08:19] VITALS: PULSE 62
[2022-02-28] MEDS: Metoprolol Tartrate 25 MG Tablet PO ×2 (08:19→17:23)
[2022-02-28] MEDS: Menthol/Lanolin/Calamine/Znox 113 GM Tube 1 APPLIC TOPICAL ×2 (08:21→21:53)
[2022-02-28] MEDS: predniSONE 10 MG Tablet PO (08:37)
[2022-02-28 10:00] VITALS: PULSE 56; RESP 16; O2SAT 98
[2022-02-28] MEDS: Ferrous Sulfate 325 MG Tablet PO ×2 (12:09→17:23)
[2022-02-28 14:10] VITALS: BP 112/50; PULSE 76; RESP 18; TEMP 35.8; O2SAT 95
--- NOTE | 2022-02-28 16:36 | CASEMGMT ---
Social Work Brief interview for mental status (BIMS) and resident mood assessment (PHQ-9) completed on this day. BIMS score . PHQ-9 score 05/29. Jean JUAN, TALHAS
[2022-02-28 17:23] VITALS: BP 112/50; PULSE 76
[2022-02-28] MEDS: Rivaroxaban 15 MG Tablet PO (17:23)
[2022-02-28 19:57] VITALS: PULSE 65; RESP 20
[2022-02-28] MEDS: NYSTATIN 500,000 UNIT/5 ML UDC 500000 UNIT PO (21:51)
[2022-02-28] MEDS: Acetaminophen 500 MG Tablet 1000 MG PO (21:51)
[2022-02-28] MEDS: MELATONIN 3 MG TABLET PO (21:51)
[2022-02-28] MEDS: cycloBENZAPRine HCl 10 MG Tablet PO (21:52)
[2022-02-28] MEDS: MENTHOL 226.8 GM JAR 1 APPLIC TOPICAL (22:00)
[2022-03-01] VITALS (8 sets, daily range): BP systolic 123–147; BP diastolic 55–62; PULSE 59–68; RESP 16–18; TEMP 35.9–36.6; O2SAT 93–95
[2022-03-01] MEDS: Albuterol 2.5 MG/3 ML VIAL.NEB. INHALATION ×2 (01:17→07:50)
[2022-03-01] MEDS: Sodium Chloride 0.65% 1 SPRAY SPRAY.BTL 2 SPRAY NASAL (01:45)
[2022-03-01 06:05] LABS: Absolute Lymphocyte Count 1.33 X10^3/uL (0.83-4.51); Absolute Neutrophil Count 11.4 X10^3/uL (2.0-7.7); Basophil# 0.02 X10^3/uL; Basophil% 0.1 % (0-1); Eosinophil# 0.04 X10^3/uL; Eosinophils% 0.3 % (0-5); Hemoglobin 8.8 g/dL (12.0-15.0); Lymphocyte # 1.33 X10^3/ul (0.83-4.51); Lymphocyte % 9.3 % (19-41); Mean Corp Hgb Conc 31.4 g/dL (32-36); Mean Corpuscular Hgb 29.1 pg (27.0-32.0); Mean Corpuscular Volume 92.7 fL (81-99); Mean Platelet Vol. 11.8 fl (6.2-12.0); Monocyte# 1.18 X10^3/uL; Monocyte% 8.3 % (0-10); NRBC Flagged by Analyzer 0 % (0-5); Neutrophil # 11.43 X10^3/uL (2.7-7.7); Platelet Count 325 K/mm3 (150-450); RBC Distribution Width CV 15.9 % (11.6-14.6); RBC Distribution Width SD 51.6 fl (35.1-43.9); Red Blood Count 3.02 M/mm3 (4.2-5.4); White Blood Count 14.3 K/mm3 (4.4-11.0)
[2022-03-01 06:26] LABS: Anion Gap 5 (5-15); BUN 30 mg/dL (7-18); BUN/Creat Ratio 29.7 RATIO (10-20); Calcium,Total 8.1 mg/dL (8.5-10.1); Chloride 104 mmol/L (98-107); Creatinine, Serum 1.01 mg/dL (0.55-1.02); EST Glomerular Filtration Rate 57 mL/min (>60); Est Glom Filt Rate - Afr Amer 69 mL/min (>60); Estimated Creatinine Clearance 34.57 ml/min; Glucose 127 mg/dL (74-106); Potassium 4.1 mmol/L (3.5-5.1); Sodium Level 138 mmol/L (136-145)
[2022-03-01] MEDS: NYSTATIN 500,000 UNIT/5 ML UDC 500000 UNIT PO ×4 (06:47→22:27)
[2022-03-01] MEDS: Levothyroxine 50 MCG Tablet PO (06:47)
[2022-03-01] MEDS: predniSONE 10 MG Tablet PO (08:09)
[2022-03-01] MEDS: Lisinopril 10 MG Tablet PO ×2 (08:09→17:30)
[2022-03-01] MEDS: Amiodarone 200 MG Tablet PO (08:09)
[2022-03-01] MEDS: Multivitamins,Therapeutic Tablet 1 TABLET PO (08:09)
[2022-03-01] MEDS: Metoprolol Tartrate 25 MG Tablet PO ×2 (08:09→17:30)
[2022-03-01] MEDS: Cholecalciferol (VIT D3) 25 MCG TABLET (1,000 UNITS) PO (08:09)
[2022-03-01] MEDS: Furosemide 20 MG Tablet PO (08:10)
[2022-03-01] MEDS: dilTIAZem CD 120 MG Capsule PO ×2 (08:11→17:32)
[2022-03-01] MEDS: Leflunomide 10 MG TABLET 20 MG PO (08:11)
[2022-03-01] MEDS: Menthol/Lanolin/Calamine/Znox 113 GM Tube 1 APPLIC TOPICAL (08:12)
--- NOTE | 2022-03-01 08:32 | NURSING ---
Elevator Builder Note; MDS for 02/28/2022 complete
--- NOTE | 2022-03-01 09:47 | CASEMGMT ---
Social Work IDT met with patient for care plan meeting. Discussed patient's progress in PT/OT/SN. Educated to Medicare benefit. Pt's goal is to return home alone. A friend is coming into town and can assist pt at home if needed. Pt requesting DC 03/10 with [facility] and no DME needs. SW sent referral via [facility] to [facility] PT/OT. Plan: DC home alone 03/10, [facility] PT/OT. YESSICA PaceW
[2022-03-01] MEDS: Tuberculin,Purif.prot.deriv. 50 TU/ML Vial 0.1 ML ID (09:56)
[2022-03-01] MEDS: Ferrous Sulfate 325 MG Tablet PO ×2 (12:12→17:33)
[2022-03-01] MEDS: Rivaroxaban 15 MG Tablet PO (17:31)
[2022-03-01] MEDS: MENTHOL 226.8 GM JAR 1 APPLIC TOPICAL (22:29)
[2022-03-01] MEDS: Acetaminophen 500 MG Tablet 1000 MG PO (22:38)
[2022-03-01] MEDS: MELATONIN 3 MG TABLET PO (22:39)
[2022-03-01] MEDS: cycloBENZAPRine HCl 10 MG Tablet PO (22:39)
[2022-03-02] VITALS (7 sets, daily range): BP systolic 109–131; BP diastolic 50–89; PULSE 57–82; RESP 14–19; TEMP 37.1; O2SAT 84–98
[2022-03-02] MEDS: Albuterol 2.5 MG/3 ML VIAL.NEB. INHALATION ×2 (01:17→07:08)
[2022-03-02] MEDS: Levothyroxine 50 MCG Tablet PO (06:13)
[2022-03-02] MEDS: NYSTATIN 500,000 UNIT/5 ML UDC 500000 UNIT PO ×4 (06:13→22:27)
[2022-03-02] MEDS: Sodium Chloride 0.65% 1 SPRAY SPRAY.BTL 2 SPRAY NASAL ×2 (06:14→22:22)
[2022-03-02] MEDS: Multivitamins,Therapeutic Tablet 1 TABLET PO (07:43)
[2022-03-02] MEDS: dilTIAZem CD 120 MG Capsule PO ×2 (07:44→17:03)
[2022-03-02] MEDS: Metoprolol Tartrate 25 MG Tablet PO ×2 (07:44→17:04)
[2022-03-02] MEDS: predniSONE 10 MG Tablet PO (07:44)
[2022-03-02] MEDS: Lisinopril 10 MG Tablet PO ×2 (07:44→17:04)
[2022-03-02] MEDS: Amiodarone 200 MG Tablet PO (07:44)
[2022-03-02] MEDS: Cholecalciferol (VIT D3) 25 MCG TABLET (1,000 UNITS) PO (07:44)
[2022-03-02] MEDS: Furosemide 20 MG Tablet PO (07:44)
[2022-03-02] MEDS: Menthol/Lanolin/Calamine/Znox 113 GM Tube 1 APPLIC TOPICAL ×2 (12:08→22:27)
[2022-03-02] MEDS: Ferrous Sulfate 325 MG Tablet PO ×2 (12:08→17:04)
[2022-03-02] MEDS: Rivaroxaban 15 MG Tablet PO (17:04)
--- NOTE | 2022-03-02 18:44 | PCM.DC.SUM ---
Providers Date of Admission: 02/21/22 Primary Care Physician: Dr. Felix Mart MD Reason For Visit: PNEUMONIA/HYPOXIA Diagnosis Discharge Diagnosis (1) Debility: Status: Acute Code(s): R53.81 - Other malaise (2) Acute respiratory failure with hypoxemia: Status: Acute Code(s): J96.01 - Acute respiratory failure with hypoxia (3) Primary atypical interstitial pneumonia: Status: Acute Code(s): J84.9 - Interstitial pulmonary disease, unspecified (4) LYSSA (acute kidney injury): Status: Resolved Code(s): N17.9 - Acute kidney failure, unspecified (5) Pneumonia: Status: Acute Code(s): J18.9 - Pneumonia, unspecified organism (6) Sjogren's disease: Status: Acute Code(s): M35.00 - Sjogren syndrome, unspecified (7) (HFpEF) heart failure with preserved ejection fraction: Status: Acute Code(s): I50.30 - Unspecified diastolic (congestive) heart failure Qualifiers: Heart failure chronicity: acute Qualified Code(s): I50.31 - Acute diastolic (congestive) heart failure (8) Atrial fibrillation with rapid ventricular response: Status: Acute Code(s): I48.91 - Unspecified atrial fibrillation (9) Hypothyroidism: Status: Acute Code(s): E03.9 - Hypothyroidism, unspecified (10) Rheumatoid arthritis: Status: Acute Code(s): M06.9 - Rheumatoid arthritis, unspecified (11) Vitamin D deficiency: Status: Acute Code(s): E55.9 - Vitamin D deficiency, unspecified (12) Muscle spasm: Status: Acute Code(s): M62.838 - Other muscle spasm (13) Hypertension: Status: Chronic Code(s): I10 - Essential (primary) hypertension Plan 77 year old female with below past medical history hospitalized for acute respiratory failure with hypoxia secondary to interstitial pneumonia, complicated by acute kidney injury, dehydration, atrial fibrillation with rapid ventricular response, admitted to TCU with debility, here for rehabilitation, strengthening, prior to discharge home alone. Debility - PT/OT. Pain - Tylenol 1000mg q6h prn pain (1-10). Bowel - senna/colace 2 tablets bid, Dulcolax 10mg pr daily prn, MOM 30ml daily prn. Adult immunization - Administer pneumonia vaccine, covid19 vaccine, flu vaccine. DVT prophylaxis - Not necessary, on Xarelto 15mg daily. Shortness of breath - Albuterol 2.5mg neb q6h, wean oxygen as tolerated. Atrial fibrillation - Metoprolol 25mg bid, Diltiazem CD 120mg bid, Xarelto 15mg daily. Muscle spasm - Flexeril 10mg tid prn. Iron deficiency anemia - Ferrous sulfate 325mg bid. Chronic diastolic congestive heart failure - Metoprolol 25mg bid, Lisinopril 10mg bid, Furosemide 20mg daily. Cough - Robitussin 20ml q4h prn. Rheumatoid arthritis - Leflunomide 20mg every other day. Hypothyroidism - Levothyroxine 50mcg daily. Insomnia - Melatonin 3mg qhs prn. Skin irritation - Calmoseptine topical tid prn. Nutrition - MVI daily. Interstitial pneumonia - Prednisone taper. Dry nares - Sodium chloride 2 spray nasal bid prn. Vitamin D deficiency - D3 25mcg daily. Medications at Discharge Home Medications levothyroxine 50 mcg tablet 50 mcg PO DAILY THYROID 04/13/16 leflunomide 20 mg tablet (Arava) 20 mg PO DAILY PRN RHEUMATOID ARTHRITIS 05/08/18 cholecalciferol (vitamin D3) 25 mcg (1,000 unit) tablet 25 mcg PO DAILY SUPPLEMENT 10/05/21 cyclobenzaprine 10 mg tablet 10 mg PO TID PRN muscle spasm 10/05/21 melatonin 3 mg tablet 3 mg PO HS PRN Insomnia 10/05/21 multivitamin 1 tab PO DAILY Supplement 10/05/21 amiodarone 200 mg tablet 200 mg PO DAILY ARRHYTHMIA 02/13/22 diltiazem HCl 120 mg capsule,extended release 24 hr 120 mg PO BID BLOOD PRESSURE 02/13/22 furosemide 20 mg tablet 20 mg PO DAILY FLUID 02/13/22 lisinopril 10 mg tablet 10 mg PO BID BLOOD PRESSURE 02/13/22 metoprolol tartrate 25 mg tablet 25 mg PO BID BLOOD PRESSURE 02/13/22 rivaroxaban 15 mg tablet (Xarelto) 15 mg PO DINNER BLOOD THINNER 02/13/22 prednisone 10 mg tablet See Taper PO DAILY Check with primary doctor 02/21/22 acetaminophen 500 mg tablet 1,000 mg PO Q6H PRN PRN Pain Score 1-10 #0 tabs 03/02/22 ferrous sulfate 325 mg (65 mg iron) tablet (FeroSul) 325 mg PO BID@1200,1700 30 days #60 tabs 03/02/22 Hospital Course Operations None Procedures None Summary of Care Provided Minutes Spent on Discharge: 35 Hospital Course: 77 year old female with below past medical history hospitalized for acute respiratory failure with hypoxia secondary to interstitial pneumonia, complicated by acute kidney injury, dehydration, atrial fibrillation with rapid ventricular response, admitted to TCU with debility, here for rehabilitation, strengthening, prior to discharge home alone. Discharge home alone 03/10/2021, [facility] PT/OT. Physical Exam Const alert General Appearance: cooperative HEENT normocephalic Eyes PERRL and EOMs intact bilaterally Neck supple, no JVD and no carotid bruits Resp normal respiratory effort, normal air movement and clear to auscultation bilaterally Cardio regular rate and regular rhythm GI normal to inspection, nondistended, normoactive bowel sounds, non-tender and non-distended Extremity normal capillary refill General Extremity: Negative for edema Skin no rashes or lesions noted General Skin Exam: no breakdown Psych affect normal Appearance: appropriate Weight / BMI Weight Weight: 66.451 kg Body Mass Index (BMI) 27.9 ABG / Lab / Microbiology Data Result Diagrams: 03/01/22 05:36 03/01/22 05:36 Microbiology: Microbiology 02/25/22 06:15 Nasal Secretion SARS-CoV-2 Antigen (Rapid) - Final 02/23/22 06:33 Nasal Secretion SARS-CoV-2 Antigen (Rapid) - Final D/C Instructions Discharge Diet: No restrictions Discharge Activity: Return to Normal Activity, May Shower and Use Walker Weight Bearing Status: Weight bearing as tolerated Call your doctor if you observe: Fever of 101 or Higher, Inability to urinate, Inability to have a bowel movement, Shortness of breath, Dizziness, Fainting spells, Swelling in the ankles, Chest pain and Uncontrolled pain Additional Instructions: Discharge home alone 03/10/2021, [facility] PT/OT. Meaningful Use Info Meaningful Use Diagnoses (Choose all that apply): None applicable Discharge Plan Admission Admit Date/Time: 02/21/22 14:38 Primary Reason for Your Visit: Debility. Attending Provider: Delgado Hayden Chi Primary Care Provider: Felix Mart Instructions Additional Instructions / Restrictions: Discharge home alone 03/10/2021, [facility] PT/OT. Discharge Orders/Prescriptions Prescriptions: New ferrous sulfate [FeroSul] 325 mg (65 mg iron) Tablet 325 mg PO BID@1200,1700 30 Days Qty: 60 0RF acetaminophen 500 mg Tablet 1,000 mg PO Q6H PRN PRN (Reason: Pain Score 1-10) Qty: 0 0RF Continued leflunomide [Arava] 20 mg tablet 20 mg PO DAILY PRN (Reason: RHEUMATOID ARTHRITIS) multivitamin Tablet 1 tab PO DAILY cholecalciferol (vitamin D3) 25 mcg (1,000 unit) tablet 25 mcg PO DAILY melatonin 3 mg tablet 3 mg PO HS PRN (Reason: Insomnia) cyclobenzaprine 10 mg tablet 10 mg PO TID PRN (Reason: muscle spasm) levothyroxine 50 MCG tablet 50 mcg PO DAILY Label Comments: thyroid amiodarone 200 mg tablet 200 mg PO DAILY lisinopril 10 mg tablet 10 mg PO BID diltiazem HCl 120 mg capsule,extended release 24hr 120 mg PO BID furosemide 20 mg tablet 20 mg PO DAILY metoprolol tartrate 25 mg tablet 25 mg PO BID Xarelto 15 mg tablet 15 mg PO DINNER prednisone 10 mg tablet See Taper PO DAILY Taper: Prednisone Taper 40 mg WITH BREAKFAST for 3 Days and 0 Hour 30 mg WITH BREAKFAST for 3 Days and 0 Hour 20 mg WITH BREAKFAST for 3 Days and 0 Hour 10 mg WITH BREAKFAST for 3 Days and 0 Hour Discontinued aspirin 81 mg Tablet,Delayed Release (Dr/Ec) 81 mg PO DAILY guaifenesin 100 mg/5 mL Liquid 400 mg PO Q4H PRN PRN (Reason: COUGH) Qty: 0 0RF sennosides-docusate sodium [Stool Softener-Stimulant Laxat] 8.6-50 mg Tablet 2 tab PO BID PRN PRN (Reason: Constipation) Qty: 0 0RF [place] Nasal 0.65 % Aerosol,[place] 2 spray NASAL BID PRN PRN (Reason: NASAL DRYNESS) Qty: 0 0RF albuterol sulfate 2.5 mg /3 mL (0.083 %) solution for nebulization 2.5 mg inhalation Q6H.RT ferrous sulfate 325 mg (65 mg iron) tablet 325 mg PO BID Referrals / Follow Up: Felix Mart MD [Primary Care Provider] - Disposition Disposition (needs filled in before D/C Order can be placed): Home Health Service
[2022-03-02] MEDS: MELATONIN 3 MG TABLET PO (22:26)
[2022-03-02] MEDS: cycloBENZAPRine HCl 10 MG Tablet PO (22:26)
[2022-03-02] MEDS: Acetaminophen 500 MG Tablet 1000 MG PO (22:26)
[2022-03-03 05:34] LABS: Hemoglobin 8.3 g/dL (12.0-15.0)
[2022-03-03] MEDS: Levothyroxine 50 MCG Tablet PO (06:11)
[2022-03-03] MEDS: NYSTATIN 500,000 UNIT/5 ML UDC 500000 UNIT PO ×4 (06:11→22:15)
[2022-03-03 07:36] VITALS: O2SAT 96
--- NOTE | 2022-03-03 07:39 | MDS.RN ---
Information for the mds was obtained from review of the clinical record, interview of resident, staff, and direct observation of resident's care.
[2022-03-03 07:57] VITALS: BP 129/72; PULSE 62
[2022-03-03] MEDS: predniSONE 10 MG Tablet PO (07:57)
[2022-03-03] MEDS: Cholecalciferol (VIT D3) 25 MCG TABLET (1,000 UNITS) PO (07:57)
[2022-03-03] MEDS: Metoprolol Tartrate 25 MG Tablet PO ×2 (07:57→17:36)
[2022-03-03] MEDS: dilTIAZem CD 120 MG Capsule PO ×2 (07:58→17:36)
[2022-03-03] MEDS: Amiodarone 200 MG Tablet PO (07:58)
[2022-03-03] MEDS: Furosemide 20 MG Tablet PO (07:58)
[2022-03-03] MEDS: Lisinopril 10 MG Tablet PO ×2 (07:59→17:36)
[2022-03-03] MEDS: Leflunomide 10 MG TABLET 20 MG PO (07:59)
[2022-03-03] MEDS: Multivitamins,Therapeutic Tablet 1 TABLET PO (07:59)
[2022-03-03] MEDS: Menthol/Lanolin/Calamine/Znox 113 GM Tube 1 APPLIC TOPICAL ×2 (08:03→22:14)
[2022-03-03] MEDS: Ferrous Sulfate 325 MG Tablet PO ×2 (12:04→17:35)
[2022-03-03 14:36] VITALS: BP 125/49; PULSE 61; RESP 16; TEMP 36.3; O2SAT 97
--- NOTE | 2022-03-03 14:40 | CHAPLAIN ---
Type of Pastoral Visit ___ Initial Visit ___ Follow-up Visit ___ On-call Visit ___ General Patient Visit ___ Spiritual Assessment ___ Family Conference ___ Bereavement ___ Rapid Response ___ Code Blue ___ Other (describe below) Pastoral Care Referral From ___ Patient ___ Family ___ Nurse ___ Physician ___ Program Development Specialist ___ Counseling Case Manager ___ Other (describe below) Sacrament/Intervention ___ Active listening ___ Anointing ___ Hinduism ___ Bereavement ___ Communion ___ Daniela exploration ___ ___ Life review ___ Prayer ___ Reconciliation ___ Sacrament of Sick ___ Supportive presence ___ Wedding ___ Other (describe below) Pastoral Comments patient is not in the room at time of attempted visit
--- NOTE | 2022-03-03 16:12 | CASEMGMT ---
Social Work Pt is back on O2 continuously. Sent referral to [facility] for O2 via [facility] for DC 03/10. Tia Marquis ,HYPOID GEAR TESTER REGIONAL ADMINISTRATIVE ASSISTANT
[2022-03-03] MEDS: Rivaroxaban 15 MG Tablet PO (17:35)
[2022-03-03 17:36] VITALS: BP 126/57; PULSE 65
[2022-03-03] MEDS: Acetaminophen 500 MG Tablet 1000 MG PO (22:15)
[2022-03-03] MEDS: cycloBENZAPRine HCl 10 MG Tablet PO (22:16)
[2022-03-03] MEDS: MELATONIN 3 MG TABLET PO (22:16)
[2022-03-03] MEDS: guaiFENesin 10 ML UDC (200MG/10ML) 20 ML PO (22:16)
[2022-03-03 22:17] VITALS: PULSE 61; RESP 16; O2SAT 97
[2022-03-03] MEDS: Sodium Chloride 0.65% 1 SPRAY SPRAY.BTL 2 SPRAY NASAL (22:37)
[2022-03-04] MEDS: Levothyroxine 50 MCG Tablet PO (04:57)
[2022-03-04] MEDS: NYSTATIN 500,000 UNIT/5 ML UDC 500000 UNIT PO ×4 (04:57→20:45)
[2022-03-04] MEDS: dilTIAZem CD 120 MG Capsule PO ×2 (07:44→16:57)
[2022-03-04] MEDS: Amiodarone 200 MG Tablet PO (07:44)
[2022-03-04 07:45] VITALS: BP 145/56; PULSE 59
[2022-03-04] MEDS: Furosemide 20 MG Tablet PO (07:45)
[2022-03-04] MEDS: Metoprolol Tartrate 25 MG Tablet PO ×2 (07:45→16:57)
[2022-03-04] MEDS: Multivitamins,Therapeutic Tablet 1 TABLET PO (07:46)
[2022-03-04] MEDS: predniSONE 10 MG Tablet PO (07:46)
[2022-03-04] MEDS: Lisinopril 10 MG Tablet PO ×2 (07:47→16:58)
[2022-03-04] MEDS: Cholecalciferol (VIT D3) 25 MCG TABLET (1,000 UNITS) PO (07:47)
[2022-03-04 10:00] VITALS: RESP 16; O2SAT 98
[2022-03-04] MEDS: Ferrous Sulfate 325 MG Tablet PO ×2 (12:11→16:56)
[2022-03-04] MEDS: Sodium Chloride 0.65% 1 SPRAY SPRAY.BTL 2 SPRAY NASAL ×2 (12:11→20:44)
[2022-03-04 14:42] VITALS: BP 133/58; PULSE 58; RESP 20; TEMP 36.3; O2SAT 95
--- NOTE | 2022-03-04 15:09 | RAD_ITS ---
INDICATION: cough, crackles EXAMINATION/TECHNIQUE: X-RAY - XR Chest 2 Views COMPARISON: 02/15/2022 FINDINGS: LINES/DEVICES: None. LUNGS: Significant improvement in the bilateral infiltrates with residual bilateral airspace disease. No consolidations or pleural effusions. MEDIASTINUM AND CARDIOVASCULAR STRUCTURES: Cardiac silhouette stable within normal limits. BONES AND SOFT TISSUES: No acute changes. Stable scoliosis. RAD/Chest PA and Lateral IMPRESSION: Partial resolution of bilateral infiltrates consistent with resolving infection. Electronically Signed: Dao Torres MD at 16:11 EST ,
[2022-03-04] MEDS: guaiFENesin 10 ML UDC (200MG/10ML) 20 ML PO ×2 (16:53→22:53)
[2022-03-04] MEDS: Acetaminophen 500 MG Tablet 1000 MG PO ×2 (16:54→22:54)
[2022-03-04] MEDS: Rivaroxaban 15 MG Tablet PO (16:56)
[2022-03-04 16:57] VITALS: BP 129/58; PULSE 61
--- NOTE | 2022-03-04 18:29 | NURSING ---
Patient having dry cough x2 days, feels like she has sinus pressure. Some crackles heard in lower lungs on assessment, no increase in 02 needs, she denies shortness of breath. Dr. Hayden updated of above earlier today, orders for cxray, covid swab, resp panel. All completed. Updated Dr Hayden that chest xray done and reviewed results. Updated him that patient feels like she is getting a sinus infection. Order for doxy 100mg BID x7 days, start now.
[2022-03-04] MEDS: Doxycycline 100 MG CAPSULE PO (20:44)
[2022-03-04] MEDS: cycloBENZAPRine HCl 10 MG Tablet PO (22:53)
[2022-03-04] MEDS: MELATONIN 3 MG TABLET PO (22:53)
[2022-03-04] MEDS: Albuterol IH (6.7 GM) 1 PUFF INHALER INHALATION (23:00)
[2022-03-05] MEDS: NYSTATIN 500,000 UNIT/5 ML UDC 500000 UNIT PO ×4 (06:14→22:33)
[2022-03-05] MEDS: Doxycycline 100 MG CAPSULE PO ×2 (06:14→17:53)
[2022-03-05] MEDS: Sodium Chloride 0.65% 1 SPRAY SPRAY.BTL 2 SPRAY NASAL ×2 (06:14→23:32)
[2022-03-05] MEDS: Albuterol IH (6.7 GM) 1 PUFF INHALER INHALATION ×2 (06:14→23:33)
[2022-03-05] MEDS: Levothyroxine 50 MCG Tablet PO (06:14)
[2022-03-05 08:08] LABS: Hematocrit 30.7 % (37-47); Hemoglobin 9.4 g/dL (12.0-15.0)
[2022-03-05 08:13] VITALS: BP 126/61; PULSE 61; RESP 18; O2SAT 98
[2022-03-05] MEDS: Amiodarone 200 MG Tablet PO (08:15)
[2022-03-05] MEDS: dilTIAZem CD 120 MG Capsule PO ×2 (08:15→17:52)
[2022-03-05 08:16] VITALS: PULSE 61
[2022-03-05] MEDS: Metoprolol Tartrate 25 MG Tablet PO ×2 (08:16→17:53)
[2022-03-05] MEDS: Furosemide 20 MG Tablet PO (08:16)
[2022-03-05] MEDS: Multivitamins,Therapeutic Tablet 1 TABLET PO (08:17)
[2022-03-05] MEDS: predniSONE 10 MG Tablet PO (08:17)
[2022-03-05] MEDS: Lisinopril 10 MG Tablet PO ×2 (08:18→17:53)
[2022-03-05] MEDS: Cholecalciferol (VIT D3) 25 MCG TABLET (1,000 UNITS) PO (08:18)
[2022-03-05] MEDS: guaiFENesin 10 ML UDC (200MG/10ML) 20 ML PO ×2 (08:21→22:34)
[2022-03-05] MEDS: Acetaminophen 500 MG Tablet 1000 MG PO ×3 (08:21→23:56)
[2022-03-05] MEDS: Leflunomide 10 MG TABLET 20 MG PO (11:26)
[2022-03-05] MEDS: Ferrous Sulfate 325 MG Tablet PO ×2 (11:27→17:51)
[2022-03-05 16:00] VITALS: BP 145/62; PULSE 61; RESP 16; TEMP 36.4; O2SAT 95
[2022-03-05] MEDS: Rivaroxaban 15 MG Tablet PO (17:52)
[2022-03-05 17:53] VITALS: PULSE 61
[2022-03-05] MEDS: cycloBENZAPRine HCl 10 MG Tablet PO (22:32)
[2022-03-05] MEDS: MELATONIN 3 MG TABLET PO (22:32)
[2022-03-05] MEDS: Menthol/Lanolin/Calamine/Znox 113 GM Tube 1 APPLIC TOPICAL (22:36)
[2022-03-06] MEDS: Levothyroxine 50 MCG Tablet PO (06:22)
[2022-03-06 06:26] VITALS: O2SAT 99
[2022-03-06] MEDS: Sodium Chloride 0.65% 1 SPRAY SPRAY.BTL 2 SPRAY NASAL ×3 (06:29→21:46)
[2022-03-06] MEDS: Albuterol IH (6.7 GM) 1 PUFF INHALER INHALATION ×3 (06:31→21:47)
--- NOTE | 2022-03-06 06:45 | NURSING ---
Pt requesting to only take Synthroid this am as she wants to take the medication on an empty stomach with water. Will report to oncoming nurse.
[2022-03-06] MEDS: NYSTATIN 500,000 UNIT/5 ML UDC 500000 UNIT PO ×4 (08:02→21:46)
[2022-03-06] MEDS: Doxycycline 100 MG CAPSULE PO ×2 (08:02→21:46)
[2022-03-06 08:03] VITALS: BP 152/54; PULSE 57
[2022-03-06] MEDS: Metoprolol Tartrate 25 MG Tablet PO ×2 (08:03→18:25)
[2022-03-06] MEDS: Amiodarone 200 MG Tablet PO (08:03)
[2022-03-06] MEDS: dilTIAZem CD 120 MG Capsule PO ×2 (08:03→18:25)
[2022-03-06] MEDS: Furosemide 20 MG Tablet PO (08:03)
[2022-03-06] MEDS: Multivitamins,Therapeutic Tablet 1 TABLET PO (08:05)
[2022-03-06] MEDS: Cholecalciferol (VIT D3) 25 MCG TABLET (1,000 UNITS) PO (08:06)
[2022-03-06] MEDS: Lisinopril 10 MG Tablet PO ×2 (08:06→18:28)
[2022-03-06 08:10] VITALS: O2SAT 99
[2022-03-06] MEDS: guaiFENesin 10 ML UDC (200MG/10ML) 20 ML PO ×3 (08:13→21:50)
[2022-03-06] MEDS: Acetaminophen 500 MG Tablet 1000 MG PO ×2 (08:17→21:49)
[2022-03-06] MEDS: Ferrous Sulfate 325 MG Tablet PO ×2 (11:30→18:24)
[2022-03-06 14:44] VITALS: BP 120/59; PULSE 57; RESP 16; TEMP 37; O2SAT 99
[2022-03-06] MEDS: Rivaroxaban 15 MG Tablet PO (18:24)
[2022-03-06 18:25] VITALS: BP 145/50; PULSE 60
[2022-03-07] MEDS: Sodium Chloride 0.65% 1 SPRAY SPRAY.BTL 2 SPRAY NASAL (03:48)
[2022-03-07] MEDS: Levothyroxine 50 MCG Tablet PO (03:50)
[2022-03-07 08:48] VITALS: BP 107/50; PULSE 66
[2022-03-07] MEDS: Cholecalciferol (VIT D3) 25 MCG TABLET (1,000 UNITS) PO (08:48)
[2022-03-07] MEDS: Furosemide 20 MG Tablet PO (08:48)
[2022-03-07] MEDS: Metoprolol Tartrate 25 MG Tablet PO ×2 (08:48→17:28)
[2022-03-07] MEDS: dilTIAZem CD 120 MG Capsule PO ×2 (08:48→17:28)
[2022-03-07] MEDS: Lisinopril 10 MG Tablet PO ×2 (08:48→17:34)
[2022-03-07] MEDS: Amiodarone 200 MG Tablet PO (08:48)
[2022-03-07] MEDS: Multivitamins,Therapeutic Tablet 1 TABLET PO (08:48)
[2022-03-07] MEDS: NYSTATIN 500,000 UNIT/5 ML UDC 500000 UNIT PO ×5 (08:48→22:16)
[2022-03-07] MEDS: Acetaminophen 500 MG Tablet 1000 MG PO ×2 (08:52→22:16)
[2022-03-07] MEDS: Leflunomide 10 MG TABLET 20 MG PO (10:53)
[2022-03-07] MEDS: Doxycycline 100 MG CAPSULE PO ×2 (10:54→22:17)
--- NOTE | 2022-03-07 11:04 | CASEMGMT ---
Social Work BIMS () and PHQ-9 (09/28) completed for MDS assessment. Pt reports to feeling tired/having little energy r/t recent RSV dx. Reports to always having trouble sleeping; this is not new. Tia Marquis, WIND FARM OPERATIONS MANAGER LITHOGRAPHIC GENERAL WORKER
[2022-03-07] MEDS: Ferrous Sulfate 325 MG Tablet PO ×2 (12:07→17:28)
[2022-03-07 14:32] VITALS: BP 118/46; PULSE 59; RESP 18; TEMP 36.2; O2SAT 96
--- NOTE | 2022-03-07 16:28 | NURSING ---
pt Oxygen saturation @ 82% on exertion and 89% at rest.
[2022-03-07] MEDS: Rivaroxaban 15 MG Tablet PO (17:27)
[2022-03-07 17:28] VITALS: BP 158/63; PULSE 61
[2022-03-07] MEDS: Menthol/Lanolin/Calamine/Znox 113 GM Tube 1 APPLIC TOPICAL (22:05)
[2022-03-07] MEDS: guaiFENesin 10 ML UDC (200MG/10ML) 20 ML PO (22:16)
[2022-03-07] MEDS: cycloBENZAPRine HCl 10 MG Tablet PO (22:16)
[2022-03-07] MEDS: MELATONIN 3 MG TABLET PO (22:16)
[2022-03-07 22:29] VITALS: RESP 18
[2022-03-07 22:30] VITALS: PULSE 64; RESP 16
[2022-03-08 05:54] LABS: Absolute Lymphocyte Count 1.33 X10^3/uL (0.83-4.51); Absolute Neutrophil Count 3.9 X10^3/uL (2.0-7.7); Basophil# 0.03 X10^3/uL; Basophil% 0.5 % (0-1); Eosinophil# 0.23 X10^3/uL; Eosinophils% 3.8 % (0-5); Hematocrit 29.2 % (37-47); Hemoglobin 8.7 g/dL (12.0-15.0); Lymphocyte # 1.33 X10^3/ul (0.83-4.51); Lymphocyte % 22.1 % (19-41); Mean Corp Hgb Conc 29.8 g/dL (32-36); Mean Corpuscular Hgb 28.8 pg (27.0-32.0); Mean Corpuscular Volume 96.7 fL (81-99); Mean Platelet Vol. 11.5 fl (6.2-12.0); Monocyte# 0.48 X10^3/uL; NRBC Flagged by Analyzer 0.3 % (0-5); Neutrophil # 3.91 X10^3/uL (2.7-7.7); Neutrophil % 64.9 % (47-70); Platelet Count 225 K/mm3 (150-450); RBC Distribution Width CV 17.8 % (11.6-14.6); RBC Distribution Width SD 62.5 fl (35.1-43.9); Red Blood Count 3.02 M/mm3 (4.2-5.4)
[2022-03-08] MEDS: Levothyroxine 50 MCG Tablet PO (06:13)
[2022-03-08 06:27] LABS: Anion Gap 1 (5-15); BUN 22 mg/dL (7-18); BUN/Creat Ratio 24.4 RATIO (10-20); Calcium,Total 8.4 mg/dL (8.5-10.1); Chloride 106 mmol/L (98-107); EST Glomerular Filtration Rate 65 mL/min (>60); Est Glom Filt Rate - Afr Amer 78 mL/min (>60); Estimated Creatinine Clearance 38.79 ml/min; Glucose 96 mg/dL (74-106); Potassium 4.4 mmol/L (3.5-5.1); Sodium Level 140 mmol/L (136-145)
[2022-03-08 07:00] VITALS: O2SAT 92
[2022-03-08] MEDS: dilTIAZem CD 120 MG Capsule PO ×2 (07:46→17:09)
[2022-03-08] MEDS: Amiodarone 200 MG Tablet PO (07:46)
[2022-03-08 07:47] VITALS: BP 166/58; PULSE 64
[2022-03-08] MEDS: Multivitamins,Therapeutic Tablet 1 TABLET PO (07:47)
[2022-03-08] MEDS: Furosemide 20 MG Tablet PO (07:47)
[2022-03-08] MEDS: Metoprolol Tartrate 25 MG Tablet PO ×2 (07:47→17:10)
[2022-03-08] MEDS: Cholecalciferol (VIT D3) 25 MCG TABLET (1,000 UNITS) PO (07:48)
[2022-03-08] MEDS: Lisinopril 10 MG Tablet PO ×2 (07:48→17:12)
[2022-03-08] MEDS: Doxycycline 100 MG CAPSULE PO ×2 (09:41→21:39)
--- NOTE | 2022-03-08 10:51 | NURSING ---
Pt transported down for EGD at this time. NPO this AM. at bedside and aware. choses to stay on TCU during procedure.
[2022-03-08] MEDS: guaiFENesin 10 ML UDC (200MG/10ML) 20 ML PO ×2 (12:08→21:42)
[2022-03-08] MEDS: Ferrous Sulfate 325 MG Tablet PO ×2 (12:09→17:08)
[2022-03-08] MEDS: NYSTATIN 500,000 UNIT/5 ML UDC 500000 UNIT PO ×3 (12:09→21:39)
[2022-03-08 15:15] VITALS: BP 143/62; PULSE 64; RESP 16; TEMP 36.9; O2SAT 97
--- NOTE | 2022-03-08 16:16 | CHAPLAIN ---
Type of Pastoral Visit ___ Initial Visit _x__ Follow-up Visit ___ On-call Visit ___ General Patient Visit ___ Spiritual Assessment ___ Family Conference ___ Bereavement ___ Rapid Response ___ Code Blue ___ Other (describe below) Pastoral Care Referral From _x__ Patient ___ Family ___ Nurse ___ Physician ___ Fish And Game Warden ___ Patient Scheduling Coordinator ___ Other (describe below) Sacrament/Intervention _x__ Active listening ___ Anointing ___ Pentecostal ___ Bereavement ___ Communion ___ Daniela exploration ___ _x__ Life review _x__ Prayer ___ Reconciliation ___ Sacrament of Sick _x__ Supportive presence ___ Wedding ___ Other (describe below) Pastoral Comments patient is talkative and welcoming; pt speaks of plan to go home on Sunday; pt admits that this has been a long process and that her concerns include the possibility of not seeing her alive again since he is in hospice care at [facility]; pt states she has talked to spouse on the phone which was helpful; pt states that she is facing changes including a need to move to [place] when her passes away; pt welcomes the comfort of presence and prayer
[2022-03-08] MEDS: Sodium Chloride 0.65% 1 SPRAY SPRAY.BTL 2 SPRAY NASAL ×2 (17:04→21:38)
[2022-03-08] MEDS: Rivaroxaban 15 MG Tablet PO (17:09)
[2022-03-08 17:10] VITALS: BP 143/51; PULSE 64
[2022-03-08] MEDS: Acetaminophen 500 MG Tablet 1000 MG PO (21:42)
[2022-03-08] MEDS: cycloBENZAPRine HCl 10 MG Tablet PO (21:47)
[2022-03-08] MEDS: MELATONIN 3 MG TABLET PO (21:47)
[2022-03-08] MEDS: MENTHOL 226.8 GM JAR 1 APPLIC TOPICAL (23:14)
[2022-03-08] MEDS: Albuterol IH (6.7 GM) 1 PUFF INHALER INHALATION (23:17)
[2022-03-09] MEDS: Levothyroxine 50 MCG Tablet PO (05:20)
[2022-03-09] MEDS: NYSTATIN 500,000 UNIT/5 ML UDC 500000 UNIT PO ×4 (05:21→21:47)
--- NOTE | 2022-03-09 07:25 | MDS.RN ---
Information for the mds was obtained from review of the clinical record, interview of resident, staff, and direct observation of resident's care.
[2022-03-09] MEDS: Multivitamins,Therapeutic Tablet 1 TABLET PO (08:42)
[2022-03-09] MEDS: Furosemide 20 MG Tablet PO (08:43)
[2022-03-09 08:44] VITALS: BP 134/50; PULSE 67
[2022-03-09] MEDS: Metoprolol Tartrate 25 MG Tablet PO ×2 (08:44→18:01)
[2022-03-09] MEDS: Amiodarone 200 MG Tablet PO (08:45)
[2022-03-09] MEDS: Cholecalciferol (VIT D3) 25 MCG TABLET (1,000 UNITS) PO (08:46)
[2022-03-09] MEDS: dilTIAZem CD 120 MG Capsule PO ×2 (08:46→18:01)
[2022-03-09] MEDS: Lisinopril 10 MG Tablet PO ×2 (08:47→18:01)
[2022-03-09] MEDS: Acetaminophen 500 MG Tablet 1000 MG PO ×2 (09:37→21:46)
[2022-03-09] MEDS: guaiFENesin 10 ML UDC (200MG/10ML) 20 ML PO ×2 (09:38→21:45)
[2022-03-09] MEDS: Sodium Chloride 0.65% 1 SPRAY SPRAY.BTL 2 SPRAY NASAL ×2 (09:41→21:50)
[2022-03-09] MEDS: Leflunomide 10 MG TABLET 20 MG PO (09:41)
[2022-03-09] MEDS: Albuterol IH (6.7 GM) 1 PUFF INHALER INHALATION ×2 (09:41→21:50)
[2022-03-09] MEDS: Doxycycline 100 MG CAPSULE PO ×2 (09:42→21:47)
--- NOTE | 2022-03-09 10:58 | CASEMGMT ---
Social Work BIMS () and PHQ-9 (08/29) completed for MDS assessment. Tia Marquis MSW SYSTEM SAFETY MANAGER
[2022-03-09] MEDS: Ferrous Sulfate 325 MG Tablet PO ×2 (12:09→16:16)
[2022-03-09 16:00] VITALS: BP 135/57; PULSE 67; RESP 16; TEMP 37.2; O2SAT 97
[2022-03-09] MEDS: Rivaroxaban 15 MG Tablet PO (16:15)
[2022-03-09 18:01] VITALS: BP 135/57; PULSE 67
--- NOTE | 2022-03-09 19:29 | NURSING ---
pt aware of positive covid on floor
[2022-03-09] MEDS: cycloBENZAPRine HCl 10 MG Tablet PO (21:46)
[2022-03-09] MEDS: MELATONIN 3 MG TABLET PO (21:46)
[2022-03-09] MEDS: Menthol/Lanolin/Calamine/Znox 113 GM Tube 1 APPLIC TOPICAL (21:55)
[2022-03-09 22:30] VITALS: PULSE 60; RESP 14
[2022-03-10] MEDS: MENTHOL 226.8 GM JAR 1 APPLIC TOPICAL (00:13)
[2022-03-10] MEDS: Levothyroxine 50 MCG Tablet PO (05:12)
[2022-03-10 07:40] VITALS: O2SAT 99
[2022-03-10 07:44] VITALS: BP 134/63; PULSE 61; RESP 16; O2SAT 98
[2022-03-10] MEDS: Benzonatate 100 MG Capsule PO (07:49)
[2022-03-10] MEDS: NYSTATIN 500,000 UNIT/5 ML UDC 500000 UNIT PO (07:49)
[2022-03-10 07:55] VITALS: PULSE 61
[2022-03-10] MEDS: Furosemide 20 MG Tablet PO (07:55)
[2022-03-10] MEDS: Amiodarone 200 MG Tablet PO (07:55)
[2022-03-10] MEDS: Cholecalciferol (VIT D3) 25 MCG TABLET (1,000 UNITS) PO (07:55)
[2022-03-10] MEDS: Metoprolol Tartrate 25 MG Tablet PO (07:55)
[2022-03-10] MEDS: dilTIAZem CD 120 MG Capsule PO (07:55)
[2022-03-10] MEDS: Multivitamins,Therapeutic Tablet 1 TABLET PO (07:55)
[2022-03-10] MEDS: Lisinopril 10 MG Tablet PO (07:55)
[2022-03-10 09:02] VITALS: RESP 16
== END 2022-03-10 10:10 | disposition home health service (06) | DRG 196 ==
PROVIDERS: Admitting Provider Family Medicine Geriatric Medicine; PCP Family Medicine; Visit Provider Family Medicine Geriatric Medicine
DX: J84.9 Interstitial pulmonary disease, unspecified (principal); J96.01 Acute respiratory failure with hypoxia; I50.32 Chronic diastolic (congestive) heart failure; I11.0 Hypertensive heart disease with heart failure; I48.0 Paroxysmal atrial fibrillation; M06.9 Rheumatoid arthritis, unspecified; M35.00 Sjogren syndrome, unspecified; D50.9 Iron deficiency anemia, unspecified; E55.9 Vitamin D deficiency, unspecified; M62.838 Other muscle spasm; E03.9 Hypothyroidism, unspecified; Z79.01 Long term (current) use of anticoagulants; Z79.899 Other long term (current) drug therapy; Z79.890 Hormone replacement therapy
CPT/HCPCS: 36415; 36430; 71046; 80048; 85014; 85018; 85025; 86850; 86900; 86901; 86920; 86922; 87633; 87811; 94640; 97110; 97116; 97162; 97166; 97530; 97535; 97802; J7040; P9016; A4216

== ENCOUNTER → 2022-02-22 | Outpatient (CLI) | payer MEDICARE, OTHER, SELFPAY ==
[2022-02-22 13:05] VITALS: BP 114/52; PULSE 62; RESP 16; TEMP 36.3; O2SAT 100; BMI 27.3
[2022-02-22 13:43] VITALS: BP 115/43; PULSE 62; RESP 16; TEMP 36.8; O2SAT 100
[2022-02-22 14:43] VITALS: BP 127/51; PULSE 63; RESP 16; TEMP 36.6
[2022-02-22 15:26] VITALS: BP 122/53; PULSE 64; RESP 16; TEMP 36.7; O2SAT 98
== END | disposition home or self-care (01) ==
LOC: MEDOUTP 12:59
PROVIDERS: PCP Family Medicine; Referring Provider Family Medicine Geriatric Medicine; Visit Provider Family Medicine Geriatric Medicine
DX: D50.9 Iron deficiency anemia, unspecified (principal)
CPT/HCPCS: 36415; 36430; 86850; 86900; 86901; 86920; 86922; J7040; P9016; A4216

== ENCOUNTER → 2022-07-25 | Outpatient (CLI) | payer MEDICARE, OTHER, SELFPAY ==
--- NOTE | 2022-07-25 12:41 | CDU_ITS ---
Reason For Study: carotid stenosis Rt. Velocities/BP Lt. Velocities/BP Prox CCA 48.5/9.7 cm/sec. Prox CCA 76.2/16.8 cm/sec. Mid CCA 59.8/14.5 cm/sec. Mid CCA 67.4/15.7 cm/sec. Dist CCA 63.6/17.3 cm/sec. Dist CCA 65.2/17.9 cm/sec. Prox ICA 185.1/51.1 cm/sec. Prox ICA 61.9/13.5 cm/sec. Mid ICA 80.2/19.7 cm/sec. Mid ICA 83.9/24.5 cm/sec. Dist ICA 55.9/17.2 cm/sec. Dist ICA 77.3/21.2 cm/sec. Rt. ICA/CCA = 3.1. Lt. ICA/CCA = 1.2. Prox ECA 75.9/9.7 cm/sec. Prox ECA 69.6/6.9 cm/sec. Rt. Vert. 51.9/11.4 cm/sec. Lt. Vert. 89.4/22.3 cm/sec. Right Extracranial There is homogeneous, smooth atherosclerotic plaque noted in the right common carotid artery. There is heterogeneous, irregular atherosclerotic plaque noted in the right internal carotid artery. There is homogeneous, smooth atherosclerotic plaque noted in the right external carotid artery. Antegrade flow is noted in the right vertebral artery. Left Extracranial There is homogeneous, smooth atherosclerotic plaque noted in the left common carotid artery. There is intimal thickening but no significant atherosclerotic plaque noted in the left internal carotid artery. There is heterogeneous, irregular atherosclerotic plaque noted in the left external carotid artery. Antegrade flow is noted in the left vertebral artery. Procedure Carotid Duplex [id number]. This is a Carotid Duplex examination using B-mode, color flow and specral Doppler. The exam was diagnostic. Exam performed in department. VL/Carotid Duplex Ultrasound Interpretation Summary Irregular plaque at the proximal right internal carotid artery with 50 to 69% s tenosis and tortuosity noted. Less than 50% stenosis right external carotid artery Intimal thickening at the proximal left internal carotid artery with less than 50% stenosis Less than 50% stenosis left external carotid artery Patent and antegrade vertebral arteries bilaterally Change from the previous examination of June 06, 2021 Ordering Physician: Brad Lockwood Performed By: Kalin Leal RVT
== END | disposition home or self-care (01) ==
LOC: CVS 12:41
PROVIDERS: PCP Family Medicine; Referring Provider Surgery; Visit Provider Surgery
DX: I65.21 Occlusion and stenosis of right carotid artery (principal)
CPT/HCPCS: 93880

== ENCOUNTER → 2023-05-08 | Outpatient (CLI) | payer MEDICARE, OTHER, SELFPAY ==
--- NOTE | 2023-05-08 14:53 | CT_ITS ---
EXAM: CT Abdomen And Pelvis W/O Contrast Injection HISTORY: KIDNEY STONE, HEMATRURIA TECHNIQUE: Routine protocol CT abdomen and pelvis. IV Contrast: None.. Oral contrast: None. RADIATION DOSAGE (If Supplied By Facility): CTDIvol = ( 6.46 ) mGy, DLP = ( 304.99 ) mGycm Individualized dose optimization techniques were used for this CT. COMPARISON: CT chest 02/13/2022. CT abdomen and pelvis 09/10/2018. LIMITATIONS: None. FINDINGS: LOWER CHEST: Dependent atelectasis in the lung bases. Coronary artery calcifications. LIVER: A few small cysts, similar to prior. GALLBLADDER AND BILIARY TREE: Grossly unremarkable. PANCREAS: Grossly unremarkable. SPLEEN: Grossly unremarkable. ADRENAL GLANDS: Grossly unremarkable. KIDNEYS AND URETERS: Multiple calculi in both kidneys, increased size and number compared to prior. Largest calculus in the right kidney lower pole is 14 x 7 mm. No hydronephrosis. PERITONEUM: No free air. No free fluid. BOWEL: Diverticula throughout the colon. No bowel obstruction. Moderate amount of stool in the colon. APPENDIX: Not identified. VESSELS: Abdominal aorta is normal caliber. REPRODUCTIVE ORGANS: Small calcified uterine fibroids. URINARY BLADDER: Grossly unremarkable. ABDOMINAL WALL: Mildly enlarged right inguinal lymph nodes. BONES: No acute abnormalities. Degenerative changes lumbar spine with minimal anterolisthesis at L5-S1, and scoliosis. CT/Abdomen/Pelvis without Cont IMPRESSION: Bilateral nephrolithiasis. No hydronephrosis. Colonic diverticulosis without evidence of acute diverticulitis. Uterine fibroids. Electronically Signed: Christy Linares MD at 8:15 EST ,
== END | disposition home or self-care (01) ==
LOC: CT 14:51
PROVIDERS: PCP Family Medicine; Referring Provider Urology; Visit Provider Urology
DX: N20.0 Calculus of kidney (principal); R10.9 Unspecified abdominal pain; R31.0 Gross hematuria
CPT/HCPCS: 74176

== ENCOUNTER → 2023-08-31 | Outpatient (CLI) | payer MEDICARE, OTHER, SELFPAY ==
--- NOTE | 2023-08-31 13:00 | CDU_ITS ---
Reason For Study: Carotid Stenosis Rt. Velocities/BP Lt. Velocities/BP Prox CCA 58.3/11.7 cm/sec. Prox CCA 64.6/15.5 cm/sec. Mid CCA 61.0/13.8 cm/sec. Mid CCA 70.7/9.3 cm/sec. Dist CCA 55.9/13.9 cm/sec. Dist CCA 70.7/16.7 cm/sec. Prox ICA 150.9/35.8 cm/sec. Prox ICA 64.6/10.6 cm/sec. Mid ICA 123.5/23.0 cm/sec. Mid ICA 79.3/24.1 cm/sec. Dist ICA 97.9/21.2 cm/sec. Dist ICA 91.6/24.1 cm/sec. Rt. ICA/CCA = 2.5. Lt. ICA/CCA = 1.3. Prox ECA 62.1/6.9 cm/sec. Prox ECA 96.5/6.9 cm/sec. Rt. Vert. 68.6/11.9 cm/sec. Lt. Vert. 54.8/16.7 cm/sec. Right Extracranial There is homogeneous, smooth atherosclerotic plaque noted in the right common carotid artery. There is heterogeneous, irregular atherosclerotic plaque noted in the right internal carotid artery. The right external carotid artery is not well visualized. Antegrade flow is noted in the right vertebral artery. Left Extracranial There is homogeneous, smooth atherosclerotic plaque noted in the left common carotid artery. There is heterogeneous, irregular atherosclerotic plaque noted in the left internal carotid artery. There is heterogeneous, irregular atherosclerotic plaque noted in the left external carotid artery. Antegrade flow is noted in the left vertebral artery. Procedure Carotid Duplex [id number]. This is a Carotid Duplex examination using B-mode, color flow and specral Doppler. The exam was diagnostic. Exam performed in department. VL/Carotid Duplex Ultrasound Interpretation Summary Irregular plaque at the proximal right internal carotid artery with less than 5 0% stenosis based upon new criteria but close to that range Less than 50% stenosis right external carotid artery Irregular plaque at the proximal left internal carotid artery with less than 50 % stenosis Less than 50% stenosis left external carotid artery Patent and antegrade vertebral arteries bilaterally No progression of disease since the previous examination of July 25, 2022 Ordering Physician: Brad Lockwood Referring Physician: Felix aMrt Performed By: Alex Rodriguez RVT
== END | disposition home or self-care (01) ==
LOC: CVS 12:59
PROVIDERS: PCP Family Medicine; Visit Provider Surgery
DX: I65.21 Occlusion and stenosis of right carotid artery (principal)
CPT/HCPCS: 93880

== ENCOUNTER → 2023-11-19 | Outpatient (CLI) | payer MEDICARE, OTHER, SELFPAY ==
--- NOTE | 2023-11-19 15:25 | RAD_ITS ---
EXAM: XR ABDOMEN, 1 VIEW CLINICAL INDICATION: CALCULUS OF KIDNEY CALCULUS OF KIDNEY TECHNIQUE: Frontal supine view of the abdomen/pelvis. COMPARISON: CT scan abdomen and pelvis 05/08/2023. FINDINGS: LOWER THORAX: See below. GASTROINTESTINAL TRACT: There is a 1 cm calcification overlying the upper pole the right kidney and there is a 1.5 cm calcification overlying the lower pole, consistent with renal calculi. Additional smaller renal calculi are present. There is no definite demonstration of left urinary calculus, however, assessment is limited by overlying fecal material. Non-obstructive. No bowel or stomach distention. ORGANS: There are calcifications overlying the pelvis which probably due to combination of phleboliths and uterine leiomyomas. No organomegaly. BONES/JOINTS: There are degenerative changes and scoliosis of the lumbar and visualized lower thoracic spines. SOFT TISSUES: No acute pathology. RAD/Abdomen Single View IMPRESSION: Calcifications overlying the right kidney consistent with renal calculi. Electronically Signed: Bruno Nagel MD at 7:49 EDT ,
== END | disposition home or self-care (01) ==
PROVIDERS: PCP Family Medicine; Referring Provider Urology; Visit Provider Urology
DX: N20.0 Calculus of kidney (principal)
CPT/HCPCS: 74018; 87086

== ENCOUNTER 2024-01-02 05:42 | Day surgery (SDC) | payer MEDICARE, OTHER, SELFPAY ==
[2024-01-02] VITALS (10 sets, daily range): BP systolic 124–192; BP diastolic 55–76; PULSE 51–62; RESP 16–18; TEMP 36.1–36.9; O2SAT 93–99; BMI 28.4
[2024-01-02] MEDS: Lactated Ringers 1,000 ML 15 ML IV (06:22)
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
--- NOTE | 2024-01-02 07:06 | PCM.HP.STD ---
HPI - General General Date of Service: 01/02/24 Chief Complaint: RIGHT KIDNEY STONES HPI Narrative DANNI SORTO, is a 78 F who presents to laser v large stone in the her right kidney and place a stent. [facility] Medical History Wears partial dentures Wears glasses Anemia Shortness of breath on exertion Non-smoker History of edema Leg cramps Cardiology follow-up encounter Acute respiratory failure with hypoxemia Primary atypical interstitial pneumonia (HFpEF) heart failure with preserved ejection fraction Sjogren's disease Lung nodule Carotid stenosis, right Hypothyroidism Essential hypertension Right kidney stone Paroxysmal atrial fibrillation HTN (hypertension) Zoster Rheumatoid arthritis Left ureteral stone Atrial fibrillation with rapid ventricular response Home Medications ?Medication ?Instructions ?Recorded ?Last Taken ?Type multivitamin 1 tab PO DAILY Supplement 10/05/21 Unknown History acetaminophen 500 mg tablet 1,000 mg (2 x 500 mg) PO Q6H PRN 03/02/22 Unknown Rx PRN Pain Score 1-10 #0 tabs benzonatate 100 mg capsule 100 mg PO Q4H PRN PRN COUGH 30 03/10/22 Unknown Rx days #180 caps ascorbic acid (vitamin C) 250 mg 250 mg PO DAILY 12/07/22 Unknown History tablet cholecalciferol (vitamin D3) 25 1,000 unit PO DAILY 12/07/22 Unknown History mcg (1,000 unit) tablet clindamycin HCl 150 mg capsule 600 mg PO ONCE PRN dental procedure 12/07/22 Unknown History clotrimazole-betamethasone 1 1 applic topical BID 12/07/22 Unknown History %-0.05 % topical cream cyclobenzaprine 10 mg tablet 5 mg PO TID PRN muscle spasm 12/07/22 Unknown History leflunomide 20 mg tablet (Arava) 20 mg PO Q OTHER DAY RHEUMATOID 12/07/22 Unknown History ARTHRITIS levothyroxine 50 mcg tablet 50 mcg PO DAILY 12/07/22 01/02/24 History (Synthroid) omega-3 fatty acids 1,000 mg PO DAILY 12/07/22 Unknown History polysaccharide iron complex 150 mg 150 mg PO DAILY 12/07/22 Unknown History iron capsule (Ferrex) magnesium oxide 250 mg PO DAILY 08/16/23 Unknown History prednisone 5 mg tablet 5 mg PO DAILY 08/16/23 Unknown History pyridoxine (vitamin B6) 50 mg 50 mg PO DAILY 08/16/23 Unknown History tablet amiodarone 200 mg tablet 200 mg PO DAILY ARRHYTHMIA #90 tabs 11/15/23 01/02/24 Rx diltiazem HCl 120 mg 120 mg PO BID BLOOD PRESSURE #180 11/29/23 01/02/24 Rx capsule,extended release 24 hr caps metoprolol tartrate 25 mg tablet 25 mg PO BID BLOOD PRESSURE #180 11/29/23 01/02/24 Rx tabs rivaroxaban 15 mg tablet (Xarelto) 15 mg PO DINNER BLOOD THINNER #30 11/29/23 Unknown Rx tabs Allergy/AdvReac Type Severity Reaction Status Date / Time acetic acid (From VoSol) Allergy Unknown unknown Verified 01/02/24 06:08 apixaban (From Eliquis) Allergy Unknown Rash Verified 01/02/24 06:08 bacitracin (From Cortisporin) Allergy Unknown unknown Verified 01/02/24 06:08 brimonidine (From Alphagan P) Allergy Unknown Unknown Verified 01/02/24 06:08 calcium Allergy Unknown unknown Verified 01/02/24 06:08 cefaclor (From Ceclor) Allergy Unknown Unknown Verified 01/02/24 06:08 doxycycline (From Vibramycin) Allergy Unknown Unknown Verified 01/02/24 06:08 hydrocortisone (From Allergy Unknown unknown Verified 01/02/24 06:08 Cortisporin) hydroxychloroquine (From Allergy Unknown unknown Verified 01/02/24 06:08 Plaquenil) mannitol (From Reclast) Allergy Unknown Unknown Verified 01/02/24 06:08 miconazole (From Lotrimin AF) Allergy Unknown unknown Verified 01/02/24 06:08 neomycin (From Cortisporin) Allergy Unknown unknown Verified 01/02/24 06:08 polymyxin B (From Allergy Unknown unknown Verified 01/02/24 06:08 Cortisporin) sulindac Allergy Unknown Rash Verified 01/02/24 06:08 water for injection,sterile Allergy Unknown Unknown Verified 01/02/24 06:08 (From Reclast) zoledronic acid (From Allergy Unknown Unknown Verified 01/02/24 06:08 Reclast) aloe Allergy Rash Verified 01/02/24 06:08 erythromycin base Allergy Unknown Verified 01/02/24 06:08 Penicillins Allergy Unknown Verified 01/02/24 06:08 Sulfa (Sulfonamide Allergy Unknown Verified 01/02/24 06:08 Antibiotics) vitamin E (d-alpha Allergy Rash Verified 01/02/24 06:08 tocopherol) Environmental Allergies: AdvReac Rash Verified 01/02/24 06:08 Uncoded (metals) Family History Grandfather Myocardial infarction Surgical History History of carpal tunnel surgery of left wrist History of cataract extraction with lens replacement History of spinal fusion (~01/2023) History of carpal tunnel surgery of right wrist Cataract extraction status of left eye Status post right knee replacement (~04/02/18) Hx of cystoscopy (04/14/16) History of tubal ligation left breast biposy Social History Smoking Status: Never smoker Electronic Cigarette Use: not used second hand exposure: Yes (Father and workplace exposure) alcohol intake: current alcohol intake frequency: holidays/special occasions only Alcohol type: wine substance use type: does not use caffeine: Yes Type: carbonated beverages and coffee Number of servings: 2 what type of physical activity do you participate in: none seatbelt use: always do you feel safe at home: Yes Vital Signs Vital Signs Vital Signs: 01/02/24 06:10 01/02/24 06:10 01/02/24 06:56 Temperature 98.4 F 98.4 F Temperature Source Temporal Pulse Rate 62 62 Respiratory Rate 16 16 Respiratory Pattern Normal Blood Pressure 192/76 H 192/76 H Blood Pressure Mean 114 Blood Pressure Source Monitor Blood Pressure Position Semi-Fowlers Blood Pressure Location Left Arm Pulse Ox 97 97 Oxygen Delivery Method Room Air Weight Weight: 66 kg Body Mass Index (BMI) 28.4
[2024-01-02] MEDS: Cefazolin 2 GM in Syringe IV (07:27)
--- NOTE | 2024-01-02 08:47 | DCINST_ITS ---
Discharge Instructions Diet Discharge Diet: No restrictions Activity Discharge Activity: Return to Normal Activity and May Not Drive (while taking narcotic pain medications.) Dressing / Incision Call your doctor if you observe: Fever of 101 or Higher Follow Up Care Please Follow Up With: Jovani Marley MD When: Call [phone] for an appointment Test Results: Test results from this visit will be discussed in further detail at your follow- up appointment, if applicable. Discharge Plan Admission Primary Reason for Your Visit: Right kidney stones Attending Provider: Jovani Marley Primary Care Provider: Felix Mart Instructions Patient Instructions: Kidney Stone Ureteroscopy Print Language: Slovenian Discharge Orders/Prescriptions Prescriptions: New ciprofloxacin HCl [Cipro] 500 mg tablet 500 mg PO BID Qty: 6 0RF Continued multivitamin Tablet 1 tab PO DAILY cyclobenzaprine 10 mg tablet 5 mg PO TID PRN (Reason: muscle spasm) levothyroxine [Synthroid] 50 mcg tablet 50 mcg PO DAILY Rx Instructions: Name brand only clotrimazole-betamethasone 1-0.05 % cream 1 applic topical BID clindamycin HCl 150 mg capsule 600 mg PO ONCE PRN (Reason: dental procedure) Rx Instructions: Prior to dental work ascorbic acid (vitamin C) 250 mg tablet 250 mg PO DAILY omega-3 fatty acids Capsule 1,000 mg PO DAILY cholecalciferol (vitamin D3) 25 mcg (1,000 unit) tablet 1,000 unit PO DAILY polysaccharide iron complex [Ferrex 150] 150 mg iron capsule 150 mg PO DAILY prednisone 5 mg tablet 5 mg PO DAILY magnesium oxide 250 mg magnesium tablet 250 mg PO DAILY acetaminophen 500 mg Tablet 1,000 mg PO Q6H PRN PRN (Reason: Pain Score 1-10) Qty: 0 0RF benzonatate 100 mg Capsule 100 mg PO Q4H PRN PRN (Reason: COUGH) 30 Days Qty: 180 0RF leflunomide [Arava] 20 mg tablet 20 mg PO Q OTHER DAY pyridoxine (vitamin B6) 50 mg tablet 50 mg PO DAILY amiodarone 200 mg tablet 200 mg PO DAILY Qty: 90 3RF diltiazem HCl 120 mg capsule,extended release 24hr 120 mg PO BID Qty: 180 3RF Xarelto 15 mg tablet 15 mg PO DINNER Qty: 30 11RF metoprolol tartrate 25 mg tablet 25 mg PO BID Qty: 180 3RF Referrals / Follow Up: Jovani Marley MD [Med Staff - Active Staff] - Felix Mart MD [Primary Care Provider] - Disposition Disposition (needs filled in before D/C Order can be placed): Home, Self Care
--- NOTE | 2024-01-02 08:47 | PCM.OPRPT ---
Operative Report (Standard) Operative Information Surgery/Procedure Performed: Right ureteroscopy laser lithotripsy of stone balloon dilation of the ureter and right stent placement Surgeon: Jovani Marley Date of Procedure: 01/02/24 Procedure Start Time: 07:27 Procedure Stop Time: 08:47 Pre-Operative Diagnosis: multiple large right kidney stones Post-Operative Diagnosis: Same Select all DRAINS/GRAFTS/IMPLANTS that apply: Drains Drain details: 6x he has good 26 stent Type of Anesthesia: General Estimated Blood Loss: none Specimen collected: No Description of surgery: This is a patient who presents to the hospital for treatment for an obstructing ureter calculi. I discussed with the patient how the surgery would be performed and we reviewed the risks and benefits of the surgery. The risk and benefits include the risk of failure to remove the stone completely and that the patient may need multiple procedures. We discussed the risk of an infection, the risk of bleeding. We discussed the very rare risk of serious complicated injury to the ureter. The patient understands that if the stone is not able to be removed safely that we may abort the procedure and place a stent. After full discussion and all questions address with the patient the consent form was signed the side was marked appropriately and the patient was taken back to the operating room for the procedure. The patient was taken back to the operating room. After induction of anesthesia by the anesthesiology team the patient was placed in dorsolithotomy position. The genitals were prepped and draped in usual sterile fashion. I went into the bladder with a 21 German rigid cystourethroscope through the urethra. Upon entering the bladder I inspected the trigone the left and right ureteral orifice and the bladder itself. I then cannulated the Right ureteral orifice and advanced a 0.038 Glidewire up into the kidney. Then over the Glidewire I advanced a 5 Fr Ureteral catheter and performed a retrograde pyelogram with about 10cc of contrast, to delineate the anatomy and identify the stone location. Then a ureteral balloon dilator was advanced over the wire and the distal ureter was balloon dilated with a 12 Fr x 5cm balloon dilator. After 3 minutes of dilating the ureter the balloon was backloaded off the 0.038 glidewire over the 0.038 guidewire I went in with the flexible 7.5fr ureteroscope. I was able to go inside with the 7.5Fr utereroscope and I pulled out the guidewire and then through the ureteroscope I engage the stones in the right kidney with thulium laser lithotripsy using a 200miron laser fiber with energy setting of 2 Hertz and 1.0 J until the stone was lasered into tiny little pieces that should pass on their own. I then backed out of the ureter left the wire in place and then over the 0.038 guidewire I placed a double coiled pigtail ureteral stent. The ureteral stent was advanced over the 0.038 guidewire under direct fluoroscopic guidance and direct cystoscopic visual guidance, once the stent was in good position I pulled the wire and the stent coiled in the kidney and bladder in good position. I then drained the patient's bladder and the cystoscope was removed and the patient was taken back to the recovery room in good position. The patient was given discharge instructions to call the office for instructions on when to come to the office to have the stent removed. 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
--- NOTE | 2024-01-02 08:49 | PCM.POST.ANE ---
Anesthesia: Postop Eval I Current Vital Signs Temperature: 97 F Pulse Rate: 51 Blood Pressure: 124/59 Respiratory Rate: 16 Pulse Ox: 93 Oxygen Delivery Method: Room Air Assessment Airway patent: Yes Spontaneous unlabored respirations: Yes Mental status: Awake and Calm nausea: No Vomiting: No Anesthesia Complication: No Fluid Hydration Crystalloid volume administer (ml): 500 Total IV fluid infused: 500 Progress Note Post-operative progress note: DENIES PAIN & N&V Anesthesia document: Postop Eval 1 completed: Yes
--- NOTE | 2024-01-02 09:00 | POSTOPAN2_ITS ---
Anesthesia Postop Eval I Sum Postop Eval Completion status Anesthesia document: Postop Eval 1 completed: Yes Anesthesia Postop Eval I Summary Anesthesia Postop Eval I Summary: Anesthesia Postop Eval I: Assessment Summary Airway patent Yes 01/02/24 08:54 [email or web address] [email or web address] Spontaneous unlabored Yes 01/02/24 08:54 ATTORNEY [email or web address] respirations Mental status Awake,Calm 01/02/24 08:54 [email or web address] [email or web address] nausea No 01/02/24 08:54 ATTORNEY [email or web address] Vomiting No 01/02/24 08:54 ATTORNEY [email or web address] Anesthesia Postop Eval I: Fluid Summary Crystalloid volume administer 500 01/02/24 08:54 ATTORNEY [email or web address] (ml) Colloids volume administered ( ml) Blood Product volume administered (ml) Total IV fluid infused 500 01/02/24 08:54 [email or web address] [email or web address] Anesthesia Postop Eval I: Summary Notes Anesthesia Complication No 01/02/24 08:54 [email or web address] [email or web address] Anesthesia Complication Comment: Post-operative progress note DENIES PAIN & N&V 01/02/24 08:54 [email or web address] [email or web address].[email or web address] Anesthesia: Postop Eval II Evaluation Mental status: Awake Pain Level: 0 nausea: No Vomiting: No
--- NOTE | 2024-01-02 09:00 | PCM.POSTANE2 ---
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 Spontaneous unlabored Yes 01/02/24 08:54 THERMOMETER [email or web address] [email or web address] respirations Mental status Awake,Calm 01/02/24 08:54 THERMOMETER PRODUCTION [email or web address].SCHR nausea No 01/02/24 08:54 THERMOMETER PRODUCTION [email or web address] Vomiting No 01/02/24 08:54 THERMOMETER PRODUCTION [email or web address] Anesthesia Postop Eval I: Fluid Summary Crystalloid volume administer 500 01/02/24 08:54 THERMOMETER [email or web address] [email or web address].SCHR (ml) Colloids volume administered ( ml) Blood Product volume administered (ml) Total IV fluid infused 500 01/02/24 08:54 THERMOMETER PRODUCTION [email or web address] Anesthesia Postop Eval I: Summary Notes Anesthesia Complication No 01/02/24 08:54 THERMOMETER PRODUCTION [email or web address].SCHR Anesthesia Complication Comment: Post-operative progress note DENIES PAIN & N&V 01/02/24 08:54 THERMOMETER PRODUCTION WORKER.[facility] Anesthesia: Postop Eval II Evaluation Mental status: Awake Pain Level: 0 nausea: No Vomiting: No
[2024-01-02] MEDS: Acetaminophen 325 MG Tablet 650 MG PO (10:46)
== END 2024-01-02 11:15 | disposition home or self-care (01) ==
LOC: SDC 05:42 → AC 05:43
PROVIDERS: PCP Family Medicine; Referring Provider Urology; Visit Provider Urology
PROC: 0TJ98ZZ Inspection of Ureter, Via Natural or Artificial Opening Endoscopic (ICD-10-PCS; CPT 52352; principal; 2024-01-02 07:20)
DX: N20.2 Calculus of kidney with calculus of ureter (principal); I11.0 Hypertensive heart disease with heart failure; I50.32 Chronic diastolic (congestive) heart failure; Z79.890 Hormone replacement therapy; Z79.01 Long term (current) use of anticoagulants; Z79.52 Long term (current) use of systemic steroids
CPT/HCPCS: 52356; 00873; J7120; C1769; C2617; J2405

== ENCOUNTER 2024-03-01 17:22 | Emergency (ER) | payer MEDICARE, OTHER, SELFPAY ==
[2024-03-01 17:25] VITALS: BP 165/87; PULSE 70; RESP 18; TEMP 37; O2SAT 98; BMI 27.8
--- NOTE | 2024-03-01 20:22 | ED.RN ---
states is not going to keep wait to be seen. snacks given prior to d/c
== END 2024-03-01 20:22 | disposition left against medical advice (07) ==
LOC: ED 20:24
PROVIDERS: PCP Family Medicine
DX: Z53.21 Procedure and treatment not carried out due to patient leaving prior to being seen by health care provider (principal)